=== PATIENT | female | born 1960 | race Caucasian/White ===

== ENCOUNTER 2017-03-27 02:35 | Emergency (ER) | payer OTHER ==
[2017-03-27 02:41] VITALS: BP 191/122
[2017-03-27] MEDS ORDERED: Ketorolac 30 MG/ML SDV IM ONE (02:51)
[2017-03-27] MEDS ORDERED: Diazepam 5 MG Tab PO ONE (02:51)
[2017-03-27] MEDS ORDERED: HYDROmorphone 1 MG/ML Syringe IM ONE (02:51)
--- NOTE | 2017-03-27 02:57 | EDM.PDOC ---
[id number]: BACK PAIN Time Seen by Provider: 03/27/17 02:45 Source of Information: Reports: Patient History Limitations: Reports: No Limitations - History of Present Illness INITIAL COMMENTS - FREE TEXT/NARRATIVE: 56 y/o F with back pain. States she gets back spasms occasionally. It happens about once a year. Tonight a few hours ago she started to get severe spasms in her mid-back area. No provoking factor. No injury. No recent heavy lifting. She has severe pain in mid back,no exacerbating or relieving factors. No fever/ recent illness. No numbness/weakness/urinary symptoms. Left Lower Back Pain Score (Numeric/FACES): 10 - Related Data Allergies Allergy/AdvReac Type Severity Reaction Status Date / Time Penicillins Allergy Rash Verified 03/27/17 02:39 Home Meds: Home Meds Aspirin 325 mg PO DAILY 05/05/14 [History] Acetaminophen/HYDROcodone [Eunice 325-5 MG] 1 tab PO Q6H PRN #15 tablet 03/27/17 [Rx] Cyclobenzaprine HCl 10 mg PO BID PRN #20 tablet 03/27/17 [Rx] Ibuprofen 600 mg PO QID PRN #40 tablet 03/27/17 [Rx] Past Medical History HEENT History: Reports: Impaired Vision Other HEENT History: wears glasses Cardiovascular History: Reports: High Cholesterol, Hypertension, [place], 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: - Past Surgical History Female Surgical History: Reports: Section Other Musculoskeletal Surgeries/Procedures:: back surgery [address] Ramírez in [place] Social & Family History - Tobacco Use Smoking Status *Q: Current Every Day Smoker Years of Tobacco use: 40 Packs/Tins Daily: 1 - Alcohol Use Days Per Week of Alcohol Use: 0 Number of Drinks Per Day: 0 Total Drinks Per Week: 0 - Recreational Drug Use Recreational Drug Use: No Drug Use in Last 12 Months: No ED ROS GENERAL - Review of Systems Review Of Systems: See Below Constitutional: Denies: Fever Respiratory: Denies: Cough Cardiovascular: Denies: Chest Pain GI/Abdominal: Denies: Abdominal Pain Musculoskeletal: Reports: Back Pain Neurological: Denies: Numbness ED EXAM, UPPER BACK/NECK PAIN - Physical Exam Exam: See Below Exam Limited By: No Limitations General Appearance: Alert, WD/WN, Moderate Distress Eye Exam: Bilateral Eye: Normal Inspection Ears Exam: Normal External Exam Nose Exam: Normal Inspection Throat/Mouth Exam: Normal Inspection, Normal Voice, No Airway Compromise Head Exam: Atraumatic, Normocephalic Neck Exam: Non-Tender, Full Range of Motion, Normal Alignment, Normal Inspection Cardiovascular/Respiratory: No Respiratory Distress Back Exam: Normal Inspection, Vertebral Tenderness, Other (low T spine/upper L spine). No: CVA Tenderness (L), CVA Tenderness (R) Extremities: Normal Inspection Neurologic: No Motor/Sensory Deficits, Normal Mood/Affect, Oriented x 3 Psychiatric: Normal Affect, Normal Mood Skin Exam: Normal Color, Warm/Dry Course - Vital Signs Last Recorded V/S: Last Vital Signs Temp 36.0 C 03/27/17 02:39 Pulse 114 H 03/27/17 02:39 Resp 18 03/27/17 02:39 BP 191/122 H 03/27/17 02:39 Pulse Ox 96 03/27/17 02:39 - Orders/Labs/Meds Meds: Medications Discontinued Medications Generic Name Dose Route Start Last Admin Trade Name Kamlesh PRN Reason Stop Dose Admin Diazepam 5 mg 03/27/17 02:51 03/27/17 02:57 Valium. PO 03/27/17 02:52 5 mg ONETIME ONE Administration Hydromorphone HCl 1 mg 03/27/17 02:51 03/27/17 02:58 Dilaudid IM 03/27/17 02:52 1 mg ONETIME ONE Administration Ketorolac Tromethamine 30 mg 03/27/17 02:51 03/27/17 03:01 Toradol IM 03/27/17 02:52 30 mg ONETIME ONE Administration Oxycodone/Acetaminophen 1 tab 03/27/17 03:24 03/27/17 03:35 Percocet 325-5 Mg PO 1 tab ONETIME PRN Administration Pain - Re-Assessments/Exams Free Text/Narrative Re-Assessment/Exam: 03/27/17 07:09 better after meds, discussed need for f/u and return precautiosn Departure - Departure Time of Disposition: 04:00 Disposition: Home, Self-Care 01 Clinical Impression: Back pain Qualifiers: Back pain location: thoracic back pain Chronicity: acute Back pain laterality: midline Qualified Code(s): M54.6 - Pain in thoracic spine - Discharge Information Prescriptions: Acetaminophen/HYDROcodone [Eunice 325-5 MG] 1 tab PO Q6H PRN #15 tablet PRN Reason: Pain Cyclobenzaprine HCl 10 mg PO BID PRN #20 tablet PRN Reason: Muscle Spasm Ibuprofen 600 mg PO QID PRN #40 tablet PRN Reason: Pain Instructions: Back Pain, Adult, [id number] Referrals: Ruby Casey DO [Primary Care Provider] - Forms: ED Department Discharge, ED Return to Work/School Form Additional Instructions: 1. Take ibuprofen for pain. Take norco for severe pain. Take cyclobenzaprine for muscle spasms. 2. No driving or working while taking norco or cyclobenzaprine - these medications may cause drowsiness or dizziness. 3. Follow up with your primary care doctor as soon as possible for further care.
[2017-03-27] MEDS ORDERED: Acetaminophen/oxyCODONE 325-5 MG Tab PO PRN (03:24)
== END 2017-03-27 04:15 | disposition home or self-care (01) ==
LOC: JD.ED 02:35
DX: M54.6 Pain in thoracic spine (principal); E78.00 Pure hypercholesterolemia, unspecified; I10 Essential (primary) hypertension; I25.2 Old myocardial infarction; F17.210 Nicotine dependence, cigarettes, uncomplicated; Z88.0 Allergy status to penicillin; Z79.82 Long term (current) use of aspirin
CPT/HCPCS: 96372; 96374; 99283; A9270; J1170; J1885

== ENCOUNTER 2020-08-09 20:25 | Emergency (ER) | payer OTHER ==
[2020-08-09 20:32] VITALS: BP 88/38; PULSE 59
[2020-08-09] MEDS ORDERED: Sodium Chloride 0.9% 1,000 ML ONE (20:36)
--- NOTE | 2020-08-09 20:40 | EDM.PDOC ---
ED HPI GENERAL MEDICAL PROBLEM - General Chief Complaint: Respiratory Problem Stated Complaint: [facility] Time Seen by Provider: 08/09/20 20:36 Source of Information: Reports: Patient, EMS, RN Notes Reviewed - History of Present Illness INITIAL COMMENTS - FREE TEXT/NARRATIVE: 60 yr old female that comes in by EMS with sx of dyspnea worsening over the past 2 days. She has been coughing. No known fever or chills. She denies hx of asthma or COPD but does smoke. No current chest or abd pain. 23:45. Daughter give further hx. She was extremely short of breath this past Monday, 2 1/2 days ago. EMS called out to scene, gave her 1 or 2 neb treatments, with that she was able to breath better, refused transport. Her daughter states she is a "heavy smoker". Hx of NV about 8 yrs ago. - Related Data Allergies Allergy/AdvReac Type Severity Reaction Status Date / Time Penicillins Allergy Rash Verified 08/09/20 20:32 Home Meds: Home Meds Aspirin 325 mg PO DAILY 05/05/14 [History] Acetaminophen/HYDROcodone [[place] 325-5 MG] 1 tab PO Q6H PRN #15 tablet 03/27/17 [Rx] Cyclobenzaprine HCl 10 mg PO BID PRN #20 tablet 03/27/17 [Rx] Ibuprofen 600 mg PO QID PRN #40 tablet 03/27/17 [Rx] Furosemide [Lasix] 20 mg PO DAILY #30 tab 08/10/20 [Rx] predniSONE [Prednisone] 50 mg PO DAILY #5 tablet 08/10/20 [Rx] Past Medical History HEENT History: Reports: Impaired Vision Other HEENT History: wears glasses Cardiovascular History: Reports: High Cholesterol, Hypertension, [place], Stents 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: - Past Surgical History Female Surgical History: Reports: Section Other Musculoskeletal Surgeries/Procedures:: back surgery [address] Ramírez in [place] Social & Family History - Tobacco Use Tobacco Use Status *Q: Unknown Ever Used Tobacco Second Hand Smoke Exposure: No - Caffeine Use Caffeine Use: Reports: None - Recreational Drug Use Recreational Drug Use: No ED ROS GENERAL - Review of Systems Review Of Systems: See Below Constitutional: Denies: Fever, Chills, Diaphoresis HEENT: Reports: No Symptoms Respiratory: Reports: Shortness of Breath, Wheezing, Cough ED EXAM, GENERAL - Physical Exam Exam: See Below General Appearance: Other (very short of breath on arrival to ED) Eye Exam: Bilateral Eye: PERRL Throat/Mouth: Normal Inspection Head: Atraumatic Neck: Supple, Other (No JVD) Respiratory/Chest: Respiratory Distress, Wheezing (moderate bilat), Accessory Muscle Use. No: Rhonchi Cardiovascular: Regular Rate, Rhythm GI/Abdominal: Soft, Non-Tender Extremities: Non-Tender, Pedal Edema (Mild, L greater than R). No: Leg Pain, Increased Warmth, Redness Neurological: Alert, Oriented, No Motor/Sensory Deficits Skin Exam: Warm, Dry, Normal Color #1 Interpretation EKG Date: 08/10/20 Rhythm: NSR [place]: Normal P-Wave: Present QRS: Normal ST-T: Depressed (minimal st depression inferior, ant. and lateral leads) Course - Vital Signs Last Recorded V/S: Last Vital Signs Temp 97.5 F 08/09/20 20:29 Pulse 59 L 08/09/20 20:29 Resp 20 08/09/20 20:29 BP 88/38 L 08/09/20 20:29 Pulse Ox 93 L 08/09/20 22:59 - Orders/Labs/Meds Labs: Laboratory Tests 08/09/20 08/09/20 08/09/20 Range/Units 21:05 21:05 21:05 WBC 8.61 (3.98-10.04) K/mm3 RBC 2.23 L (3.98-5.22) M/mm3 Hgb 8.7 L (11.2-15.7) gm/dl Hct 27.3 L (34.1-44.9) % MCV 122.4 H (79.4-94.8) fl MCH 39.0 H (25.6-32.2) pg MCHC 31.9 L (32.2-35.5) g/dl RDW Std Deviation 71.8 H (36.4-46.3) fL Plt Count 127 L (182-369) K/mm3 MPV 11.5 (9.4-12.3) fl Neut % (Auto) 61.9 (34.0-71.1) % Lymph % (Auto) 24.3 (19.3-51.7) % [place] % (Auto) 9.8 (4.7-12.5) % Eos % (Auto) 2.6 (0.7-5.8) Baso % (Auto) 1.2 (0.1-1.2) % Neut # (Auto) 5.34 (1.56-6.13) K/mm3 Lymph # (Auto) 2.09 (1.18-3.74) K/mm3 [place] # (Auto) 0.84 H (0.24-0.36) K/mm3 Eos # (Auto) 0.22 (0.04-0.36) K/mm3 Baso # (Auto) 0.10 H (0.01-0.08) K/mm3 Manual Slide Review Abnormal smear D-Dimer, Quantitative (0.19-0.50) mg/L Puncture Site ABG pH (7.35-7.45) ABG pCO2 (35.0-45.0) mmHg ABG pO2 (80.0-100.0) mmHg ABG HCO3 (22.0-26.0) meq/L ABG O2 Saturation (96.0-97.0) % ABG Base Excess (-2-2.0) Dario Test A-a Gradient mmHg O2 Delivery Device Oxygen Flow Rate FiO2 (21.00-100.00) % Sodium 131 L (136-145) mEq/L Potassium 2.9 L (3.5-5.1) mEq/L Chloride 93 L (98-107) mEq/L Carbon Dioxide 28 (21-32) mEq/L Anion Gap 12.9 (5-15) BUN 12 (7-18) mg/dL Creatinine 1.4 H (0.55-1.02) mg/dL Est Cr Clr Drug Dosing 34.91 mL/min Estimated GFR (MDRD) 38 (>60) mL/min BUN/Creatinine Ratio 8.6 L (14-18) Glucose 103 (80-115) mg/dL Calcium 8.8 (8.5-10.1) mg/dL Ferritin (8-252) ng/ml Total Bilirubin 1.4 H (0.2-1.0) mg/dL AST 143 H (15-37) U/L ALT 26 (14-59) U/L Alkaline Phosphatase 207 H (46-116) U/L Lactate Dehydrogenase 234 (81-234) U/L Troponin I (0.00-0.056) ng/mL C-Reactive Protein 5.2 H* (<1.0) mg/dL NT-Pro-B Natriuret Pep (0-125) pg/mL Total Protein 7.6 (6.4-8.2) g/dl Albumin 2.9 L (3.4-5.0) g/dl Globulin 4.7 gm/dL Albumin/Globulin Ratio 0.6 L (1-2) SARS-CoV-2 RNA (DEXTER) (NEGATIVE) 08/09/20 08/09/20 08/09/20 Range/Units 21:05 21:05 21:05 WBC (3.98-10.04) K/mm3 RBC (3.98-5.22) M/mm3 Hgb (11.2-15.7) gm/dl Hct (34.1-44.9) % MCV (79.4-94.8) fl MCH (25.6-32.2) pg MCHC (32.2-35.5) g/dl RDW Std Deviation (36.4-46.3) fL Plt Count (182-369) K/mm3 MPV (9.4-12.3) fl Neut % (Auto) (34.0-71.1) % Lymph % (Auto) (19.3-51.7) % [place] % (Auto) (4.7-12.5) % Eos % (Auto) (0.7-5.8) Baso % (Auto) (0.1-1.2) % Neut # (Auto) (1.56-6.13) K/mm3 Lymph # (Auto) (1.18-3.74) K/mm3 [place] # (Auto) (0.24-0.36) K/mm3 Eos # (Auto) (0.04-0.36) K/mm3 Baso # (Auto) (0.01-0.08) K/mm3 Manual Slide Review D-Dimer, Quantitative 1.06 H (0.19-0.50) mg/L Puncture Site ABG pH (7.35-7.45) ABG pCO2 (35.0-45.0) mmHg ABG pO2 (80.0-100.0) mmHg ABG HCO3 (22.0-26.0) meq/L ABG O2 Saturation (96.0-97.0) % ABG Base Excess (-2-2.0) Dario Test A-a Gradient mmHg O2 Delivery Device Oxygen Flow Rate FiO2 (21.00-100.00) % Sodium (136-145) mEq/L Potassium (3.5-5.1) mEq/L Chloride (98-107) mEq/L Carbon Dioxide (21-32) mEq/L Anion Gap (5-15) BUN (7-18) mg/dL Creatinine (0.55-1.02) mg/dL Est Cr Clr Drug Dosing mL/min Estimated GFR (MDRD) (>60) mL/min BUN/Creatinine Ratio (14-18) Glucose (80-115) mg/dL Calcium (8.5-10.1) mg/dL Ferritin 842 H (8-252) ng/ml Total Bilirubin (0.2-1.0) mg/dL AST (15-37) U/L ALT (14-59) U/L Alkaline Phosphatase (46-116) U/L Lactate Dehydrogenase (81-234) U/L Troponin I (0.00-0.056) ng/mL C-Reactive Protein (<1.0) mg/dL NT-Pro-B Natriuret Pep 794 H (0-125) pg/mL Total Protein (6.4-8.2) g/dl Albumin (3.4-5.0) g/dl Globulin gm/dL Albumin/Globulin Ratio (1-2) SARS-CoV-2 RNA (DEXTER) (NEGATIVE) 08/09/20 08/09/20 08/09/20 Range/Units 21:05 21:18 23:39 WBC (3.98-10.04) K/mm3 RBC (3.98-5.22) M/mm3 Hgb (11.2-15.7) gm/dl Hct (34.1-44.9) % MCV (79.4-94.8) fl MCH (25.6-32.2) pg MCHC (32.2-35.5) g/dl RDW Std Deviation (36.4-46.3) fL Plt Count (182-369) K/mm3 MPV (9.4-12.3) fl Neut % (Auto) (34.0-71.1) % Lymph % (Auto) (19.3-51.7) % [place] % (Auto) (4.7-12.5) % Eos % (Auto) (0.7-5.8) Baso % (Auto) (0.1-1.2) % Neut # (Auto) (1.56-6.13) K/mm3 Lymph # (Auto) (1.18-3.74) K/mm3 [place] # (Auto) (0.24-0.36) K/mm3 Eos # (Auto) (0.04-0.36) K/mm3 Baso # (Auto) (0.01-0.08) K/mm3 Manual Slide Review D-Dimer, Quantitative (0.19-0.50) mg/L Puncture Site Lt radial ABG pH 7.37 (7.35-7.45) ABG pCO2 45.6 H (35.0-45.0) mmHg ABG pO2 48.0 L (80.0-100.0) mmHg ABG HCO3 25.8 (22.0-26.0) meq/L ABG O2 Saturation 71.4 L (96.0-97.0) % ABG Base Excess 1.0 (-2-2.0) Dario Test Positive A-a Gradient 45 mmHg O2 Delivery Device Room air Oxygen Flow Rate 0.0 FiO2 21.00 (21.00-100.00) % Sodium (136-145) mEq/L Potassium (3.5-5.1) mEq/L Chloride (98-107) mEq/L Carbon Dioxide (21-32) mEq/L Anion Gap (5-15) BUN (7-18) mg/dL Creatinine (0.55-1.02) mg/dL Est Cr Clr Drug Dosing mL/min Estimated GFR (MDRD) (>60) mL/min BUN/Creatinine Ratio (14-18) Glucose (80-115) mg/dL Calcium (8.5-10.1) mg/dL Ferritin (8-252) ng/ml Total Bilirubin (0.2-1.0) mg/dL AST (15-37) U/L ALT (14-59) U/L Alkaline Phosphatase (46-116) U/L Lactate Dehydrogenase (81-234) U/L Troponin I 0.067 H* (0.00-0.056) ng/mL C-Reactive Protein (<1.0) mg/dL NT-Pro-B Natriuret Pep (0-125) pg/mL Total Protein (6.4-8.2) g/dl Albumin (3.4-5.0) g/dl Globulin gm/dL Albumin/Globulin Ratio (1-2) SARS-CoV-2 RNA (DEXTER) Negative (NEGATIVE) 08/10/20 08/10/20 Range/Units 00:50 05:40 WBC (3.98-10.04) K/mm3 RBC (3.98-5.22) M/mm3 Hgb (11.2-15.7) gm/dl Hct (34.1-44.9) % MCV (79.4-94.8) fl MCH (25.6-32.2) pg MCHC (32.2-35.5) g/dl RDW Std Deviation (36.4-46.3) fL Plt Count (182-369) K/mm3 MPV (9.4-12.3) fl Neut % (Auto) (34.0-71.1) % Lymph % (Auto) (19.3-51.7) % [place] % (Auto) (4.7-12.5) % Eos % (Auto) (0.7-5.8) Baso % (Auto) (0.1-1.2) % Neut # (Auto) (1.56-6.13) K/mm3 Lymph # (Auto) (1.18-3.74) K/mm3 [place] # (Auto) (0.24-0.36) K/mm3 Eos # (Auto) (0.04-0.36) K/mm3 Baso # (Auto) (0.01-0.08) K/mm3 Manual Slide Review D-Dimer, Quantitative (0.19-0.50) mg/L Puncture Site ABG pH (7.35-7.45) ABG pCO2 (35.0-45.0) mmHg ABG pO2 (80.0-100.0) mmHg ABG HCO3 (22.0-26.0) meq/L ABG O2 Saturation (96.0-97.0) % ABG Base Excess (-2-2.0) Dario Test A-a Gradient mmHg O2 Delivery Device Oxygen Flow Rate FiO2 (21.00-100.00) % Sodium (136-145) mEq/L Potassium (3.5-5.1) mEq/L Chloride (98-107) mEq/L Carbon Dioxide (21-32) mEq/L Anion Gap (5-15) BUN (7-18) mg/dL Creatinine (0.55-1.02) mg/dL Est Cr Clr Drug Dosing mL/min Estimated GFR (MDRD) (>60) mL/min BUN/Creatinine Ratio (14-18) Glucose (80-115) mg/dL Calcium (8.5-10.1) mg/dL Ferritin (8-252) ng/ml Total Bilirubin (0.2-1.0) mg/dL AST (15-37) U/L ALT (14-59) U/L Alkaline Phosphatase (46-116) U/L Lactate Dehydrogenase (81-234) U/L Troponin I 0.053 0.032 (0.00-0.056) ng/mL C-Reactive Protein (<1.0) mg/dL NT-Pro-B Natriuret Pep (0-125) pg/mL Total Protein (6.4-8.2) g/dl Albumin (3.4-5.0) g/dl Globulin gm/dL Albumin/Globulin Ratio (1-2) SARS-CoV-2 RNA (DEXTER) (NEGATIVE) Meds: Medications Discontinued Medications Generic Name Dose Route Start Last Admin Trade Name Freq PRN Reason Stop Dose Admin Albuterol 2.5 mg 08/09/20 20:54 08/09/20 21:01 Proventil Neb Soln NEB 08/09/20 20:55 2.5 mg ONETIME ONE Administration Albuterol 2.5 mg 08/10/20 05:27 08/10/20 05:32 Proventil Neb Soln NEB 08/10/20 05:28 2.5 mg ONETIME ONE Administration Albuterol/Ipratropium 3 ml 08/09/20 22:22 08/09/20 22:58 Duoneb 3.0-0.5 Mg/3 Ml NEB 08/09/20 22:23 3 ml ONETIME ONE Administration Albuterol/Ipratropium 3 ml 08/10/20 06:37 08/10/20 06:45 Duoneb 3.0-0.5 Mg/3 Ml NEB 08/10/20 06:38 3 ml ONETIME ONE Administration Furosemide 40 mg 08/10/20 00:30 08/10/20 00:48 Lasix IVPUSH 08/10/20 00:31 40 mg NOW ONE Administration Furosemide 20 mg 08/10/20 06:37 08/10/20 06:44 Lasix IVPUSH 08/10/20 06:38 20 mg NOW ONE Administration Sodium Chloride Confirm 08/09/20 20:36 08/09/20 21:11 Normal Saline Administered 08/09/20 20:37 Not Given Dose 1,000 mls @ as directed .ROUTE .STK-MED ONE Sodium Chloride 1,000 mls @ 999 mls/hr 08/09/20 21:10 08/09/20 21:11 Normal Saline IV 08/09/20 22:10 999 mls/hr .BOLUS ONE Administration Potassium Chloride 10 meq/ 100 mls @ 50 mls/hr 08/09/20 22:04 08/09/20 22:11 Premix IV 08/10/20 00:03 50 mls/hr ASDIRECTED ONE Administration Sodium Chloride 100 mls @ 60 mls/hr 08/09/20 23:15 08/09/20 23:04 Normal Saline IV 60 mls/hr ASDIRECTED FROY Administration Potassium Chloride 10 meq/ 100 mls @ 50 mls/hr 08/09/20 23:15 08/10/20 00:48 Premix IV 08/10/20 01:14 50 mls/hr ASDIRECTED ONE Administration Sodium Chloride 1,000 mls @ 150 mls/hr 08/09/20 23:30 08/10/20 00:49 Normal Saline IV 150 mls/hr ASDIRECTED FROY Administration Potassium Chloride 10 meq/ 100 mls @ 50 mls/hr 08/10/20 01:52 08/10/20 04:19 Premix IV 08/10/20 03:51 50 mls/hr ASDIRECTED ONE Administration Iopamidol 50 ml 08/09/20 23:03 08/09/20 23:04 Isovue-370 (76%) IVPUSH 08/09/20 23:04 50 ml ONETIME ONE Administration Methylprednisolone Sodium Succinate 125 mg 08/09/20 20:56 08/09/20 21:09 Solu-Medrol IVPUSH 08/09/20 20:57 125 mg ONETIME ONE Administration Prednisone 40 mg 08/10/20 06:37 08/10/20 06:44 Prednisone PO 08/10/20 06:38 40 mg ONETIME ONE Administration - Re-Assessments/Exams Free Text/Narrative Re-Assessment/Exam: 08/09/20. 11:45. K+ came back very low at 2.9, CXR showed cardiomegally, mild pul jonel., no obvious infiltrate, 02 sats 87 to 88 on arrival, gave an albuterol neb, solumedrol IV, followed by a duoneb. D Dimer 1.1. Did a CT angio of chest which shows fibrotic changes, no PE, emphysematous changes, scattered ground glass opacity changes, covid screen did come back neg. Trop elevated at .067. Her wheezing cleared after the neb treatments. However her oxygen sats dropped into the 70's when we turned her O2 off, hypoxia confirmed with ABG's, PO2 only 46 on room air. Pt refuses hospital admission. Will check a repeat trop. Have also ordered lasix 40 mg IV. 13:00. repeat trop is improved at .053. Sleeping, moving air comfortably, sats 96 % 3 L NC. Pt is still refusing hospital admission. Will repeat trop at 6 AM. If stable or improving will consider home discharge with home oxygen. Low hgb of 8.7 noted. Went in to do rectal, she refused. Denies recent black or tarry stools, denies gross rectal blood. 08/10/20 06:39 repeat trop continues to improve at .032. No chest pain. Breathing comfortably at 2 L NC but sats drop into 70's and low 80's when off oxygen. P02 46 room air as noted above with ABG's. She once again has been offered hospital admission, she once again refuses stating strongly that she "needs to go home". Have made plans to have Debora Abdullahi set her up with home 02, will have her nurse call them at 7:00. Will start her on lasix 20 mg q AM for now, prednisone 50 mg q AM for 3 days and than 25 mg Q AM for 2 days. Departure - Departure Time of Disposition: 07:00 Disposition: Home, Self-Care Condition: Fair Clinical Impression: Hypoxia COPD (chronic obstructive pulmonary disease) Qualifiers: COPD type: unspecified COPD Qualified Code(s): J44.9 - Chronic obstructive pulmonary disease, unspecified CHF (congestive heart failure) Qualifiers: Heart failure type: combined systolic and diastolic - Discharge Information Prescriptions: Furosemide [Lasix] 20 mg PO DAILY #30 tab predniSONE [Prednisone] 50 mg PO DAILY #5 tablet Instructions: Chronic Obstructive Pulmonary Disease Exacerbation, [id number], Hypoxia Referrals: Ruby Casey DO [Primary Care Provider] - Forms: ED Department Discharge Additional Instructions: You have been offered Hospital admission but have chosen to go home on oxygen. Prednisone 50 mg q AM for the next 4 days and than prednisone 25 mg q AM for 2 days. Lasix 20 mg q AM. Prescriptions have been sent to [facility] at the [facility] [place]. Try hard to stop or at least to reduce your smoking. See Dr Hubbard at the [facility] tomorrow or for recheck. Home oxygen at 2 L NC. Return to ED if your breathing gets difficulty again or if symptoms otherwise worsening in any way. Sepsis Event Note (ED) - Evaluation Sepsis Screening Result: No Definite Risk
[2020-08-09] MEDS ORDERED: Albuterol 0.083% 2.5 MG/3 ML Neb Soln NEB ONE (20:54)
[2020-08-09] MEDS ORDERED: methylPREDNISolone Sodium Succinate 125 MG/2 ML SDV IVPUSH ONE (20:56)
[2020-08-09] MEDS ORDERED: Sodium Chloride 0.9% 1,000 ML IV ONE (21:10)
[2020-08-09] MEDS ORDERED: Potassium Chloride 10 MEQ in Premix Bag 1 BAG IV ONE ×2 (22:04→23:15)
[2020-08-09] MEDS ORDERED: Albuterol/Ipratropium 3.0-0.5 MG/3 ML Neb Soln NEB ONE (22:22)
[2020-08-09] MEDS ORDERED: Iopamidol 755 MG/ML 50 ML Bottle IVPUSH ONE (23:03)
[2020-08-09] MEDS ORDERED: Sodium Chloride 0.9% 100 ML IV SCH (23:15)
[2020-08-09] MEDS ORDERED: Sodium Chloride 0.9% 1,000 ML IV SCH (23:30)
[2020-08-10] MEDS ORDERED: Furosemide 40 MG/4 ML VIAL IVPUSH ONE ×2 (00:30→06:37)
[2020-08-10] MEDS ORDERED: Potassium Chloride 10 MEQ in Premix Bag 1 BAG IV ONE (01:52)
[2020-08-10] MEDS ORDERED: Albuterol 0.083% 2.5 MG/3 ML Neb Soln NEB ONE (05:27)
[2020-08-10] MEDS ORDERED: predniSONE 20 MG Tab PO ONE (06:37)
[2020-08-10] MEDS ORDERED: Albuterol/Ipratropium 3.0-0.5 MG/3 ML Neb Soln NEB ONE (06:37)
--- NOTE | 2020-08-10 10:20 | CR ---
Chest: Portable view of the chest was obtained. Comparison: Prior chest x-ray of 02/15/20. Heart size is slightly prominent. Upper mediastinum is within normal limits. Mild areas of patchy density are seen within the right lung base as well as left lung base. Lungs otherwise are clear. Bony structures are grossly intact. Impression: 1. Patchy areas of increased density within both lung bases. 2. Heart size at the upper limits of normal. 3. Nothing acute is otherwise seen. Diagnostic code #3
--- NOTE | 2020-08-10 13:47 | CT ---
CT chest Technique: Multiple axial sections through the chest were obtained. Intravenous contrast was utilized. Study performed as a pulmonary angiogram protocol. Findings: There are nodular densities being seen within the upper abdomen medial to the spleen most likely representing varices. Heart size slightly enlarged. No pleural effusions are seen. Coronary artery calcification is partially visualized. Thoracic aorta shows atherosclerotic change without aneurysm. Aberrant right subclavian artery is noted. No mediastinal adenopathy is appreciated. Pulmonary arteries are well opacified and show no filling defects of pulmonary embolism. Patchy areas of increased density are seen within both upper lungs. Patchy area of increased density are noted within the right lung base. Left lung base is felt to be fairly clear. Slight areas of atelectasis is seen within the right middle lobe. Emphysematous changes also present. Bone window settings were reviewed which shows mild degenerative change within the spine. There is an old left-sided rib fracture which appears healed. Impression: 1. Patchy areas of increased density on both sides of the chest which raises the possibility of pneumonia. Please rule out COVID. 2. Heart size is slightly enlarged. 3. Portal varices raising the possibility of portal hypertension. 4. No findings of pulmonary embolism. Diagnostic code #3 I agree with preliminary report from 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
== END 2020-08-10 10:00 | disposition home or self-care (01) ==
LOC: JD.ED 20:25
DX: J44.9 Chronic obstructive pulmonary disease, unspecified (principal); I11.0 Hypertensive heart disease with heart failure; I50.40 Unspecified combined systolic (congestive) and diastolic (congestive) heart failure; R09.02 Hypoxemia; E78.00 Pure hypercholesterolemia, unspecified; I25.2 Old myocardial infarction; F17.200 Nicotine dependence, unspecified, uncomplicated; Z88.0 Allergy status to penicillin; Z79.82 Long term (current) use of aspirin; Z79.899 Other long term (current) drug therapy; Z20.828 Contact with and (suspected) exposure to other viral communicable diseases
CPT/HCPCS: 36415; 36600; 71045; 71275; 80053; 82728; 82803; 83615; 83880; 84484; 85025; 85379; 86140; 87635; 93005; 94640; 96365; 96366; 96375; 96376; 99285; J1940; J2930; J3480; J7030; J7512; Q9967; 93010; 99284; J7620-GY; U0002

== ENCOUNTER 2020-08-11 14:16 | Inpatient (IN) | payer OTHER ==
[2020-08-11] MEDS ORDERED: Sodium Chloride 0.9% 1,000 ML IV ONE (15:06)
[2020-08-11] MEDS ORDERED: LORazepam 2 MG/ML SDV IVPUSH ONE (15:07)
--- NOTE | 2020-08-11 15:12 | EDM.PDOC ---
ED HPI GENERAL MEDICAL PROBLEM - General Chief Complaint: Respiratory Problem Stated Complaint: SOB Time Seen by Provider: 08/11/20 14:51 Source of Information: Reports: Patient, RN Notes Reviewed History Limitations: Reports: No Limitations - History of Present Illness INITIAL COMMENTS - FREE TEXT/NARRATIVE: Patient is a 60-year-old female who presents to the ED for the evaluation of her ongoing shortness of breath. Patient was evaluated here on 08/09/2020, was found to be hypoxic, diagnosed with COPD and CHF, and sent home with home oxygen as she refused hospital admission at that time. She notes that since then she has had worsening symptoms, her shortness of breath seems to have gotten worse, she has generalized shakiness, she notes that she has been incontinent of her stool, and notes some slight swelling to her legs. Patient is concerned for herself and she states "she does not want to ". Patient has low blood pressure at time of triage at 81/39. Patient presents with 2 L of oxygen via nasal cannula and she was found to be 100% with that. She is afebrile at 98.3 F, pulse is 99 bpm, respiratory rate is 28 breaths/min. - Related Data Allergies Allergy/AdvReac Type Severity Reaction Status Date / Time Penicillins Allergy Rash Verified 08/09/20 20:32 Home Meds: Home Meds Aspirin 325 mg PO DAILY 05/05/14 [History] Acetaminophen/HYDROcodone [[place] 325-5 MG] 1 tab PO Q6H PRN #15 tablet 03/27/17 [Rx] Cyclobenzaprine HCl 10 mg PO BID PRN #20 tablet 03/27/17 [Rx] Ibuprofen 600 mg PO QID PRN #40 tablet 03/27/17 [Rx] Furosemide [Lasix] 20 mg PO DAILY #30 tab 08/10/20 [Rx] predniSONE [Prednisone] 50 mg PO DAILY #5 tablet 08/10/20 [Rx] Past Medical History HEENT History: Reports: Impaired Vision Other HEENT History: wears glasses Cardiovascular History: Reports: Heart Failure, High Cholesterol, Hypertension, DC, Stents Respiratory History: Reports: COPD 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 ED EXAM, GENERAL - Physical Exam Exam: See Below Exam Limited By: No Limitations General Appearance: Alert, WD/WN, No Apparent Distress, Anxious (pt has baseline mild anxiety; generalized shakiness-she states this is d/t her anxiety) Respiratory/Chest: No Respiratory Distress, No Accessory Muscle Use, Chest Non- Tender, Decreased Breath Sounds (bilaterally), Rhonchi (bilateral) Cardiovascular: Normal Peripheral Pulses, Regular Rate, Rhythm Rectal (Female) Exam: Normal Exam, Normal Rectal Tone, Heme + Stool. No: Black Stool, Bloody Stool, Tenderness Extremities: Normal Inspection, Normal Capillary Refill Neurological: Alert, Oriented, Normal Cognition, No Motor/Sensory Deficits Psychiatric: Anxious (generalized) Skin Exam: Warm, Dry, No Rash, Pallor (generalized) #1 Interpretation EKG Date: 08/11/20 Time: 16:18 Rhythm: NSR Rate (Beats/Min): 92 [place]: Normal P-Wave: Present QRS: Normal ST-T: Normal QT: Prolonged (547) Comparison: NA - No Prior EKG EKG Interpretation Comments: EKG reviewed by myself and Dr. Pacheco, he does appreciate ST depression in V4 through 6 patient did have a history of an DC. Course - Vital Signs Last Recorded V/S: Last Vital Signs Temp 98.3 F 08/11/20 14:49 Pulse 99 08/11/20 14:49 Resp 28 H 08/11/20 14:49 BP Pulse Ox 1 L 08/11/20 14:49 - Orders/Labs/Meds Orders: Active Orders 24 hr Category Date Time Status Admission Status [Patient Status] [ADT] Routine ADT 08/11/20 17:42 Active EKG Documentation Completion [RC] STAT Care 08/11/20 16:08 Active Notify Provider Consults [RC] ASDIRECTED Care 08/11/20 15:55 Active Orthostatic Vital Signs [RC] ASDIRECTED Care 08/11/20 14:58 Active Peripheral IV Care [RC] . DIRECTED Care 08/11/20 14:58 Active Consult to Physician [CONS] Stat Cons 08/11/20 15:54 Active COVID-19/FLU A+B [MOLEC] Stat Lab 08/11/20 15:00 Ordered CULTURE BLOOD [BC] Stat Lab 08/11/20 15:23 Received CULTURE BLOOD [BC] Stat Lab 08/11/20 15:40 Received RED BLOOD CELLS LP [BBK] Stat Lab 08/11/20 15:05 Results REFLEX LACTIC ACID YES OR NO [CHEM] Routine Lab 08/11/20 16:14 Received TROPONIN I [CHEM] Timed Lab 08/11/20 18:00 Ordered TYPE AND SCREEN [BBK] Stat Lab 08/11/20 15:05 Results Pantoprazole [ProTONIX IV] 80 mg Med 08/11/20 17:45 Active Sodium Chloride 0.9% [Normal Saline] 100 ml IV Q10H Sodium Chloride 0.9% [Normal Saline] 1,000 ml Med 08/11/20 15:06 Active IV ONETIME Sodium Chloride 0.9% [Saline Flush] Med 08/11/20 14:57 Active 10 ml FLUSH ASDIRECTED PRN Blood Culture x2 Reflex Set [OM.PC] Stat Oth 08/11/20 15:00 Ordered Peripheral IV Insertion Adult [OM.PC] Routine Oth 08/11/20 14:57 Ordered Transfuse PRBC [Transfuse Red Blood Cells] [COMM] Oth 08/11/20 15:38 Ordered Routine Medication Orders Sodium Chloride (Normal Saline) 1,000 mls @ 250 mls/hr IV ONETIME ONE Stop: 08/11/20 19:05 Last Admin: 08/11/20 15:14 Dose: 250 mls/hr Documented by: HERMSERGE Pantoprazole Sodium 80 mg/ (Sodium Chloride) 100 mls @ 10 mls/hr IV Q10H FROY Sodium Chloride (Saline Flush) 10 ml FLUSH ASDIRECTED PRN PRN Reason: Keep Vein Open Last Admin: 08/11/20 16:29 Dose: 10 ml Documented by: HERMSERGE Labs: Laboratory Tests 08/11/20 08/11/20 08/11/20 Range/Units 15:05 15:05 15:05 WBC 11.26 H (3.98-10.04) K/mm3 RBC 1.56 L (3.98-5.22) M/mm3 Hgb 6.1 L* D (11.2-15.7) gm/dl Hct 20.2 L (34.1-44.9) % MCV 129.5 H D (79.4-94.8) fl MCH 39.1 H (25.6-32.2) pg MCHC 30.2 L (32.2-35.5) g/dl RDW Std Deviation 77.5 H (36.4-46.3) fL Plt Count 130 L (182-369) K/mm3 MPV 12.1 (9.4-12.3) fl Neut % (Auto) 79.5 H (34.0-71.1) % Lymph % (Auto) 12.3 L (19.3-51.7) % [place] % (Auto) 7.8 (4.7-12.5) % Eos % (Auto) 0 L (0.7-5.8) Baso % (Auto) 0.0 L (0.1-1.2) % Neut # (Auto) 8.96 H (1.56-6.13) K/mm3 Lymph # (Auto) 1.38 (1.18-3.74) K/mm3 [place] # (Auto) 0.88 H (0.24-0.36) K/mm3 Eos # (Auto) 0.00 L (0.04-0.36) K/mm3 Baso # (Auto) 0.00 L (0.01-0.08) K/mm3 Manual Slide Review Abnormal smear PT (9.7-12.0) SECONDS INR APTT (21.7-31.4) SECONDS D-Dimer, Quantitative (0.19-0.50) mg/L Sodium 136 (136-145) mEq/L Potassium 3.6 (3.5-5.1) mEq/L Chloride 97 L (98-107) mEq/L Carbon Dioxide 25 (21-32) mEq/L Anion Gap 17.6 H (5-15) BUN 28 H (7-18) mg/dL Creatinine 1.0 (0.55-1.02) mg/dL Est Cr Clr Drug Dosing TNP Estimated GFR (MDRD) 56 (>60) mL/min BUN/Creatinine Ratio 28.0 H (14-18) Glucose 131 H (80-115) mg/dL Lactic Acid (0.4-2.0) mmol/L Calcium 8.5 (8.5-10.1) mg/dL Magnesium 1.4 L (1.8-2.4) mg/dl Ferritin (8-252) ng/ml Total Bilirubin 1.5 H (0.2-1.0) mg/dL AST 110 H (15-37) U/L ALT 27 (14-59) U/L Alkaline Phosphatase 140 H (46-116) U/L Lactate Dehydrogenase 260 H (81-234) U/L Troponin I 0.067 H* (0.00-0.056) ng/mL C-Reactive Protein 1.8 H* (<1.0) mg/dL NT-Pro-B Natriuret Pep (0-125) pg/mL Total Protein 6.5 (6.4-8.2) g/dl Albumin 2.5 L (3.4-5.0) g/dl Globulin 4.0 gm/dL Albumin/Globulin Ratio 0.6 L (1-2) Blood Type Gel Antibody Screen Crossmatch 08/11/20 08/11/20 08/11/20 Range/Units 15:05 15:05 15:05 WBC (3.98-10.04) K/mm3 RBC (3.98-5.22) M/mm3 Hgb (11.2-15.7) gm/dl Hct (34.1-44.9) % MCV (79.4-94.8) fl MCH (25.6-32.2) pg MCHC (32.2-35.5) g/dl RDW Std Deviation (36.4-46.3) fL Plt Count (182-369) K/mm3 MPV (9.4-12.3) fl Neut % (Auto) (34.0-71.1) % Lymph % (Auto) (19.3-51.7) % [place] % (Auto) (4.7-12.5) % Eos % (Auto) (0.7-5.8) Baso % (Auto) (0.1-1.2) % Neut # (Auto) (1.56-6.13) K/mm3 Lymph # (Auto) (1.18-3.74) K/mm3 [place] # (Auto) (0.24-0.36) K/mm3 Eos # (Auto) (0.04-0.36) K/mm3 Baso # (Auto) (0.01-0.08) K/mm3 Manual Slide Review PT 17.6 H (9.7-12.0) SECONDS INR 1.66 APTT 26.5 (21.7-31.4) SECONDS D-Dimer, Quantitative 0.78 H (0.19-0.50) mg/L Sodium (136-145) mEq/L Potassium (3.5-5.1) mEq/L Chloride (98-107) mEq/L Carbon Dioxide (21-32) mEq/L Anion Gap (5-15) BUN (7-18) mg/dL Creatinine (0.55-1.02) mg/dL Est Cr Clr Drug Dosing Estimated GFR (MDRD) (>60) mL/min BUN/Creatinine Ratio (14-18) Glucose (80-115) mg/dL Lactic Acid (0.4-2.0) mmol/L Calcium (8.5-10.1) mg/dL Magnesium (1.8-2.4) mg/dl Ferritin 630 H (8-252) ng/ml Total Bilirubin (0.2-1.0) mg/dL AST (15-37) U/L ALT (14-59) U/L Alkaline Phosphatase (46-116) U/L Lactate Dehydrogenase (81-234) U/L Troponin I (0.00-0.056) ng/mL C-Reactive Protein (<1.0) mg/dL NT-Pro-B Natriuret Pep 911 H (0-125) pg/mL Total Protein (6.4-8.2) g/dl Albumin (3.4-5.0) g/dl Globulin gm/dL Albumin/Globulin Ratio (1-2) Blood Type Gel Antibody Screen Crossmatch 08/11/20 08/11/20 Range/Units 15:05 15:23 WBC (3.98-10.04) K/mm3 RBC (3.98-5.22) M/mm3 Hgb (11.2-15.7) gm/dl Hct (34.1-44.9) % MCV (79.4-94.8) fl MCH (25.6-32.2) pg MCHC (32.2-35.5) g/dl RDW Std Deviation (36.4-46.3) fL Plt Count (182-369) K/mm3 MPV (9.4-12.3) fl Neut % (Auto) (34.0-71.1) % Lymph % (Auto) (19.3-51.7) % [place] % (Auto) (4.7-12.5) % Eos % (Auto) (0.7-5.8) Baso % (Auto) (0.1-1.2) % Neut # (Auto) (1.56-6.13) K/mm3 Lymph # (Auto) (1.18-3.74) K/mm3 [place] # (Auto) (0.24-0.36) K/mm3 Eos # (Auto) (0.04-0.36) K/mm3 Baso # (Auto) (0.01-0.08) K/mm3 Manual Slide Review PT (9.7-12.0) SECONDS INR APTT (21.7-31.4) SECONDS D-Dimer, Quantitative (0.19-0.50) mg/L Sodium (136-145) mEq/L Potassium (3.5-5.1) mEq/L Chloride (98-107) mEq/L Carbon Dioxide (21-32) mEq/L Anion Gap (5-15) BUN (7-18) mg/dL Creatinine (0.55-1.02) mg/dL Est Cr Clr Drug Dosing Estimated GFR (MDRD) (>60) mL/min BUN/Creatinine Ratio (14-18) Glucose (80-115) mg/dL Lactic Acid 7.7 H* (0.4-2.0) mmol/L Calcium (8.5-10.1) mg/dL Magnesium (1.8-2.4) mg/dl Ferritin (8-252) ng/ml Total Bilirubin (0.2-1.0) mg/dL AST (15-37) U/L ALT (14-59) U/L Alkaline Phosphatase (46-116) U/L Lactate Dehydrogenase (81-234) U/L Troponin I (0.00-0.056) ng/mL C-Reactive Protein (<1.0) mg/dL NT-Pro-B Natriuret Pep (0-125) pg/mL Total Protein (6.4-8.2) g/dl Albumin (3.4-5.0) g/dl Globulin gm/dL Albumin/Globulin Ratio (1-2) Blood Type A POSITIVE Gel Antibody Screen Negative Crossmatch See Detail Meds: Medications Generic Name Dose Route Start Last Admin Trade Name Freamanda PRN Reason Stop Dose Admin Sodium Chloride 1,000 mls @ 250 mls/hr 08/11/20 15:06 08/11/20 15:14 Normal Saline IV 08/11/20 19:05 250 mls/hr ONETIME ONE Administration Pantoprazole Sodium 80 mg/ 100 mls @ 10 mls/hr 08/11/20 17:45 Sodium Chloride IV Q10H FROY Sodium Chloride 10 ml 08/11/20 14:57 08/11/20 16:29 Saline Flush FLUSH 10 ml ASDIRECTED PRN Administration Keep Vein Open Discontinued Medications Generic Name Dose Route Start Last Admin Trade Name Freamanda PRN Reason Stop Dose Admin Sodium Chloride Confirm 08/11/20 17:33 Normal Saline Administered 08/11/20 17:34 Dose 250 mls @ as directed .ROUTE .STK-MED ONE Lorazepam 1 mg 08/11/20 15:07 08/11/20 15:14 Ativan IVPUSH 08/11/20 15:08 1 mg ONETIME ONE Administration Ondansetron HCl 4 mg 08/11/20 16:07 08/11/20 16:17 Zofran IVPUSH 08/11/20 16:08 4 mg ONETIME ONE Administration Pantoprazole Sodium 40 mg 08/11/20 17:44 Protonix Iv IVPUSH 08/11/20 17:45 ONETIME ONE - Re-Assessments/Exams Free Text/Narrative Re-Assessment/Exam: 08/11/20 15:11 Patient presents to the ED for her ongoing shortness of breath. At this time, the patient is stating that she would like hospital admission. We will recheck some labs, chest x-ray and another Covid swab and hopefully get her admitted for her ongoing illness. Due to her recent report of having darker stools, and coffee-ground emesis with her hemoglobin already being low yesterday, it is likely that she could be anemic as well causing some issues. 08/11/20 15:37 His hemoglobin is 6.1. Her Hemoccult is grossly positive for a GI bleed. Most labs are still pending however we will try to get a hold of Dr. Zimmerman for hospital admission for GI bleed. 08/11/20 15:53 Patient's chest x-ray has been performed, they did note a slight increased density within the right lung base which is seen stable from the previous exam. Otherwise no acute abnormalities were appreciated. 08/11/20 16:48 The patient's labs have started to come back, white count is not elevated however her hemoglobin was low at 6.1. Lactic acid is elevated at 7.7, troponin is slightly elevated at 0.067, which is comparative to what it was 2 days ago. CRP is elevated at 1.8, LDH elevated at 260, ferritin elevated at 630, magnesium slightly low at 1.4, D-dimer elevated to 0.78, BUN elevated at 28, her kidney function did improve from 2 days ago her creatinine and GFR are pretty much back to normal. I did order a repeat troponin for 1800. Departure - Departure Time of Disposition: 17:47 Disposition: Admitted As Inpatient 65 Condition: Good Clinical Impression: Lower GI bleed, Low hemoglobin - Discharge Information *PRESCRIPTION DRUG MONITORING PROGRAM REVIEWED*: No *COPY OF PRESCRIPTION DRUG MONITORING REPORT IN PATIENT JOON: No Referrals: Kalpana uHbbard MD [Primary Care Provider] - Forms: ED Department Discharge Sepsis Event Note (ED) - Evaluation Sepsis Screening Result: No Definite Risk - Focused Exam Vital Signs: Vital Signs Temp Pulse Resp Pulse Ox 08/11/20 14:49 98.3 F 99 28 H 1 L - My Orders Last 24 Hours: My Active Orders 08/11/20 14:57 Sodium Chloride 0.9% [Saline Flush] 10 ml FLUSH ASDIRECTED PRN Peripheral IV Insertion Adult [OM.PC] Routine 08/11/20 14:58 Orthostatic Vital Signs [RC] ASDIRECTED Peripheral IV Care [RC] . DIRECTED 08/11/20 15:00 COVID-19/FLU A+B [MOLEC] Stat Blood Culture x2 Reflex Set [OM.PC] Stat 08/11/20 15:05 RED BLOOD CELLS LP [BBK] Stat TYPE AND SCREEN [BBK] Stat 08/11/20 15:06 Sodium Chloride 0.9% [Normal Saline] 1,000 ml IV ONETIME 08/11/20 15:23 CULTURE BLOOD [BC] Stat 08/11/20 15:38 Transfuse PRBC [Transfuse Red Blood Cells] [COMM] Routine 08/11/20 15:40 CULTURE BLOOD [BC] Stat 08/11/20 15:54 Consult to Physician [CONS] Stat 08/11/20 15:55 Notify Provider Consults [RC] ASDIRECTED 08/11/20 16:08 EKG Documentation Completion [RC] STAT 08/11/20 16:14 REFLEX LACTIC ACID YES OR NO [CHEM] Routine 08/11/20 17:42 Admission Status [Patient Status] [ADT] Routine 08/11/20 17:45 Pantoprazole [ProTONIX IV] 80 mg Sodium Chloride 0.9% [Normal Saline] 100 ml IV Q10H 08/11/20 18:00 TROPONIN I [CHEM] Timed - Assessment/Plan Last 24 Hours: My Active Orders 08/11/20 14:57 Sodium Chloride 0.9% [Saline Flush] 10 ml FLUSH ASDIRECTED PRN Peripheral IV Insertion Adult [OM.PC] Routine 08/11/20 14:58 Orthostatic Vital Signs [RC] ASDIRECTED Peripheral IV Care [RC] . DIRECTED 08/11/20 15:00 COVID-19/FLU A+B [MOLEC] Stat Blood Culture x2 Reflex Set [OM.PC] Stat 08/11/20 15:05 RED BLOOD CELLS LP [BBK] Stat TYPE AND SCREEN [BBK] Stat 08/11/20 15:06 Sodium Chloride 0.9% [Normal Saline] 1,000 ml IV ONETIME 08/11/20 15:23 CULTURE BLOOD [BC] Stat 08/11/20 15:38 Transfuse PRBC [Transfuse Red Blood Cells] [COMM] Routine 08/11/20 15:40 CULTURE BLOOD [BC] Stat 08/11/20 15:54 Consult to Physician [CONS] Stat 08/11/20 15:55 Notify Provider Consults [RC] ASDIRECTED 08/11/20 16:08 EKG Documentation Completion [RC] STAT 08/11/20 16:14 REFLEX LACTIC ACID YES OR NO [CHEM] Routine 08/11/20 17:42 Admission Status [Patient Status] [ADT] Routine 08/11/20 17:45 Pantoprazole [ProTONIX IV] 80 mg Sodium Chloride 0.9% [Normal Saline] 100 ml IV Q10H 08/11/20 18:00 TROPONIN I [CHEM] Timed
--- NOTE | 2020-08-11 15:35 | CR ---
Chest: Portable view of the chest was obtained. Comparison: Prior chest x-ray of 08/09/20. Heart size and mediastinum are normal. Slight density within the right lung base is seen which is stable from previous chest x-ray. Lungs otherwise are clear. Bony structures are grossly intact. Impression: 1. Slight increased density within right lung base which is stable from previous exam. 2. Nothing acute is otherwise seen. Diagnostic code #3
[2020-08-11] MEDS ORDERED: Ondansetron 4 MG/2 ML SDV IVPUSH ONE (16:07)
[2020-08-11] MEDS: Sodium Chloride 0.9% 10 ML Syringe FLUSH PRN (16:29)
[2020-08-11] MEDS ORDERED: Sodium Chloride 0.9% 250 ML ONE (17:33)
[2020-08-11] MEDS ORDERED: Pantoprazole 40 MG Vial IVPUSH ONE (17:44)
--- NOTE | 2020-08-11 18:23 | PCM.CONS ---
H&P History of Present Illness - General Date of Service: 08/11/20 Admit Problem/Dx: Admission Diagnosis/Problem Admission Diagnosis/Problem Gastrointestinal hemorrhage Source of Information: Patient History Limitations: Reports: No Limitations - History of Present Illness Initial Comments - Free Text/Narative: Patient started not feeling well on Monday08/07/2020. She was feeling short of breath and fatigue. She presented to the ED where Hgb was 8.7, oxygen saturations in the 80s, D dimer elevated. CT PE protocol was done and no PE. She has LE edema. She was suspected to have COPD and/or CHF. She refused admission therefore she was discharged to home with home oxygen, Furosemide and Prednisone. She continued to feel bad therefore she presented to the Ed today again. Her Hgb today was 6.1. I was consulted to see her. She reports that she noticed some bloody stool yesterday. She also vomited yesterday and has blood in her emesis. She reports that she was doing well prior to Monday when symptoms began. No bowel surgeries. Last colonoscopy was she was at age 49. No fevers or chills. No abdominal pain. She takes a lot of Ibuprofen for Headaches. Onset of Symptoms: Reports: Gradual Duration of Symptoms: Reports: Day(s): (4), Getting Worse Location: Reports: Other ([place]) Associated Symptoms: Reports: Cough, Malaise, Shortness of Breath - Related Data Allergies/Adverse Reactions: Allergies Allergy/AdvReac Type Severity Reaction Status Date / Time Penicillins Allergy Rash Verified 08/09/20 20:32 Home Medications: Home Meds Aspirin 325 mg PO DAILY 05/05/14 [History] Acetaminophen/HYDROcodone [Byron 325-5 MG] 1 tab PO Q6H PRN #15 tablet 03/27/17 [Rx] Cyclobenzaprine HCl 10 mg PO BID PRN #20 tablet 03/27/17 [Rx] Ibuprofen 600 mg PO QID PRN #40 tablet 03/27/17 [Rx] Furosemide [Lasix] 20 mg PO DAILY #30 tab 08/10/20 [Rx] predniSONE [Prednisone] 50 mg PO DAILY #5 tablet 08/10/20 [Rx] Past Medical History HEENT History: Reports: Impaired Vision Other HEENT History: wears glasses Cardiovascular History: Reports: Heart Failure, High Cholesterol, Hypertension, OR, Stents Respiratory History: Reports: COPD [employer] History: Reports: - Past Surgical History Female Surgical History: Reports: Section Other Musculoskeletal Surgeries/Procedures:: back surgery [address] Ramírez in [place] Social & Family History - Caffeine Use Caffeine Use: Reports: None H&P Review of Systems - Review of Systems: Review Of Systems: See Below General: Reports: Fatigue HEENT: Reports: No Symptoms Pulmonary: Reports: Shortness of Breath, Wheezing, Cough Cardiovascular: Reports: Orthopnea Gastrointestinal: Reports: Bloody Stool, Hematemesis Genitourinary: Reports: No Symptoms Musculoskeletal: Reports: No Symptoms Exam - Exam Exam: See Below - Vital Signs Vital Signs: Last Vital Signs Temp 99.4 F 08/11/20 18:14 Pulse 87 08/11/20 18:14 Resp 20 08/11/20 18:14 BP 93/48 L 08/11/20 18:14 Pulse Ox 1 L 08/11/20 14:49 Weight: 70.307 kg - Exam Quality Assessment: Supplemental Oxygen General: Alert, Oriented, Cooperative HEENT: Conjunctiva Clear Lungs: Normal Respiratory Effort, Rhonchi, Wheezing Cardiovascular: Regular Rate, Regular Rhythm, Normal S1, Normal S2 GI/Abdominal Exam: Soft, Non-Tender, No Organomegaly, No Distention, No Abnormal Bruit, No Mass Extremities: Pedal Edema - Patient Data Lab Results Last 24 hrs: Laboratory Results - last 24 hr 08/11/20 08/11/20 08/11/20 Range/Units 15:05 15:05 15:05 WBC 11.26 H (3.98-10.04) K/mm3 RBC 1.56 L (3.98-5.22) M/mm3 Hgb 6.1 L* D (11.2-15.7) gm/dl Hct 20.2 L (34.1-44.9) % MCV 129.5 H D (79.4-94.8) fl MCH 39.1 H (25.6-32.2) pg MCHC 30.2 L (32.2-35.5) g/dl RDW Std Deviation 77.5 H (36.4-46.3) fL Plt Count 130 L (182-369) K/mm3 MPV 12.1 (9.4-12.3) fl Neut % (Auto) 79.5 H (34.0-71.1) % Lymph % (Auto) 12.3 L (19.3-51.7) % Fisher % (Auto) 7.8 (4.7-12.5) % Eos % (Auto) 0 L (0.7-5.8) Baso % (Auto) 0.0 L (0.1-1.2) % Neut # (Auto) 8.96 H (1.56-6.13) K/mm3 Lymph # (Auto) 1.38 (1.18-3.74) K/mm3 Fisher # (Auto) 0.88 H (0.24-0.36) K/mm3 Eos # (Auto) 0.00 L (0.04-0.36) K/mm3 Baso # (Auto) 0.00 L (0.01-0.08) K/mm3 Manual Slide Review Abnormal smear PT (9.7-12.0) SECONDS INR APTT (21.7-31.4) SECONDS D-Dimer, Quantitative (0.19-0.50) mg/L Sodium 136 (136-145) mEq/L Potassium 3.6 (3.5-5.1) mEq/L Chloride 97 L (98-107) mEq/L Carbon Dioxide 25 (21-32) mEq/L Anion Gap 17.6 H (5-15) BUN 28 H (7-18) mg/dL Creatinine 1.0 (0.55-1.02) mg/dL Est Cr Clr Drug Dosing TNP Estimated GFR (MDRD) 56 (>60) mL/min BUN/Creatinine Ratio 28.0 H (14-18) Glucose 131 H (80-115) mg/dL Lactic Acid (0.4-2.0) mmol/L Calcium 8.5 (8.5-10.1) mg/dL Magnesium 1.4 L (1.8-2.4) mg/dl Ferritin (8-252) ng/ml Total Bilirubin 1.5 H (0.2-1.0) mg/dL AST 110 H (15-37) U/L ALT 27 (14-59) U/L Alkaline Phosphatase 140 H (46-116) U/L Lactate Dehydrogenase 260 H (81-234) U/L Troponin I 0.067 H* (0.00-0.056) ng/mL C-Reactive Protein 1.8 H* (<1.0) mg/dL NT-Pro-B Natriuret Pep (0-125) pg/mL Total Protein 6.5 (6.4-8.2) g/dl Albumin 2.5 L (3.4-5.0) g/dl Globulin 4.0 gm/dL Albumin/Globulin Ratio 0.6 L (1-2) Blood Type Gel Antibody Screen Crossmatch 08/11/20 08/11/20 08/11/20 Range/Units 15:05 15:05 15:05 WBC (3.98-10.04) K/mm3 RBC (3.98-5.22) M/mm3 Hgb (11.2-15.7) gm/dl Hct (34.1-44.9) % MCV (79.4-94.8) fl MCH (25.6-32.2) pg MCHC (32.2-35.5) g/dl RDW Std Deviation (36.4-46.3) fL Plt Count (182-369) K/mm3 MPV (9.4-12.3) fl Neut % (Auto) (34.0-71.1) % Lymph % (Auto) (19.3-51.7) % Fisher % (Auto) (4.7-12.5) % Eos % (Auto) (0.7-5.8) Baso % (Auto) (0.1-1.2) % Neut # (Auto) (1.56-6.13) K/mm3 Lymph # (Auto) (1.18-3.74) K/mm3 Fisher # (Auto) (0.24-0.36) K/mm3 Eos # (Auto) (0.04-0.36) K/mm3 Baso # (Auto) (0.01-0.08) K/mm3 Manual Slide Review PT 17.6 H (9.7-12.0) SECONDS INR 1.66 APTT 26.5 (21.7-31.4) SECONDS D-Dimer, Quantitative 0.78 H (0.19-0.50) mg/L Sodium (136-145) mEq/L Potassium (3.5-5.1) mEq/L Chloride (98-107) mEq/L Carbon Dioxide (21-32) mEq/L Anion Gap (5-15) BUN (7-18) mg/dL Creatinine (0.55-1.02) mg/dL Est Cr Clr Drug Dosing Estimated GFR (MDRD) (>60) mL/min BUN/Creatinine Ratio (14-18) Glucose (80-115) mg/dL Lactic Acid (0.4-2.0) mmol/L Calcium (8.5-10.1) mg/dL Magnesium (1.8-2.4) mg/dl Ferritin 630 H (8-252) ng/ml Total Bilirubin (0.2-1.0) mg/dL AST (15-37) U/L ALT (14-59) U/L Alkaline Phosphatase (46-116) U/L Lactate Dehydrogenase (81-234) U/L Troponin I (0.00-0.056) ng/mL C-Reactive Protein (<1.0) mg/dL NT-Pro-B Natriuret Pep 911 H (0-125) pg/mL Total Protein (6.4-8.2) g/dl Albumin (3.4-5.0) g/dl Globulin gm/dL Albumin/Globulin Ratio (1-2) Blood Type Gel Antibody Screen Crossmatch 08/11/20 08/11/20 Range/Units 15:05 15:23 WBC (3.98-10.04) K/mm3 RBC (3.98-5.22) M/mm3 Hgb (11.2-15.7) gm/dl Hct (34.1-44.9) % MCV (79.4-94.8) fl MCH (25.6-32.2) pg MCHC (32.2-35.5) g/dl RDW Std Deviation (36.4-46.3) fL Plt Count (182-369) K/mm3 MPV (9.4-12.3) fl Neut % (Auto) (34.0-71.1) % Lymph % (Auto) (19.3-51.7) % Fisher % (Auto) (4.7-12.5) % Eos % (Auto) (0.7-5.8) Baso % (Auto) (0.1-1.2) % Neut # (Auto) (1.56-6.13) K/mm3 Lymph # (Auto) (1.18-3.74) K/mm3 Fisher # (Auto) (0.24-0.36) K/mm3 Eos # (Auto) (0.04-0.36) K/mm3 Baso # (Auto) (0.01-0.08) K/mm3 Manual Slide Review PT (9.7-12.0) SECONDS INR APTT (21.7-31.4) SECONDS D-Dimer, Quantitative (0.19-0.50) mg/L Sodium (136-145) mEq/L Potassium (3.5-5.1) mEq/L Chloride (98-107) mEq/L Carbon Dioxide (21-32) mEq/L Anion Gap (5-15) BUN (7-18) mg/dL Creatinine (0.55-1.02) mg/dL Est Cr Clr Drug Dosing Estimated GFR (MDRD) (>60) mL/min BUN/Creatinine Ratio (14-18) Glucose (80-115) mg/dL Lactic Acid 7.7 H* (0.4-2.0) mmol/L Calcium (8.5-10.1) mg/dL Magnesium (1.8-2.4) mg/dl Ferritin (8-252) ng/ml Total Bilirubin (0.2-1.0) mg/dL AST (15-37) U/L ALT (14-59) U/L Alkaline Phosphatase (46-116) U/L Lactate Dehydrogenase (81-234) U/L Troponin I (0.00-0.056) ng/mL C-Reactive Protein (<1.0) mg/dL NT-Pro-B Natriuret Pep (0-125) pg/mL Total Protein (6.4-8.2) g/dl Albumin (3.4-5.0) g/dl Globulin gm/dL Albumin/Globulin Ratio (1-2) Blood Type A POSITIVE Gel Antibody Screen Negative Crossmatch See Detail Result Diagrams: 08/11/20 15:05 08/11/20 15:05 Sepsis Event Note - Evaluation Sepsis Screening Result: No Definite Risk - Focused Exam Vital Signs: Vital Signs Temp Temp Pulse Resp BP Pulse Ox 08/11/20 18:14 99.4 F 87 20 93/48 L 08/11/20 17:59 100.3 F 90 20 92/44 L 08/11/20 14:49 98.3 F 99 28 H 1 L Consult PN Assessment/Plan Procedures: Procedures DIAGNOSTIC COLONOSCOPY (05/05/14) ELECTROCARDIOGRAM TRACING (05/05/14) EMERGENCY DEPT VISIT (03/27/17) THER/PROPH/DIAG INJ IV PUSH (03/27/17) THER/PROPH/DIAG INJ SC/IM (03/27/17) Problem List Initiated/Reviewed/Updated: No Plan: Patient has anemia - likely acute on chronic. She also has cardiopulmonary symptoms including SOB, extremity edema. - I think she will needs EGD and colonoscopy to work up the source of bleeding as soon as possible. However, before we do this, she will need transfusion, frequent H/H, work up for her SOB. We will also need to monitor her stools to see if they are bloody or not. - if stools are jaclyn red blood, then obtain a CTA abdomen pelvis - recommend starting her on BID IV Protonix, avoid NSAIDs (which she said she takes a a lot of) and avoid steroid if possible. - 2 large bore IVs - Q6H H/H - transfuse to Hgb > 7
[2020-08-11] MEDS ORDERED: Albuterol 0.083% 2.5 MG/3 ML Neb Soln NEB ONE (18:39)
[2020-08-11 19:31] LABS: CORONAVIRUS COVID-19 NAA NEGATIVE (NEGATIVE)
[2020-08-11] MEDS ORDERED: Acetaminophen 650 MG Supp RECTAL PRN (19:48)
[2020-08-11] MEDS ORDERED: Furosemide 20 MG/2 ML VIAL IVPUSH ONE (21:18)
[2020-08-11] MEDS ORDERED: Albuterol/Ipratropium 3.0-0.5 MG/3 ML Neb Soln NEB ONE (21:18)
[2020-08-11] MEDS: Pantoprazole 80 MG in Sodium Chloride 0.9% 100 ML IV SCH ×2 (23:25→23:36)
[2020-08-11] MEDS: Sodium Chloride 0.9% 1,000 ML IV SCH (23:25)
[2020-08-12] MEDS: Albuterol/Ipratropium 3.0-0.5 MG/3 ML Neb Soln NEB SCH ×4 (03:11→20:55)
[2020-08-12] MEDS: Pantoprazole 80 MG in Sodium Chloride 0.9% 100 ML IV SCH (06:19)
[2020-08-12] MEDS ORDERED: Potassium Phosphates 3 mMole/ML 15 ML SDV IV ONE (08:25)
[2020-08-12] MEDS ORDERED: Magnesium Sulfate/Water 2 GM/50 ML BAG IV ONE (08:30)
--- NOTE | 2020-08-12 08:32 | PCM.HP.2 ---
H&P History of Present Illness - General Date of Service: 08/12/20 Admit Problem/Dx: Admission Diagnosis/Problem Admission Diagnosis/Problem Gastrointestinal hemorrhage Source of Information: Patient, Old Records, Provider, RN, RN Notes Reviewed History Limitations: Reports: No Limitations - History of Present Illness Initial Comments - Free Text/Narative: This is a 60 yo female who presents to our ED on 08/11/2020 with shortness of breath. She was seen in the ED on 08/09/2020 and found to be hypoxic. She was diagnosed with COPD and CHF and sent home on home oxygen, as she refused hospital admission at that time. She now notes that she has worsening symptoms and worsening shortness of breath as well as generalized shakiness and incontinent stool. There have been some slight swelling to her legs. She reports that she "does not want to " blood pressure is noted to be very low at triage with 81/39. Is on 2 L of oxygen with saturations near 100%. She is afebrile at 98.3. Pulse 99 bpm. Respiratory rate is 28 bpm. Twelve-lead EKG is obtained showing sinus rhythm at 92 bpm with a prolonged QT. There is some ST depression noted in V4 through V6. Elevated WBC of 11.26. RBC is 1.56. Hemoglobin is 6.1. Hematocrit is 20.2. Platelets are low at 130,000. Neutrophils are elevated 8.96. Sodium is 136. Potassium 3.6. Chloride 97. Anion gap is 17.6. BUN is 28. Creatinine is 1.0. GFR is 56. Glucose is 131. Calcium is 8.5. Magnesium is 1.4. Bilirubin is elevated at 1.5. AST is 110, ALT 27, alkaline phosphatase 140. LDH is 260. Troponin 0.067. CRP is 1.8. Protein is 6.5. Albumin is 2.5. INR is 1.66. D-dimer is slightly elevated 0.7 8. Ferritin is elevated at 630. proBNP is 911. Lactic acid is 7.7. Type and screen shows a positive with a negative gel antibody screen. She is reporting darker stools and coffee-ground emesis. Hemoglobin on the earlier visit on the was 8.7. This is quite a decrease this visit. Occult stool is obtained and is grossly positive for heme. Last colonoscopy was around age 49. She does note that she takes a significant amount of ibuprofen for headaches. Dr. Zimmerman, general surgeon, consulted. He recommends the patient undergo an EGD and colonoscopy. He suggest that she will need transfusion and work-up for S OB. He states that his stools remain jaclyn red blood then we should obtain a CTA abdomen pelvis. Recommend starting twice daily IV Protonix and avoiding NSAIDs. Recommend 2 large-bore IVs and every 6 hours H&H. Transfuse as needed to keep hemoglobin above 7. Chest x-rays obtained showing a slight increased density within right lung base which is stable from previous exam and nothing otherwise acute. She is given 2 units of blood. She started on IV fluids. Repe at lactic acid decreases to 5.4. Repeat hemoglobin is 7.8. Repeat troponin is 0.060. Influenza A and B and SARS- CoV-2 screen are negative. She is a full code. She carries a history of CHF, HLD, HTN, TX, Stents, COPD. Her PCP is Dr. Hubbard. - Related Data Allergies/Adverse Reactions: Allergies Allergy/AdvReac Type Severity Reaction Status Date / Time Penicillins Allergy Rash Verified 08/12/20 06:53 Home Medications: Home Meds Ibuprofen 600 mg PO QID PRN #40 tablet 03/27/17 [Rx] Furosemide [Lasix] 20 mg PO DAILY #30 tab 08/10/20 [Rx] predniSONE [Prednisone] 50 mg PO DAILY #5 tablet 08/10/20 [Rx] Albuterol Sulfate [Albuterol Sulfate Hfa] 8.5 gm IH 08/12/20 [History] Levothyroxine Sodium [Euthyrox] 25 mcg PO DAILY 08/12/20 [History] Metoprolol Succinate [Toprol XL 50mg] 50 mg PO DAILY 08/12/20 [History] Past Medical History HEENT History: Reports: Impaired Vision Other HEENT History: wears glasses, pt reports that she has a full set of dent ures but does not have them here with her. Cardiovascular History: Reports: Heart Failure, High Cholesterol, Hypertension, TX, Stents Respiratory History: Reports: COPD Gastrointestinal History: Reports: GI Bleed Other Gastrointestinal History: current admission 08/11/20 for GI Bleed STATISTICIAN THEORETICAL History: Reports: , Other (See Below) Other OB/BYN History: 3 c-sections Endocrine/Metabolic History: Reports: Hypothyroidism Dermatologic History: Reports: Other (See Below) Other Dermatologic History: skin all over is very dry,flaky and scaly. Skin is also rough feeling. - Infectious Disease History Infectious Disease History: Reports: Measles - Past Surgical History Cardiovascular Surgical History: Reports: None Respiratory Surgical History: Reports: None GI Surgical History: Reports: None Female Surgical History: Reports: Section Other Musculoskeletal Surgeries/Procedures:: back surgery [address] Ramírez in [place] Social & Family History - Family History Family Medical History: No Pertinent Family History - Tobacco Use Tobacco Use Status *Q: Current Every Day Tobacco User Years of Tobacco use: 40 Packs/Tins Daily: 1 - Caffeine Use Caffeine Use: Reports: Coffee - Recreational Drug Use Recreational Drug Use: No H&P Review of Systems - Review of Systems: Review Of Systems: See Below General: Reports: Malaise, Weakness, Fatigue, Decreased Appetite. Denies: Fever, Chills HEENT: Reports: No Symptoms. Denies: Headaches, Sore Throat Pulmonary: Reports: Shortness of Breath, Wheezing, Cough. Denies: Sputum Cardiovascular: Reports: Dyspnea on Exertion, Orthopnea, Edema. Denies: Chest Pain, Palpitations, Lightheadedness Gastrointestinal: Reports: Hematemesis, Hematochezia. Denies: Abdominal Pain, Constipation, Diarrhea, Nausea, Vomiting Genitourinary: Reports: No Symptoms Musculoskeletal: Reports: No Symptoms Skin: Reports: No Symptoms Psychiatric: Reports: No Symptoms. Denies: Confusion Neurological: Reports: No Symptoms Hematologic/Lymphatic: Reports: No Symptoms Immunologic: Reports: No Symptoms Exam - Exam Exam: See Below - Vital Signs Vital Signs: Last Vital Signs Temp 99.3 F 08/12/20 03:45 Pulse 83 08/12/20 03:45 Resp 20 08/12/20 03:45 BP 118/45 L 08/12/20 03:45 Pulse Ox 92 L 08/12/20 06:38 Weight: 156 lb 3.2 oz - Exam Quality Assessment: Supplemental Oxygen (2L ), DVT Prophylaxis. No: Urinary Catheter General: Alert, Oriented, Cooperative. No: Mild Distress (Looks acutely ill ) HEENT: Conjunctiva Clear, EACs Clear, Posterior Pharynx Clear. No: Mucosa Moist & [place] (Dry ) Neck: Supple, Trachea Midline Lungs: Normal Respiratory Effort, Decreased Breath Sounds, Rhonchi. No: Wheezing Cardiovascular: Regular Rate, Regular Rhythm GI/Abdominal Exam: Normal Bowel Sounds, Soft, Non-Tender, No Distention (Female) Exam: Deferred Rectal (Female) Exam: Deferred Back Exam: Normal Inspection, Full Range of Motion Extremities: Normal Inspection, Normal Range of Motion, Non-Tender, Normal Capillary Refill, Pedal Edema Skin: Warm, Dry, Intact Neurological: Cranial Nerves Intact (Grossly ) Neuro Extensive - Mental Status: Alert, Oriented x3 - Patient Data Lab Results Last 24 hrs: Laboratory Results - last 24 hr 08/11/20 08/11/20 08/11/20 Range/Units 15:05 15:05 15:05 WBC 11.26 H (3.98-10.04) K/mm3 RBC 1.56 L (3.98-5.22) M/mm3 Hgb 6.1 L* D (11.2-15.7) gm/dl Hct 20.2 L (34.1-44.9) % MCV 129.5 H D (79.4-94.8) fl MCH 39.1 H (25.6-32.2) pg MCHC 30.2 L (32.2-35.5) g/dl RDW Std Deviation 77.5 H (36.4-46.3) fL Plt Count 130 L (182-369) K/mm3 MPV 12.1 (9.4-12.3) fl Neut % (Auto) 79.5 H (34.0-71.1) % Lymph % (Auto) 12.3 L (19.3-51.7) % [place] % (Auto) 7.8 (4.7-12.5) % Eos % (Auto) 0 L (0.7-5.8) Baso % (Auto) 0.0 L (0.1-1.2) % Neut # (Auto) 8.96 H (1.56-6.13) K/mm3 Lymph # (Auto) 1.38 (1.18-3.74) K/mm3 [place] # (Auto) 0.88 H (0.24-0.36) K/mm3 Eos # (Auto) 0.00 L (0.04-0.36) K/mm3 Baso # (Auto) 0.00 L (0.01-0.08) K/mm3 Manual Slide Review Abnormal smear PT (9.7-12.0) SECONDS INR APTT (21.7-31.4) SECONDS D-Dimer, Quantitative (0.19-0.50) mg/L Sodium 136 (136-145) mEq/L Potassium 3.6 (3.5-5.1) mEq/L Chloride 97 L (98-107) mEq/L Carbon Dioxide 25 (21-32) mEq/L Anion Gap 17.6 H (5-15) BUN 28 H (7-18) mg/dL Creatinine 1.0 (0.55-1.02) mg/dL Est Cr Clr Drug Dosing TNP Estimated GFR (MDRD) 56 (>60) mL/min BUN/Creatinine Ratio 28.0 H (14-18) Glucose 131 H (80-115) mg/dL Lactic Acid (0.4-2.0) mmol/L Calcium 8.5 (8.5-10.1) mg/dL Phosphorus (2.6-4.7) mg/dL Magnesium 1.4 L (1.8-2.4) mg/dl Ferritin (8-252) ng/ml Total Bilirubin 1.5 H (0.2-1.0) mg/dL AST 110 H (15-37) U/L ALT 27 (14-59) U/L Alkaline Phosphatase 140 H (46-116) U/L Lactate Dehydrogenase 260 H (81-234) U/L Troponin I 0.067 H* (0.00-0.056) ng/mL C-Reactive Protein 1.8 H* (<1.0) mg/dL NT-Pro-B Natriuret Pep (0-125) pg/mL Total Protein 6.5 (6.4-8.2) g/dl Albumin 2.5 L (3.4-5.0) g/dl Globulin 4.0 gm/dL Albumin/Globulin Ratio 0.6 L (1-2) Influenza Type A RNA (NEGATIVE) Influenza Type B RNA (NEGATIVE) SARS-CoV-2 RNA (DEXTER) (NEGATIVE) Blood Type Gel Antibody Screen Crossmatch 08/11/20 08/11/20 08/11/20 Range/Units 15:05 15:05 15:05 WBC (3.98-10.04) K/mm3 RBC (3.98-5.22) M/mm3 Hgb (11.2-15.7) gm/dl Hct (34.1-44.9) % MCV (79.4-94.8) fl MCH (25.6-32.2) pg MCHC (32.2-35.5) g/dl RDW Std Deviation (36.4-46.3) fL Plt Count (182-369) K/mm3 MPV (9.4-12.3) fl Neut % (Auto) (34.0-71.1) % Lymph % (Auto) (19.3-51.7) % [place] % (Auto) (4.7-12.5) % Eos % (Auto) (0.7-5.8) Baso % (Auto) (0.1-1.2) % Neut # (Auto) (1.56-6.13) K/mm3 Lymph # (Auto) (1.18-3.74) K/mm3 [place] # (Auto) (0.24-0.36) K/mm3 Eos # (Auto) (0.04-0.36) K/mm3 Baso # (Auto) (0.01-0.08) K/mm3 Manual Slide Review PT 17.6 H (9.7-12.0) SECONDS INR 1.66 APTT 26.5 (21.7-31.4) SECONDS D-Dimer, Quantitative 0.78 H (0.19-0.50) mg/L Sodium (136-145) mEq/L Potassium (3.5-5.1) mEq/L Chloride (98-107) mEq/L Carbon Dioxide (21-32) mEq/L Anion Gap (5-15) BUN (7-18) mg/dL Creatinine (0.55-1.02) mg/dL Est Cr Clr Drug Dosing Estimated GFR (MDRD) (>60) mL/min BUN/Creatinine Ratio (14-18) Glucose (80-115) mg/dL Lactic Acid (0.4-2.0) mmol/L Calcium (8.5-10.1) mg/dL Phosphorus (2.6-4.7) mg/dL Magnesium (1.8-2.4) mg/dl Ferritin 630 H (8-252) ng/ml Total Bilirubin (0.2-1.0) mg/dL AST (15-37) U/L ALT (14-59) U/L Alkaline Phosphatase (46-116) U/L Lactate Dehydrogenase (81-234) U/L Troponin I (0.00-0.056) ng/mL C-Reactive Protein (<1.0) mg/dL NT-Pro-B Natriuret Pep 911 H (0-125) pg/mL Total Protein (6.4-8.2) g/dl Albumin (3.4-5.0) g/dl Globulin gm/dL Albumin/Globulin Ratio (1-2) Influenza Type A RNA (NEGATIVE) Influenza Type B RNA (NEGATIVE) SARS-CoV-2 RNA (DEXTER) (NEGATIVE) Blood Type Gel Antibody Screen Crossmatch 08/11/20 08/11/20 08/11/20 Range/Units 15:05 15:23 18:29 WBC (3.98-10.04) K/mm3 RBC (3.98-5.22) M/mm3 Hgb (11.2-15.7) gm/dl Hct (34.1-44.9) % MCV (79.4-94.8) fl MCH (25.6-32.2) pg MCHC (32.2-35.5) g/dl RDW Std Deviation (36.4-46.3) fL Plt Count (182-369) K/mm3 MPV (9.4-12.3) fl Neut % (Auto) (34.0-71.1) % Lymph % (Auto) (19.3-51.7) % [place] % (Auto) (4.7-12.5) % Eos % (Auto) (0.7-5.8) Baso % (Auto) (0.1-1.2) % Neut # (Auto) (1.56-6.13) K/mm3 Lymph # (Auto) (1.18-3.74) K/mm3 [place] # (Auto) (0.24-0.36) K/mm3 Eos # (Auto) (0.04-0.36) K/mm3 Baso # (Auto) (0.01-0.08) K/mm3 Manual Slide Review PT (9.7-12.0) SECONDS INR APTT (21.7-31.4) SECONDS D-Dimer, Quantitative (0.19-0.50) mg/L Sodium (136-145) mEq/L Potassium (3.5-5.1) mEq/L Chloride (98-107) mEq/L Carbon Dioxide (21-32) mEq/L Anion Gap (5-15) BUN (7-18) mg/dL Creatinine (0.55-1.02) mg/dL Est Cr Clr Drug Dosing Estimated GFR (MDRD) (>60) mL/min BUN/Creatinine Ratio (14-18) Glucose (80-115) mg/dL Lactic Acid 7.7 H* (0.4-2.0) mmol/L Calcium (8.5-10.1) mg/dL Phosphorus (2.6-4.7) mg/dL Magnesium (1.8-2.4) mg/dl Ferritin (8-252) ng/ml Total Bilirubin (0.2-1.0) mg/dL AST (15-37) U/L ALT (14-59) U/L Alkaline Phosphatase (46-116) U/L Lactate Dehydrogenase (81-234) U/L Troponin I 0.060 H* (0.00-0.056) ng/mL C-Reactive Protein (<1.0) mg/dL NT-Pro-B Natriuret Pep (0-125) pg/mL Total Protein (6.4-8.2) g/dl Albumin (3.4-5.0) g/dl Globulin gm/dL Albumin/Globulin Ratio (1-2) Influenza Type A RNA (NEGATIVE) Influenza Type B RNA (NEGATIVE) SARS-CoV-2 RNA (DEXTER) (NEGATIVE) Blood Type A POSITIVE Gel Antibody Screen Negative Crossmatch See Detail 08/11/20 08/11/20 08/12/20 Range/Units 18:29 18:50 01:00 WBC (3.98-10.04) K/mm3 RBC (3.98-5.22) M/mm3 Hgb 7.8 L D (11.2-15.7) gm/dl Hct 25.1 L (34.1-44.9) % MCV (79.4-94.8) fl MCH (25.6-32.2) pg MCHC (32.2-35.5) g/dl RDW Std Deviation (36.4-46.3) fL Plt Count (182-369) K/mm3 MPV (9.4-12.3) fl Neut % (Auto) (34.0-71.1) % Lymph % (Auto) (19.3-51.7) % [place] % (Auto) (4.7-12.5) % Eos % (Auto) (0.7-5.8) Baso % (Auto) (0.1-1.2) % Neut # (Auto) (1.56-6.13) K/mm3 Lymph # (Auto) (1.18-3.74) K/mm3 [place] # (Auto) (0.24-0.36) K/mm3 Eos # (Auto) (0.04-0.36) K/mm3 Baso # (Auto) (0.01-0.08) K/mm3 Manual Slide Review PT (9.7-12.0) SECONDS INR APTT (21.7-31.4) SECONDS D-Dimer, Quantitative (0.19-0.50) mg/L Sodium (136-145) mEq/L Potassium (3.5-5.1) mEq/L Chloride (98-107) mEq/L Carbon Dioxide (21-32) mEq/L Anion Gap (5-15) BUN (7-18) mg/dL Creatinine (0.55-1.02) mg/dL Est Cr Clr Drug Dosing Estimated GFR (MDRD) (>60) mL/min BUN/Creatinine Ratio (14-18) Glucose (80-115) mg/dL Lactic Acid 5.4 H* (0.4-2.0) mmol/L Calcium (8.5-10.1) mg/dL Phosphorus (2.6-4.7) mg/dL Magnesium (1.8-2.4) mg/dl Ferritin (8-252) ng/ml Total Bilirubin (0.2-1.0) mg/dL AST (15-37) U/L ALT (14-59) U/L Alkaline Phosphatase (46-116) U/L Lactate Dehydrogenase (81-234) U/L Troponin I (0.00-0.056) ng/mL C-Reactive Protein (<1.0) mg/dL NT-Pro-B Natriuret Pep (0-125) pg/mL Total Protein (6.4-8.2) g/dl Albumin (3.4-5.0) g/dl Globulin gm/dL Albumin/Globulin Ratio (1-2) Influenza Type A RNA Negative (NEGATIVE) Influenza Type B RNA Negative (NEGATIVE) SARS-CoV-2 RNA (DEXTER) Negative (NEGATIVE) Blood Type Gel Antibody Screen Crossmatch 08/12/20 08/12/20 Range/Units 04:31 04:31 WBC 8.35 (3.98-10.04) K/mm3 RBC 2.31 L (3.98-5.22) M/mm3 Hgb 8.0 L (11.2-15.7) gm/dl Hct 25.4 L (34.1-44.9) % MCV 110.0 H D (79.4-94.8) fl MCH 34.6 H (25.6-32.2) pg MCHC 31.5 L (32.2-35.5) g/dl RDW Std Deviation 88.0 H (36.4-46.3) fL Plt Count 76 L (182-369) K/mm3 MPV 12.6 H (9.4-12.3) fl Neut % (Auto) 60.5 (34.0-71.1) % Lymph % (Auto) 27.5 (19.3-51.7) % [place] % (Auto) 11.0 (4.7-12.5) % Eos % (Auto) 0.4 L (0.7-5.8) Baso % (Auto) 0.1 (0.1-1.2) % Neut # (Auto) 5.05 (1.56-6.13) K/mm3 Lymph # (Auto) 2.30 (1.18-3.74) K/mm3 [place] # (Auto) 0.92 H (0.24-0.36) K/mm3 Eos # (Auto) 0.03 L (0.04-0.36) K/mm3 Baso # (Auto) 0.01 (0.01-0.08) K/mm3 Manual Slide Review Abnormal smear PT (9.7-12.0) SECONDS INR APTT (21.7-31.4) SECONDS D-Dimer, Quantitative (0.19-0.50) mg/L Sodium 143 (136-145) mEq/L Potassium 3.3 L (3.5-5.1) mEq/L Chloride 106 (98-107) mEq/L Carbon Dioxide 29 (21-32) mEq/L Anion Gap 11.3 (5-15) BUN 35 H (7-18) mg/dL Creatinine 0.9 (0.55-1.02) mg/dL Est Cr Clr Drug Dosing TNP Estimated GFR (MDRD) > 60 (>60) mL/min BUN/Creatinine Ratio 38.9 H (14-18) Glucose 114 (80-115) mg/dL Lactic Acid (0.4-2.0) mmol/L Calcium 7.7 L (8.5-10.1) mg/dL Phosphorus 1.6 L (2.6-4.7) mg/dL Magnesium 1.4 L (1.8-2.4) mg/dl Ferritin (8-252) ng/ml Total Bilirubin 1.5 H (0.2-1.0) mg/dL AST 105 H (15-37) U/L ALT 22 (14-59) U/L Alkaline Phosphatase 115 (46-116) U/L Lactate Dehydrogenase (81-234) U/L Troponin I (0.00-0.056) ng/mL C-Reactive Protein (<1.0) mg/dL NT-Pro-B Natriuret Pep (0-125) pg/mL Total Protein 6.0 L (6.4-8.2) g/dl Albumin 2.4 L (3.4-5.0) g/dl Globulin 3.6 gm/dL Albumin/Globulin Ratio 0.7 L (1-2) Influenza Type A RNA (NEGATIVE) Influenza Type B RNA (NEGATIVE) SARS-CoV-2 RNA (DEXTER) (NEGATIVE) Blood Type Gel Antibody Screen Crossmatch Result Diagrams: 08/12/20 10:44 08/12/20 04:31 Leo Results Last 24 hrs: Microbiology 08/11/20 15:40 Anaerobic Blood Culture - Final Blood - Venous - Lab Draw Sepsis Event Note - Evaluation Sepsis Screening Result: No Definite Risk - Focused Exam Vital Signs: Vital Signs Temp Pulse Pulse Resp BP BP Pulse Ox 08/12/20 06:38 08/12/20 03:45 99.3 F 83 20 118/45 L 90 L 08/12/20 00:37 97.9 F 92 20 132/66 95 08/11/20 23:24 97.9 F 65 18 114/75 114/75 95 08/11/20 20:55 97.9 F 65 18 114/75 95 Pulse Ox 08/12/20 06:38 92 L 08/12/20 03:45 08/12/20 00:37 08/11/20 23:24 08/11/20 20:55 - Problem List (1) Shortness of breath SNOMED Code(s): 151404361 ICD Code: R06.02 - SHORTNESS OF BREATH Status: Acute Priority: High Current Visit: Yes (2) Pedal edema SNOMED Code(s): 305771972 ICD Code: R60.0 - LOCALIZED EDEMA Status: Chronic Priority: High Current Visit: Yes (3) Lower GI bleed SNOMED Code(s): 72666949 ICD Code: K92.2 - GASTROINTESTINAL HEMORRHAGE, UNSPECIFIED Status: Acute Priority: High Current Visit: Yes (4) CHF (congestive heart failure) SNOMED Code(s): 57536604 ICD Code: I50.9 - HEART FAILURE, UNSPECIFIED Status: Suspected Priority: High Current Visit: Yes Qualifiers: Heart failure type: unspecified Heart failure chronicity: acute on chronic Qualified Code(s): I50.9 - Heart failure, unspecified (5) COPD (chronic obstructive pulmonary disease) SNOMED Code(s): 99664897 ICD Code: J44.9 - CHRONIC OBSTRUCTIVE PULMONARY DISEASE, UNSPECIFIED Status: Suspected Priority: High Current Visit: Yes Qualifiers: COPD type: unspecified COPD Qualified Code(s): J44.9 - Chronic obstructive pulmonary disease, unspecified (6) Hypoxia SNOMED Code(s): 889013154 ICD Code: R09.02 - HYPOXEMIA Status: Chronic Priority: High Current Visit: Yes (7) Hematemesis SNOMED Code(s): 7878518 ICD Code: K92.0 - HEMATEMESIS Status: Acute Priority: High Current Visit: Yes Qualifiers: Nausea presence: with nausea Qualified Code(s): K92.0 - Hematemesis (8) Generalized weakness SNOMED Code(s): 69771843 ICD Code: R53.1 - WEAKNESS Status: Acute Priority: High Current Visit: Yes (9) Hypophosphatemia SNOMED Code(s): 2526738 ICD Code: E83.39 - OTHER DISORDERS OF PHOSPHORUS METABOLISM Status: Acute Priority: High Current Visit: Yes (10) Hypokalemia SNOMED Code(s): 50041431 ICD Code: E87.6 - HYPOKALEMIA Status: Acute Priority: High Current Visit: Yes (11) Hypomagnesemia SNOMED Code(s): 024056941 ICD Code: E83.42 - HYPOMAGNESEMIA Status: Acute Priority: High Current Visit: Yes Problem List Initiated/Reviewed/Updated: Yes Orders Last 24hrs: Active Orders 24 hr Category Date Time Status Admission Status [Patient Status] [ADT] Routine ADT 08/11/20 17:42 Active Antiembolic Devices [RC] PER UNIT ROUTINE Care 08/11/20 19:50 Active EKG Documentation Completion [RC] STAT Care 08/11/20 16:08 Active Notify Provider Consults [RC] ASDIRECTED Care 08/11/20 15:55 Active Oxygen Therapy [RC] PRN Care 08/11/20 19:48 Active RT Aerosol Therapy [RC] ASDIRECTED Care 08/11/20 18:39 Active Up With Assistance [RC] ASDIRECTED Care 08/11/20 19:48 Active VTE/DVT Education [RC] PER UNIT ROUTINE Care 08/11/20 19:48 Active Vital Signs [RC] Q4HR Care 08/11/20 19:48 Active Consult to Physician [CONS] Stat Cons 08/11/20 15:54 Active Nothing per Oral Now Diet [DIET] Diet 08/11/20 Dinner Active CULTURE BLOOD [BC] Stat Lab 08/11/20 15:23 Received CULTURE BLOOD [BC] Stat Lab 08/11/20 15:40 Results Acetaminophen [Tylenol] Med 08/11/20 19:48 Active 650 mg RECTAL Q4H PRN Albuterol/Ipratropium [DuoNeb 3.0-0.5 MG/3 ML] Med 08/12/20 03:00 Active 3 ml NEB Q6HRRT Magnesium Sulfate 2 GM in Water @ 25 MLS/HR ONETIME ( Med 08/12/20 08:24 Or dered 50ml) Magnesium Sulfate/Water [Magnesium Sulfate in Water Premix] 2 gm in 50 ml IV ONETIME Pantoprazole [ProTONIX IV] 80 mg Med 08/11/20 17:45 Active Sodium Chloride 0.9% [Normal Saline] 100 ml IV Q10H Potassium Phosphates 60 mmole Med 08/12/20 11:00 Active Sodium Chloride 0.9% [Normal Saline] 1,000 ml IV ONETIME Sodium Chloride 0.9% [Normal Saline] 1,000 ml Med 08/11/20 20:00 Active IV ASDIRECTED Sodium Chloride 0.9% [Saline Flush] Med 08/11/20 14:57 Active 10 ml FLUSH ASDIRECTED PRN Blood Culture x2 Reflex Set [OM.PC] Stat Ot 08/11/20 15:00 Ordered Peripheral IV Insertion Adult [OM.PC] Routine Ot 08/11/20 14:57 Ordered Sequential Compression Device [OM.PC] Per Unit Routine Ot 08/11/20 19:49 Ordered Transfuse PRBC [Transfuse Red Blood Cells] [COMM] Ot 08/11/20 15:38 Ordered Routine Resuscitation Status Routine Resus Stat 08/11/20 19:48 Ordered Medication Orders Acetaminophen (Tylenol) 650 mg RECTAL Q4H PRN PRN Reason: Pain (mild 1-3) Albuterol/Ipratropium (Duoneb 3.0-0.5 Mg/3 Ml) 3 ml NEB Q6HRRT [facility] Last Admin: 08/12/20 03:11 Dose: 3 ml Documented by: ANTONIO Pantoprazole Sodium 80 mg/ (Sodium Chloride) 100 mls @ 10 mls/hr IV Q10H [facility] Last Admin: 08/12/20 06:19 Dose: Not Given Documented by: Admin: 08/11/20 23:36 Dose: Not Given Documented by: Admin: 08/11/20 23:25 Dose: 10 mls/hr Documented by: ARPIT Sodium Chloride (Normal Saline) 1,000 mls @ 125 mls/hr IV ASDIRECTED [facility] Last Admin: 08/11/20 23:25 Dose: 125 mls/hr Documented by: ARPIT Magnesium Sulfate (Magnesium Sulfate In Water Premix) 2 gm in 50 mls @ 25 mls/hr IV ONETIME ONE Stop: 08/12/20 10:29 Potassium Phosphate 60 mmole/ (Sodium Chloride) 1,020 mls @ 102 mls/hr IV ONETIME ONE Stop: 08/12/20 20:59 Sodium Chloride (Saline Flush) 10 ml FLUSH ASDIRECTED PRN PRN Reason: Keep Vein Open Last Admin: 08/11/20 16:29 Dose: 10 ml Documented by: HERMMIC Assessment/Plan Comment:: Assessment - 08/12/2020 (patient admitted on 08/11/2020) * 60 YO female presents to ED with weakness and SOB * Was seen in ED on 08/09/2020 and diagnosed with COPD and CHF * Has never had an echo or PFT per patients reports * Was discharged on 2L oxygen, lasix and steroid from ED on 08/09/2020 * Denies fever, chills, or other infectious symptoms * Reports pedal edema and orthopnea * Reports bright red hematemesis and BRBPR. * Takes significant amounts of ibeauprofin for headaches and steroids prescribed in ED on 08/09/2020 * Labs: * WBC 11.26-->8.35 * Hgb 6.1--7.8 (s/p 2 units prbc)-->8.0-->7.7 * MCV 129.5-->110.0 * Plt 130-->76 * Neutrophils 8.96-->5.05 * INR 1.66 * D-Dimer 0.78 * Sodium 136-->143 * Potassium 3.6-->3.3 * Anion gap 17.6-->11.3 * Creatinine 1.0-->0.9 * GFR 56--> Greater than 60 * Lactic acid 7.7-->5.4-->1.5 * Phosphorous 1.6 * Magnesium 1.4-->1.4 * Ferritin 630 * Total bilirubin 1.5-->1.5 * AST 110-->105 * Alt 27-->22 * Alk phos 140-->115 * LDH 260 * Troponin 0.067-->0.060 * CRP 1.8 * BNP 911 * Albumin 2.5-->2.4 * Influenza A, B, SARS-CoV-2, and mycoplasma negative. * Diet advanced to clear liquids Plan: Lower GI bleed Hematemesis * Dr. Zimmerman consulted - saw patient, recommends EGD, Colonoscopy if bleeding does not stop * Suggests CTA of abdomen if bleeding does not resolve * Repeat H/H today monitor need for more. Repeat in AM unless increase in bloody BMs. * Stop protonix drip and switch to BID IVP * Stop ibuprofen as likely cause of problems * Advance diet to clear liquids per Dr. Zimmerman Shortness of breath Pedal edema CHF (congestive heart failure) COPD (chronic obstructive pulmonary disease) Hypoxia Generalized weakness Elevated Lactic acid * Repeat lactic acid today - no obvious signs of infection but will continue to work-up, likely elevated due to hypovolemia * Lasix as ordered * PT/OT * Scheduled duonebs * O2 as needed * RT consultation * IS/Acapella * 500mg IV azithromycin x3 days and Rocephin 2gm for 5 days * Chest CT pending * Echo - pending * RVP and strep pneumo pending * Will need outpatient PFT on discharge * Will hold off Steroids for now due to risk of aggravating GI bleed * Procalcitonin ordered * Routine AM labs * Droplet precautions Hypophosphatemia Hypomagnesemia Hypokalemia * Supplement * Monitor labs Code status: Full Code PCP: Dr. Hubbard DVT: SCDs - pharmacological contraindicated due to GI Bleed Disposition: Patient admitted to M/S/P for management of GI bleed and further workup of suspected lung condition Prognosis: Good - Mortality Measure Prognosis:: Good
[2020-08-12] MEDS ORDERED: Metoprolol Tartrate 5 MG/5 ML SDV IVPUSH PRN (10:22)
[2020-08-12] MEDS ORDERED: Potassium Chloride 10 MEQ in Premix Bag 1 BAG IV SCH (10:30)
--- NOTE | 2020-08-12 10:41 | PCM.PN ---
- General Info Date of Service: 08/12/20 Admission Dx/Problem (Free Text): Admission Diagnosis/Problem Admission Diagnosis/Problem Gastrointestinal hemorrhage Subjective Update: Doing slightly better today. No red blood in stool. - Review of Systems General: Reports: No Symptoms HEENT: Reports: No Symptoms Pulmonary: Reports: Shortness of Breath Cardiovascular: Reports: Dyspnea on Exertion, Edema Gastrointestinal: Reports: No Symptoms Genitourinary: Reports: No Symptoms Musculoskeletal: Reports: No Symptoms Skin: Reports: No Symptoms Neurological: Reports: No Symptoms Psychiatric: Reports: No Symptoms - Patient Data Vitals - Most Recent: Last Vital Signs Temp 97.9 F 08/12/20 09:03 Pulse 79 08/12/20 09:03 Resp 16 08/12/20 09:03 BP 119/59 L 08/12/20 09:03 Pulse Ox 91 L 08/12/20 09:03 Weight - Most Recent: 70.851 kg I&O - Last 24 Hours: Intake & Output 08/11/20 08/12/20 08/12/20 22:59 06:59 14:59 Intake Total 360 705 Output Total 500 Balance 360 205 Lab Results Last 24 Hours: Laboratory Results - last 24 hr 08/11/20 08/11/20 08/11/20 Range/Units 15:05 15:05 15:05 WBC 11.26 H (3.98-10.04) K/mm3 RBC 1.56 L (3.98-5.22) M/mm3 Hgb 6.1 L* D (11.2-15.7) gm/dl Hct 20.2 L (34.1-44.9) % MCV 129.5 H D (79.4-94.8) fl MCH 39.1 H (25.6-32.2) pg MCHC 30.2 L (32.2-35.5) g/dl RDW Std Deviation 77.5 H (36.4-46.3) fL Plt Count 130 L (182-369) K/mm3 MPV 12.1 (9.4-12.3) fl Neut % (Auto) 79.5 H (34.0-71.1) % Lymph % (Auto) 12.3 L (19.3-51.7) % [place] % (Auto) 7.8 (4.7-12.5) % Eos % (Auto) 0 L (0.7-5.8) Baso % (Auto) 0.0 L (0.1-1.2) % Neut # (Auto) 8.96 H (1.56-6.13) K/mm3 Lymph # (Auto) 1.38 (1.18-3.74) K/mm3 [place] # (Auto) 0.88 H (0.24-0.36) K/mm3 Eos # (Auto) 0.00 L (0.04-0.36) K/mm3 Baso # (Auto) 0.00 L (0.01-0.08) K/mm3 Manual Slide Review Abnormal smear PT (9.7-12.0) SECONDS INR APTT (21.7-31.4) SECONDS D-Dimer, Quantitative (0.19-0.50) mg/L Sodium 136 (136-145) mEq/L Potassium 3.6 (3.5-5.1) mEq/L Chloride 97 L (98-107) mEq/L Carbon Dioxide 25 (21-32) mEq/L Anion Gap 17.6 H (5-15) BUN 28 H (7-18) mg/dL Creatinine 1.0 (0.55-1.02) mg/dL Est Cr Clr Drug Dosing TNP Estimated GFR (MDRD) 56 (>60) mL/min BUN/Creatinine Ratio 28.0 H (14-18) Glucose 131 H (80-115) mg/dL Lactic Acid (0.4-2.0) mmol/L Calcium 8.5 (8.5-10.1) mg/dL Phosphorus (2.6-4.7) mg/dL Magnesium 1.4 L (1.8-2.4) mg/dl Ferritin (8-252) ng/ml Total Bilirubin 1.5 H (0.2-1.0) mg/dL AST 110 H (15-37) U/L ALT 27 (14-59) U/L Alkaline Phosphatase 140 H (46-116) U/L Lactate Dehydrogenase 260 H (81-234) U/L Troponin I 0.067 H* (0.00-0.056) ng/mL C-Reactive Protein 1.8 H* (<1.0) mg/dL NT-Pro-B Natriuret Pep (0-125) pg/mL Total Protein 6.5 (6.4-8.2) g/dl Albumin 2.5 L (3.4-5.0) g/dl Globulin 4.0 gm/dL Albumin/Globulin Ratio 0.6 L (1-2) Influenza Type A RNA (NEGATIVE) Influenza Type B RNA (NEGATIVE) SARS-CoV-2 RNA (DEXTER) (NEGATIVE) Blood Type Gel Antibody Screen Crossmatch 08/11/20 08/11/20 08/11/20 Range/Units 15:05 15:05 15:05 WBC (3.98-10.04) K/mm3 RBC (3.98-5.22) M/mm3 Hgb (11.2-15.7) gm/dl Hct (34.1-44.9) % MCV (79.4-94.8) fl MCH (25.6-32.2) pg MCHC (32.2-35.5) g/dl RDW Std Deviation (36.4-46.3) fL Plt Count (182-369) K/mm3 MPV (9.4-12.3) fl Neut % (Auto) (34.0-71.1) % Lymph % (Auto) (19.3-51.7) % [place] % (Auto) (4.7-12.5) % Eos % (Auto) (0.7-5.8) Baso % (Auto) (0.1-1.2) % Neut # (Auto) (1.56-6.13) K/mm3 Lymph # (Auto) (1.18-3.74) K/mm3 [place] # (Auto) (0.24-0.36) K/mm3 Eos # (Auto) (0.04-0.36) K/mm3 Baso # (Auto) (0.01-0.08) K/mm3 Manual Slide Review PT 17.6 H (9.7-12.0) SECONDS INR 1.66 APTT 26.5 (21.7-31.4) SECONDS D-Dimer, Quantitative 0.78 H (0.19-0.50) mg/L Sodium (136-145) mEq/L Potassium (3.5-5.1) mEq/L Chloride (98-107) mEq/L Carbon Dioxide (21-32) mEq/L Anion Gap (5-15) BUN (7-18) mg/dL Creatinine (0.55-1.02) mg/dL Est Cr Clr Drug Dosing Estimated GFR (MDRD) (>60) mL/min BUN/Creatinine Ratio (14-18) Glucose (80-115) mg/dL Lactic Acid (0.4-2.0) mmol/L Calcium (8.5-10.1) mg/dL Phosphorus (2.6-4.7) mg/dL Magnesium (1.8-2.4) mg/dl Ferritin 630 H (8-252) ng/ml Total Bilirubin (0.2-1.0) mg/dL AST (15-37) U/L ALT (14-59) U/L Alkaline Phosphatase (46-116) U/L Lactate Dehydrogenase (81-234) U/L Troponin I (0.00-0.056) ng/mL C-Reactive Protein (<1.0) mg/dL NT-Pro-B Natriuret Pep 911 H (0-125) pg/mL Total Protein (6.4-8.2) g/dl Albumin (3.4-5.0) g/dl Globulin gm/dL Albumin/Globulin Ratio (1-2) Influenza Type A RNA (NEGATIVE) Influenza Type B RNA (NEGATIVE) SARS-CoV-2 RNA (DEXTER) (NEGATIVE) Blood Type Gel Antibody Screen Crossmatch 08/11/20 08/11/20 08/11/20 Range/Units 15:05 15:23 18:29 WBC (3.98-10.04) K/mm3 RBC (3.98-5.22) M/mm3 Hgb (11.2-15.7) gm/dl Hct (34.1-44.9) % MCV (79.4-94.8) fl MCH (25.6-32.2) pg MCHC (32.2-35.5) g/dl RDW Std Deviation (36.4-46.3) fL Plt Count (182-369) K/mm3 MPV (9.4-12.3) fl Neut % (Auto) (34.0-71.1) % Lymph % (Auto) (19.3-51.7) % [place] % (Auto) (4.7-12.5) % Eos % (Auto) (0.7-5.8) Baso % (Auto) (0.1-1.2) % Neut # (Auto) (1.56-6.13) K/mm3 Lymph # (Auto) (1.18-3.74) K/mm3 [place] # (Auto) (0.24-0.36) K/mm3 Eos # (Auto) (0.04-0.36) K/mm3 Baso # (Auto) (0.01-0.08) K/mm3 Manual Slide Review PT (9.7-12.0) SECONDS INR APTT (21.7-31.4) SECONDS D-Dimer, Quantitative (0.19-0.50) mg/L Sodium (136-145) mEq/L Potassium (3.5-5.1) mEq/L Chloride (98-107) mEq/L Carbon Dioxide (21-32) mEq/L Anion Gap (5-15) BUN (7-18) mg/dL Creatinine (0.55-1.02) mg/dL Est Cr Clr Drug Dosing Estimated GFR (MDRD) (>60) mL/min BUN/Creatinine Ratio (14-18) Glucose (80-115) mg/dL Lactic Acid 7.7 H* (0.4-2.0) mmol/L Calcium (8.5-10.1) mg/dL Phosphorus (2.6-4.7) mg/dL Magnesium (1.8-2.4) mg/dl Ferritin (8-252) ng/ml Total Bilirubin (0.2-1.0) mg/dL AST (15-37) U/L ALT (14-59) U/L Alkaline Phosphatase (46-116) U/L Lactate Dehydrogenase (81-234) U/L Troponin I 0.060 H* (0.00-0.056) ng/mL C-Reactive Protein (<1.0) mg/dL NT-Pro-B Natriuret Pep (0-125) pg/mL Total Protein (6.4-8.2) g/dl Albumin (3.4-5.0) g/dl Globulin gm/dL Albumin/Globulin Ratio (1-2) Influenza Type A RNA (NEGATIVE) Influenza Type B RNA (NEGATIVE) SARS-CoV-2 RNA (DEXTER) (NEGATIVE) Blood Type A POSITIVE Gel Antibody Screen Negative Crossmatch See Detail 08/11/20 08/11/20 08/12/20 Range/Units 18:29 18:50 01:00 WBC (3.98-10.04) K/mm3 RBC (3.98-5.22) M/mm3 Hgb 7.8 L D (11.2-15.7) gm/dl Hct 25.1 L (34.1-44.9) % MCV (79.4-94.8) fl MCH (25.6-32.2) pg MCHC (32.2-35.5) g/dl RDW Std Deviation (36.4-46.3) fL Plt Count (182-369) K/mm3 MPV (9.4-12.3) fl Neut % (Auto) (34.0-71.1) % Lymph % (Auto) (19.3-51.7) % [place] % (Auto) (4.7-12.5) % Eos % (Auto) (0.7-5.8) Baso % (Auto) (0.1-1.2) % Neut # (Auto) (1.56-6.13) K/mm3 Lymph # (Auto) (1.18-3.74) K/mm3 [place] # (Auto) (0.24-0.36) K/mm3 Eos # (Auto) (0.04-0.36) K/mm3 Baso # (Auto) (0.01-0.08) K/mm3 Manual Slide Review PT (9.7-12.0) SECONDS INR APTT (21.7-31.4) SECONDS D-Dimer, Quantitative (0.19-0.50) mg/L Sodium (136-145) mEq/L Potassium (3.5-5.1) mEq/L Chloride (98-107) mEq/L Carbon Dioxide (21-32) mEq/L Anion Gap (5-15) BUN (7-18) mg/dL Creatinine (0.55-1.02) mg/dL Est Cr Clr Drug Dosing Estimated GFR (MDRD) (>60) mL/min BUN/Creatinine Ratio (14-18) Glucose (80-115) mg/dL Lactic Acid 5.4 H* (0.4-2.0) mmol/L Calcium (8.5-10.1) mg/dL Phosphorus (2.6-4.7) mg/dL Magnesium (1.8-2.4) mg/dl Ferritin (8-252) ng/ml Total Bilirubin (0.2-1.0) mg/dL AST (15-37) U/L ALT (14-59) U/L Alkaline Phosphatase (46-116) U/L Lactate Dehydrogenase (81-234) U/L Troponin I (0.00-0.056) ng/mL C-Reactive Protein (<1.0) mg/dL NT-Pro-B Natriuret Pep (0-125) pg/mL Total Protein (6.4-8.2) g/dl Albumin (3.4-5.0) g/dl Globulin gm/dL Albumin/Globulin Ratio (1-2) Influenza Type A RNA Negative (NEGATIVE) Influenza Type B RNA Negative (NEGATIVE) SARS-CoV-2 RNA (DEXTER) Negative (NEGATIVE) Blood Type Gel Antibody Screen Crossmatch 08/12/20 08/12/20 Range/Units 04:31 04:31 WBC 8.35 (3.98-10.04) K/mm3 RBC 2.31 L (3.98-5.22) M/mm3 Hgb 8.0 L (11.2-15.7) gm/dl Hct 25.4 L (34.1-44.9) % MCV 110.0 H D (79.4-94.8) fl MCH 34.6 H (25.6-32.2) pg MCHC 31.5 L (32.2-35.5) g/dl RDW Std Deviation 88.0 H (36.4-46.3) fL Plt Count 76 L (182-369) K/mm3 MPV 12.6 H (9.4-12.3) fl Neut % (Auto) 60.5 (34.0-71.1) % Lymph % (Auto) 27.5 (19.3-51.7) % [place] % (Auto) 11.0 (4.7-12.5) % Eos % (Auto) 0.4 L (0.7-5.8) Baso % (Auto) 0.1 (0.1-1.2) % Neut # (Auto) 5.05 (1.56-6.13) K/mm3 Lymph # (Auto) 2.30 (1.18-3.74) K/mm3 [place] # (Auto) 0.92 H (0.24-0.36) K/mm3 Eos # (Auto) 0.03 L (0.04-0.36) K/mm3 Baso # (Auto) 0.01 (0.01-0.08) K/mm3 Manual Slide Review Abnormal smear PT (9.7-12.0) SECONDS INR APTT (21.7-31.4) SECONDS D-Dimer, Quantitative (0.19-0.50) mg/L Sodium 143 (136-145) mEq/L Potassium 3.3 L (3.5-5.1) mEq/L Chloride 106 (98-107) mEq/L Carbon Dioxide 29 (21-32) mEq/L Anion Gap 11.3 (5-15) BUN 35 H (7-18) mg/dL Creatinine 0.9 (0.55-1.02) mg/dL Est Cr Clr Drug Dosing TNP Estimated GFR (MDRD) > 60 (>60) mL/min BUN/Creatinine Ratio 38.9 H (14-18) Glucose 114 (80-115) mg/dL Lactic Acid (0.4-2.0) mmol/L Calcium 7.7 L (8.5-10.1) mg/dL Phosphorus 1.6 L (2.6-4.7) mg/dL Magnesium 1.4 L (1.8-2.4) mg/dl Ferritin (8-252) ng/ml Total Bilirubin 1.5 H (0.2-1.0) mg/dL AST 105 H (15-37) U/L ALT 22 (14-59) U/L Alkaline Phosphatase 115 (46-116) U/L Lactate Dehydrogenase (81-234) U/L Troponin I (0.00-0.056) ng/mL C-Reactive Protein (<1.0) mg/dL NT-Pro-B Natriuret Pep (0-125) pg/mL Total Protein 6.0 L (6.4-8.2) g/dl Albumin 2.4 L (3.4-5.0) g/dl Globulin 3.6 gm/dL Albumin/Globulin Ratio 0.7 L (1-2) Influenza Type A RNA (NEGATIVE) Influenza Type B RNA (NEGATIVE) SARS-CoV-2 RNA (DEXTER) (NEGATIVE) Blood Type Gel Antibody Screen Crossmatch Leo Results Last 24 Hours: Microbiology 08/11/20 15:40 Anaerobic Blood Culture - Final Blood - Venous - Lab Draw Med Orders - Current: Current Medications Acetaminophen (Tylenol) 650 mg RECTAL Q4H PRN PRN Reason: Pain (mild 1-3) Albuterol/Ipratropium (Duoneb 3.0-0.5 Mg/3 Ml) 3 ml NEB Q6HRRT [facility] Last Admin: 08/12/20 08:38 Dose: 3 ml Documented by: Furosemide (Lasix) 20 mg IVPUSH DAILY [facility]OY Sodium Chloride (Normal Saline) 1,000 mls @ 125 mls/hr IV ASDIRECTED [facility] Last Admin: 08/11/20 23:25 Dose: 125 mls/hr Documented by: Potassium Phosphate 60 mmole/ (Sodium Chloride) 1,020 mls @ 102 mls/hr IV ONETIME ONE Stop: 08/12/20 20:59 Azithromycin 500 mg/ Sodium (Chloride) 250 mls @ 250 mls/hr IV Q24H [facility]OY Stop: 08/14/20 11:59 Metoprolol Tartrate (Lopressor) 5 mg IVPUSH Q4H PRN PRN Reason: Tachycardia Pantoprazole Sodium (Protonix Iv) 40 mg IVPUSH Q12H [facility]OY Sodium Chloride (Saline Flush) 10 ml FLUSH ASDIRECTED PRN PRN Reason: Keep Vein Open Last Admin: 08/11/20 16:29 Dose: 10 ml Documented by: Discontinued Medications Albuterol (Proventil Neb Soln) 2.5 mg NEB ONETIME ONE Stop: 08/11/20 18:40 Last Admin: 08/11/20 20:13 Dose: 2.5 mg Documented by: Albuterol/Ipratropium (Duoneb 3.0-0.5 Mg/3 Ml) 3 ml NEB ONETIME ONE Stop: 08/11/20 21:19 Last Admin: 08/11/20 23:35 Dose: 3 ml Documented by: Furosemide (Lasix) 20 mg IVPUSH ONETIME ONE Stop: 08/11/20 21:19 Last Admin: 08/11/20 23:27 Dose: 20 mg Documented by: Sodium Chloride (Normal Saline) 1,000 mls @ 250 mls/hr IV ONETIME ONE Stop: 08/11/20 19:05 Last Admin: 08/11/20 15:14 Dose: 250 mls/hr Documented by: Sodium Chloride (Normal Saline) Confirm Administered Dose 250 mls @ as directed .ROUTE .STK-MED ONE Stop: 08/11/20 17:34 Last Admin: 08/11/20 23:34 Dose: Not Given Documented by: Pantoprazole Sodium 80 mg/ (Sodium Chloride) 100 mls @ 10 mls/hr IV Q10H [facility] Last Admin: 08/12/20 06:19 Dose: Not Given Documented by: Magnesium Sulfate (Magnesium Sulfate In Water Premix) 2 gm in 50 mls @ 25 mls/hr IV ONETIME ONE Stop: 08/12/20 10:29 Potassium Chloride 10 meq/ (Premix) 100 mls @ 100 mls/hr IV Q1H [facility]OY Stop: 08/12/20 14:29 Lorazepam (Ativan) 1 mg IVPUSH ONETIME ONE Stop: 08/11/20 15:08 Last Admin: 08/11/20 15:14 Dose: 1 mg Documented by: Ondansetron HCl (Zofran) 4 mg IVPUSH ONETIME ONE Stop: 08/11/20 16:08 Last Admin: 08/11/20 16:17 Dose: 4 mg Documented by: Pantoprazole Sodium (Protonix Iv) 40 mg IVPUSH ONETIME ONE Stop: 08/11/20 17:45 Last Admin: 08/11/20 20:56 Dose: 40 mg Documented by: - Exam Quality Assessment: Supplemental Oxygen General: Alert, Oriented, Cooperative GI/Abdominal Exam: Soft, Non-Tender, No Organomegaly, No Abnormal Bruit, No Mass, Distended Sepsis Event Note - Evaluation Sepsis Screening Result: No Definite Risk - Focused Exam Vital Signs: Vital Signs Temp Pulse Resp BP BP Pulse Ox Pulse Ox 08/12/20 09:03 97.9 F 79 16 119/59 L 91 L 08/12/20 08:39 95 08/12/20 06:38 92 L 08/12/20 03:45 99.3 F 83 20 118/45 L 90 L 08/12/20 00:37 97.9 F 92 20 132/66 95 08/11/20 23:24 97.9 F 65 18 114/75 114/75 95 - Problem List Review Problem List Initiated/Reviewed/Updated: No - Assessment Assessment:: Patient has GI bleeding. Responded appropriately to blood transfusion. No signs of active bleeding at this time. - Plan Plan:: - continue work up for cardiopulmonary issues given her wheezes/crackles on exam and need for supplemental oxygen and LLE edema - If Hgb is stable x 3, can extend H/H to Q24h - Ok to start CLD, no procedures planned for today - will continue to follow
[2020-08-12] MEDS ORDERED: Potassium Phosphates 60 MMOLE in Sodium Chloride 0.9% 1,000 ML IV ONE (11:00)
--- NOTE | 2020-08-12 11:45 | CT ---
CT chest Technique: Multiple axial sections through the chest were obtained. Intravenous contrast was not utilized. Comparison: Prior CT chest study of 08/09/20. 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 Thoracic aorta shows atherosclerotic change with no aneurysm. Small lymph nodes are seen within the mediastinum. Extensive coronary artery calcification is noted. No pericardial thickening is appreciated. Visualized upper abdominal structures showed nothing acute. Lung window settings were reviewed. Increasing parenchymal densities are noted within both upper lungs, worse on the left side. Emphysematous blebs are seen within the upper lungs. No additional parenchymal abnormality is appreciated. Bone window settings were reviewed which show no acute osseous finding. Old left-sided rib fracture is seen within the lower chest showing bridging callus. Impression: 1. Increasing parenchymal densities within both upper lungs from prior study compatible with worsening pneumonia. Please rule out COVID. 2. Other findings as noted above which are nonacute. Diagnostic code #3
[2020-08-12] MEDS: Azithromycin 500 MG in Sodium Chloride 0.9% 250 ML IV SCH (11:52)
[2020-08-12] MEDS: Pantoprazole 40 MG Vial IVPUSH SCH ×2 (12:34→22:22)
[2020-08-12] MEDS: Nicotine 14 MG/24 Hr Patch TRDERM SCH (16:21)
[2020-08-12] MEDS: Sodium Chloride 0.9% 10 ML Syringe FLUSH PRN (16:23)
[2020-08-12] MEDS: cefTRIAXone 2 GM in Sodium Chloride 0.9% 100 ML IV SCH (16:33)
[2020-08-12 20:42] LABS: BORDETELLA PARAPERT IS1001 Not Detected (Not Detected)
[2020-08-13] MEDS: Sodium Chloride 0.9% 1,000 ML IV SCH (02:45)
[2020-08-13] MEDS: Albuterol/Ipratropium 3.0-0.5 MG/3 ML Neb Soln NEB SCH ×4 (03:35→20:29)
--- NOTE | 2020-08-13 07:11 | PCM.PN ---
<Reinier Davis - Last Filed: 08/13/20 14:28> - General Info Date of Service: 08/13/20 Admission Dx/Problem (Free Text): Admission Diagnosis/Problem Admission Diagnosis/Problem Gastrointestinal hemorrhage Subjective Update: In to see and. She reports she feels better today. Clinically she looks better and much more comfortable. She is reporting back pain and heating pad will be added for this. She is given IV potassium today and was concerned over her pain in her arm. IV fluids added for dilution and this helped. Reports 1 grossly bloody bowel movement today. Hemoglobin down to 7.1 and 2 units will be transfused with 20 M IV push Lasix in between. Echo has returned as noted in diastolic heart failure. She has been utilizing her I-S and Acapella. Lung sounds have improved. Continue current treatment plan. Functional Status: Reports: Pain Controlled, Tolerating Diet (Clear liquids ), Ambulating, Urinating, Incentive Spirometry, Other (Acapella ). Denies: New Symptoms - Review of Systems General: Reports: No Symptoms, Weakness, Fatigue. Denies: Fever, Malaise, Chills HEENT: Reports: No Symptoms. Denies: Headaches, Sore Throat Pulmonary: Reports: No Symptoms, Shortness of Breath. Denies: Pleuritic Chest Pain, Cough, Sputum, Wheezing Cardiovascular: Reports: No Symptoms, Dyspnea on Exertion. Denies: Chest Pain, Palpitations, Lightheadedness Gastrointestinal: Reports: No Symptoms, Hematochezia (one BM today ). Denies: Abdominal Pain, Constipation, Diarrhea, Difficulty Swallowing, Melena, Nausea, Vomiting Genitourinary: Reports: No Symptoms. Denies: Pain Musculoskeletal: Reports: Back Pain Skin: Reports: No Symptoms. Denies: Cyanosis Neurological: Reports: No Symptoms. Denies: Confusion, Headache, Numbness, Pre- Existing Deficit, Tingling, Difficulty Walking, Weakness, Gait Disturbance Psychiatric: Reports: No Symptoms - Patient Data Vitals - Most Recent: Last Vital Signs Temp 97.9 F 08/13/20 03:57 Pulse 88 08/13/20 03:57 Resp 22 H 08/13/20 03:57 BP 93/73 08/13/20 03:57 Pulse Ox 93 L 08/13/20 03:57 Weight - Most Recent: 73.391 kg I&O - Last 24 Hours: Intake & Output 12/23/20 12/24/20 12/24/20 22:59 06:59 14:59 Intake Total 960 2053 Output Total 250 650 Balance 710 1403 Lab Results Last 24 Hours: Laboratory Results - last 24 hr 08/11/20 08/12/20 08/12/20 Range/Units 18:50 10:44 10:44 Hgb (11.2-15.7) gm/dl Hct (34.1-44.9) % Lactic Acid 1.5 (0.4-2.0) mmol/L Troponin I (0.00-0.056) ng/mL Procalcitonin ng/mL Adenovirus (PCR) Not detected (Not Detected) B. pertussis DNA (PCR) Not detected (Not Detected) B.parapertussis DNA PCR Not detected (Not Detected) C. pneumoniae DNA (PCR) Not detected (Not Detected) Coronavirus OC43 (PCR) Not detected (Not Detected) Coronavirus HKU1 (PCR) Not detected (Not Detected) Coronavirus 229E (PCR) Not detected (Not Detected) Coronavirus NL63 (PCR) Not detected (Not Detected) Human Metapneumovir PCR Not detected (Not Detected) Influenza A (RT-PCR) Not detected (Not Detected) Influenza B (RT-PCR) Not detected (Not Detected) Mycoplasma pneumon IgM Negative (NEGATIVE) M. pneumoniae (PCR) Not detected (Not Detected) Parainfluenza 1 (PCR) Not detected (Not Detected) Parainfluenza 2 (PCR) Not detected (Not Detected) Parainfluenza 3 (PCR) Not detected (Not Detected) Parainfluenza 4 (PCR) Not detected (Not Detected) RSV (PCR) Not detected (Not Detected) Entero/Rhino (PCR) Not detected (Not Detected) SARS-CoV-2 (PCR) Not detected (Not Detected) 08/12/20 08/12/20 08/12/20 Range/Units 10:44 10:44 10:44 Hgb 7.7 L (11.2-15.7) gm/dl Hct 24.7 L (34.1-44.9) % Lactic Acid (0.4-2.0) mmol/L Troponin I 0.044 (0.00-0.056) ng/mL Procalcitonin 0.43 H ng/mL Adenovirus (PCR) (Not Detected) B. pertussis DNA (PCR) (Not Detected) B.parapertussis DNA PCR (Not Detected) C. pneumoniae DNA (PCR) (Not Detected) Coronavirus OC43 (PCR) (Not Detected) Coronavirus HKU1 (PCR) (Not Detected) Coronavirus 229E (PCR) (Not Detected) Coronavirus NL63 (PCR) (Not Detected) Human Metapneumovir PCR (Not Detected) Influenza A (RT-PCR) (Not Detected) Influenza B (RT-PCR) (Not Detected) Mycoplasma pneumon IgM (NEGATIVE) M. pneumoniae (PCR) (Not Detected) Parainfluenza 1 (PCR) (Not Detected) Parainfluenza 2 (PCR) (Not Detected) Parainfluenza 3 (PCR) (Not Detected) Parainfluenza 4 (PCR) (Not Detected) RSV (PCR) (Not Detected) Entero/Rhino (PCR) (Not Detected) SARS-CoV-2 (PCR) (Not Detected) Leo Results Last 24 Hours: Microbiology 08/11/20 15:40 Aerobic Blood Culture - Preliminary Blood - Venous - Lab Draw NO GROWTH AFTER 1 DAY Anaerobic Blood Culture - Final 08/11/20 15:23 Aerobic Blood Culture - Preliminary Blood - Venous NO GROWTH AFTER 1 DAY Anaerobic Blood Culture - Preliminary NO GROWTH AFTER 1 DAY Med Orders - Current: Current Medications Acetaminophen (Tylenol) 650 mg RECTAL Q4H PRN PRN Reason: Pain (mild 1-3) Albuterol/Ipratropium (Duoneb 3.0-0.5 Mg/3 Ml) 3 ml NEB Q6HRRT [facility] Last Admin: 08/13/20 03:35 Dose: 3 ml Documented by: Furosemide (Lasix) 20 mg IVPUSH DAILY [facility] Sodium Chloride (Normal Saline) 1,000 mls @ 125 mls/hr IV ASDIRECTED [facility] Last Admin: 08/13/20 02:45 Dose: 125 mls/hr Documented by: Azithromycin 500 mg/ Sodium (Chloride) 250 mls @ 250 mls/hr IV Q24H [facility] Stop: 08/14/20 11:59 Last Admin: 08/12/20 11:52 Dose: 250 mls/hr Documented by: Ceftriaxone Sodium 2 gm/ (Sodium Chloride) 100 mls @ 200 mls/hr IV Q24H [facility] Stop: 08/17/20 13:01 Last Admin: 08/12/20 16:33 Dose: 200 mls/hr Documented by: Metoprolol Tartrate (Lopressor) 5 mg IVPUSH Q4H PRN PRN Reason: Tachycardia Miscellaneous Information (Remove Patch) 0 ea TRDERM DAILY [facility] Nicotine (Habitrol) 14 mg TRDERM DAILY [facility] Last Admin: 08/12/20 16:21 Dose: 14 mg Documented by: Pantoprazole Sodium (Protonix Iv) 40 mg IVPUSH Q12H [facility] Last Admin: 08/12/20 22:22 Dose: 40 mg Documented by: Sodium Chloride (Saline Flush) 10 ml FLUSH ASDIRECTED PRN PRN Reason: Keep Vein Open Last Admin: 08/12/20 16:23 Dose: 10 ml Documented by: Discontinued Medications Albuterol (Proventil Neb Soln) 2.5 mg NEB ONETIME ONE Stop: 08/11/20 18:40 Last Admin: 08/11/20 20:13 Dose: 2.5 mg Documented by: Albuterol/Ipratropium (Duoneb 3.0-0.5 Mg/3 Ml) 3 ml NEB ONETIME ONE Stop: 08/11/20 21:19 Last Admin: 08/11/20 23:35 Dose: 3 ml Documented by: Furosemide (Lasix) 20 mg IVPUSH ONETIME ONE Stop: 08/11/20 21:19 Last Admin: 08/11/20 23:27 Dose: 20 mg Documented by: Sodium Chloride (Normal Saline) 1,000 mls @ 250 mls/hr IV ONETIME ONE Stop: 08/11/20 19:05 Last Admin: 08/11/20 15:14 Dose: 250 mls/hr Documented by: Sodium Chloride (Normal Saline) Confirm Administered Dose 250 mls @ as directed .ROUTE .STK-MED ONE Stop: 08/11/20 17:34 Last Admin: 08/11/20 23:34 Dose: Not Given Documented by: Pantoprazole Sodium 80 mg/ (Sodium Chloride) 100 mls @ 10 mls/hr IV Q10H [facility] Last Admin: 08/12/20 06:19 Dose: Not Given Documented by: Magnesium Sulfate (Magnesium Sulfate In Water Premix) 2 gm in 50 mls @ 25 mls/hr IV ONETIME ONE Stop: 08/12/20 10:29 Last Admin: 08/12/20 12:04 Dose: 25 mls/hr Documented by: Potassium Phosphate 60 mmole/ (Sodium Chloride) 1,020 mls @ 102 mls/hr IV ONETIME ONE Stop: 08/12/20 20:59 Last Admin: 08/12/20 12:05 Dose: 102 mls/hr Documented by: Potassium Chloride 10 meq/ (Premix) 100 mls @ 100 mls/hr IV Q1H [facility] Stop: 08/12/20 14:29 Lorazepam (Ativan) 1 mg IVPUSH ONETIME ONE Stop: 08/11/20 15:08 Last Admin: 08/11/20 15:14 Dose: 1 mg Documented by: Ondansetron HCl (Zofran) 4 mg IVPUSH ONETIME ONE Stop: 08/11/20 16:08 Last Admin: 08/11/20 16:17 Dose: 4 mg Documented by: Pantoprazole Sodium (Protonix Iv) 40 mg IVPUSH ONETIME ONE Stop: 08/11/20 17:45 Last Admin: 08/11/20 20:56 Dose: 40 mg Documented by: - Exam Quality Assessment: Supplemental Oxygen (2L ), DVT Prophylaxis General: Alert, Oriented, Cooperative, No Acute Distress HEENT: Pupils Equal, Pupils Reactive, Mucous Membr. Moist/[place] Neck: Supple, Trachea Midline Lungs: Normal Respiratory Effort, Decreased Breath Sounds, Rhonchi Cardiovascular: Regular Rate, Regular Rhythm GI/Abdominal Exam: Normal Bowel Sounds, Soft, Non-Tender, No Distention (Female) Exam: Deferred Back Exam: Normal Inspection, Full Range of Motion Extremities: Normal Inspection, Normal Range of Motion, Non-Tender, No Pedal Edema, Normal Capillary Refill Skin: Warm, Dry, Intact Neurological: No New Focal Deficit Psy/Mental Status: Alert, Normal Affect, Normal Mood Sepsis Event Note - Evaluation Sepsis Screening Result: No Definite Risk - Focused Exam Vital Signs: Vital Signs Temp Pulse Resp BP Pulse Ox Pulse Ox 08/13/20 03:57 97.9 F 88 22 H 93/73 93 L 08/13/20 03:36 98 08/12/20 23:30 99.0 F 74 20 131/89 95 08/12/20 20:56 96 08/12/20 20:13 76 90 L 12/23/20 19:35 97.9 F 16 100/58 L - Problem List & Annotations (1) Shortness of breath SNOMED Code(s): 825718676 Code(s): R06.02 - SHORTNESS OF BREATH Status: Acute Priority: High Current Visit: Yes (2) Pedal edema SNOMED Code(s): 135786247 Code(s): R60.0 - LOCALIZED EDEMA Status: Chronic Priority: High Current Visit: Yes (3) Lower GI bleed SNOMED Code(s): 30145585 Code(s): K92.2 - GASTROINTESTINAL HEMORRHAGE, UNSPECIFIED Status: Acute Priority: High Current Visit: Yes (4) CHF (congestive heart failure) SNOMED Code(s): 13554013 Code(s): I50.9 - HEART FAILURE, UNSPECIFIED Status: Acute Priority: High Current Visit: Yes Qualifiers: Heart failure type: diastolic Heart failure chronicity: acute on chronic Qualified Code(s): I50.33 - Acute on chronic diastolic (congestive) heart failure (5) COPD (chronic obstructive pulmonary disease) SNOMED Code(s): 45414353 Code(s): J44.9 - CHRONIC OBSTRUCTIVE PULMONARY DISEASE, UNSPECIFIED Status: Suspected Priority: High Current Visit: Yes Qualifiers: COPD type: unspecified COPD Qualified Code(s): J44.9 - Chronic obstructive pulmonary disease, unspecified (6) Hypoxia SNOMED Code(s): 739550205 Code(s): R09.02 - HYPOXEMIA Status: Chronic Priority: High Current Visit: Yes (7) Hematemesis SNOMED Code(s): 6725683 Code(s): K92.0 - HEMATEMESIS Status: Acute Priority: High Current Visit: Yes Qualifiers: Nausea presence: with nausea Qualified Code(s): K92.0 - Hematemesis (8) Generalized weakness SNOMED Code(s): 23967612 Code(s): R53.1 - WEAKNESS Status: Acute Priority: High Current Visit: Yes (9) Hypophosphatemia SNOMED Code(s): 9477982 Code(s): E83.39 - OTHER DISORDERS OF PHOSPHORUS METABOLISM Status: Acute Priority: High Current Visit: Yes (10) Hypokalemia SNOMED Code(s): 43981104 Code(s): E87.6 - HYPOKALEMIA Status: Acute Priority: High Current Visit: Yes (11) Hypomagnesemia SNOMED Code(s): 230566511 Code(s): E83.42 - HYPOMAGNESEMIA Status: Resolved Priority: High Current Visit: Yes - Problem List Review Problem List Initiated/Reviewed/Updated: Yes - My Orders Last 24 Hours: My Active Orders 08/12/20 10:22 Metoprolol Tartrate [Lopressor] 5 mg IVPUSH Q4H PRN 08/12/20 10:26 Acapella [RT Chest Physiotherapy] [RC] ASDIRECTED RT Incentive Spirometry [RC] ASDIRECTED Consult to Occupational Therapy [OT Evaluation and Treatment] [CONS] Routine PT Evaluation and Treatment [CONS] Routine Respiratory Care Assess and Treatment [CONS] Routine 08/12/20 10:30 Pantoprazole [ProTONIX IV] 40 mg IVPUSH Q12H Isolation [COMM] Routine 08/12/20 10:51 VTE Pharmacological Contraindications [AST] Click To Edit 08/12/20 Lunch Clear Liquid Diet [DIET] Azithromycin [Zithromax] 500 mg Sodium Chloride 0.9% [Normal Saline (AdvBag)] 250 ml IV Q24H 08/12/20 12:12 Isolation [COMM] Routine 08/12/20 13:00 cefTRIAXone [Rocephin] 2 gm Sodium Chloride 0.9% [Normal Saline] 100 ml IV Q24H 08/12/20 16:00 Nicotine [Habitrol] 14 mg TRDERM DAILY 08/12/20 16:55 STREP PNEUMONIAE ANTIGEN [MREF] Routine 08/13/20 05:11 BASIC METABOLIC PANEL,BMP [CHEM] AM CBC WITH AUTO DIFF [HEME] AM CRP [C-REACTIVE PROTEIN] [CHEM] AM MAGNESIUM [CHEM] AM 08/13/20 09:00 Furosemide [Lasix] 20 mg IVPUSH DAILY Remove Patch 0 ea TRDERM DAILY 08/14/20 05:11 BASIC METABOLIC PANEL,BMP [CHEM] AM CBC WITH AUTO DIFF [HEME] AM CRP [C-REACTIVE PROTEIN] [CHEM] AM MAGNESIUM [CHEM] AM 08/15/20 05:11 BASIC METABOLIC PANEL,BMP [CHEM] AM CBC WITH AUTO DIFF [HEME] AM CRP [C-REACTIVE PROTEIN] [CHEM] AM MAGNESIUM [CHEM] AM 08/16/20 05:11 BASIC METABOLIC PANEL,BMP [CHEM] AM CBC WITH AUTO DIFF [HEME] AM CRP [C-REACTIVE PROTEIN] [CHEM] AM MAGNESIUM [CHEM] AM - Assessment Assessment:: Assessment - 08/12/2020 (patient admitted on 08/11/2020) * 60 YO female presents to ED with weakness and SOB * Was seen in ED on 08/09/2020 and diagnosed with COPD and CHF * Has never had an echo or PFT per patients reports * Was discharged on 2L oxygen, lasix and steroid from ED on 08/09/2020 * Denies fever, chills, or other infectious symptoms * Reports pedal edema and orthopnea * Reports bright red hematemesis and BRBPR. * Takes significant amounts of ibeauprofin for headaches and steroids prescribed in ED on 08/09/2020 * Labs: * WBC 11.26-->8.35 * Hgb 6.1--7.8 (s/p 2 units prbc)-->8.0-->7.7 * MCV 129.5-->110.0 * Plt 130-->76 * Neutrophils 8.96-->5.05 * INR 1.66 * D-Dimer 0.78 * Sodium 136-->143 * Potassium 3.6-->3.3 * Anion gap 17.6-->11.3 * Creatinine 1.0-->0.9 * GFR 56--> Greater than 60 * Lactic acid 7.7-->5.4-->1.5 * Phosphorous 1.6 * Magnesium 1.4-->1.4 * Ferritin 630 * Total bilirubin 1.5-->1.5 * AST 110-->105 * Alt 27-->22 * Alk phos 140-->115 * LDH 260 * Troponin 0.067-->0.060 * CRP 1.8 * BNP 911 * Albumin 2.5-->2.4 * Influenza A, B, SARS-CoV-2, and mycoplasma negative. * Diet advanced to clear liquids 08/13/2020 * Echo obtained 08/12/2020 * 1. Left ventricular ejection fraction, by visual estimation, is 60 to 65%. * 2. Pseudonormal (Grade 2) pattern of LV diastolic filling. * 3. Normal right ventricular systolic function. * 4. Mild mitral valve regurgitation. * 5. Mild tricuspid valve regurgitation. * 6. The right ventricular systolic pressure is mildly elevated at 41.4 mmHg. * 7. No regional wall motion abnormalities. * Remains on 2 L of oxygen * Labs: * WBC 5.9 * hemoglobin 7.1 * platelets 72,000 * neutrophils 3.43 * sodium 141 * potassium 3.2 * BUN 21 * creatinine 0.9 * GFR greater than 60 * magnesium 2.0 * CRP 2.0 * procalcitonin returned 0.43. * Respiratory viral panel negative * Mycoplasma negative * Tolerating clear liquids * Transfuse 2 Units PRBC today given Hgb of 7.1 and heart failure * 20mg IVP lasix given between units * Continue current treatment plan * Clinically she looks better and states she feels better * Lung sounds improved in past 24 hours * Heating pad for back pain - Plan Plan:: Lower GI bleed Hematemesis * Dr. Zimmerman consulted - saw patient, recommends EGD, Colonoscopy if bleeding does not stop * Suggests CTA of abdomen if bleeding does not resolve * Repeat H/H today monitor need for more. Repeat in AM unless increase in bloody BMs. * Continue IVP BID Protonix * Stop ibuprofen as likely cause of problems * Continue clear liquid diet Shortness of breath Pedal edema CHF (congestive heart failure) COPD (chronic obstructive pulmonary disease) Hypoxia Generalized weakness Elevated Lactic acid * Lasix as ordered * PT/OT * Scheduled duonebs * O2 as needed * RT consultation * IS/Acapella * 500mg IV azithromycin x3 days and Rocephin 2gm for 5 days * Will need outpatient PFT on discharge * Will hold off Steroids for now due to risk of aggravating GI bleed * Routine AM labs * Droplet precautions * Transfuse 2 units today * Give 20mg IVP lasix between units * Discontinue IV fluids Hypophosphatemia Hypomagnesemia, resolved Hypokalemia * Supplement * Monitor labs Code status: Full Code PCP: Dr. Hubbard DVT: SCDs - pharmacological contraindicated due to GI Bleed Disposition: Patient admitted to M/S/P for management of GI bleed and further workup of suspected lung condition Prognosis: Good <Todd Sneed - Last Filed: 08/13/20 15:42> - Patient Data Vitals - Most Recent: Last Vital Signs Temp 37.4 C 08/13/20 15:25 Pulse 86 08/13/20 15:25 Resp 20 08/13/20 15:25 BP 123/52 L 08/13/20 15:25 Pulse Ox 96 08/13/20 15:25 I&O - Last 24 Hours: Intake & Output 08/13/20 08/13/20 08/13/20 06:59 14:59 22:59 Intake Total 2053 600 600 Output Total 650 Balance 1403 600 600 Lab Results Last 24 Hours: Laboratory Results - last 24 hr 08/11/20 08/11/20 08/11/20 Range/Units 15:05 16:35 18:50 WBC (3.98-10.04) K/mm3 RBC (3.98-5.22) M/mm3 Hgb (11.2-15.7) gm/dl Hct (34.1-44.9) % MCV (79.4-94.8) fl MCH (25.6-32.2) pg MCHC (32.2-35.5) g/dl RDW Std Deviation (36.4-46.3) fL Plt Count (182-369) K/mm3 MPV (9.4-12.3) fl Neut % (Auto) (34.0-71.1) % Lymph % (Auto) (19.3-51.7) % Wayne % (Auto) (4.7-12.5) % Eos % (Auto) (0.7-5.8) Baso % (Auto) (0.1-1.2) % Neut # (Auto) (1.56-6.13) K/mm3 Lymph # (Auto) (1.18-3.74) K/mm3 Wayne # (Auto) (0.24-0.36) K/mm3 Eos # (Auto) (0.04-0.36) K/mm3 Baso # (Auto) (0.01-0.08) K/mm3 Manual Slide Review Sodium (136-145) mEq/L Potassium (3.5-5.1) mEq/L Chloride (98-107) mEq/L Carbon Dioxide (21-32) mEq/L Anion Gap (5-15) BUN (7-18) mg/dL Creatinine (0.55-1.02) mg/dL Est Cr Clr Drug Dosing mL/min Estimated GFR (MDRD) (>60) mL/min BUN/Creatinine Ratio (14-18) Glucose (80-115) mg/dL Calcium (8.5-10.1) mg/dL Magnesium (1.8-2.4) mg/dl C-Reactive Protein (<1.0) mg/dL Procalcitonin ng/mL Adenovirus (PCR) Not detected (Not Detected) B. pertussis DNA (PCR) Not detected (Not Detected) B.parapertussis DNA PCR Not detected (Not Detected) C. pneumoniae DNA (PCR) Not detected (Not Detected) Coronavirus OC43 (PCR) Not detected (Not Detected) Coronavirus HKU1 (PCR) Not detected (Not Detected) Coronavirus 229E (PCR) Not detected (Not Detected) Coronavirus NL63 (PCR) Not detected (Not Detected) Human Metapneumovir PCR Not detected (Not Detected) Influenza A (RT-PCR) Not detected (Not Detected) Influenza B (RT-PCR) Not detected (Not Detected) M. pneumoniae (PCR) Not detected (Not Detected) Parainfluenza 1 (PCR) Not detected (Not Detected) Parainfluenza 2 (PCR) Not detected (Not Detected) Parainfluenza 3 (PCR) Not detected (Not Detected) Parainfluenza 4 (PCR) Not detected (Not Detected) RSV (PCR) Not detected (Not Detected) Entero/Rhino (PCR) Not detected (Not Detected) SARS-CoV-2 (PCR) Not detected (Not Detected) Blood Type A POSITIVE Gel Antibody Screen Negative Crossmatch See Detail See Detail 08/12/20 08/13/20 08/13/20 Range/Units 10:44 07:15 07:15 WBC 5.89 (3.98-10.04) K/mm3 RBC 2.02 L (3.98-5.22) M/mm3 Hgb 7.1 L* (11.2-15.7) gm/dl Hct 22.8 L (34.1-44.9) % MCV 112.9 H (79.4-94.8) fl MCH 35.1 H (25.6-32.2) pg MCHC 31.1 L (32.2-35.5) g/dl RDW Std Deviation 94.8 H (36.4-46.3) fL Plt Count 72 L (182-369) K/mm3 MPV 12.0 (9.4-12.3) fl Neut % (Auto) 58.2 (34.0-71.1) % Lymph % (Auto) 28.9 (19.3-51.7) % Wayne % (Auto) 11.0 (4.7-12.5) % Eos % (Auto) 1.4 (0.7-5.8) Baso % (Auto) 0.2 (0.1-1.2) % Neut # (Auto) 3.43 (1.56-6.13) K/mm3 Lymph # (Auto) 1.70 (1.18-3.74) K/mm3 Wayne # (Auto) 0.65 H (0.24-0.36) K/mm3 Eos # (Auto) 0.08 (0.04-0.36) K/mm3 Baso # (Auto) 0.01 (0.01-0.08) K/mm3 Manual Slide Review Abnormal smear Sodium 141 (136-145) mEq/L Potassium 3.2 L (3.5-5.1) mEq/L Chloride 104 (98-107) mEq/L Carbon Dioxide 29 (21-32) mEq/L Anion Gap 11.2 (5-15) BUN 21 H (7-18) mg/dL Creatinine 0.9 (0.55-1.02) mg/dL Est Cr Clr Drug Dosing 61.45 mL/min Estimated GFR (MDRD) > 60 (>60) mL/min BUN/Creatinine Ratio 23.3 H (14-18) Glucose 99 (80-115) mg/dL Calcium 7.4 L (8.5-10.1) mg/dL Magnesium 2.0 (1.8-2.4) mg/dl C-Reactive Protein 2.0 H* (<1.0) mg/dL Procalcitonin 0.43 H ng/mL Adenovirus (PCR) (Not Detected) B. pertussis DNA (PCR) (Not Detected) B.parapertussis DNA PCR (Not Detected) C. pneumoniae DNA (PCR) (Not Detected) Coronavirus OC43 (PCR) (Not Detected) Coronavirus HKU1 (PCR) (Not Detected) Coronavirus 229E (PCR) (Not Detected) Coronavirus NL63 (PCR) (Not Detected) Human Metapneumovir PCR (Not Detected) Influenza A (RT-PCR) (Not Detected) Influenza B (RT-PCR) (Not Detected) M. pneumoniae (PCR) (Not Detected) Parainfluenza 1 (PCR) (Not Detected) Parainfluenza 2 (PCR) (Not Detected) Parainfluenza 3 (PCR) (Not Detected) Parainfluenza 4 (PCR) (Not Detected) RSV (PCR) (Not Detected) Entero/Rhino (PCR) (Not Detected) SARS-CoV-2 (PCR) (Not Detected) Blood Type Gel Antibody Screen Crossmatch Leo Results Last 24 Hours: Microbiology 08/12/20 16:55 Streptococcus pneumoniae Antigen (M - Final Urine 08/11/20 15:40 Aerobic Blood Culture - Preliminary Blood - Venous - Lab Draw NO GROWTH AFTER 1 DAY Anaerobic Blood Culture - Final 08/11/20 15:23 Aerobic Blood Culture - Preliminary Blood - Venous NO GROWTH AFTER 1 DAY Anaerobic Blood Culture - Preliminary NO GROWTH AFTER 1 DAY Med Orders - Current: Current Medications Acetaminophen (Tylenol) 650 mg RECTAL Q4H PRN PRN Reason: Pain (mild 1-3) Last Admin: 08/13/20 15:11 Dose: 650 mg Documented by: Albuterol/Ipratropium (Duoneb 3.0-0.5 Mg/3 Ml) 3 ml NEB Q6HRRT [facility] Last Admin: 08/13/20 08:45 Dose: 3 ml Documented by: Folic Acid (Folic Acid) 1 mg PO DAILY [facility] Furosemide (Lasix) 20 mg IVPUSH DAILY [facility] Last Admin: 08/13/20 09:04 Dose: 20 mg Documented by: Azithromycin 500 mg/ Sodium (Chloride) 250 mls @ 250 mls/hr IV Q24H [facility] Stop: 08/14/20 11:59 Last Admin: 08/13/20 11:29 Dose: 250 mls/hr Documented by: Ceftriaxone Sodium 2 gm/ (Sodium Chloride) 100 mls @ 200 mls/hr IV Q24H [facility] Stop: 08/17/20 13:01 Last Admin: 08/13/20 14:41 Dose: 200 mls/hr Documented by: Sodium Chloride (Normal Saline) 250 mls @ 75 mls/hr IV ASDIRECTED [facility] Last Admin: 08/13/20 09:57 Dose: 75 mls/hr Documented by: Sodium Chloride (Normal Saline) 1,000 mls @ 50 mls/hr IV ASDIRECTED [facility] Stop: 08/13/20 22:00 Last Admin: 08/13/20 10:00 Dose: 50 mls/hr Documented by: Metoprolol Tartrate (Lopressor) 5 mg IVPUSH Q4H PRN PRN Reason: Tachycardia Miscellaneous Information (Remove Patch) 0 ea TRDERM DAILY [facility] Last Admin: 08/13/20 09:03 Dose: 14 ea Documented by: Multivitamins (Thera) 1 each PO DAILY [facility] Nicotine (Habitrol) 14 mg TRDERM DAILY [facility] Last Admin: 08/13/20 09:01 Dose: 14 mg Documented by: Pantoprazole Sodium (Protonix Iv) 40 mg IVPUSH Q12H [facility] Last Admin: 08/13/20 10:39 Dose: 40 mg Documented by: Polyethylene Glycol/Electrolytes (Golytely) 4,000 ml PO ONETIME ONE Stop: 08/13/20 17:01 Sodium Chloride (Saline Flush) 10 ml FLUSH ASDIRECTED PRN PRN Reason: Keep Vein Open Last Admin: 08/12/20 16:23 Dose: 10 ml Documented by: Discontinued Medications Albuterol (Proventil Neb Soln) 2.5 mg NEB ONETIME ONE Stop: 08/11/20 18:40 Last Admin: 08/11/20 20:13 Dose: 2.5 mg Documented by: Albuterol/Ipratropium (Duoneb 3.0-0.5 Mg/3 Ml) 3 ml NEB ONETIME ONE Stop: 08/11/20 21:19 Last Admin: 08/11/20 23:35 Dose: 3 ml Documented by: Furosemide (Lasix) 20 mg IVPUSH ONETIME ONE Stop: 08/11/20 21:19 Last Admin: 08/11/20 23:27 Dose: 20 mg Documented by: Furosemide (Lasix) 20 mg IVPUSH ONETIME ONE Stop: 08/13/20 08:31 Last Admin: 08/13/20 14:34 Dose: 20 mg Documented by: Furosemide (Lasix) Confirm Administered Dose 20 mg .ROUTE .STK-MED ONE Stop: 08/13/20 14:26 Sodium Chloride (Normal Saline) 1,000 mls @ 250 mls/hr IV ONETIME ONE Stop: 08/11/20 19:05 Last Admin: 08/11/20 15:14 Dose: 250 mls/hr Documented by: Sodium Chloride (Normal Saline) Confirm Administered Dose 250 mls @ as directed .ROUTE .STK-MED ONE Stop: 08/11/20 17:34 Last Admin: 08/11/20 23:34 Dose: Not Given Documented by: Pantoprazole Sodium 80 mg/ (Sodium Chloride) 100 mls @ 10 mls/hr IV Q10H [facility] Last Admin: 08/12/20 06:19 Dose: Not Given Documented by: Sodium Chloride (Normal Saline) 1,000 mls @ 125 mls/hr IV ASDIRECTED [facility] Last Admin: 08/13/20 02:45 Dose: 125 mls/hr Documented by: Magnesium Sulfate (Magnesium Sulfate In Water Premix) 2 gm in 50 mls @ 25 mls/hr IV ONETIME ONE Stop: 08/12/20 10:29 Last Admin: 08/12/20 12:04 Dose: 25 mls/hr Documented by: Potassium Phosphate 60 mmole/ (Sodium Chloride) 1,020 mls @ 102 mls/hr IV ONETIME ONE Stop: 08/12/20 20:59 Last Admin: 08/12/20 12:05 Dose: 102 mls/hr Documented by: Potassium Chloride 10 meq/ (Premix) 100 mls @ 100 mls/hr IV Q1H [facility] Stop: 08/12/20 14:29 Potassium Chloride 10 meq/ (Premix) 100 mls @ 100 mls/hr IV Q1H [facility] Stop: 08/13/20 14:59 Last Admin: 08/13/20 14:57 Dose: 100 mls/hr Documented by: Lorazepam (Ativan) 1 mg IVPUSH ONETIME ONE Stop: 08/11/20 15:08 Last Admin: 08/11/20 15:14 Dose: 1 mg Documented by: Ondansetron HCl (Zofran) 4 mg IVPUSH ONETIME ONE Stop: 08/11/20 16:08 Last Admin: 08/11/20 16:17 Dose: 4 mg Documented by: Pantoprazole Sodium (Protonix Iv) 40 mg IVPUSH ONETIME ONE Stop: 08/11/20 17:45 Last Admin: 08/11/20 20:56 Dose: 40 mg Documented by: Sepsis Event Note - Focused Exam Vital Signs: Vital Signs Temp Pulse Pulse Resp BP BP Pulse Ox 08/13/20 15:25 37.4 C 86 20 123/52 L 96 08/13/20 15:08 36.7 C 89 20 119/59 L 97 08/13/20 13:39 36.7 C 83 20 91/47 L 95 08/13/20 08:47 08/13/20 03:57 36.6 C 88 22 H 93/73 93 L Pulse Ox 08/13/20 15:25 08/13/20 15:08 08/13/20 13:39 08/13/20 08:47 97 08/13/20 03:57 - My Orders Last 24 Hours: My Active Orders 08/13/20 09:45 Sodium Chloride 0.9% [Normal Saline] 250 ml IV ASDIRECTED - Plan Plan:: I have seen and evaluated the patient independently of Reinier Davis PA-C. I have reviewed and agree with the plan of care as outlined by him for this patient. Please see orders.
[2020-08-13] MEDS ORDERED: Furosemide 20 MG/2 ML VIAL IVPUSH ONE (08:30)
[2020-08-13] MEDS: Nicotine 14 MG/24 Hr Patch TRDERM SCH (09:01)
[2020-08-13] MEDS: Furosemide 20 MG/2 ML VIAL IVPUSH SCH (09:04)
[2020-08-13] MEDS: Potassium Chloride 10 MEQ in Premix Bag 1 BAG IV SCH ×6 (09:34→18:47)
[2020-08-13] MEDS: Sodium Chloride 0.9% 250 ML IV SCH (09:57)
[2020-08-13] MEDS: Pantoprazole 40 MG Vial IVPUSH SCH ×2 (10:39→21:38)
[2020-08-13] MEDS ORDERED: Sodium Chloride 0.9% 1,000 ML IV SCH (11:15)
[2020-08-13] MEDS: Azithromycin 500 MG in Sodium Chloride 0.9% 250 ML IV SCH (11:29)
[2020-08-13] MEDS ORDERED: Furosemide 20 MG/2 ML VIAL ONE (14:25)
[2020-08-13] MEDS: cefTRIAXone 2 GM in Sodium Chloride 0.9% 100 ML IV SCH (14:41)
--- NOTE | 2020-08-13 15:05 | PCM.PN ---
- General Info Date of Service: 08/13/20 Admission Dx/Problem (Free Text): Admission Diagnosis/Problem Admission Diagnosis/Problem Gastrointestinal hemorrhage Subjective Update: Patient is feeling better today. She did have one bloody bowel movement today and her Hgb from 7.7 to 7.1. she walked a little Functional Status: Reports: Tolerating Diet, Ambulating, Urinating - Review of Systems General: Reports: No Symptoms HEENT: Reports: No Symptoms Pulmonary: Reports: Shortness of Breath Gastrointestinal: Reports: No Symptoms Genitourinary: Reports: No Symptoms Musculoskeletal: Reports: No Symptoms Skin: Reports: No Symptoms Neurological: Reports: No Symptoms Psychiatric: Reports: No Symptoms - Patient Data Vitals - Most Recent: Last Vital Signs Temp 97.9 F 08/13/20 03:57 Pulse 88 08/13/20 03:57 Resp 22 H 08/13/20 03:57 BP 93/73 08/13/20 03:57 Pulse Ox 97 08/13/20 08:47 Weight - Most Recent: 73.391 kg I&O - Last 24 Hours: Intake & Output 08/12/20 08/13/20 08/13/20 22:59 06:59 14:59 Intake Total 960 2053 260 Output Total 250 650 Balance 710 1403 260 Lab Results Last 24 Hours: Laboratory Results - last 24 hr 08/11/20 08/11/20 08/11/20 Range/Units 15:05 16:35 18:50 WBC (3.98-10.04) K/mm3 RBC (3.98-5.22) M/mm3 Hgb (11.2-15.7) gm/dl Hct (34.1-44.9) % MCV (79.4-94.8) fl MCH (25.6-32.2) pg MCHC (32.2-35.5) g/dl RDW Std Deviation (36.4-46.3) fL Plt Count (182-369) K/mm3 MPV (9.4-12.3) fl Neut % (Auto) (34.0-71.1) % Lymph % (Auto) (19.3-51.7) % Cotton % (Auto) (4.7-12.5) % Eos % (Auto) (0.7-5.8) Baso % (Auto) (0.1-1.2) % Neut # (Auto) (1.56-6.13) K/mm3 Lymph # (Auto) (1.18-3.74) K/mm3 Cotton # (Auto) (0.24-0.36) K/mm3 Eos # (Auto) (0.04-0.36) K/mm3 Baso # (Auto) (0.01-0.08) K/mm3 Manual Slide Review Sodium (136-145) mEq/L Potassium (3.5-5.1) mEq/L Chloride (98-107) mEq/L Carbon Dioxide (21-32) mEq/L Anion Gap (5-15) BUN (7-18) mg/dL Creatinine (0.55-1.02) mg/dL Est Cr Clr Drug Dosing mL/min Estimated GFR (MDRD) (>60) mL/min BUN/Creatinine Ratio (14-18) Glucose (80-115) mg/dL Calcium (8.5-10.1) mg/dL Magnesium (1.8-2.4) mg/dl C-Reactive Protein (<1.0) mg/dL Procalcitonin ng/mL Adenovirus (PCR) Not detected (Not Detected) B. pertussis DNA (PCR) Not detected (Not Detected) B.parapertussis DNA PCR Not detected (Not Detected) C. pneumoniae DNA (PCR) Not detected (Not Detected) Coronavirus OC43 (PCR) Not detected (Not Detected) Coronavirus HKU1 (PCR) Not detected (Not Detected) Coronavirus 229E (PCR) Not detected (Not Detected) Coronavirus NL63 (PCR) Not detected (Not Detected) Human Metapneumovir PCR Not detected (Not Detected) Influenza A (RT-PCR) Not detected (Not Detected) Influenza B (RT-PCR) Not detected (Not Detected) M. pneumoniae (PCR) Not detected (Not Detected) Parainfluenza 1 (PCR) Not detected (Not Detected) Parainfluenza 2 (PCR) Not detected (Not Detected) Parainfluenza 3 (PCR) Not detected (Not Detected) Parainfluenza 4 (PCR) Not detected (Not Detected) RSV (PCR) Not detected (Not Detected) Entero/Rhino (PCR) Not detected (Not Detected) SARS-CoV-2 (PCR) Not detected (Not Detected) Blood Type A POSITIVE Gel Antibody Screen Negative Crossmatch See Detail See Detail 08/12/20 08/13/20 08/13/20 Range/Units 10:44 07:15 07:15 WBC 5.89 (3.98-10.04) K/mm3 RBC 2.02 L (3.98-5.22) M/mm3 Hgb 7.1 L* (11.2-15.7) gm/dl Hct 22.8 L (34.1-44.9) % MCV 112.9 H (79.4-94.8) fl MCH 35.1 H (25.6-32.2) pg MCHC 31.1 L (32.2-35.5) g/dl RDW Std Deviation 94.8 H (36.4-46.3) fL Plt Count 72 L (182-369) K/mm3 MPV 12.0 (9.4-12.3) fl Neut % (Auto) 58.2 (34.0-71.1) % Lymph % (Auto) 28.9 (19.3-51.7) % Cotton % (Auto) 11.0 (4.7-12.5) % Eos % (Auto) 1.4 (0.7-5.8) Baso % (Auto) 0.2 (0.1-1.2) % Neut # (Auto) 3.43 (1.56-6.13) K/mm3 Lymph # (Auto) 1.70 (1.18-3.74) K/mm3 Cotton # (Auto) 0.65 H (0.24-0.36) K/mm3 Eos # (Auto) 0.08 (0.04-0.36) K/mm3 Baso # (Auto) 0.01 (0.01-0.08) K/mm3 Manual Slide Review Abnormal smear Sodium 141 (136-145) mEq/L Potassium 3.2 L (3.5-5.1) mEq/L Chloride 104 (98-107) mEq/L Carbon Dioxide 29 (21-32) mEq/L Anion Gap 11.2 (5-15) BUN 21 H (7-18) mg/dL Creatinine 0.9 (0.55-1.02) mg/dL Est Cr Clr Drug Dosing 61.45 mL/min Estimated GFR (MDRD) > 60 (>60) mL/min BUN/Creatinine Ratio 23.3 H (14-18) Glucose 99 (80-115) mg/dL Calcium 7.4 L (8.5-10.1) mg/dL Magnesium 2.0 (1.8-2.4) mg/dl C-Reactive Protein 2.0 H* (<1.0) mg/dL Procalcitonin 0.43 H ng/mL Adenovirus (PCR) (Not Detected) B. pertussis DNA (PCR) (Not Detected) B.parapertussis DNA PCR (Not Detected) C. pneumoniae DNA (PCR) (Not Detected) Coronavirus OC43 (PCR) (Not Detected) Coronavirus HKU1 (PCR) (Not Detected) Coronavirus 229E (PCR) (Not Detected) Coronavirus NL63 (PCR) (Not Detected) Human Metapneumovir PCR (Not Detected) Influenza A (RT-PCR) (Not Detected) Influenza B (RT-PCR) (Not Detected) M. pneumoniae (PCR) (Not Detected) Parainfluenza 1 (PCR) (Not Detected) Parainfluenza 2 (PCR) (Not Detected) Parainfluenza 3 (PCR) (Not Detected) Parainfluenza 4 (PCR) (Not Detected) RSV (PCR) (Not Detected) Entero/Rhino (PCR) (Not Detected) SARS-CoV-2 (PCR) (Not Detected) Blood Type Gel Antibody Screen Crossmatch Leo Results Last 24 Hours: Microbiology 08/12/20 16:55 Streptococcus pneumoniae Antigen (M - Final Urine 08/11/20 15:40 Aerobic Blood Culture - Preliminary Blood - Venous - Lab Draw NO GROWTH AFTER 1 DAY Anaerobic Blood Culture - Final 08/11/20 15:23 Aerobic Blood Culture - Preliminary Blood - Venous NO GROWTH AFTER 1 DAY Anaerobic Blood Culture - Preliminary NO GROWTH AFTER 1 DAY Med Orders - Current: Current Medications Acetaminophen (Tylenol) 650 mg RECTAL Q4H PRN PRN Reason: Pain (mild 1-3) Albuterol/Ipratropium (Duoneb 3.0-0.5 Mg/3 Ml) 3 ml NEB Q6HRRT [facility] Last Admin: 08/13/20 08:45 Dose: 3 ml Documented by: Folic Acid (Folic Acid) 1 mg PO DAILY [facility] Furosemide (Lasix) 20 mg IVPUSH DAILY [facility] Last Admin: 08/13/20 09:04 Dose: 20 mg Documented by: Azithromycin 500 mg/ Sodium (Chloride) 250 mls @ 250 mls/hr IV Q24H [facility] Stop: 08/14/20 11:59 Last Admin: 08/13/20 11:29 Dose: 250 mls/hr Documented by: Ceftriaxone Sodium 2 gm/ (Sodium Chloride) 100 mls @ 200 mls/hr IV Q24H [facility] Stop: 08/17/20 13:01 Last Admin: 08/13/20 14:41 Dose: 200 mls/hr Documented by: Potassium Chloride 10 meq/ (Premix) 100 mls @ 100 mls/hr IV Q1H [facility] Stop: 08/13/20 14:59 Last Admin: 08/13/20 13:22 Dose: 100 mls/hr Documented by: Sodium Chloride (Normal Saline) 250 mls @ 75 mls/hr IV ASDIRECTED [facility] Last Admin: 08/13/20 09:57 Dose: 75 mls/hr Documented by: Sodium Chloride (Normal Saline) 1,000 mls @ 50 mls/hr IV ASDIRECTED [facility] Stop: 08/13/20 22:00 Last Admin: 08/13/20 10:00 Dose: 50 mls/hr Documented by: Metoprolol Tartrate (Lopressor) 5 mg IVPUSH Q4H PRN PRN Reason: Tachycardia Miscellaneous Information (Remove Patch) 0 ea TRDERM DAILY [facility] Last Admin: 08/13/20 09:03 Dose: 14 ea Documented by: Multivitamins (Thera) 1 each PO DAILY [facility] Nicotine (Habitrol) 14 mg TRDERM DAILY [facility] Last Admin: 08/13/20 09:01 Dose: 14 mg Documented by: Pantoprazole Sodium (Protonix Iv) 40 mg IVPUSH Q12H [facility] Last Admin: 08/13/20 10:39 Dose: 40 mg Documented by: Polyethylene Glycol/Electrolytes (Golytely) 4,000 ml PO ONETIME ONE Stop: 08/13/20 17:01 Sodium Chloride (Saline Flush) 10 ml FLUSH ASDIRECTED PRN PRN Reason: Keep Vein Open Last Admin: 08/12/20 16:23 Dose: 10 ml Documented by: Discontinued Medications Albuterol (Proventil Neb Soln) 2.5 mg NEB ONETIME ONE Stop: 08/11/20 18:40 Last Admin: 08/11/20 20:13 Dose: 2.5 mg Documented by: Albuterol/Ipratropium (Duoneb 3.0-0.5 Mg/3 Ml) 3 ml NEB ONETIME ONE Stop: 08/11/20 21:19 Last Admin: 08/11/20 23:35 Dose: 3 ml Documented by: Furosemide (Lasix) 20 mg IVPUSH ONETIME ONE Stop: 08/11/20 21:19 Last Admin: 08/11/20 23:27 Dose: 20 mg Documented by: Furosemide (Lasix) 20 mg IVPUSH ONETIME ONE Stop: 08/13/20 08:31 Last Admin: 08/13/20 14:34 Dose: 20 mg Documented by: Furosemide (Lasix) Confirm Administered Dose 20 mg .ROUTE .STK-MED ONE Stop: 08/13/20 14:26 Sodium Chloride (Normal Saline) 1,000 mls @ 250 mls/hr IV ONETIME ONE Stop: 08/11/20 19:05 Last Admin: 08/11/20 15:14 Dose: 250 mls/hr Documented by: Sodium Chloride (Normal Saline) Confirm Administered Dose 250 mls @ as directed .ROUTE .STK-MED ONE Stop: 08/11/20 17:34 Last Admin: 08/11/20 23:34 Dose: Not Given Documented by: Pantoprazole Sodium 80 mg/ (Sodium Chloride) 100 mls @ 10 mls/hr IV Q10H [facility] Last Admin: 08/12/20 06:19 Dose: Not Given Documented by: Sodium Chloride (Normal Saline) 1,000 mls @ 125 mls/hr IV ASDIRECTED [facility] Last Admin: 08/13/20 02:45 Dose: 125 mls/hr Documented by: Magnesium Sulfate (Magnesium Sulfate In Water Premix) 2 gm in 50 mls @ 25 mls/hr IV ONETIME ONE Stop: 08/12/20 10:29 Last Admin: 08/12/20 12:04 Dose: 25 mls/hr Documented by: Potassium Phosphate 60 mmole/ (Sodium Chloride) 1,020 mls @ 102 mls/hr IV ONETIME ONE Stop: 08/12/20 20:59 Last Admin: 08/12/20 12:05 Dose: 102 mls/hr Documented by: Potassium Chloride 10 meq/ (Premix) 100 mls @ 100 mls/hr IV Q1H [facility] Stop: 08/12/20 14:29 Lorazepam (Ativan) 1 mg IVPUSH ONETIME ONE Stop: 08/11/20 15:08 Last Admin: 08/11/20 15:14 Dose: 1 mg Documented by: Ondansetron HCl (Zofran) 4 mg IVPUSH ONETIME ONE Stop: 08/11/20 16:08 Last Admin: 08/11/20 16:17 Dose: 4 mg Documented by: Pantoprazole Sodium (Protonix Iv) 40 mg IVPUSH ONETIME ONE Stop: 08/11/20 17:45 Last Admin: 08/11/20 20:56 Dose: 40 mg Documented by: - Exam Quality Assessment: Supplemental Oxygen General: Alert, Oriented, Cooperative Lungs: Clear to Auscultation, Normal Respiratory Effort Cardiovascular: Regular Rate, Regular Rhythm GI/Abdominal Exam: Soft, Non-Tender, No Organomegaly, No Distention Sepsis Event Note - Evaluation Sepsis Screening Result: No Definite Risk - Focused Exam Vital Signs: Vital Signs Temp Pulse Resp BP Pulse Ox Pulse Ox 08/13/20 08:47 97 08/13/20 03:57 97.9 F 88 22 H 93/73 93 L 08/13/20 03:36 98 - Problem List Review Problem List Initiated/Reviewed/Updated: No - Assessment Assessment:: Patient has GI bleeding. Unclear if upper or lower. Lungs stable, Cardiac grade 2 diastolic dysfunction. - Plan Plan:: - will proceed with EGD/Colonoscopy tomorrow at 10. I discussed this with the patient. Risks, benefits and alternatives discussed and informed consent obtained. - Has macrocytic anemia. Please supplement B12 and folate - Check INR tonight since it was elevated yesterday - Discussed plan with Reinier.
[2020-08-13] MEDS ORDERED: Polyethylene Glycol/Electrolytes 4,000 ML Bottle PO ONE (17:00)
--- NOTE | 2020-08-13 23:39 | PCM.PREANE ---
Preanesthetic Assessment - Procedure Proposed Procedure: EGD and Colonoscopy - Anesthesia/Transfusion/Family Hx Anesthesia History: Prior Anesthesia Without Reaction Family History of Anesthesia Reaction: No Transfusion History: Prior Transfusion Without Reaction (Received a total of 4 PRBC's thus far.) Intubation History: Unknown - Review of Systems General: No Symptoms, Fatigue, Malaise Pulmonary: No Symptoms (Smoker: 1/2ppd times 43 years. On home O2 at 2LPM at night at home. ETOH: 3-4 times/month), Shortness of Breath, Cough, Sputum Cardiovascular: No Symptoms (HTN, SD 2010-stents times 1, CHF on lasix), Dyspnea on Exertion, Edema Gastrointestinal: No Symptoms Neurological: No Symptoms (Back surgery in 2010) Other: Reports: Easy Bleeding, Easy Bruising, Depression - Physical Assessment NPO Status Date: 08/13/20 NPO Status Time: 19:30 Vital Signs: Last Vital Signs Temp 36.6 C 08/13/20 20:22 Pulse 86 08/13/20 20:22 Resp 18 08/13/20 20:22 BP 112/55 L 08/13/20 20:22 Pulse Ox 95 08/13/20 20:22 Height: 1.68 m Weight: 73.391 kg ASA Class: 3E Mental Status: Alert & Oriented x3 Airway Class: Mallampati = 2 Dentition: Reports: Dentures Thyro-Mental Finger Breadths: 3 Mouth Opening Finger Breadths: 3 ROM/Head Extension: Full Lungs: Normal Respiratory Effort, Rhonchi, Wheezing Cardiovascular: Regular Rate, Regular Rhythm, No Murmurs - Lab Values: Laboratory Last Values WBC 5.89 K/mm3 (3.98-10.04) 08/13/20 07:15 RBC 2.02 M/mm3 (3.98-5.22) L 08/13/20 07:15 Hgb 9.8 gm/dl (11.2-15.7) L D 08/13/20 18:02 Hct 30.9 % (34.1-44.9) L 08/13/20 18:02 MCV 112.9 fl (79.4-94.8) H 08/13/20 07:15 MCH 35.1 pg (25.6-32.2) H 08/13/20 07:15 MCHC 31.1 g/dl (32.2-35.5) L 08/13/20 07:15 RDW Std Deviation 94.8 fL (36.4-46.3) H 08/13/20 07:15 Plt Count 72 K/mm3 (182-369) L 08/13/20 07:15 MPV 12.0 fl (9.4-12.3) 08/13/20 07:15 Neut % (Auto) 58.2 % (34.0-71.1) 08/13/20 07:15 Lymph % (Auto) 28.9 % (19.3-51.7) 08/13/20 07:15 Rusk % (Auto) 11.0 % (4.7-12.5) 08/13/20 07:15 Eos % (Auto) 1.4 (0.7-5.8) 08/13/20 07:15 Baso % (Auto) 0.2 % (0.1-1.2) 08/13/20 07:15 Neut # (Auto) 3.43 K/mm3 (1.56-6.13) 08/13/20 07:15 Lymph # (Auto) 1.70 K/mm3 (1.18-3.74) 08/13/20 07:15 Rusk # (Auto) 0.65 K/mm3 (0.24-0.36) H 08/13/20 07:15 Eos # (Auto) 0.08 K/mm3 (0.04-0.36) 08/13/20 07:15 Baso # (Auto) 0.01 K/mm3 (0.01-0.08) 08/13/20 07:15 Manual Slide Review Abnormal smear 08/13/20 07:15 PT 16.4 SECONDS (9.7-12.0) H 08/13/20 18:02 INR 1.55 08/13/20 18:02 APTT 26.5 SECONDS (21.7-31.4) 08/11/20 15:05 D-Dimer, Quantitative 0.78 mg/L (0.19-0.50) H 08/11/20 15:05 Sodium 141 mEq/L (136-145) 08/13/20 07:15 Potassium 3.2 mEq/L (3.5-5.1) L 08/13/20 07:15 Chloride 104 mEq/L (98-107) 08/13/20 07:15 Carbon Dioxide 29 mEq/L (21-32) 08/13/20 07:15 Anion Gap 11.2 (5-15) 08/13/20 07:15 BUN 21 mg/dL (7-18) H 08/13/20 07:15 Creatinine 0.9 mg/dL (0.55-1.02) 08/13/20 07:15 Est Cr Clr Drug Dosing 61.45 mL/min 08/13/20 07:15 Estimated GFR (MDRD) > 60 mL/min (>60) 08/13/20 07:15 BUN/Creatinine Ratio 23.3 (14-18) H 08/13/20 07:15 Glucose 99 mg/dL (80-115) 08/13/20 07:15 Lactic Acid 1.5 mmol/L (0.4-2.0) 08/12/20 10:44 Calcium 7.4 mg/dL (8.5-10.1) L 08/13/20 07:15 Phosphorus 1.6 mg/dL (2.6-4.7) L 08/12/20 04:31 Magnesium 2.0 mg/dl (1.8-2.4) 08/13/20 07:15 Ferritin 630 ng/ml (8-252) H 08/11/20 15:05 Total Bilirubin 1.5 mg/dL (0.2-1.0) H 08/12/20 04:31 AST 105 U/L (15-37) H 08/12/20 04:31 ALT 22 U/L (14-59) 08/12/20 04:31 Alkaline Phosphatase 115 U/L (46-116) 08/12/20 04:31 Lactate Dehydrogenase 260 U/L (81-234) H 08/11/20 15:05 Troponin I 0.044 ng/mL (0.00-0.056) 08/12/20 10:44 C-Reactive Protein 2.0 mg/dL (<1.0) H* 08/13/20 07:15 NT-Pro-B Natriuret Pep 911 pg/mL (0-125) H 08/11/20 15:05 Total Protein 6.0 g/dl (6.4-8.2) L 08/12/20 04:31 Albumin 2.4 g/dl (3.4-5.0) L 08/12/20 04:31 Globulin 3.6 gm/dL 08/12/20 04:31 Albumin/Globulin Ratio 0.7 (1-2) L 08/12/20 04:31 Procalcitonin 0.43 ng/mL H 08/12/20 10:44 Adenovirus (PCR) Not detected (Not Detected) 08/11/20 18:50 B. pertussis DNA (PCR) Not detected (Not Detected) 08/11/20 18:50 B.parapertussis DNA PCR Not detected (Not Detected) 08/11/20 18:50 C. pneumoniae DNA (PCR) Not detected (Not Detected) 08/11/20 18:50 Coronavirus OC43 (PCR) Not detected (Not Detected) 08/11/20 18:50 Coronavirus HKU1 (PCR) Not detected (Not Detected) 08/11/20 18:50 Coronavirus 229E (PCR) Not detected (Not Detected) 08/11/20 18:50 Coronavirus NL63 (PCR) Not detected (Not Detected) 08/11/20 18:50 Human Metapneumovir PCR Not detected (Not Detected) 08/11/20 18:50 Influenza A (RT-PCR) Not detected (Not Detected) 08/11/20 18:50 Influenza Type A RNA Negative (NEGATIVE) 08/11/20 18:50 Influenza Type B RNA Negative (NEGATIVE) 08/11/20 18:50 Influenza B (RT-PCR) Not detected (Not Detected) 08/11/20 18:50 Mycoplasma pneumon IgM Negative (NEGATIVE) 08/12/20 10:44 M. pneumoniae (PCR) Not detected (Not Detected) 08/11/20 18:50 Parainfluenza 1 (PCR) Not detected (Not Detected) 08/11/20 18:50 Parainfluenza 2 (PCR) Not detected (Not Detected) 08/11/20 18:50 Parainfluenza 3 (PCR) Not detected (Not Detected) 08/11/20 18:50 Parainfluenza 4 (PCR) Not detected (Not Detected) 08/11/20 18:50 RSV (PCR) Not detected (Not Detected) 08/11/20 18:50 Entero/Rhino (PCR) Not detected (Not Detected) 08/11/20 18:50 SARS-CoV-2 RNA (DEXTER) Negative (NEGATIVE) 08/11/20 18:50 SARS-CoV-2 (PCR) Not detected (Not Detected) 08/11/20 18:50 Blood Type A POSITIVE 08/11/20 15:05 Gel Antibody Screen Negative 08/11/20 15:05 Crossmatch See Detail 08/11/20 16:35 Above labs reviewed and noted and within acceptable ranges to proceed with scheduled procedure. - Imaging/EKG Impressions: EKG: SR rate= 56, prolonged QT interval, minimal ST segment depression. CXR: Right lung bases slight increased density Echocardiogram: EF= 60-65% - Allergies Allergies/Adverse Reactions: Allergies Allergy/AdvReac Type Severity Reaction Status Date / Time Penicillins Allergy Rash Verified 08/12/20 06:53 - Anesthesia Plan Pre-Op Medication Ordered: None - Acknowledgements Anesthesia Type Planned: MAC Pt an Appropriate Candidate for the Planned Anesthesia: Yes Alternatives and Risks of Anesthesia Discussed w Pt/Guardian: Yes Pt/Guardian Understands and Agrees with Anesthesia Plan: Yes PreAnesthesia Questionnaire HEENT History: Reports: Impaired Vision Other HEENT History: wears glasses, pt reports that she has a full set of dentures but does not have them here with her. Cardiovascular History: Reports: Heart Failure, High Cholesterol, Hypertension, SD, Stents Respiratory History: Reports: COPD Gastrointestinal History: Reports: GI Bleed Other Gastrointestinal History: current admission 08/11/20 for GI Bleed RN AMBULATORY History: Reports: , Other (See Below) Other OB/BYN History: 3 c-sections Endocrine/Metabolic History: Reports: Hypothyroidism Dermatologic History: Reports: Other (See Below) Other Dermatologic History: skin all over is very dry,flaky and scaly. Skin is also rough feeling. - Infectious Disease History Infectious Disease History: Reports: Measles - Past Surgical History Cardiovascular Surgical History: Reports: None Respiratory Surgical History: Reports: None GI Surgical History: Reports: None Female Surgical History: Reports: Section Other Musculoskeletal Surgeries/Procedures:: back surgery [address] Ramírez in [place] - SUBSTANCE USE Tobacco Use Status *Q: Current Every Day Tobacco User Tobacco Use Within Last Twelve Months: Cigarettes Second Hand Smoke Exposure: No Days Per Week of Alcohol Use: 1 Number of Drinks Per Day: 1 Total Drinks Per Week: 1 Recreational Drug Use History: No - HOME MEDS Home Medications: Home Meds Ibuprofen 600 mg PO QID PRN #40 tablet 03/27/17 [Rx] Furosemide [Lasix] 20 mg PO DAILY #30 tab 08/10/20 [Rx] predniSONE [Prednisone] 50 mg PO DAILY #5 tablet 08/10/20 [Rx] Albuterol Sulfate [Albuterol Sulfate Hfa] 8.5 gm IH 08/12/20 [History] Levothyroxine Sodium [Euthyrox] 25 mcg PO DAILY 08/12/20 [History] Metoprolol Succinate [Toprol XL 50mg] 50 mg PO DAILY 08/12/20 [History] - CURRENT (IN HOUSE) MEDS Current Meds: Current Medications Acetaminophen (Tylenol) 650 mg RECTAL Q4H PRN PRN Reason: Pain (mild 1-3) Last Admin: 08/13/20 15:11 Dose: 650 mg Documented by: Albuterol/Ipratropium (Duoneb 3.0-0.5 Mg/3 Ml) 3 ml NEB Q6HRRT [facility] Last Admin: 08/13/20 20:29 Dose: Not Given Documented by: Folic Acid (Folic Acid) 1 mg PO DAILY [facility] Furosemide (Lasix) 20 mg IVPUSH DAILY [facility] Last Admin: 08/13/20 09:04 Dose: 20 mg Documented by: Azithromycin 500 mg/ Sodium (Chloride) 250 mls @ 250 mls/hr IV Q24H [facility] Stop: 08/14/20 11:59 Last Admin: 08/13/20 11:29 Dose: 250 mls/hr Documented by: Ceftriaxone Sodium 2 gm/ (Sodium Chloride) 100 mls @ 200 mls/hr IV Q24H [facility] Stop: 08/17/20 13:01 Last Admin: 08/13/20 14:41 Dose: 200 mls/hr Documented by: Sodium Chloride (Normal Saline) 250 mls @ 75 mls/hr IV ASDIRECTED [facility] Last Admin: 08/13/20 09:57 Dose: 75 mls/hr Documented by: Metoprolol Tartrate (Lopressor) 5 mg IVPUSH Q4H PRN PRN Reason: Tachycardia Miscellaneous Information (Remove Patch) 0 ea TRDERM DAILY [facility] Last Admin: 08/13/20 09:03 Dose: 14 ea Documented by: Multivitamins (Thera) 1 each PO DAILY [facility] Nicotine (Habitrol) 14 mg TRDERM DAILY [facility] Last Admin: 08/13/20 09:01 Dose: 14 mg Documented by: Pantoprazole Sodium (Protonix Iv) 40 mg IVPUSH Q12H [facility] Last Admin: 08/13/20 21:38 Dose: 40 mg Documented by: Sodium Chloride (Saline Flush) 10 ml FLUSH ASDIRECTED PRN PRN Reason: Keep Vein Open Last Admin: 08/12/20 16:23 Dose: 10 ml Documented by: Discontinued Medications Albuterol (Proventil Neb Soln) 2.5 mg NEB ONETIME ONE Stop: 08/11/20 18:40 Last Admin: 08/11/20 20:13 Dose: 2.5 mg Documented by: Albuterol/Ipratropium (Duoneb 3.0-0.5 Mg/3 Ml) 3 ml NEB ONETIME ONE Stop: 08/11/20 21:19 Last Admin: 08/11/20 23:35 Dose: 3 ml Documented by: Furosemide (Lasix) 20 mg IVPUSH ONETIME ONE Stop: 08/11/20 21:19 Last Admin: 08/11/20 23:27 Dose: 20 mg Documented by: Furosemide (Lasix) 20 mg IVPUSH ONETIME ONE Stop: 08/13/20 08:31 Last Admin: 08/13/20 14:34 Dose: 20 mg Documented by: Furosemide (Lasix) Confirm Administered Dose 20 mg .ROUTE .STK-MED ONE Stop: 08/13/20 14:26 Last Admin: 08/13/20 18:40 Dose: Not Given Documented by: Sodium Chloride (Normal Saline) 1,000 mls @ 250 mls/hr IV ONETIME ONE Stop: 08/11/20 19:05 Last Admin: 08/11/20 15:14 Dose: 250 mls/hr Documented by: Sodium Chloride (Normal Saline) Confirm Administered Dose 250 mls @ as directed .ROUTE .STK-MED ONE Stop: 08/11/20 17:34 Last Admin: 08/11/20 23:34 Dose: Not Given Documented by: Pantoprazole Sodium 80 mg/ (Sodium Chloride) 100 mls @ 10 mls/hr IV Q10H [facility] Last Admin: 08/12/20 06:19 Dose: Not Given Documented by: Sodium Chloride (Normal Saline) 1,000 mls @ 125 mls/hr IV ASDIRECTED [facility] Last Admin: 08/13/20 02:45 Dose: 125 mls/hr Documented by: Magnesium Sulfate (Magnesium Sulfate In Water Premix) 2 gm in 50 mls @ 25 mls/hr IV ONETIME ONE Stop: 08/12/20 10:29 Last Admin: 08/12/20 12:04 Dose: 25 mls/hr Documented by: Potassium Phosphate 60 mmole/ (Sodium Chloride) 1,020 mls @ 102 mls/hr IV ONETIME ONE Stop: 08/12/20 20:59 Last Admin: 08/12/20 12:05 Dose: 102 mls/hr Documented by: Potassium Chloride 10 meq/ (Premix) 100 mls @ 100 mls/hr IV Q1H [facility] Stop: 08/12/20 14:29 Potassium Chloride 10 meq/ (Premix) 100 mls @ 100 mls/hr IV Q1H [facility] Stop: 08/13/20 14:59 Last Admin: 08/13/20 18:47 Dose: 100 mls/hr Documented by: Sodium Chloride (Normal Saline) 1,000 mls @ 50 mls/hr IV ASDIRECTED [facility] Stop: 08/13/20 22:00 Last Admin: 08/13/20 10:00 Dose: 50 mls/hr Documented by: Lorazepam (Ativan) 1 mg IVPUSH ONETIME ONE Stop: 08/11/20 15:08 Last Admin: 08/11/20 15:14 Dose: 1 mg Documented by: Ondansetron HCl (Zofran) 4 mg IVPUSH ONETIME ONE Stop: 08/11/20 16:08 Last Admin: 08/11/20 16:17 Dose: 4 mg Documented by: Pantoprazole Sodium (Protonix Iv) 40 mg IVPUSH ONETIME ONE Stop: 08/11/20 17:45 Last Admin: 08/11/20 20:56 Dose: 40 mg Documented by: Polyethylene Glycol/Electrolytes (Golytely) 4,000 ml PO ONETIME ONE Stop: 08/13/20 17:01 Last Admin: 08/13/20 17:03 Dose: 4,000 ml Documented by:
[2020-08-14] MEDS: Albuterol/Ipratropium 3.0-0.5 MG/3 ML Neb Soln NEB SCH ×4 (02:46→20:51)
[2020-08-14] MEDS: Multivitamins,Therapeutic Tab PO SCH (07:59)
[2020-08-14] MEDS: Folic Acid 1 MG Tab PO SCH (07:59)
[2020-08-14] MEDS: Furosemide 20 MG/2 ML VIAL IVPUSH SCH (08:32)
[2020-08-14] MEDS: Nicotine 14 MG/24 Hr Patch TRDERM SCH (08:37)
--- NOTE | 2020-08-14 08:38 | PCM.PN ---
- General Info Date of Service: 08/14/20 Admission Dx/Problem (Free Text): Admission Diagnosis/Problem Admission Diagnosis/Problem Gastrointestinal hemorrhage Subjective Update: The patient is a 60-year-old lady who was admitted to acute hospitalization on August 11, 2020 with shortness of breath. She was found to be hypoxic in the emergency room. Tte patient was found to have a hemoglobin of 6.1 g/dL. At that time the patient had 2 units of packed red blood cells. The patient today had an EGD and colonoscopy and was found to have some healed ulcers as well as small bleeding spots. Patient was also noted to have diffuse petechiae throughout most of her colon which were bleeding when the patient's blood pressure spiked. The patient says that she is not in any pain. She is hungry but on a clear liquid diet for now. Functional Status: Reports: Pain Controlled, Tolerating Diet - Review of Systems General: Reports: Weakness HEENT: Reports: No Symptoms Pulmonary: Reports: No Symptoms Cardiovascular: Reports: No Symptoms Gastrointestinal: Reports: No Symptoms Genitourinary: Reports: No Symptoms Musculoskeletal: Reports: Other (The patient is complaining of pain at IV sites.) Skin: Reports: No Symptoms Neurological: Reports: No Symptoms Psychiatric: Reports: No Symptoms - Patient Data Vitals - Most Recent: Last Vital Signs Temp 37.1 C 08/14/20 04:31 Pulse 81 08/14/20 04:31 Resp 16 08/14/20 04:31 BP 102/47 L 08/14/20 04:31 Pulse Ox 94 L 08/14/20 04:31 Weight - Most Recent: 74.162 kg I&O - Last 24 Hours: Intake & Output 08/13/20 08/14/20 08/14/20 22:59 06:59 14:59 Intake Total 3350 700 Output Total 700 1000 Balance 2650 -300 Lab Results Last 24 Hours: Laboratory Results - last 24 hr 08/11/20 08/11/20 08/13/20 Range/Units 15:05 16:35 18:02 WBC (3.98-10.04) K/mm3 RBC (3.98-5.22) M/mm3 Hgb 9.8 L D (11.2-15.7) gm/dl Hct 30.9 L (34.1-44.9) % MCV (79.4-94.8) fl MCH (25.6-32.2) pg MCHC (32.2-35.5) g/dl RDW Std Deviation (36.4-46.3) fL Plt Count (182-369) K/mm3 MPV (9.4-12.3) fl Neut % (Auto) (34.0-71.1) % Lymph % (Auto) (19.3-51.7) % [place] % (Auto) (4.7-12.5) % Eos % (Auto) (0.7-5.8) Baso % (Auto) (0.1-1.2) % Neut # (Auto) (1.56-6.13) K/mm3 Lymph # (Auto) (1.18-3.74) K/mm3 [place] # (Auto) (0.24-0.36) K/mm3 Eos # (Auto) (0.04-0.36) K/mm3 Baso # (Auto) (0.01-0.08) K/mm3 Manual Slide Review PT (9.7-12.0) SECONDS INR Sodium (136-145) mEq/L Potassium (3.5-5.1) mEq/L Chloride (98-107) mEq/L Carbon Dioxide (21-32) mEq/L Anion Gap (5-15) BUN (7-18) mg/dL Creatinine (0.55-1.02) mg/dL Est Cr Clr Drug Dosing mL/min Estimated GFR (MDRD) (>60) mL/min BUN/Creatinine Ratio (14-18) Glucose (80-115) mg/dL Calcium (8.5-10.1) mg/dL Phosphorus (2.6-4.7) mg/dL Magnesium (1.8-2.4) mg/dl C-Reactive Protein (<1.0) mg/dL Blood Type A POSITIVE Gel Antibody Screen Negative Crossmatch See Detail See Detail 08/13/20 08/14/20 08/14/20 Range/Units 18:02 05:05 05:05 WBC 6.54 (3.98-10.04) K/mm3 RBC 2.72 L (3.98-5.22) M/mm3 Hgb 9.1 L (11.2-15.7) gm/dl Hct 28.5 L (34.1-44.9) % MCV 104.8 H D (79.4-94.8) fl MCH 33.5 H (25.6-32.2) pg MCHC 31.9 L (32.2-35.5) g/dl RDW Std Deviation 90.2 H (36.4-46.3) fL Plt Count 66 L (182-369) K/mm3 MPV 12.7 H (9.4-12.3) fl Neut % (Auto) 64.6 (34.0-71.1) % Lymph % (Auto) 22.6 (19.3-51.7) % [place] % (Auto) 9.9 (4.7-12.5) % Eos % (Auto) 2.4 (0.7-5.8) Baso % (Auto) 0.2 (0.1-1.2) % Neut # (Auto) 4.22 (1.56-6.13) K/mm3 Lymph # (Auto) 1.48 (1.18-3.74) K/mm3 [place] # (Auto) 0.65 H (0.24-0.36) K/mm3 Eos # (Auto) 0.16 (0.04-0.36) K/mm3 Baso # (Auto) 0.01 (0.01-0.08) K/mm3 Manual Slide Review Abnormal smear PT 16.4 H (9.7-12.0) SECONDS INR 1.55 Sodium 140 (136-145) mEq/L Potassium 3.3 L (3.5-5.1) mEq/L Chloride 105 (98-107) mEq/L Carbon Dioxide 31 (21-32) mEq/L Anion Gap 7.3 (5-15) BUN 9 (7-18) mg/dL Creatinine 0.8 (0.55-1.02) mg/dL Est Cr Clr Drug Dosing 69.13 mL/min Estimated GFR (MDRD) > 60 (>60) mL/min BUN/Creatinine Ratio 11.3 L (14-18) Glucose 102 (80-115) mg/dL Calcium 7.2 L (8.5-10.1) mg/dL Phosphorus 2.4 L (2.6-4.7) mg/dL Magnesium 1.5 L (1.8-2.4) mg/dl C-Reactive Protein 2.7 H* (<1.0) mg/dL Blood Type Gel Antibody Screen Crossmatch Leo Results Last 24 Hours: Microbiology 08/11/20 15:40 Aerobic Blood Culture - Preliminary Blood - Venous - Lab Draw NO GROWTH AFTER 2 DAYS Anaerobic Blood Culture - Final 08/11/20 15:23 Aerobic Blood Culture - Preliminary Blood - Venous NO GROWTH AFTER 2 DAYS Anaerobic Blood Culture - Preliminary NO GROWTH AFTER 2 DAYS 08/12/20 16:55 Streptococcus pneumoniae Antigen (M - Final Urine Med Orders - Current: Current Medications Acetaminophen (Tylenol) 650 mg RECTAL Q4H PRN PRN Reason: Pain (mild 1-3) Last Admin: 08/13/20 15:11 Dose: 650 mg Documented by: Albuterol/Ipratropium (Duoneb 3.0-0.5 Mg/3 Ml) 3 ml NEB Q6HRRT [facility] Last Admin: 08/14/20 08:32 Dose: 3 ml Documented by: Folic Acid (Folic Acid) 1 mg PO DAILY [facility] Last Admin: 08/14/20 07:59 Dose: Not Given Documented by: Furosemide (Lasix) 20 mg IVPUSH DAILY [facility] Last Admin: 08/14/20 08:32 Dose: 20 mg Documented by: Azithromycin 500 mg/ Sodium (Chloride) 250 mls @ 250 mls/hr IV Q24H [facility] Stop: 08/14/20 11:59 Last Admin: 08/13/20 11:29 Dose: 250 mls/hr Documented by: Ceftriaxone Sodium 2 gm/ (Sodium Chloride) 100 mls @ 200 mls/hr IV Q24H [facility] Stop: 08/17/20 13:01 Last Admin: 08/13/20 14:41 Dose: 200 mls/hr Documented by: Sodium Chloride (Normal Saline) 250 mls @ 75 mls/hr IV ASDIRECTED [facility] Last Admin: 08/13/20 09:57 Dose: 75 mls/hr Documented by: Metoprolol Tartrate (Lopressor) 5 mg IVPUSH Q4H PRN PRN Reason: Tachycardia Miscellaneous Information (Remove Patch) 0 ea TRDERM DAILY [facility] Last Admin: 08/14/20 08:37 Dose: 1 ea Documented by: Multivitamins (Thera) 1 each PO DAILY [facility] Last Admin: 08/14/20 07:59 Dose: Not Given Documented by: Nicotine (Habitrol) 14 mg TRDERM DAILY [facility] Last Admin: 08/14/20 08:37 Dose: 14 mg Documented by: Pantoprazole Sodium (Protonix Iv) 40 mg IVPUSH Q12H [facility] Last Admin: 08/13/20 21:38 Dose: 40 mg Documented by: Sodium Chloride (Saline Flush) 10 ml FLUSH ASDIRECTED PRN PRN Reason: Keep Vein Open Last Admin: 08/12/20 16:23 Dose: 10 ml Documented by: Discontinued Medications Albuterol (Proventil Neb Soln) 2.5 mg NEB ONETIME ONE Stop: 08/11/20 18:40 Last Admin: 08/11/20 20:13 Dose: 2.5 mg Documented by: Albuterol/Ipratropium (Duoneb 3.0-0.5 Mg/3 Ml) 3 ml NEB ONETIME ONE Stop: 08/11/20 21:19 Last Admin: 08/11/20 23:35 Dose: 3 ml Documented by: Furosemide (Lasix) 20 mg IVPUSH ONETIME ONE Stop: 08/11/20 21:19 Last Admin: 08/11/20 23:27 Dose: 20 mg Documented by: Furosemide (Lasix) 20 mg IVPUSH ONETIME ONE Stop: 08/13/20 08:31 Last Admin: 08/13/20 14:34 Dose: 20 mg Documented by: Furosemide (Lasix) Confirm Administered Dose 20 mg .ROUTE .STK-MED ONE Stop: 08/13/20 14:26 Last Admin: 08/13/20 18:40 Dose: Not Given Documented by: Sodium Chloride (Normal Saline) 1,000 mls @ 250 mls/hr IV ONETIME ONE Stop: 08/11/20 19:05 Last Admin: 08/11/20 15:14 Dose: 250 mls/hr Documented by: Sodium Chloride (Normal Saline) Confirm Administered Dose 250 mls @ as directed .ROUTE .STK-MED ONE Stop: 08/11/20 17:34 Last Admin: 08/11/20 23:34 Dose: Not Given Documented by: Pantoprazole Sodium 80 mg/ (Sodium Chloride) 100 mls @ 10 mls/hr IV Q10H [facility] Last Admin: 08/12/20 06:19 Dose: Not Given Documented by: Sodium Chloride (Normal Saline) 1,000 mls @ 125 mls/hr IV ASDIRECTED [facility] Last Admin: 08/13/20 02:45 Dose: 125 mls/hr Documented by: Magnesium Sulfate (Magnesium Sulfate In Water Premix) 2 gm in 50 mls @ 25 mls/hr IV ONETIME ONE Stop: 08/12/20 10:29 Last Admin: 08/12/20 12:04 Dose: 25 mls/hr Documented by: Potassium Phosphate 60 mmole/ (Sodium Chloride) 1,020 mls @ 102 mls/hr IV ONETIME ONE Stop: 08/12/20 20:59 Last Admin: 08/12/20 12:05 Dose: 102 mls/hr Documented by: Potassium Chloride 10 meq/ (Premix) 100 mls @ 100 mls/hr IV Q1H [facility] Stop: 08/12/20 14:29 Potassium Chloride 10 meq/ (Premix) 100 mls @ 100 mls/hr IV Q1H [facility] Stop: 08/13/20 14:59 Last Admin: 08/13/20 18:47 Dose: 100 mls/hr Documented by: Sodium Chloride (Normal Saline) 1,000 mls @ 50 mls/hr IV ASDIRECTED [facility] Stop: 08/13/20 22:00 Last Admin: 08/13/20 10:00 Dose: 50 mls/hr Documented by: Lorazepam (Ativan) 1 mg IVPUSH ONETIME ONE Stop: 08/11/20 15:08 Last Admin: 08/11/20 15:14 Dose: 1 mg Documented by: Ondansetron HCl (Zofran) 4 mg IVPUSH ONETIME ONE Stop: 08/11/20 16:08 Last Admin: 08/11/20 16:17 Dose: 4 mg Documented by: Pantoprazole Sodium (Protonix Iv) 40 mg IVPUSH ONETIME ONE Stop: 08/11/20 17:45 Last Admin: 08/11/20 20:56 Dose: 40 mg Documented by: Polyethylene Glycol/Electrolytes (Golytely) 4,000 ml PO ONETIME ONE Stop: 08/13/20 17:01 Last Admin: 08/13/20 17:03 Dose: 4,000 ml Documented by: - Exam Quality Assessment: Supplemental Oxygen General: Alert, Oriented, Cooperative, No Acute Distress HEENT: Pupils Equal, Pupils Reactive, EOMI. No: Mucous Membr. Moist/[place] (Dry) Neck: Supple, Trachea Midline Lungs: Clear to Auscultation, Normal Respiratory Effort Cardiovascular: Regular Rate, Regular Rhythm GI/Abdominal Exam: Normal Bowel Sounds, Soft, Non-Tender, No Distention (Female) Exam: Deferred Back Exam: Normal Inspection, Full Range of Motion Extremities: Normal Inspection, No Pedal Edema Skin: Warm, Dry, Intact Neurological: No New Focal Deficit Psy/Mental Status: Alert, Normal Affect Sepsis Event Note - Evaluation Sepsis Screening Result: No Definite Risk - Focused Exam Vital Signs: Vital Signs Temp Pulse Resp BP Pulse Ox Pulse Ox 08/14/20 04:31 37.1 C 81 16 102/47 L 94 L 08/14/20 03:06 96 08/14/20 00:32 37.0 C 88 18 121/54 L 98 - Problem List & Annotations (1) Anemia SNOMED Code(s): 554870017 Code(s): D64.9 - ANEMIA, UNSPECIFIED Status: Acute Priority: High Current Visit: Yes Qualifiers: Anemia type: other cause Other causes of anemia: acute posthemorrhagic Qualified Code(s): D62 - Acute posthemorrhagic anemia (2) Generalized weakness SNOMED Code(s): 10437438 Code(s): R53.1 - WEAKNESS Status: Acute Priority: High Current Visit: Yes (3) Hematemesis SNOMED Code(s): 3075988 Code(s): K92.0 - HEMATEMESIS Status: Acute Priority: High Current Visit: Yes Qualifiers: Nausea presence: with nausea Qualified Code(s): K92.0 - Hematemesis (4) Lower GI bleed SNOMED Code(s): 48372688 Code(s): K92.2 - GASTROINTESTINAL HEMORRHAGE, UNSPECIFIED Status: Acute Priority: High Current Visit: Yes (5) Hypokalemia SNOMED Code(s): 96608245 Code(s): E87.6 - HYPOKALEMIA Status: Chronic Priority: High Current Visit: Yes (6) Hypomagnesemia SNOMED Code(s): 316219855 Code(s): E83.42 - HYPOMAGNESEMIA Status: Chronic Priority: High Current Visit: Yes - Problem List Review Problem List Initiated/Reviewed/Updated: Yes - My Orders Last 24 Hours: My Active Orders 08/13/20 09:45 Sodium Chloride 0.9% [Normal Saline] 250 ml IV ASDIRECTED 08/13/20 21:14 Patient Status [ADT] Routine 08/14/20 The patient is a 60-year-old lady who had been admitted secondary to GI bleed with anemia. The patient was also noted to have thrombocytopenia and while she was in the operating room while under care of the surgeon she was noted to have a spike in her blood pressure which caused diffuse petechiae to bleed. I have ordered a repeat H&H for 1600 today. Patient is also on a clear liquid diet. She is to have 4 units of platelets transfused as ordered by surgery. The patient is not on any pharmacological DVT prophylaxis now. The patient's vital signs will continue to be monitored and if she becomes hypertensive we will aggressively control her blood pressure to avoid petechial hemorrhage. Repeat laboratory studies have also been ordered for the morning. The patient's electrolytes will be replaced as necessary. Have also ordered p.o. magnesium oxide 800 mg p.o. daily. - Assessment Assessment:: Patient has GI bleeding. Unclear if upper or lower. Lungs stable, Cardiac grade 2 diastolic dysfunction. - Plan Plan:: I have seen and evaluated the patient independently of Reinier Davis PA-C. I have reviewed and agree with the plan of care as outlined by him for this patient. Please see orders.
[2020-08-14] MEDS ORDERED: Lidocaine 1% 4 ML ONE (08:57)
[2020-08-14] MEDS ORDERED: Lactated Ringers 2,000 ML ONE (08:57)
[2020-08-14] MEDS ORDERED: fentaNYL 100 MCG/2 ML SDV ONE (08:57)
[2020-08-14] MEDS ORDERED: Propofol 200 MG/20 ML SDV ONE ×3 (08:58→10:06)
--- NOTE | 2020-08-14 10:38 | PCM48HPAN ---
Post Anesthesia Note - EVALUATION WITHIN 48HRS OF ANESTHETIC Vital Signs in Normal Range: Yes Patient Participated in Evaluation: Yes Respiratory Function Stable: Yes Airway Patent: Yes Cardiovascular Function Stable: Yes Hydration Status Stable: Yes Pain Control Satisfactory: Yes Nausea and Vomiting Control Satisfactory: Yes Mental Status Recovered: Yes Vital Signs: Last Vital Signs Temp 37.6 C 08/14/20 10:30 Pulse 83 08/14/20 10:30 Resp 10 L 08/14/20 10:30 BP 99/57 L 08/14/20 10:30 Pulse Ox 96 08/14/20 10:30
--- NOTE | 2020-08-14 10:44 | PCM.SN.2 ---
- Free Text/Narrative Note: EGD and colonoscopy completed. EGD - there was evidence of healing superficial ulcers in the antrum and first portion of duodenum. No stigmata of bleeding. One biopsy taken from the antrum to rule out H.pilory Colonoscopy: Diffuse petechial bleeding throughout the cecum, ascending, transverse and descending colon. Minimal petechiae in the sigmoid and rectum. Recommendation: Patient has thrombocytopenia and coagulopathy of unclear origin. She needs platelet transfusion and BP control to SBP <= 120 to avoid recurrent bleeding as the coagulopathy and thrombocytopenia is being investigated.
[2020-08-14] MEDS: Pantoprazole 40 MG Vial IVPUSH SCH ×2 (11:15→22:06)
[2020-08-14] MEDS: Azithromycin 500 MG in Sodium Chloride 0.9% 250 ML IV SCH (11:30)
--- NOTE | 2020-08-14 11:41 | PROC ---
DATE OF OPERATION: 08/14/2020 SURGEON: Osman Zimmerman MD PREOPERATIVE DIAGNOSIS: Gastrointestinal bleeding. POSTOPERATIVE DIAGNOSES: 1. Evidence of small multiple healing ulcers in the antrum as well as the first portion of duodenum, hiatal hernia, and mild esophagitis. 2. Diffuse petechiae with slow oozing in the cecum, ascending colon, transverse colon, and descending colon, likely due to thrombocytopenia and coagulopathy. OPERATION PERFORMED: 1. Esophagogastroduodenoscopy. 2. Colonoscopy. ESTIMATED BLOOD LOSS: Minimal. ANESTHESIA: Monitored anesthesia care. COMPLICATIONS: None. INDICATIONS AND CONSENT: The patient is a 60-year-old female who has been having trouble with shortness of breath and sudden tiredness for 1 week. The patient presented to the hospital initially about 5 days ago and workup did not reveal much except for anemia of hemoglobin 8.7. The patient refused to be admitted and was sent home on oxygen. The patient returned a day later with progressive fatigue and blood in stool. At that point, hemoglobin was 6.1. The patient was admitted and worked up. Her lungs were stable. She was found to have a grade 2 diastolic heart failure with preserved EF and no good explanation for hematochezia. Therefore, I discussed with the patient. I offered the patient EGD and colonoscopy to figure out the source of bleeding. We discussed risks, benefits, and alternatives of the procedures and informed consent was obtained. DETAILS OF PROCEDURE: The patient was taken to the procedure room, placed in left lateral decubitus position. Monitored anesthesia care was induced. Then, time-out was performed. The patient was padded appropriately. We began with an EGD. Scope was placed into the mouth and taken all the way to the second portion of duodenum. Second portion of duodenum was normal. The first portion of duodenum, there was an area that appeared to be a healing ulcer. There were no other areas of inflammation in the antrum. There were small multiple areas that seemed to have had at least superficial erosions that were healing as well. A small biopsy was taken with cold forceps from the antrum to rule out H pylori. On retroflexion, there was a medium- sized sliding hiatal hernia. There were no other areas of abnormalities. In the GE junction, it was irregular indicating mild amount of esophagitis. The rest of the esophagus was normal. Air was suctioned out from the stomach, and the procedure was concluded. We paid attention to the colonoscopy. Digital rectal exam was normal. Scope was inserted and taken all the way to the cecum. Prep was good. In the cecum, ileocecal valve and appendiceal orifice were photographed. Then, just distal to the cecum, there was extensive petechia that was not bleeding. However, during this time, the patient's blood pressure spiked to 160 systolic and immediately we started noticing oozing, multiple punctate areas of petechial oozing in the cecum, down to the appendiceal orifice and realized that this is petechial bleeding. We started withdrawing the scope slowly examining the colonic wall. There was petechial oozing throughout the ascending colon and transverse colon all the way down to the descending colon. Sigmoid colon and rectum appeared to have very minimal petechiae to normal mucosa. On retroflexion, there were no abnormalities in the rectum. Air was suctioned out from the colon and colonoscopy was concluded. Therefore, in this exam, I think the patient is oozing from petechial bleeding due to coagulopathy and thrombocytopenia. We will order platelets and transfuse this patient. It is unclear why the patient is having thrombocytopenia as she does not have any history of liver disease, and I will discuss with the Medicine team my findings. MMNALINI /[id number] RAFAEL
[2020-08-14] MEDS: Magnesium Oxide 400 MG Tab PO SCH (12:32)
[2020-08-14] MEDS: cefTRIAXone 2 GM in Sodium Chloride 0.9% 100 ML IV SCH (12:33)
[2020-08-14] MEDS: Sodium Chloride 0.9% 250 ML IV SCH ×2 (12:51→18:46)
[2020-08-14] MEDS: Acetaminophen 325 MG Tab PO PRN (20:02)
[2020-08-15] MEDS: Albuterol/Ipratropium 3.0-0.5 MG/3 ML Neb Soln NEB SCH ×4 (03:08→20:51)
[2020-08-15] MEDS: Folic Acid 1 MG Tab PO SCH (09:08)
[2020-08-15] MEDS: Nicotine 14 MG/24 Hr Patch TRDERM SCH (09:08)
[2020-08-15] MEDS: Magnesium Oxide 400 MG Tab PO SCH (09:08)
[2020-08-15] MEDS: Multivitamins,Therapeutic Tab PO SCH (09:08)
[2020-08-15] MEDS: Furosemide 20 MG/2 ML VIAL IVPUSH SCH (09:12)
[2020-08-15] MEDS ORDERED: Potassium Chloride 20 MEQ Tab.ER PO ONE (09:28)
[2020-08-15] MEDS: Pantoprazole 40 MG Vial IVPUSH SCH ×2 (10:07→22:27)
--- NOTE | 2020-08-15 10:16 | PCM.PN ---
- General Info Date of Service: 08/15/20 Admission Dx/Problem (Free Text): Admission Diagnosis/Problem Admission Diagnosis/Problem Gastrointestinal hemorrhage Subjective Update: The patient is a 60-year-old lady who had been admitted to acute hospitalization for shortness of breath on August 11, 2020. The patient had blood transfusions and had a colonoscopy yesterday found sites of bleeding as well as petechiae which would hemorrhage when her blood pressure was elevated. The patient also had 4 units of platelets transfused. Today she says that she feels well. She lives alone but has family support. The patient also uses oxygen at home. She has been n.p.o. but is very hungry. Functional Status: Reports: Pain Controlled. Denies: Tolerating Diet - Review of Systems General: Reports: Weakness HEENT: Reports: No Symptoms Pulmonary: Reports: No Symptoms Cardiovascular: Reports: No Symptoms Gastrointestinal: Reports: No Symptoms Genitourinary: Reports: No Symptoms Musculoskeletal: Reports: No Symptoms Skin: Reports: No Symptoms Neurological: Reports: No Symptoms Psychiatric: Reports: No Symptoms - Patient Data Vitals - Most Recent: Last Vital Signs Temp 36.9 C 08/15/20 07:43 Pulse 89 08/15/20 07:43 Resp 16 08/15/20 07:43 BP 126/65 08/15/20 07:43 Pulse Ox 96 08/15/20 08:03 Weight - Most Recent: 75.931 kg I&O - Last 24 Hours: Intake & Output 08/14/20 08/15/20 08/15/20 22:59 06:59 14:59 Intake Total 2020 0 Output Total 1150 Balance 870 0 Lab Results Last 24 Hours: Laboratory Results - last 24 hr 08/11/20 08/14/20 08/14/20 Range/Units 16:35 05:05 16:05 WBC (3.98-10.04) K/mm3 RBC (3.98-5.22) M/mm3 Hgb 8.8 L (11.2-15.7) gm/dl Hct 28.4 L (34.1-44.9) % MCV (79.4-94.8) fl MCH (25.6-32.2) pg MCHC (32.2-35.5) g/dl RDW Std Deviation (36.4-46.3) fL Plt Count (182-369) K/mm3 MPV (9.4-12.3) fl Neut % (Auto) (34.0-71.1) % Lymph % (Auto) (19.3-51.7) % [place] % (Auto) (4.7-12.5) % Eos % (Auto) (0.7-5.8) Baso % (Auto) (0.1-1.2) % Neut # (Auto) (1.56-6.13) K/mm3 Lymph # (Auto) (1.18-3.74) K/mm3 [place] # (Auto) (0.24-0.36) K/mm3 Eos # (Auto) (0.04-0.36) K/mm3 Baso # (Auto) (0.01-0.08) K/mm3 Manual Slide Review Sodium (136-145) mEq/L Potassium (3.5-5.1) mEq/L Chloride (98-107) mEq/L Carbon Dioxide (21-32) mEq/L Anion Gap (5-15) BUN (7-18) mg/dL Creatinine (0.55-1.02) mg/dL Est Cr Clr Drug Dosing mL/min Estimated GFR (MDRD) (>60) mL/min BUN/Creatinine Ratio (14-18) Glucose (80-115) mg/dL Calcium (8.5-10.1) mg/dL Magnesium (1.8-2.4) mg/dl C-Reactive Protein (<1.0) mg/dL Blood Type A POSITIVE Crossmatch See Detail 08/15/20 08/15/20 Range/Units 06:05 06:05 WBC 6.95 (3.98-10.04) K/mm3 RBC 2.68 L (3.98-5.22) M/mm3 Hgb 8.9 L (11.2-15.7) gm/dl Hct 29.0 L (34.1-44.9) % MCV 108.2 H D (79.4-94.8) fl MCH 33.2 H (25.6-32.2) pg MCHC 30.7 L (32.2-35.5) g/dl RDW Std Deviation 94.1 H (36.4-46.3) fL Plt Count 164 L D (182-369) K/mm3 MPV 10.3 (9.4-12.3) fl Neut % (Auto) 67.3 (34.0-71.1) % Lymph % (Auto) 17.1 L (19.3-51.7) % [place] % (Auto) 12.5 (4.7-12.5) % Eos % (Auto) 2.2 (0.7-5.8) Baso % (Auto) 0.6 (0.1-1.2) % Neut # (Auto) 4.68 (1.56-6.13) K/mm3 Lymph # (Auto) 1.19 (1.18-3.74) K/mm3 [place] # (Auto) 0.87 H (0.24-0.36) K/mm3 Eos # (Auto) 0.15 (0.04-0.36) K/mm3 Baso # (Auto) 0.04 (0.01-0.08) K/mm3 Manual Slide Review Abnormal smear Sodium 140 (136-145) mEq/L Potassium 3.2 L (3.5-5.1) mEq/L Chloride 103 (98-107) mEq/L Carbon Dioxide 32 (21-32) mEq/L Anion Gap 8.2 (5-15) BUN 8 (7-18) mg/dL Creatinine 0.7 (0.55-1.02) mg/dL Est Cr Clr Drug Dosing 79.01 mL/min Estimated GFR (MDRD) > 60 (>60) mL/min BUN/Creatinine Ratio 11.4 L (14-18) Glucose 94 (80-115) mg/dL Calcium 7.4 L (8.5-10.1) mg/dL Magnesium 1.8 (1.8-2.4) mg/dl C-Reactive Protein 4.5 H* (<1.0) mg/dL Blood Type Crossmatch Leo Results Last 24 Hours: Microbiology 08/11/20 15:40 Aerobic Blood Culture - Preliminary Blood - Venous - Lab Draw NO GROWTH AFTER 3 DAYS Anaerobic Blood Culture - Final 08/11/20 15:23 Aerobic Blood Culture - Preliminary Blood - Venous NO GROWTH AFTER 3 DAYS Anaerobic Blood Culture - Preliminary NO GROWTH AFTER 3 DAYS Med Orders - Current: Current Medications Acetaminophen (Tylenol) 650 mg RECTAL Q4H PRN PRN Reason: Pain (mild 1-3) Last Admin: 08/13/20 15:11 Dose: 650 mg Documented by: Acetaminophen (Tylenol) 650 mg PO Q4H PRN PRN Reason: Pain/Fever Last Admin: 08/14/20 20:02 Dose: 650 mg Documented by: Albuterol/Ipratropium (Duoneb 3.0-0.5 Mg/3 Ml) 3 ml NEB Q6HRRT [facility] Last Admin: 08/15/20 08:03 Dose: 3 ml Documented by: Folic Acid (Folic Acid) 1 mg PO DAILY [facility] Last Admin: 08/15/20 09:08 Dose: 1 mg Documented by: Furosemide (Lasix) 20 mg IVPUSH DAILY [facility] Last Admin: 08/15/20 09:12 Dose: 20 mg Documented by: Ceftriaxone Sodium 2 gm/ (Sodium Chloride) 100 mls @ 200 mls/hr IV Q24H [facility] Stop: 08/17/20 13:01 Last Admin: 08/14/20 12:33 Dose: 200 mls/hr Documented by: Sodium Chloride (Normal Saline) 250 mls @ 75 mls/hr IV ASDIRECTED [facility] Last Admin: 08/14/20 18:46 Dose: 75 mls/hr Documented by: Magnesium Oxide (Magnesium Oxide) 800 mg PO DAILY [facility] Last Admin: 08/15/20 09:08 Dose: 800 mg Documented by: Metoprolol Tartrate (Lopressor) 5 mg IVPUSH Q4H PRN PRN Reason: Tachycardia Miscellaneous Information (Remove Patch) 0 ea TRDERM DAILY [facility] Last Admin: 08/15/20 09:11 Dose: 1 ea Documented by: Multivitamins (Thera) 1 each PO DAILY [facility] Last Admin: 08/15/20 09:08 Dose: 1 each Documented by: Nicotine (Habitrol) 14 mg TRDERM DAILY [facility] Last Admin: 08/15/20 09:08 Dose: 14 mg Documented by: Pantoprazole Sodium (Protonix Iv) 40 mg IVPUSH Q12H [facility] Last Admin: 08/15/20 10:07 Dose: 40 mg Documented by: Sodium Chloride (Saline Flush) 10 ml FLUSH ASDIRECTED PRN PRN Reason: Keep Vein Open Last Admin: 08/12/20 16:23 Dose: 10 ml Documented by: Discontinued Medications Albuterol (Proventil Neb Soln) 2.5 mg NEB ONETIME ONE Stop: 08/11/20 18:40 Last Admin: 08/11/20 20:13 Dose: 2.5 mg Documented by: Albuterol/Ipratropium (Duoneb 3.0-0.5 Mg/3 Ml) 3 ml NEB ONETIME ONE Stop: 08/11/20 21:19 Last Admin: 08/11/20 23:35 Dose: 3 ml Documented by: Fentanyl (Sublimaze) Confirm Administered Dose 100 mcg .ROUTE .STK-MED ONE Stop: 08/14/20 08:58 Furosemide (Lasix) 20 mg IVPUSH ONETIME ONE Stop: 08/11/20 21:19 Last Admin: 08/11/20 23:27 Dose: 20 mg Documented by: Furosemide (Lasix) 20 mg IVPUSH ONETIME ONE Stop: 08/13/20 08:31 Last Admin: 08/13/20 14:34 Dose: 20 mg Documented by: Furosemide (Lasix) Confirm Administered Dose 20 mg .ROUTE .STK-MED ONE Stop: 08/13/20 14:26 Last Admin: 08/13/20 18:40 Dose: Not Given Documented by: Sodium Chloride (Normal Saline) 1,000 mls @ 250 mls/hr IV ONETIME ONE Stop: 08/11/20 19:05 Last Admin: 08/11/20 15:14 Dose: 250 mls/hr Documented by: Sodium Chloride (Normal Saline) Confirm Administered Dose 250 mls @ as directed .ROUTE .STK-MED ONE Stop: 08/11/20 17:34 Last Admin: 08/11/20 23:34 Dose: Not Given Documented by: Pantoprazole Sodium 80 mg/ (Sodium Chloride) 100 mls @ 10 mls/hr IV Q10H [facility] Last Admin: 08/12/20 06:19 Dose: Not Given Documented by: Sodium Chloride (Normal Saline) 1,000 mls @ 125 mls/hr IV ASDIRECTED [facility] Last Admin: 08/13/20 02:45 Dose: 125 mls/hr Documented by: Magnesium Sulfate (Magnesium Sulfate In Water Premix) 2 gm in 50 mls @ 25 mls/hr IV ONETIME ONE Stop: 08/12/20 10:29 Last Admin: 08/12/20 12:04 Dose: 25 mls/hr Documented by: Potassium Phosphate 60 mmole/ (Sodium Chloride) 1,020 mls @ 102 mls/hr IV ONETIME ONE Stop: 08/12/20 20:59 Last Admin: 08/12/20 12:05 Dose: 102 mls/hr Documented by: Potassium Chloride 10 meq/ (Premix) 100 mls @ 100 mls/hr IV Q1H [facility] Stop: 08/12/20 14:29 Azithromycin 500 mg/ Sodium (Chloride) 250 mls @ 250 mls/hr IV Q24H [facility] Stop: 08/14/20 11:59 Last Admin: 08/14/20 11:30 Dose: 250 mls/hr Documented by: Potassium Chloride 10 meq/ (Premix) 100 mls @ 100 mls/hr IV Q1H [facility] Stop: 08/13/20 14:59 Last Admin: 08/13/20 18:47 Dose: 100 mls/hr Documented by: Sodium Chloride (Normal Saline) 1,000 mls @ 50 mls/hr IV ASDIRECTED [facility] Stop: 08/13/20 22:00 Last Admin: 08/13/20 10:00 Dose: 50 mls/hr Documented by: Lidocaine HCl (Xylocaine-Mpf 1%) Confirm Administered Dose 4 mls @ as directed .ROUTE .STK-MED ONE Stop: 08/14/20 08:58 Lactated Ringer's (Ringers, Lactated) Confirm Administered Dose 2,000 mls @ as directed .ROUTE .STK-MED ONE Stop: 08/14/20 08:58 Lorazepam (Ativan) 1 mg IVPUSH ONETIME ONE Stop: 08/11/20 15:08 Last Admin: 08/11/20 15:14 Dose: 1 mg Documented by: Miscellaneous Medication (Phenylephrine 1 Mg/10 Ml-Ns) Confirm Administered Dose 1 mg .ROUTE .STK-MED ONE Stop: 08/14/20 09:41 Ondansetron HCl (Zofran) 4 mg IVPUSH ONETIME ONE Stop: 08/11/20 16:08 Last Admin: 08/11/20 16:17 Dose: 4 mg Documented by: Pantoprazole Sodium (Protonix Iv) 40 mg IVPUSH ONETIME ONE Stop: 08/11/20 17:45 Last Admin: 08/11/20 20:56 Dose: 40 mg Documented by: Polyethylene Glycol/Electrolytes (Golytely) 4,000 ml PO ONETIME ONE Stop: 08/13/20 17:01 Last Admin: 08/13/20 17:03 Dose: 4,000 ml Documented by: Potassium Chloride (Klor-Con M20) 20 meq PO ONETIME ONE Stop: 08/15/20 09:29 Last Admin: 08/15/20 10:07 Dose: 20 meq Documented by: Propofol (Diprivan 20 Ml) Confirm Administered Dose 200 mg .ROUTE .STK-MED ONE Stop: 08/14/20 08:59 Propofol (Diprivan 20 Ml) Confirm Administered Dose 200 mg .ROUTE .STK-MED ONE Stop: 08/14/20 09:49 Propofol (Diprivan 20 Ml) Confirm Administered Dose 200 mg .ROUTE .STK-MED ONE Stop: 08/14/20 10:07 - Exam Quality Assessment: Supplemental Oxygen General: Alert, Oriented, Cooperative, No Acute Distress, Other (Appears older than stated age) HEENT: Pupils Equal, Pupils Reactive, EOMI. No: Mucous Membr. Moist/[place] (Dry) Neck: Supple, Trachea Midline Lungs: Clear to Auscultation, Normal Respiratory Effort Cardiovascular: Regular Rate, Regular Rhythm GI/Abdominal Exam: Normal Bowel Sounds, Soft, Non-Tender, No Distention (Female) Exam: Deferred Back Exam: Normal Inspection, Full Range of Motion Extremities: Normal Inspection, No Pedal Edema Skin: Warm, Dry, Intact Neurological: No New Focal Deficit Psy/Mental Status: Alert, Normal Affect Sepsis Event Note - Evaluation Sepsis Screening Result: No Definite Risk - Focused Exam Vital Signs: Vital Signs Temp Pulse Pulse Resp BP BP Pulse Ox 08/15/20 08:03 08/15/20 07:43 36.9 C 89 16 126/65 93 L 08/15/20 03:56 36.9 C 84 20 105/56 L 95 08/15/20 03:23 36.8 C 85 16 108/53 L 92 L 08/15/20 03:08 Pulse Ox 08/15/20 08:03 96 08/15/20 07:43 08/15/20 03:56 08/15/20 03:23 08/15/20 03:08 94 L - Problem List & Annotations (1) Anemia SNOMED Code(s): 614574231 Code(s): D64.9 - ANEMIA, UNSPECIFIED Status: Chronic Priority: High Current Visit: Yes Qualifiers: Anemia type: other cause Other causes of anemia: acute posthemorrhagic Qualified Code(s): D62 - Acute posthemorrhagic anemia (2) Generalized weakness SNOMED Code(s): 66846213 Code(s): R53.1 - WEAKNESS Status: Chronic Priority: High Current Visit: Yes (3) Hematemesis SNOMED Code(s): 6459177 Code(s): K92.0 - HEMATEMESIS Status: Resolved Priority: High Current Visit: Yes Qualifiers: Nausea presence: with nausea Qualified Code(s): K92.0 - Hematemesis (4) Lower GI bleed SNOMED Code(s): 01139361 Code(s): K92.2 - GASTROINTESTINAL HEMORRHAGE, UNSPECIFIED Status: Acute Priority: High Current Visit: Yes (5) Hypokalemia SNOMED Code(s): 97069007 Code(s): E87.6 - HYPOKALEMIA Status: Chronic Priority: High Current Visit: Yes (6) Hypomagnesemia SNOMED Code(s): 991527879 Code(s): E83.42 - HYPOMAGNESEMIA Status: Chronic Priority: High Current Visit: Yes - Problem List Review Problem List Initiated/Reviewed/Updated: Yes - My Orders Last 24 Hours: My Active Orders 08/14/20 12:30 Magnesium Oxide 800 mg PO DAILY 08/14/20 19:28 Acetaminophen [TylenoL] 650 mg PO Q4H PRN The patient is currently NPO. Her hemoglobin has been stable. The patient will have her diet advanced to clear liquid. I have also ordered repeat laboratory studies for the morning. We will continue to monitor her hemoglobin. The patient has also received 4 units of platelets and so far her platelets are at 164,000. The patient will likely need to follow-up with gastroenterology with regards to her liver disease and thrombocytopenia. The patient also has been strongly counseled to stop smoking. She does use oxygen at home and will likely need to be continuous while at her home. I had a conversation consultation with surgeon and it felt that the patient should be appropriate for discharge tomorrow if her hemoglobin is remained stable. - Assessment Assessment:: Patient has GI bleeding. Unclear if upper or lower. Lungs stable, Cardiac grade 2 diastolic dysfunction. - Plan Plan:: I have seen and evaluated the patient independently of Reinier Davis PA-C. I have reviewed and agree with the plan of care as outlined by him for this patient. Please see orders.
--- NOTE | 2020-08-15 12:32 | PCM.PN ---
- General Info Date of Service: 08/15/20 Admission Dx/Problem (Free Text): Admission Diagnosis/Problem Admission Diagnosis/Problem Gastrointestinal hemorrhage Subjective Update: Patient is stable. No bloody BMs overnight. no abdominal pain. she feels hungry Functional Status: Reports: Ambulating, Urinating - Review of Systems General: Reports: No Symptoms HEENT: Reports: No Symptoms Pulmonary: Reports: No Symptoms Cardiovascular: Reports: No Symptoms Gastrointestinal: Reports: No Symptoms Genitourinary: Reports: No Symptoms Musculoskeletal: Reports: No Symptoms Skin: Reports: No Symptoms Neurological: Reports: No Symptoms Psychiatric: Reports: No Symptoms - Patient Data Vitals - Most Recent: Last Vital Signs Temp 98.4 F 08/15/20 07:43 Pulse 98 08/15/20 11:13 Resp 16 08/15/20 07:43 BP 126/65 08/15/20 07:43 Pulse Ox 79 L 08/15/20 11:13 Weight - Most Recent: 75.931 kg I&O - Last 24 Hours: Intake & Output 08/14/20 08/15/20 08/15/20 22:59 06:59 14:59 Intake Total 2020 0 Output Total 1150 Balance 870 0 Lab Results Last 24 Hours: Laboratory Results - last 24 hr 08/14/20 08/14/20 08/15/20 Range/Units 05:05 16:05 06:05 WBC 6.95 (3.98-10.04) K/mm3 RBC 2.68 L (3.98-5.22) M/mm3 Hgb 8.8 L 8.9 L (11.2-15.7) gm/dl Hct 28.4 L 29.0 L (34.1-44.9) % MCV 108.2 H D (79.4-94.8) fl MCH 33.2 H (25.6-32.2) pg MCHC 30.7 L (32.2-35.5) g/dl RDW Std Deviation 94.1 H (36.4-46.3) fL Plt Count 164 L D (182-369) K/mm3 MPV 10.3 (9.4-12.3) fl Neut % (Auto) 67.3 (34.0-71.1) % Lymph % (Auto) 17.1 L (19.3-51.7) % [place] % (Auto) 12.5 (4.7-12.5) % Eos % (Auto) 2.2 (0.7-5.8) Baso % (Auto) 0.6 (0.1-1.2) % Neut # (Auto) 4.68 (1.56-6.13) K/mm3 Lymph # (Auto) 1.19 (1.18-3.74) K/mm3 [place] # (Auto) 0.87 H (0.24-0.36) K/mm3 Eos # (Auto) 0.15 (0.04-0.36) K/mm3 Baso # (Auto) 0.04 (0.01-0.08) K/mm3 Manual Slide Review Abnormal smear Sodium (136-145) mEq/L Potassium (3.5-5.1) mEq/L Chloride (98-107) mEq/L Carbon Dioxide (21-32) mEq/L Anion Gap (5-15) BUN (7-18) mg/dL Creatinine (0.55-1.02) mg/dL Est Cr Clr Drug Dosing mL/min Estimated GFR (MDRD) (>60) mL/min BUN/Creatinine Ratio (14-18) Glucose (80-115) mg/dL Calcium (8.5-10.1) mg/dL Magnesium (1.8-2.4) mg/dl C-Reactive Protein (<1.0) mg/dL Blood Type A POSITIVE 08/15/20 Range/Units 06:05 WBC (3.98-10.04) K/mm3 RBC (3.98-5.22) M/mm3 Hgb (11.2-15.7) gm/dl Hct (34.1-44.9) % MCV (79.4-94.8) fl MCH (25.6-32.2) pg MCHC (32.2-35.5) g/dl RDW Std Deviation (36.4-46.3) fL Plt Count (182-369) K/mm3 MPV (9.4-12.3) fl Neut % (Auto) (34.0-71.1) % Lymph % (Auto) (19.3-51.7) % [place] % (Auto) (4.7-12.5) % Eos % (Auto) (0.7-5.8) Baso % (Auto) (0.1-1.2) % Neut # (Auto) (1.56-6.13) K/mm3 Lymph # (Auto) (1.18-3.74) K/mm3 [place] # (Auto) (0.24-0.36) K/mm3 Eos # (Auto) (0.04-0.36) K/mm3 Baso # (Auto) (0.01-0.08) K/mm3 Manual Slide Review Sodium 140 (136-145) mEq/L Potassium 3.2 L (3.5-5.1) mEq/L Chloride 103 (98-107) mEq/L Carbon Dioxide 32 (21-32) mEq/L Anion Gap 8.2 (5-15) BUN 8 (7-18) mg/dL Creatinine 0.7 (0.55-1.02) mg/dL Est Cr Clr Drug Dosing 79.01 mL/min Estimated GFR (MDRD) > 60 (>60) mL/min BUN/Creatinine Ratio 11.4 L (14-18) Glucose 94 (80-115) mg/dL Calcium 7.4 L (8.5-10.1) mg/dL Magnesium 1.8 (1.8-2.4) mg/dl C-Reactive Protein 4.5 H* (<1.0) mg/dL Blood Type Leo Results Last 24 Hours: Microbiology 08/11/20 15:40 Aerobic Blood Culture - Preliminary Blood - Venous - Lab Draw NO GROWTH AFTER 3 DAYS Anaerobic Blood Culture - Final 08/11/20 15:23 Aerobic Blood Culture - Preliminary Blood - Venous NO GROWTH AFTER 3 DAYS Anaerobic Blood Culture - Preliminary NO GROWTH AFTER 3 DAYS Med Orders - Current: Current Medications Acetaminophen (Tylenol) 650 mg RECTAL Q4H PRN PRN Reason: Pain (mild 1-3) Last Admin: 08/13/20 15:11 Dose: 650 mg Documented by: Acetaminophen (Tylenol) 650 mg PO Q4H PRN PRN Reason: Pain/Fever Last Admin: 08/14/20 20:02 Dose: 650 mg Documented by: Albuterol/Ipratropium (Duoneb 3.0-0.5 Mg/3 Ml) 3 ml NEB Q6HRRT [facility] Last Admin: 08/15/20 08:03 Dose: 3 ml Documented by: Folic Acid (Folic Acid) 1 mg PO DAILY [facility] Last Admin: 08/15/20 09:08 Dose: 1 mg Documented by: Furosemide (Lasix) 20 mg IVPUSH DAILY [facility] Last Admin: 08/15/20 09:12 Dose: 20 mg Documented by: Ceftriaxone Sodium 2 gm/ (Sodium Chloride) 100 mls @ 200 mls/hr IV Q24H [facility] Stop: 08/17/20 13:01 Last Admin: 08/14/20 12:33 Dose: 200 mls/hr Documented by: Sodium Chloride (Normal Saline) 250 mls @ 75 mls/hr IV ASDIRECTED [facility] Last Admin: 08/14/20 18:46 Dose: 75 mls/hr Documented by: Magnesium Oxide (Magnesium Oxide) 800 mg PO DAILY [facility] Last Admin: 08/15/20 09:08 Dose: 800 mg Documented by: Metoprolol Tartrate (Lopressor) 5 mg IVPUSH Q4H PRN PRN Reason: Tachycardia Miscellaneous Information (Remove Patch) 0 ea TRDERM DAILY [facility] Last Admin: 08/15/20 09:11 Dose: 1 ea Documented by: Multivitamins (Thera) 1 each PO DAILY [facility] Last Admin: 08/15/20 09:08 Dose: 1 each Documented by: Nicotine (Habitrol) 14 mg TRDERM DAILY [facility] Last Admin: 08/15/20 09:08 Dose: 14 mg Documented by: Pantoprazole Sodium (Protonix Iv) 40 mg IVPUSH Q12H [facility] Last Admin: 08/15/20 10:07 Dose: 40 mg Documented by: Sodium Chloride (Saline Flush) 10 ml FLUSH ASDIRECTED PRN PRN Reason: Keep Vein Open Last Admin: 08/12/20 16:23 Dose: 10 ml Documented by: Discontinued Medications Albuterol (Proventil Neb Soln) 2.5 mg NEB ONETIME ONE Stop: 08/11/20 18:40 Last Admin: 08/11/20 20:13 Dose: 2.5 mg Documented by: Albuterol/Ipratropium (Duoneb 3.0-0.5 Mg/3 Ml) 3 ml NEB ONETIME ONE Stop: 08/11/20 21:19 Last Admin: 08/11/20 23:35 Dose: 3 ml Documented by: Fentanyl (Sublimaze) Confirm Administered Dose 100 mcg .ROUTE .STK-MED ONE Stop: 08/14/20 08:58 Furosemide (Lasix) 20 mg IVPUSH ONETIME ONE Stop: 08/11/20 21:19 Last Admin: 08/11/20 23:27 Dose: 20 mg Documented by: Furosemide (Lasix) 20 mg IVPUSH ONETIME ONE Stop: 08/13/20 08:31 Last Admin: 08/13/20 14:34 Dose: 20 mg Documented by: Furosemide (Lasix) Confirm Administered Dose 20 mg .ROUTE .STK-MED ONE Stop: 08/13/20 14:26 Last Admin: 08/13/20 18:40 Dose: Not Given Documented by: Sodium Chloride (Normal Saline) 1,000 mls @ 250 mls/hr IV ONETIME ONE Stop: 08/11/20 19:05 Last Admin: 08/11/20 15:14 Dose: 250 mls/hr Documented by: Sodium Chloride (Normal Saline) Confirm Administered Dose 250 mls @ as directed .ROUTE .STK-MED ONE Stop: 08/11/20 17:34 Last Admin: 08/11/20 23:34 Dose: Not Given Documented by: Pantoprazole Sodium 80 mg/ (Sodium Chloride) 100 mls @ 10 mls/hr IV Q10H [facility] Last Admin: 08/12/20 06:19 Dose: Not Given Documented by: Sodium Chloride (Normal Saline) 1,000 mls @ 125 mls/hr IV ASDIRECTED [facility] Last Admin: 08/13/20 02:45 Dose: 125 mls/hr Documented by: Magnesium Sulfate (Magnesium Sulfate In Water Premix) 2 gm in 50 mls @ 25 mls/hr IV ONETIME ONE Stop: 08/12/20 10:29 Last Admin: 08/12/20 12:04 Dose: 25 mls/hr Documented by: Potassium Phosphate 60 mmole/ (Sodium Chloride) 1,020 mls @ 102 mls/hr IV ONETIME ONE Stop: 08/12/20 20:59 Last Admin: 08/12/20 12:05 Dose: 102 mls/hr Documented by: Potassium Chloride 10 meq/ (Premix) 100 mls @ 100 mls/hr IV Q1H [facility] Stop: 08/12/20 14:29 Azithromycin 500 mg/ Sodium (Chloride) 250 mls @ 250 mls/hr IV Q24H [facility] Stop: 08/14/20 11:59 Last Admin: 08/14/20 11:30 Dose: 250 mls/hr Documented by: Potassium Chloride 10 meq/ (Premix) 100 mls @ 100 mls/hr IV Q1H [facility] Stop: 08/13/20 14:59 Last Admin: 08/13/20 18:47 Dose: 100 mls/hr Documented by: Sodium Chloride (Normal Saline) 1,000 mls @ 50 mls/hr IV ASDIRECTED [facility] Stop: 08/13/20 22:00 Last Admin: 08/13/20 10:00 Dose: 50 mls/hr Documented by: Lidocaine HCl (Xylocaine-Mpf 1%) Confirm Administered Dose 4 mls @ as directed .ROUTE .STK-MED ONE Stop: 08/14/20 08:58 Lactated Ringer's (Ringers, Lactated) Confirm Administered Dose 2,000 mls @ as directed .ROUTE .STK-MED ONE Stop: 08/14/20 08:58 Lorazepam (Ativan) 1 mg IVPUSH ONETIME ONE Stop: 08/11/20 15:08 Last Admin: 08/11/20 15:14 Dose: 1 mg Documented by: Miscellaneous Medication (Phenylephrine 1 Mg/10 Ml-Ns) Confirm Administered Dose 1 mg .ROUTE .STK-MED ONE Stop: 08/14/20 09:41 Ondansetron HCl (Zofran) 4 mg IVPUSH ONETIME ONE Stop: 08/11/20 16:08 Last Admin: 08/11/20 16:17 Dose: 4 mg Documented by: Pantoprazole Sodium (Protonix Iv) 40 mg IVPUSH ONETIME ONE Stop: 08/11/20 17:45 Last Admin: 08/11/20 20:56 Dose: 40 mg Documented by: Polyethylene Glycol/Electrolytes (Golytely) 4,000 ml PO ONETIME ONE Stop: 08/13/20 17:01 Last Admin: 08/13/20 17:03 Dose: 4,000 ml Documented by: Potassium Chloride (Klor-Con M20) 20 meq PO ONETIME ONE Stop: 08/15/20 09:29 Last Admin: 08/15/20 10:07 Dose: 20 meq Documented by: Propofol (Diprivan 20 Ml) Confirm Administered Dose 200 mg .ROUTE .STK-MED ONE Stop: 08/14/20 08:59 Propofol (Diprivan 20 Ml) Confirm Administered Dose 200 mg .ROUTE .STK-MED ONE Stop: 08/14/20 09:49 Propofol (Diprivan 20 Ml) Confirm Administered Dose 200 mg .ROUTE .STK-MED ONE Stop: 08/14/20 10:07 - Exam Quality Assessment: Supplemental Oxygen General: Alert, Oriented, Cooperative Lungs: Crackles, Rales Cardiovascular: Regular Rate, Regular Rhythm, No Murmurs GI/Abdominal Exam: Soft, Non-Tender, No Organomegaly, No Distention Sepsis Event Note - Evaluation Sepsis Screening Result: No Definite Risk - Focused Exam Vital Signs: Vital Signs Temp Pulse Pulse Resp BP BP Pulse Ox 08/15/20 11:13 98 79 L 08/15/20 08:03 08/15/20 07:43 98.4 F 89 16 126/65 93 L 08/15/20 03:56 98.4 F 84 20 105/56 L 95 08/15/20 03:23 98.2 F 85 16 108/53 L 92 L 08/15/20 03:08 Pulse Ox 08/15/20 11:13 08/15/20 08:03 96 08/15/20 07:43 08/15/20 03:56 08/15/20 03:23 08/15/20 03:08 94 L - Problem List Review Problem List Initiated/Reviewed/Updated: No - Assessment Assessment:: GI bleeding due to colonic petechiae likely secondary to thrombocytopenia. - Plan Plan:: - Pt received 4 units of platelets. Plt today are 164 - No bleeding - Continue PPIs for at least 3 months due to healing stomach erosions - Ok to start Clears and advance diet as tolerated today if no more episodes of bleeding Dispo: if patient stable today and no more bloody BMs, BP controlled and tolerating diet. I recommend discharging her tomorrow. She is to follow up with GI for likely liver disease. Follow up with me 1 week after discharge.
[2020-08-15] MEDS: cefTRIAXone 2 GM in Sodium Chloride 0.9% 100 ML IV SCH (13:05)
[2020-08-15] MEDS: Acetaminophen 325 MG Tab PO PRN ×2 (13:55→20:41)
[2020-08-16] MEDS: Albuterol/Ipratropium 3.0-0.5 MG/3 ML Neb Soln NEB SCH ×2 (02:30→08:13)
[2020-08-16] MEDS ORDERED: Potassium Chloride 10 MEQ in Premix Bag 1 BAG IV ONE (07:15)
--- NOTE | 2020-08-16 08:57 | PCM.DCSUM1 ---
Discharge Summary - Hospital Course Diagnosis: Stroke: No - Discharge Data Discharge Date: 08/16/20 Discharge Disposition: Home, Self-Care 01 Condition: Good - Referral to Home Health Primary Care Physician: Kalpana Hubbard MD - Discharge Diagnosis/Problem(s) (1) Anemia SNOMED Code(s): 364283691 ICD Code: D64.9 - ANEMIA, UNSPECIFIED Status: Chronic Priority: High Current Visit: Yes Qualifiers: Anemia type: other cause Other causes of anemia: acute posthemorrhagic Qualified Code(s): D62 - Acute posthemorrhagic anemia (2) Generalized weakness SNOMED Code(s): 77107334 ICD Code: R53.1 - WEAKNESS Status: Chronic Priority: High Current Visit: Yes (3) Hematemesis SNOMED Code(s): 7095138 ICD Code: K92.0 - HEMATEMESIS Status: Resolved Priority: High Current Visit: Yes Qualifiers: Nausea presence: with nausea Qualified Code(s): K92.0 - Hematemesis (4) Lower GI bleed SNOMED Code(s): 03394248 ICD Code: K92.2 - GASTROINTESTINAL HEMORRHAGE, UNSPECIFIED Status: Acute Priority: High Current Visit: Yes (5) Hypokalemia SNOMED Code(s): 45089184 ICD Code: E87.6 - HYPOKALEMIA Status: Chronic Priority: High Current Visit: Yes (6) Hypomagnesemia SNOMED Code(s): 707331209 ICD Code: E83.42 - HYPOMAGNESEMIA Status: Chronic Priority: High Current Visit: Yes - Patient Summary/Data Consults: Consultations 08/11/20 15:54 Consult to Physician [CONS] Stat 08/12/20 10:26 Consult to Occupational Therapy [OT Evaluation and Treatment] [CONS] Routine PT Evaluation and Treatment [CONS] Routine Respiratory Care Assess and Treatment [CONS] Routine Hospital Course: The patient is a 60-year-old lady who had been admitted to acute hospitalization for severe anemia and shortness of breath on August 11, 2020. Surgery had been consulted in order to evaluate the patient for bleeding. Dr. Zimmerman evaluated the patient with regards to her lower GI bleed and found evidence of small multiple ulcers healing in the antrum as well as and duodenum and mild esophagitis. She was also noted to have diffuse petechiae which were slowly oozing in the cecum and ascending colon and transverse in the descending colon. The patient also was noted to have worsening of her initial thrombocytopenia with her platelets dropping to 66,000. The patient also had been transfused with 2 units of blood initially at the patient had been ordered to be transfused with 4 units of platelets and the patient tolerated this well. The patient also had been transfused with an additional 2 units of packed red blood cells after her hemoglobin had dropped today after colonoscopy. The patient had tolerated the procedure well. The patient also had been kept n.p.o. for a few days. Her diet then was advanced and she tolerated her diet. The patient has been recommended to follow-up with [facility] as well as her primary care physician. The patient also had been noted to have right heart dysfunction on 2D echocardiogram which was obtained on August 12, 2020. The patient should also follow-up with cardiology for this dysfunction. The patient does have an ejection fraction of 60%. Patient has been recommended to continue with her diet as tolerated. She has been discharged on the proton pump inhibitor. The patient is to have activity as tolerated. By day of discharge the patient had been hemodynamically stable and she has been recommended to be discharged from acute hospitalization with the recommendations listed above. - Patient Instructions Diet: Usual Diet as Tolerated Activity: As Tolerated - Discharge Plan *PRESCRIPTION DRUG MONITORING PROGRAM REVIEWED*: No *COPY OF PRESCRIPTION DRUG MONITORING REPORT IN PATIENT JOON: No Prescriptions/Med Rec: Albuterol/Ipratropium [DuoNeb 3.0-0.5 MG/3 ML] 3 ml NEB Q6HRRT #30 neb Folic Acid 1 mg PO DAILY #30 tablet Nicotine [Habitrol] 14 mg TRDERM DAILY #30 patch Magnesium Oxide 800 mg PO DAILY #30 tablet Omeprazole 20 mg PO ACBREAKFAST #30 cap.sr Home Medications: Home Meds Furosemide [Lasix] 20 mg PO DAILY #30 tab 08/10/20 [Rx] Albuterol Sulfate [Albuterol Sulfate Hfa] 8.5 gm IH 08/12/20 [History] Levothyroxine Sodium [Euthyrox] 25 mcg PO DAILY 08/12/20 [History] Metoprolol Succinate [Toprol XL 50mg] 50 mg PO DAILY 08/12/20 [History] Albuterol/Ipratropium [DuoNeb 3.0-0.5 MG/3 ML] 3 ml NEB Q6HRRT #30 neb 08/16/20 [Rx] Folic Acid 1 mg PO DAILY #30 tablet 08/16/20 [Rx] Magnesium Oxide 800 mg PO DAILY #30 tablet 08/16/20 [Rx] Multivitamins,Therapeutic [Thera] 1 each PO DAILY tablet 08/16/20 [Rx] Nicotine [Habitrol] 14 mg TRDERM DAILY #30 patch 08/16/20 [Rx] Omeprazole 20 mg PO ACBREAKFAST #30 cap.sr 08/16/20 [Rx] Oxygen Therapy Mode: Nasal Cannula Patient Handouts: Heart Failure, Self Care, [id number], Chronic Obstructive Pulmonary Disease, [id number], Gastrointestinal Bleeding, [id number], Living With Heart Failure, Heart Failure Eating Plan Referrals: Kalpana Hubbard MD [Primary Care Provider] - (The [place] [facility] will contact your for a follow up appointment with Dr. Hubbard. Then please ask for referral to cardiology.) Osman Zimmerman MD [Physician] - (Please call [facility] on Monday and set up an appointment to follow-up with in 1 week.) - Discharge Summary/Plan Comment DC Time >30 min.: Yes - General Info Date of Service: 08/16/20 Admission Dx/Problem (Free Text: Admission Diagnosis/Problem Admission Diagnosis/Problem Gastrointestinal hemorrhage Subjective Update: The patient is doing well. She feels like she can go home. Her hemoglobin has been stable. Functional Status: Reports: Pain Controlled, Tolerating Diet - Review of Systems General: Reports: No Symptoms HEENT: Reports: No Symptoms Pulmonary: Reports: No Symptoms Cardiovascular: Reports: No Symptoms Gastrointestinal: Reports: No Symptoms Genitourinary: Reports: No Symptoms Musculoskeletal: Reports: No Symptoms Skin: Reports: No Symptoms Neurological: Reports: No Symptoms Psychiatric: Reports: No Symptoms - Patient Data Vitals - Most Recent: Last Vital Signs Temp 36.7 C 08/16/20 04:17 Pulse 85 08/16/20 04:17 Resp 13 08/16/20 04:17 BP 107/48 L 08/16/20 04:17 Pulse Ox 96 08/16/20 08:13 Weight - Most Recent: 75.024 kg I&O - Last 24 hours: Intake & Output 08/15/20 08/16/20 08/16/20 22:59 06:59 14:59 Intake Total 2500 1000 Balance 2500 1000 Lab Results - Last 24 hrs: Laboratory Results - last 24 hr 08/16/20 08/16/20 Range/Units 04:25 04:25 WBC 6.92 (3.98-10.04) K/mm3 RBC 2.79 L (3.98-5.22) M/mm3 Hgb 9.2 L (11.2-15.7) gm/dl Hct 30.3 L (34.1-44.9) % MCV 108.6 H (79.4-94.8) fl MCH 33.0 H (25.6-32.2) pg MCHC 30.4 L (32.2-35.5) g/dl RDW Std Deviation 90.4 H (36.4-46.3) fL Plt Count 134 L (182-369) K/mm3 MPV 10.9 (9.4-12.3) fl Neut % (Auto) 67.9 (34.0-71.1) % Lymph % (Auto) 15.6 L (19.3-51.7) % Mineral % (Auto) 13.2 H (4.7-12.5) % Eos % (Auto) 2.6 (0.7-5.8) Baso % (Auto) 0.4 (0.1-1.2) % Neut # (Auto) 4.70 (1.56-6.13) K/mm3 Lymph # (Auto) 1.08 L (1.18-3.74) K/mm3 Mineral # (Auto) 0.91 H (0.24-0.36) K/mm3 Eos # (Auto) 0.18 (0.04-0.36) K/mm3 Baso # (Auto) 0.03 (0.01-0.08) K/mm3 Manual Slide Review Abnormal smear Sodium 140 (136-145) mEq/L Potassium 3.2 L (3.5-5.1) mEq/L Chloride 103 (98-107) mEq/L Carbon Dioxide 30 (21-32) mEq/L Anion Gap 10.2 (5-15) BUN 8 (7-18) mg/dL Creatinine 0.7 (0.55-1.02) mg/dL Est Cr Clr Drug Dosing 79.01 mL/min Estimated GFR (MDRD) > 60 (>60) mL/min BUN/Creatinine Ratio 11.4 L (14-18) Glucose 100 (80-115) mg/dL Calcium 7.5 L (8.5-10.1) mg/dL Magnesium 1.8 (1.8-2.4) mg/dl C-Reactive Protein 5.3 H* (<1.0) mg/dL SERGE Results - Last 24 hrs: Microbiology 08/11/20 15:40 Aerobic Blood Culture - Preliminary Blood - Venous - Lab Draw NO GROWTH AFTER 4 DAYS Anaerobic Blood Culture - Final 08/11/20 15:23 Aerobic Blood Culture - Preliminary Blood - Venous NO GROWTH AFTER 4 DAYS Anaerobic Blood Culture - Preliminary NO GROWTH AFTER 4 DAYS Med Orders - Current: Current Medications Acetaminophen (Tylenol) 650 mg RECTAL Q4H PRN PRN Reason: Pain (mild 1-3) Last Admin: 08/13/20 15:11 Dose: 650 mg Documented by: Acetaminophen (Tylenol) 650 mg PO Q4H PRN PRN Reason: Pain/Fever Last Admin: 08/15/20 20:41 Dose: 650 mg Documented by: Albuterol/Ipratropium (Duoneb 3.0-0.5 Mg/3 Ml) 3 ml NEB Q6HRRT [facility] Last Admin: 08/16/20 08:13 Dose: 3 ml Documented by: Folic Acid (Folic Acid) 1 mg PO DAILY [facility] Last Admin: 08/15/20 09:08 Dose: 1 mg Documented by: Furosemide (Lasix) 20 mg IVPUSH DAILY [facility] Last Admin: 08/15/20 09:12 Dose: 20 mg Documented by: Ceftriaxone Sodium 2 gm/ (Sodium Chloride) 100 mls @ 200 mls/hr IV Q24H [facility] Stop: 08/17/20 13:01 Last Admin: 08/15/20 13:05 Dose: 200 mls/hr Documented by: Magnesium Oxide (Magnesium Oxide) 800 mg PO DAILY [facility] Last Admin: 08/15/20 09:08 Dose: 800 mg Documented by: Metoprolol Tartrate (Lopressor) 5 mg IVPUSH Q4H PRN PRN Reason: Tachycardia Miscellaneous Information (Remove Patch) 0 ea TRDERM DAILY [facility] Last Admin: 08/15/20 09:11 Dose: 1 ea Documented by: Multivitamins (Thera) 1 each PO DAILY [facility] Last Admin: 08/15/20 09:08 Dose: 1 each Documented by: Nicotine (Habitrol) 14 mg TRDERM DAILY [facility] Last Admin: 08/15/20 09:08 Dose: 14 mg Documented by: Pantoprazole Sodium (Protonix Iv) 40 mg IVPUSH Q12H [facility] Last Admin: 08/15/20 22:27 Dose: 40 mg Documented by: Sodium Chloride (Saline Flush) 10 ml FLUSH ASDIRECTED PRN PRN Reason: Keep Vein Open Last Admin: 08/12/20 16:23 Dose: 10 ml Documented by: Discontinued Medications Albuterol (Proventil Neb Soln) 2.5 mg NEB ONETIME ONE Stop: 08/11/20 18:40 Last Admin: 08/11/20 20:13 Dose: 2.5 mg Documented by: Albuterol/Ipratropium (Duoneb 3.0-0.5 Mg/3 Ml) 3 ml NEB ONETIME ONE Stop: 08/11/20 21:19 Last Admin: 08/11/20 23:35 Dose: 3 ml Documented by: Fentanyl (Sublimaze) Confirm Administered Dose 100 mcg .ROUTE .STK-MED ONE Stop: 08/14/20 08:58 Furosemide (Lasix) 20 mg IVPUSH ONETIME ONE Stop: 08/11/20 21:19 Last Admin: 08/11/20 23:27 Dose: 20 mg Documented by: Furosemide (Lasix) 20 mg IVPUSH ONETIME ONE Stop: 08/13/20 08:31 Last Admin: 08/13/20 14:34 Dose: 20 mg Documented by: Furosemide (Lasix) Confirm Administered Dose 20 mg .ROUTE .STK-MED ONE Stop: 08/13/20 14:26 Last Admin: 08/13/20 18:40 Dose: Not Given Documented by: Sodium Chloride (Normal Saline) 1,000 mls @ 250 mls/hr IV ONETIME ONE Stop: 08/11/20 19:05 Last Admin: 08/11/20 15:14 Dose: 250 mls/hr Documented by: Sodium Chloride (Normal Saline) Confirm Administered Dose 250 mls @ as directed .ROUTE .STK-MED ONE Stop: 08/11/20 17:34 Last Admin: 08/11/20 23:34 Dose: Not Given Documented by: Pantoprazole Sodium 80 mg/ (Sodium Chloride) 100 mls @ 10 mls/hr IV Q10H [facility] Last Admin: 08/12/20 06:19 Dose: Not Given Documented by: Sodium Chloride (Normal Saline) 1,000 mls @ 125 mls/hr IV ASDIRECTED [facility] Last Admin: 08/13/20 02:45 Dose: 125 mls/hr Documented by: Magnesium Sulfate (Magnesium Sulfate In Water Premix) 2 gm in 50 mls @ 25 mls/hr IV ONETIME ONE Stop: 08/12/20 10:29 Last Admin: 08/12/20 12:04 Dose: 25 mls/hr Documented by: Potassium Phosphate 60 mmole/ (Sodium Chloride) 1,020 mls @ 102 mls/hr IV ONETIME ONE Stop: 08/12/20 20:59 Last Admin: 08/12/20 12:05 Dose: 102 mls/hr Documented by: Potassium Chloride 10 meq/ (Premix) 100 mls @ 100 mls/hr IV Q1H [facility] Stop: 08/12/20 14:29 Azithromycin 500 mg/ Sodium (Chloride) 250 mls @ 250 mls/hr IV Q24H [facility] Stop: 08/14/20 11:59 Last Admin: 08/14/20 11:30 Dose: 250 mls/hr Documented by: Potassium Chloride 10 meq/ (Premix) 100 mls @ 100 mls/hr IV Q1H [facility] Stop: 08/13/20 14:59 Last Admin: 08/13/20 18:47 Dose: 100 mls/hr Documented by: Sodium Chloride (Normal Saline) 250 mls @ 75 mls/hr IV ASDIRECTED [facility] Last Admin: 08/14/20 18:46 Dose: 75 mls/hr Documented by: Sodium Chloride (Normal Saline) 1,000 mls @ 50 mls/hr IV ASDIRECTED [facility] Stop: 08/13/20 22:00 Last Admin: 08/13/20 10:00 Dose: 50 mls/hr Documented by: Lidocaine HCl (Xylocaine-Mpf 1%) Confirm Administered Dose 4 mls @ as directed .ROUTE .STK-MED ONE Stop: 08/14/20 08:58 Lactated Ringer's (Ringers, Lactated) Confirm Administered Dose 2,000 mls @ as directed .ROUTE .STK-MED ONE Stop: 08/14/20 08:58 Potassium Chloride 10 meq/ (Premix) 100 mls @ 100 mls/hr IV ONETIME ONE Stop: 08/16/20 08:14 Lorazepam (Ativan) 1 mg IVPUSH ONETIME ONE Stop: 08/11/20 15:08 Last Admin: 08/11/20 15:14 Dose: 1 mg Documented by: Miscellaneous Medication (Phenylephrine 1 Mg/10 Ml-Ns) Confirm Administered Dose 1 mg .ROUTE .STK-MED ONE Stop: 08/14/20 09:41 Ondansetron HCl (Zofran) 4 mg IVPUSH ONETIME ONE Stop: 08/11/20 16:08 Last Admin: 08/11/20 16:17 Dose: 4 mg Documented by: Pantoprazole Sodium (Protonix Iv) 40 mg IVPUSH ONETIME ONE Stop: 08/11/20 17:45 Last Admin: 08/11/20 20:56 Dose: 40 mg Documented by: Polyethylene Glycol/Electrolytes (Golytely) 4,000 ml PO ONETIME ONE Stop: 08/13/20 17:01 Last Admin: 08/13/20 17:03 Dose: 4,000 ml Documented by: Potassium Chloride (Klor-Con M20) 20 meq PO ONETIME ONE Stop: 08/15/20 09:29 Last Admin: 08/15/20 10:07 Dose: 20 meq Documented by: Propofol (Diprivan 20 Ml) Confirm Administered Dose 200 mg .ROUTE .STK-MED ONE Stop: 08/14/20 08:59 Propofol (Diprivan 20 Ml) Confirm Administered Dose 200 mg .ROUTE .STK-MED ONE Stop: 08/14/20 09:49 Propofol (Diprivan 20 Ml) Confirm Administered Dose 200 mg .ROUTE .STK-MED ONE Stop: 08/14/20 10:07 - Exam Quality Assessment: Reports: Supplemental Oxygen General: Reports: Alert, Oriented, Cooperative HEENT: Reports: Pupils Equal, Pupils Reactive, EOMI, Mucous Membr. Moist/Ida Neck: Reports: Supple, Trachea Midline Lungs: Reports: Clear to Auscultation, Normal Respiratory Effort Cardiovascular: Reports: Regular Rate, Regular Rhythm GI/Abdominal Exam: Normal Bowel Sounds, Soft, Non-Tender, No Distention (Female) Exam: Deferred Rectal (Female) Exam: Deferred Back Exam: Reports: Normal Inspection, Full Range of Motion Extremities: Normal Inspection, No Pedal Edema Skin: Reports: Warm, Dry, Intact Neurological: Reports: No New Focal Deficit, Normal Gait Psy/Mental Status: Reports: Alert, Normal Affect, Normal Mood *Q Meaningful Use (DIS) - VTE *Q VTE Pharmacological Contraindications *Q: Active Hemorrhage
[2020-08-16] MEDS: Magnesium Oxide 400 MG Tab PO SCH (09:20)
[2020-08-16] MEDS: Multivitamins,Therapeutic Tab PO SCH (09:20)
[2020-08-16] MEDS: Folic Acid 1 MG Tab PO SCH (09:21)
[2020-08-16] MEDS: Furosemide 20 MG/2 ML VIAL IVPUSH SCH (09:22)
[2020-08-16 10:05] VITALS: PULSE 93
[2020-08-16] MEDS: Nicotine 14 MG/24 Hr Patch TRDERM SCH (10:13)
[2020-08-16] MEDS: Pantoprazole 40 MG Vial IVPUSH SCH (10:18)
[2020-08-16] MEDS: cefTRIAXone 2 GM in Sodium Chloride 0.9% 100 ML IV SCH ×2 (11:42→14:46)
[2020-08-16 11:50] VITALS: BP 130/62
== END 2020-08-16 13:25 | disposition home or self-care (01) | DRG 377 ==
LOC: JD.ED 14:16 → JD.MS 18:15
PROVIDERS: ADMIT Family Medicine; ATTEND Family Medicine
PROC: 30233N1 Transfusion of Nonautologous Red Blood Cells into Peripheral Vein, Percutaneous Approach (ICD-10-PCS; 2020-08-11)
PROC: 0DB68ZX Excision of Stomach, Via Natural or Artificial Opening Endoscopic, Diagnostic (ICD-10-PCS; principal; 2020-08-14)
PROC: 0DJD8ZZ Inspection of Lower Intestinal Tract, Via Natural or Artificial Opening Endoscopic (ICD-10-PCS; 2020-08-14)
PROC: 30233R1 Transfusion of Nonautologous Platelets into Peripheral Vein, Percutaneous Approach (ICD-10-PCS; 2020-08-14)
DX: K92.2 Gastrointestinal hemorrhage, unspecified (principal); D64.9 Anemia, unspecified; Z88.0 Allergy status to penicillin; Z79.82 Long term (current) use of aspirin; K92.0 Hematemesis; I50.33 Acute on chronic diastolic (congestive) heart failure; D62 Acute posthemorrhagic anemia; E83.39 Other disorders of phosphorus metabolism; I50.9 Heart failure, unspecified; E86.1 Hypovolemia; Z20.828 Contact with and (suspected) exposure to other viral communicable diseases; K20.90 Esophagitis, unspecified without bleeding; K25.9 Gastric ulcer, unspecified as acute or chronic, without hemorrhage or perforation; R53.1 Weakness; E87.6 Hypokalemia; E83.42 Hypomagnesemia; D69.6 Thrombocytopenia, unspecified; I11.0 Hypertensive heart disease with heart failure; J44.9 Chronic obstructive pulmonary disease, unspecified; H54.7 Unspecified visual loss; E78.00 Pure hypercholesterolemia, unspecified; E03.9 Hypothyroidism, unspecified; F17.200 Nicotine dependence, unspecified, uncomplicated; I25.2 Old myocardial infarction; Z95.5 Presence of coronary angioplasty implant and graft; Z79.52 Long term (current) use of systemic steroids; Z79.890 Hormone replacement therapy; Z79.899 Other long term (current) drug therapy
CPT/HCPCS: 0240U; 36415; 36430; 71045; 71250; 80048; 80053; 82728; 83605; 83615; 83735; 83880; 84100; 84145; 84484; 85014; 85018; 85025; 85379; 85610; 85730; 86140; 86738; 86850; 86900; 86901; 86922; 87040; 87486; 87581; 87633; 87798; 87899; 93005; 93306; 94640; 94667; 94668; 94761; 96374; 96375; 97162; 97165; 99285; 00813; 93010; 99284; A9270-GY; C9113; J0456; J0696; J1940; J2001; J2060; J2370; J2405; J2704; J3010; J3475; J3480; J3490; J7030; J7050; J7120; J7620-GY; P9016; P9034

== ENCOUNTER 2021-02-25 06:02 | Emergency (ER) | payer OTHER ==
[2021-02-25] MEDS ORDERED: Ondansetron 4 MG/2 ML SDV IVPUSH ONE (06:31)
[2021-02-25] MEDS ORDERED: Sodium Chloride 0.9% 1,000 ML IV ONE ×2 (06:31→08:57)
[2021-02-25] MEDS ORDERED: Loperamide 2 MG Cap PO STA (06:31)
--- NOTE | 2021-02-25 06:38 | EDM.PDOC ---
<Jason Pacheco - Last Filed: 02/25/21 14:30> ED HPI GENERAL MEDICAL PROBLEM - General Chief Complaint: Gastrointestinal Problem Stated Complaint: DIARRHEA DIZZY VOMITING Time Seen by Provider: 02/25/21 06:13 - Related Data Allergies Allergy/AdvReac Type Severity Reaction Status Date / Time Penicillins Allergy Rash Verified 02/25/21 06:14 Home Meds: Home Meds Albuterol Sulfate [Albuterol Sulfate Hfa] 8.5 gm IH 08/12/20 [History] Levothyroxine Sodium [Euthyrox] 25 mcg PO DAILY 08/12/20 [History] Metoprolol Succinate [Toprol XL 50mg] 50 mg PO DAILY 08/12/20 [History] Albuterol/Ipratropium [DuoNeb 3.0-0.5 MG/3 ML] 3 ml NEB Q6HRRT #30 neb 08/16/20 [Rx] Folic Acid 1 mg PO DAILY #30 tablet 08/16/20 [Rx] Magnesium Oxide 800 mg PO DAILY #30 tablet 08/16/20 [Rx] Multivitamins,Therapeutic [Thera] 1 each PO DAILY tablet 08/16/20 [Rx] Nicotine [Habitrol] 14 mg TRDERM DAILY #30 patch 08/16/20 [Rx] Omeprazole 20 mg PO ACBREAKFAST #30 cap.sr 08/16/20 [Rx] Cholecalciferol (Vitamin D3) [Vitamin D3] 25 mcg PO DAILY 02/25/21 [History] Escitalopram Oxalate 20 mg PO DAILY 02/25/21 [History] Furosemide [Lasix] 40 mg PO DAILY 02/25/21 [History] Mirtazapine 30 mg PO BEDTIME 02/25/21 [History] Ondansetron [Zofran] 4 mg BUCCAL Q6H PRN #10 tab 02/25/21 [Rx] guaiFENesin [Mucinex] 600 mg PO DAILY 02/25/21 [History] Course - Re-Assessments/Exams Free Text/Narrative Re-Assessment/Exam: 02/25/21 08:[address] Del Cid at change of shift.Labs reveal a normal white count at 8.21. Patient is anemic with a hemoglobin of 8.3 and hematocrit of 25.2. MCV is elevated at 110.5 suggesting B12 or folic acid deficiency versus chronic alcohol use. Platelet count is low normal at 118,000. Neutrophils are 75% with no bands cells reported. Lymphocytes 17%. Sodium is low at 125 with a potassium of 4.9. Chloride is 90 with a bicarb of 30 anion gap is 9.9. BUN is 16 with a creatinine of 1.5 and a GFR of only 35 i.e. stage IIIb renal insufficiency. Glucose is 111 with a calcium of 9.5. Magnesium 2.0. Bilirubin 2.0 with an AST of 69 and ALT of 28. Alkaline phosphatase is 108. Total protein is 7.9 with an albumin fraction of 3.1. Patient has underlying coronary artery disease and mild failure. Associated COPD and chronic diarrhea. Appears to have a chronic blood loss of unclear etiology but suspect to be from the GI tract. Since she is so dizzy lightheaded and symptomatic I believe she would benefit from a unit of packed cells. She does not meet full criteria with a hemoglobin of less than 8 but with her other comorbid conditions, congestive heart failure and coronary disease. COPD and oxygen dependency. Decreased oxygen delivery with low hemoglobin. I feel blood is warranted. 02/25/21 09:26 Patient has agreed to receive a unit of packed red blood cells due to hemoglobin of 8.3. She suffers from chronic diarrhea. She has had a colonoscopy recently which did not identify any colitis or colon cancer as a source of blood loss. I have ordered further labs including folic acid and B12. It appears that she is suffering malnutrition secondary to chronic diarrhea of unclear etiology. 02/25/21 11:45 Her 1 unit of packed cells is available at this time and she will begin transfusion. BNP is elevated at 517. She will receive Lasix 40 mg IV at this time while receiving IV fluids to try and improve her serum sodium levels and blood transfusion to improve her hemoglobin. Vitamin B12 level is actually elevated at 1107. Serum folic acid is in normal range at 12.1 02/25/21 13:22 serum osmolality returned in the normal range at 291. This suggest that she is experiencing a chronic hyponatremia. She does drink a lot of water however at this time I cannot state that this is the ultimate cause. She is currently receiving 1 unit of packed cells. She will receive Lasix 40 mg IV after the blood transfusion is completed due to elevated BNP of 517 which w ill be aggravated by 2 L of fluids that she has had while in the ED to help try and help correct her hyponatremia plus the blood volume. 02/25/21 14:30 patient has completed her 1 unit blood transfusion. She was given Lasix 40 mg at the end of the transfusion. She will therefore be discharged home at this time. She will follow up with her primary care provider at the [facility] early next week to arrange for further GI consultation. May use Zofran 4 mg under her tongue every 4-6 hours necessary for relief of any nausea or vomiting. Departure - Departure Time of Disposition: 14:32 Disposition: Home, Self-Care 01 Condition: Fair Clinical Impression: Chronic diarrhea, Dependence on supplemental oxygen Nausea and vomiting Qualifiers: Vomiting type: bilious vomiting Qualified Code(s): R11.14 - Bilious vomiting Anemia Qualifiers: Anemia type: other cause Other causes of anemia: acute posthemorrhagic Qualified Code(s): D62 - Acute posthemorrhagic anemia - Discharge Information *PRESCRIPTION DRUG MONITORING PROGRAM REVIEWED*: Not Applicable *COPY OF PRESCRIPTION DRUG MONITORING REPORT IN PATIENT JOON: Not Applicable Prescriptions: Ondansetron [Zofran] 4 mg BUCCAL Q6H PRN #10 tab PRN Reason: nausea or vomiting Instructions: Nausea and Vomiting, Adult, [id number] Referrals: PCP,Not In Area [Primary Care Provider] - Forms: ED Department Discharge Additional Instructions: Evaluation in the emergency room today in regards to nausea vomiting and dry heaves associated with chronic diarrhea. You were found to be significantly low in your serum sodium level as well as volume depleted. You were therefore given 2 L of IV fluid to improve slowly serum sodium level and correct for correct volume depletion. Part of your work-up also identified a low hemoglobin at 8.3. You indicated you were given blood while in hospital in August of this year. He was given 1 unit of packed red blood cells in the ED which should bring your hemoglobin up to around 9.5. Normal is 14. Low hemoglobin would be a reason to feel short of breath and very weak lightheaded and dizzy. May use Zofran 4 mg under the tongue every 4-6 hours for nausea relief. It appears that further investigations are required by gastroenterology for chronic diarrhea and nausea and vomiting. He should avoid all dairy products and no apple juice or grape juice until stools are formed back up. Medications such as omeprazole or Prilosec can cause diarrhea in some patients. May be worthwhile trialing off this medication for a week to 10 days to see if diarrhea improves. The only other medication I see on your list is magnesium oxide which would certainly cause diarrhea and if you are still on it it should be discontinued. There is another form of magnesium supplementation called Slow-Mag that can be prescribed and taken on a daily basis and it does not cause diarrhea. Suggest follow-up with your primary care provider early next week to arrange for gastroenterology consultation as your part of the [facility]. <Maria EugeniaJúnior A - Last Filed: 02/25/21 19:00> ED HPI GENERAL MEDICAL PROBLEM - General Source of Information: Reports: Patient History Limitations: Reports: No Limitations - History of Present Illness INITIAL COMMENTS - FREE TEXT/NARRATIVE: Ms. Ng is a very pleasant 60-year-old woman who now presents the ED stating that she has had nausea, dry heaves, and watery diarrhea on and off for the past 3 months. She then started feeling lightheaded about 2 weeks ago, and states that she fell due to weakness 4 days ago, bruising her right elbow. She has been taking OTC ibuprofen for her right elbow discomfort, but has not taken any other home remedies. She spoke with her PCP yesterday, who instructed her to come to the ED for evaluation, however, the patient has not had a prior medical evaluation for these symptoms. No recent fever. No recent chest pain or palpitations. The patient reports chronic, unchanged dyspnea due to presumed COPD. No recent antibiotics. Here in the ED, the patient's initial BP is found to be mildly depressed at 120/51, otherwise, she is hemodynamically stable, afebrile, saturating 95% on 2 L of oxygen per nasal cannula, 97% on room air. Other than the above symptoms, the patient denies having a recent fever, chills, sore throat, ear pain, nasal or sinus congestion, cough, chest pain, palpitations, vomiting, constipation, abdominal pain, urinary symptoms, recent weight gain or weight loss, recent bloody bowel movements or black bowel movements, recent joint aches, headaches, or rashes. The patient's PCP is Dr. Kalpana Hubbard at the [facility]. She does not recall the name of a Medical Esthetician at [facility] that she has an appointment to meet with on 03/08/2021. Past Medical History HEENT History: Reports: Impaired Vision (wears glasses) Cardiovascular History: Reports: CAD, Heart Failure, High Cholesterol, Hypertension, [place] Respiratory History: Reports: COPD (suspected, not PFT tested) Gastrointestinal History: Reports: GI Bleed (08/11/2020) Endocrine/Metabolic History: Reports: Hypothyroidism - Infectious Disease History Infectious Disease History: Reports: Measles - Past Surgical History Cardiovascular Surgical History: Reports: Coronary Artery Stent (x 1) GI Surgical History: Reports: Colonoscopy Female Surgical History: Reports: Section (x 3) Social & Family History - Tobacco Use Tobacco Use Status *Q: Current Every Day Tobacco User Years of Tobacco use: 43 Packs/Tins Daily: 0.2 Packs/Tins Daily Comment: Down from 1 ppd Tobacco Use Comment: Started smoking 1976 - Caffeine Use Caffeine Use: Reports: Coffee Other Caffeine Use: a cup or two everyday. - Alcohol Use Alcohol Use History: Yes Alcohol Use Frequency: Socially - Recreational Drug Use Recreational Drug Use: No - Living Situation & Occupation Living situation: Reports: , Alone Occupation: Unemployed ED ROS GENERAL - Review of Systems Review Of Systems: Comprehensive ROS is negative, except as noted in HPI. ED EXAM, GI/ABD - Physical Exam Exam: See Below Exam Limited By: No Limitations General Appearance: Alert, WD/WN, No Apparent Distress Eyes: Bilateral: Normal Appearance, EOMI Ears: Normal External Exam, Hearing Grossly Normal Nose: Normal Inspection Throat/Mouth: Normal Inspection, Normal Lips, Normal Voice, No Airway Compromise Head: Atraumatic, Normocephalic Neck: Normal Inspection, Full Range of Motion Respiratory/Chest: No Respiratory Distress, Lungs Clear, Normal Breath Sounds, No Accessory Muscle Use Cardiovascular: Normal Peripheral Pulses, Regular Rate, Rhythm, No Edema, No Gallop, No JVD, No Murmur, No Rub GI/Abdominal Exam: Normal Bowel Sounds, Soft, Non-Tender, No Organomegaly, No Distention, No Abnormal Bruit, No Mass Back Exam: Normal Inspection, Full Range of Motion, NT Extremities: Normal Inspection, Normal Range of Motion, No Pedal Edema, Normal Capillary Refill Neurological: Alert, Oriented, Normal Cognition, No Motor/Sensory Deficits Psychiatric: Normal Affect Skin Exam: Warm, Dry, Intact, Normal Color, No Rash Course - Vital Signs Last Recorded V/S: Last Vital Signs Temp 35.9 C L 02/25/21 11:50 Pulse 64 02/25/21 11:50 Resp 16 02/25/21 11:50 BP 96/45 L 02/25/21 11:50 Pulse Ox 98 02/25/21 11:50 Orthostatic Blood Pressure [ 80/40 Standing] Orthostatic Blood Pressure [ 95/51 Sitting] Orthostatic Blood Pressure [ 107/74 Supine] - Orders/Labs/Meds Orders: Active Orders 24 hr Category Date Time Status Transfuse Red Blood Cells [COMM] Stat Oth 02/25/21 11:34 Ordered Labs: Laboratory Tests 02/25/21 02/25/21 02/25/21 Range/Units 06:40 06:40 08:56 WBC 8.21 (3.98-10.04) K/mm3 RBC 2.28 L (3.98-5.22) M/mm3 Hgb 8.3 L (11.2-15.7) gm/dl Hct 25.2 L (34.1-44.9) % MCV 110.5 H (79.4-94.8) fl MCH 36.4 H (25.6-32.2) pg MCHC 32.9 (32.2-35.5) g/dl RDW Std Deviation 52.7 H (36.4-46.3) fL Plt Count 118 L (182-369) K/mm3 MPV 10.8 (9.4-12.3) fl Neutrophils % (Manual) 75 H (40-60) % Band Neutrophils % 0 (0-10) % Lymphocytes % (Manual) 17 L (20-40) % Atypical Lymphs % 0 % Monocytes % (Manual) 3 (2-10) % Eosinophils % (Manual) 3 (0.7-5.8) % Basophils % (Manual) 2 H (0.1-1.2) Platelet Estimate Adequate RBC Morph Comment Normal Sodium 125 L D (136-145) mEq/L Potassium 4.9 D (3.5-5.1) mEq/L Chloride 90 L D (98-107) mEq/L Carbon Dioxide 30 (21-32) mEq/L Anion Gap 9.9 (5-15) BUN 16 (7-18) mg/dL Creatinine 1.5 H (0.55-1.02) mg/dL Est Cr Clr Drug Dosing 36.87 mL/min Estimated GFR (MDRD) 35 (>60) mL/min BUN/Creatinine Ratio 10.7 L (14-18) Glucose 111 H (70-99) mg/dL Serum Osmolality (280-300) mosm/kg Calcium 9.5 D (8.5-10.1) mg/dL Magnesium 2.0 (1.8-2.4) mg/dL Total Bilirubin 2.0 H (0.2-1.0) mg/dL AST 69 H (15-37) U/L ALT 28 (14-59) U/L Alkaline Phosphatase 108 (46-116) U/L NT-Pro-B Natriuret Pep 517 H (0-125) pg/mL Total Protein 7.9 (6.4-8.2) g/dl Albumin 3.1 L (3.4-5.0) g/dl Globulin 4.8 gm/dL Albumin/Globulin Ratio 0.7 L (1-2) Vitamin B12 (193-986) pg/ml Folate (8.6-58.9) ng/mL Blood Type Gel Antibody Screen Crossmatch 02/25/21 02/25/21 02/25/21 Range/Units 08:59 09:07 11:47 WBC (3.98-10.04) K/mm3 RBC (3.98-5.22) M/mm3 Hgb (11.2-15.7) gm/dl Hct (34.1-44.9) % MCV (79.4-94.8) fl MCH (25.6-32.2) pg MCHC (32.2-35.5) g/dl RDW Std Deviation (36.4-46.3) fL Plt Count (182-369) K/mm3 MPV (9.4-12.3) fl Neutrophils % (Manual) (40-60) % Band Neutrophils % (0-10) % Lymphocytes % (Manual) (20-40) % Atypical Lymphs % % Monocytes % (Manual) (2-10) % Eosinophils % (Manual) (0.7-5.8) % Basophils % (Manual) (0.1-1.2) Platelet Estimate RBC Morph Comment Sodium (136-145) mEq/L Potassium (3.5-5.1) mEq/L Chloride (98-107) mEq/L Carbon Dioxide (21-32) mEq/L Anion Gap (5-15) BUN (7-18) mg/dL Creatinine (0.55-1.02) mg/dL Est Cr Clr Drug Dosing mL/min Estimated GFR (MDRD) (>60) mL/min BUN/Creatinine Ratio (14-18) Glucose (70-99) mg/dL Serum Osmolality 291 (280-300) mosm/kg Calcium (8.5-10.1) mg/dL Magnesium (1.8-2.4) mg/dL Total Bilirubin (0.2-1.0) mg/dL AST (15-37) U/L ALT (14-59) U/L Alkaline Phosphatase (46-116) U/L NT-Pro-B Natriuret Pep (0-125) pg/mL Total Protein (6.4-8.2) g/dl Albumin (3.4-5.0) g/dl Globulin gm/dL Albumin/Globulin Ratio (1-2) Vitamin B12 1107 H (193-986) pg/ml Folate 12.1 (8.6-58.9) ng/mL Blood Type A POSITIVE Gel Antibody Screen Negative Crossmatch See Detail Meds: Medications Discontinued Medications Generic Name Dose Route Start Last Admin Trade Name Freq PRN Reason Stop Dose Admin Furosemide 40 mg 02/25/21 12:11 02/25/21 14:23 Furosemide 40 Mg/4 Ml Vial IVPUSH 02/25/21 12:12 40 mg NOW ONE Administration Sodium Chloride 1,000 mls @ 999 mls/hr 02/25/21 06:31 02/25/21 06:48 Normal Saline IV 02/25/21 07:31 999 mls/hr ONETIME ONE Administration Sodium Chloride 1,000 mls @ 999 mls/hr 02/25/21 08:57 02/25/21 09:06 Normal Saline IV 02/25/21 09:57 999 mls/hr ONETIME ONE Administration Sodium Chloride Confirm 02/25/21 10:01 02/25/21 10:07 Normal Saline Administered 02/25/21 10:02 50 mls/hr Dose Administration 250 mls @ as directed .ROUTE .STK-MED ONE Sodium Chloride 250 mls @ 25 mls/hr 02/25/21 11:30 02/25/21 11:36 Normal Saline IV 25 mls/hr ASDIRECTED FROY Administration Loperamide HCl 4 mg 02/25/21 06:31 02/25/21 06:49 Loperamide 2 Mg Cap PO 02/25/21 06:32 4 mg ONETIME STA Administration Ondansetron HCl 4 mg 02/25/21 06:31 02/25/21 06:49 Ondansetron 4 Mg/2 Ml Sdv IVPUSH 02/25/21 06:32 4 mg ONETIME ONE Administration - Re-Assessments/Exams Free Text/Narrative Re-Assessment/Exam: 02/25/21 06:32 As above, the patient has been experiencing nausea, dry heaves, and watery diarrhea on and off for the past 3 months, then became dizzy about 2 weeks ago, with a fall 4 days ago, bruising her right elbow. She spoke with her PCP yesterday, who instructed her to come here for evaluation. No prior medical evaluation for these symptoms, and the patient has not taken any [id number] or home remedies to address her symptoms, other than some ibuprofen for her sore elbow. Here in the ED, the patient is found to be orthostatic. Her physical exam is unremarkable, including no abdominal tenderness. I have ordered a work-up that includes several blood tests, and in the meantime she will be given a bolus of IV fluid with repeat orthostatics, along with IV Zofran and oral loperamide. 02/25/21 07:[address] Pacheco, and care of the patient turned over to him at this time, for change of shift. Sepsis Event Note (ED) - Evaluation Sepsis Screening Result: No Definite Risk - Focused Exam Vital Signs: Vital Signs Temp Temp Pulse Resp BP Pulse Ox 02/25/21 11:50 35.9 C L 64 16 96/45 L 98 02/25/21 11:47 35.8 C L 72 18 137/60 02/25/21 11:37 35.6 C L 66 14 95/50 L
[2021-02-25] MEDS ORDERED: Sodium Chloride 0.9% 250 ML ONE (10:01)
[2021-02-25] MEDS ORDERED: Sodium Chloride 0.9% 250 ML IV SCH (11:30)
[2021-02-25] MEDS ORDERED: Furosemide 40 MG/4 ML VIAL IVPUSH ONE (12:11)
[2021-02-25 12:16] VITALS: BP 96/45; PULSE 64
== END 2021-02-25 14:50 | disposition home or self-care (01) ==
LOC: JD.ED 06:02
DX: K52.9 Noninfective gastroenteritis and colitis, unspecified (principal); R11.14 Bilious vomiting; D62 Acute posthemorrhagic anemia; I11.0 Hypertensive heart disease with heart failure; I50.9 Heart failure, unspecified; I25.2 Old myocardial infarction; E03.9 Hypothyroidism, unspecified; Z72.0 Tobacco use; Z88.0 Allergy status to penicillin; Z79.899 Other long term (current) drug therapy
CPT/HCPCS: 36415; 36430; 80053; 82607; 82746; 83735; 83880; 83930; 85007; 85027; 86850; 86900; 86901; 86922; 96374; 96375; 99284; A9270; J1940; J2405; J7030; J7050; P9016; 99285

== ENCOUNTER 2021-03-09 17:05 | Emergency (ER) | payer MEDICAID, OTHER ==
[2021-03-09] MEDS ORDERED: Sodium Chloride 0.9% 10 ML Syringe FLUSH PRN (17:14)
--- NOTE | 2021-03-09 17:42 | EDM.PDOC ---
ED HPI GENERAL MEDICAL PROBLEM - General Chief Complaint: General Stated Complaint: SENT BY [facility] Time Seen by Provider: 03/09/21 17:13 Source of Information: Reports: Patient, RN Notes Reviewed History Limitations: Reports: No Limitations - History of Present Illness INITIAL COMMENTS - FREE TEXT/NARRATIVE: Is a 60-year-old female presenting to the emergency department at the request of her GI specialist. She was evaluated in his office yesterday with regards to chronic diarrhea. Blood work was checked at that time and she was found to have a hemoglobin of 7.7. She is scheduled to have EGD colonoscopy with MRI next to look for possible sources of blood losses. Patient reports feeling increasingly weak and more short of breath with exertion. She wears 2 L of O2 chronically at home. A history significant for coronary artery disease, heart failure, high cholesterol,, ID, and COPD. She was seen in this emergency department on February 25 for diarrhea, dizziness, and vomiting. Hemoglobin at that time was found to be low at 8.3 and she was transfused 1 unit due to her compromised cardiac status. Patient reports that her diarrhea has improved which she attributes to the use of Imodium. She had an episode this morning, but took Imodium and it had stopped. Denies any visible blood in her stools. She has no chest pain or shortness of breath at rest. - Related Data Allergies Allergy/AdvReac Type Severity Reaction Status Date / Time Penicillins Allergy Rash Verified 03/09/21 17:18 Home Meds: Home Meds Albuterol Sulfate [Albuterol Sulfate Hfa] 8.5 gm IH 08/12/20 [History] Levothyroxine Sodium [Euthyrox] 25 mcg PO DAILY 08/12/20 [History] Metoprolol Succinate [Toprol XL 50mg] 50 mg PO DAILY 08/12/20 [History] Albuterol/Ipratropium [DuoNeb 3.0-0.5 MG/3 ML] 3 ml NEB Q6HRRT #30 neb 08/16/20 [Rx] Folic Acid 1 mg PO DAILY #30 tablet 08/16/20 [Rx] Magnesium Oxide 800 mg PO DAILY #30 tablet 08/16/20 [Rx] Multivitamins,Therapeutic [Thera] 1 each PO DAILY tablet 08/16/20 [Rx] Nicotine [Habitrol] 14 mg TRDERM DAILY #30 patch 08/16/20 [Rx] Omeprazole 20 mg PO ACBREAKFAST #30 cap.sr 08/16/20 [Rx] Cholecalciferol (Vitamin D3) [Vitamin D3] 25 mcg PO DAILY 02/25/21 [History] Escitalopram Oxalate 20 mg PO DAILY 02/25/21 [History] Furosemide [Lasix] 40 mg PO DAILY 02/25/21 [History] Mirtazapine 30 mg PO BEDTIME 02/25/21 [History] Ondansetron [Zofran] 4 mg BUCCAL Q6H PRN #10 tab 02/25/21 [Rx] guaiFENesin [Mucinex] 600 mg PO DAILY 02/25/21 [History] Past Medical History HEENT History: Reports: Impaired Vision Other HEENT History: wears glasses, pt reports that she has a full set of dentures but does not have them here with her. 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: , Other (See Below) Other WHITE METAL CASTER History: 3 c-sections Psychiatric History: Reports: Anxiety Endocrine/Metabolic History: Reports: Hypothyroidism Hematologic History: Reports: Anemia, Blood Transfusion(s) - Infectious Disease History Infectious Disease History: Reports: Measles Other Infectious Disease History: Pt had both COVID vaccinations in November and January of 2021 - Past Surgical History Cardiovascular Surgical History: Reports: Coronary Artery Stent GI Surgical History: Reports: Colonoscopy Female Surgical History: Reports: Section Other Musculoskeletal Surgeries/Procedures:: back surgery [place] [address] Ramírez in [place] Social & Family History - Family History Family Medical History: No Pertinent Family History - Tobacco Use Tobacco Use Status *Q: Current Every Day Tobacco User Years of Tobacco use: 45 Packs/Tins Daily: 0.3 - Caffeine Use Caffeine Use: Reports: Tea Other Caffeine Use: a cup or two everyday. - Recreational Drug Use Recreational Drug Use: No - Living Situation & Occupation Living situation: Reports: , Alone Occupation: Unemployed ED ROS GENERAL - Review of Systems Review Of Systems: See Below Constitutional: Reports: Fatigue. Denies: Fever, Chills HEENT: Reports: No Symptoms Respiratory: Reports: Shortness of Breath. Denies: Pleuritic Chest Pain, Cough Cardiovascular: Reports: Dyspnea on Exertion. Denies: Chest Pain, Lightheadedness, Syncope Endocrine: Reports: No Symptoms GI/Abdominal: Reports: Diarrhea. Denies: Abdominal Pain, Nausea, Vomiting : Reports: No Symptoms Musculoskeletal: Reports: No Symptoms Skin: Reports: No Symptoms Neurological: Reports: No Symptoms. Denies: Confusion, Dizziness Psychiatric: Reports: No Symptoms Hematologic/Lymphatic: Reports: No Symptoms Immunologic: Reports: No Symptoms ED EXAM, GENERAL - Physical Exam Exam: See Below Exam Limited By: No Limitations General Appearance: Alert, WD/WN, No Apparent Distress Respiratory/Chest: No Respiratory Distress, No Accessory Muscle Use, Chest Non- Tender, Other (Faint expiratory wheeze) Cardiovascular: Normal Peripheral Pulses, Regular Rate, Rhythm, No Edema, No Gallop, No JVD, No Murmur, No Rub GI/Abdominal: Normal Bowel Sounds, Soft, Non-Tender, No Organomegaly, No Distention, No Abnormal Bruit, No Mass Neurological: Alert, Oriented, CN II-XII Intact, Normal Cognition, Normal Gait, Normal Reflexes, No Motor/Sensory Deficits Psychiatric: Normal Affect, Normal Mood Skin Exam: Warm, Dry, Intact, Normal Color, No Rash #1 Interpretation EKG Date: 03/09/21 Time: 18:02 Rhythm: NSR Rate (Beats/Min): 70 Closplint: Normal P-Wave: Present QRS: Normal ST-T: Normal QT: Prolonged EKG Interpretation Comments: [place] rhythm at 70/min Left atrial hypertrophy RSR V1 to V2-right ventricular hypertrophy pattern Mild nonspecific repolarization abnormality QTC is moderately prolonged EKG interpreted by Dr. Tara GONZALEZ Course - Vital Signs Last Recorded V/S: Last Vital Signs Temp 97.5 F 03/09/21 22:45 Pulse 72 03/09/21 22:45 Resp 20 03/09/21 22:45 BP 102/55 L 03/09/21 22:45 Pulse Ox 93 L 03/09/21 22:45 - Orders/Labs/Meds Orders: Active Orders 24 hr Category Date Time Status EKG Documentation Completion [RC] STAT Care 03/09/21 17:41 Active Peripheral IV Care [RC] . DIRECTED Care 03/09/21 17:14 Active Chest 1V Frontal [CR] Stat Exams 03/09/21 17:42 Taken Sodium Chloride 0.9% [Saline Flush] Med 03/09/21 17:14 Active 10 ml FLUSH ASDIRECTED PRN Peripheral IV Insertion Adult [OM.PC] Stat Ot 03/09/21 17:14 Ordered Transfuse Red Blood Cells [COMM] Routine Ot 03/09/21 17:30 Ordered Medication Orders Sodium Chloride (Sodium Chloride 0.9% 10 Ml Syringe) 10 ml FLUSH ASDIRECTED PRN PRN Reason: Keep Vein Open Last Admin: 03/09/21 17:15 Dose: 10 ml Documented by: CORIN Labs: Laboratory Tests 03/09/21 03/09/21 03/09/21 Range/Units 17:15 17:15 17:15 WBC 8.90 (3.98-10.04) K/mm3 RBC 1.96 L (3.98-5.22) M/mm3 Hgb 7.1 L* (11.2-15.7) gm/dl Hct 21.9 L (34.1-44.9) % MCV 111.7 H (79.4-94.8) fl MCH 36.2 H (25.6-32.2) pg MCHC 32.4 (32.2-35.5) g/dl RDW Std Deviation 63.2 H (36.4-46.3) fL Plt Count 107 L (182-369) K/mm3 MPV 10.4 (9.4-12.3) fl Neut % (Auto) 58.6 (34.0-71.1) % Lymph % (Auto) 28.0 (19.3-51.7) % Pettis % (Auto) 9.6 (4.7-12.5) % Eos % (Auto) 2.5 (0.7-5.8) Baso % (Auto) 1.1 (0.1-1.2) % Neut # (Auto) 5.22 (1.56-6.13) K/mm3 Lymph # (Auto) 2.49 (1.18-3.74) K/mm3 Pettis # (Auto) 0.85 H (0.24-0.36) K/mm3 Eos # (Auto) 0.22 (0.04-0.36) K/mm3 Baso # (Auto) 0.10 H (0.01-0.08) K/mm3 Manual Slide Review Abnormal smear Sodium 132 L (136-145) mEq/L Potassium 4.4 (3.5-5.1) mEq/L Chloride 96 L (98-107) mEq/L Carbon Dioxide 30 (21-32) mEq/L Anion Gap 10.4 (5-15) BUN 9 (7-18) mg/dL Creatinine 1.2 H (0.55-1.02) mg/dL Est Cr Clr Drug Dosing 46.09 mL/min Estimated GFR (MDRD) 46 (>60) mL/min BUN/Creatinine Ratio 7.5 L (14-18) Glucose 110 H (70-99) mg/dL Calcium 9.1 (8.5-10.1) mg/dL Total Bilirubin 3.7 H (0.2-1.0) mg/dL AST 63 H (15-37) U/L ALT 27 (14-59) U/L Alkaline Phosphatase 125 H (46-116) U/L Troponin I (0.00-0.056) ng/mL NT-Pro-B Natriuret Pep (0-125) pg/mL Total Protein 7.5 (6.4-8.2) g/dl Albumin 2.9 L (3.4-5.0) g/dl Globulin 4.6 gm/dL Albumin/Globulin Ratio 0.6 L (1-2) Blood Type A POSITIVE Gel Antibody Screen Negative Crossmatch See Detail 03/09/21 03/09/21 Range/Units 17:15 17:15 WBC (3.98-10.04) K/mm3 RBC (3.98-5.22) M/mm3 Hgb (11.2-15.7) gm/dl Hct (34.1-44.9) % MCV (79.4-94.8) fl MCH (25.6-32.2) pg MCHC (32.2-35.5) g/dl RDW Std Deviation (36.4-46.3) fL Plt Count (182-369) K/mm3 MPV (9.4-12.3) fl Neut % (Auto) (34.0-71.1) % Lymph % (Auto) (19.3-51.7) % Pettis % (Auto) (4.7-12.5) % Eos % (Auto) (0.7-5.8) Baso % (Auto) (0.1-1.2) % Neut # (Auto) (1.56-6.13) K/mm3 Lymph # (Auto) (1.18-3.74) K/mm3 Pettis # (Auto) (0.24-0.36) K/mm3 Eos # (Auto) (0.04-0.36) K/mm3 Baso # (Auto) (0.01-0.08) K/mm3 Manual Slide Review Sodium (136-145) mEq/L Potassium (3.5-5.1) mEq/L Chloride (98-107) mEq/L Carbon Dioxide (21-32) mEq/L Anion Gap (5-15) BUN (7-18) mg/dL Creatinine (0.55-1.02) mg/dL Est Cr Clr Drug Dosing mL/min Estimated GFR (MDRD) (>60) mL/min BUN/Creatinine Ratio (14-18) Glucose (70-99) mg/dL Calcium (8.5-10.1) mg/dL Total Bilirubin (0.2-1.0) mg/dL AST (15-37) U/L ALT (14-59) U/L Alkaline Phosphatase (46-116) U/L Troponin I < 0.017 (0.00-0.056) ng/mL NT-Pro-B Natriuret Pep 855 H (0-125) pg/mL Total Protein (6.4-8.2) g/dl Albumin (3.4-5.0) g/dl Globulin gm/dL Albumin/Globulin Ratio (1-2) Blood Type Gel Antibody Screen Crossmatch Meds: Medications Generic Name Dose Route Start Last Admin Trade Name Freq PRN Reason Stop Dose Admin Sodium Chloride 10 ml 03/09/21 17:14 03/09/21 17:15 Sodium Chloride 0.9% 10 Ml Syringe FLUSH 10 ml ASDIRECTED PRN Administration Keep Vein Open Discontinued Medications Generic Name Dose Route Start Last Admin Trade Name Freq PRN Reason Stop Dose Admin Furosemide 40 mg 03/09/21 19:00 03/09/21 20:36 Furosemide 40 Mg/4 Ml Vial IVPUSH 03/09/21 19:01 40 mg ONETIME ONE Administration - Re-Assessments/Exams Free Text/Narrative Re-Assessment/Exam: 03/09/21 1730 Hematology is significant for hemoglobin low at 7.1, sodium 132, creatinine 1.2, bili 3.7, proBNP 855. Troponin is negative. EKG shows no evidence of ischemia. I have ordered 2 units of packed RBCs to be transfused with a dose of Lasix 40 mg in between. Patient is having procedure next week and has poor cardiac function, therefore transfusion is necessary at a hemoglobin of 7.1. 03/09/21 22:43 Patient has finished her blood transfusion and tolerated it well. We will discharge her home. Discharge instructions as documented. Departure - Departure Time of Disposition: 22:44 Disposition: Home, Self-Care 01 Condition: Good Clinical Impression: Anemia Qualifiers: Anemia type: other cause Other causes of anemia: acute posthemorrhagic Qualified Code(s): D62 - Acute posthemorrhagic anemia - Discharge Information *PRESCRIPTION DRUG MONITORING PROGRAM REVIEWED*: No *COPY OF PRESCRIPTION DRUG MONITORING REPORT IN PATIENT JOON: No Referrals: Kalpana Hubbard MD [Primary Care Provider] - Forms: ED Department Discharge Additional Instructions: You were seen in the emergency department today for evaluation with regards to low hemoglobin. Blood work was repeated and your hemoglobin was found to be low at 7.1. You received 2 units of blood in the ER. Recommend that you keep your appoint with GI as scheduled next week for colonoscopy, endoscopy, and MRI. If you should experience any new or worsening symptoms of concern, please not hesitate to return to the emergency department for reevaluation. Sepsis Event Note (ED) - Evaluation Sepsis Screening Result: No Definite Risk - Focused Exam Vital Signs: Vital Signs Temp Temp Pulse Resp BP Pulse Ox 03/09/21 22:45 97.5 F 72 20 102/55 L 93 L 03/09/21 21:00 97.5 F 76 20 105/55 L 97 03/09/21 20:46 97.3 F 77 22 H 108/52 L 97 03/09/21 20:34 97.4 F 77 24 H 118/57 L 98 03/09/21 18:47 97.8 F 74 16 98/46 L 100 03/09/21 18:30 97.5 F 70 16 90/48 L 100 03/09/21 17:15 97.6 F 79 16 96/59 L 99 - My Orders Last 24 Hours: My Active Orders 03/09/21 17:14 Peripheral IV Care [RC] . DIRECTED Sodium Chloride 0.9% [Saline Flush] 10 ml FLUSH ASDIRECTED PRN Peripheral IV Insertion Adult [OM.PC] Stat 03/09/21 17:30 Transfuse Red Blood Cells [COMM] Routine 03/09/21 17:41 EKG Documentation Completion [RC] STAT 03/09/21 17:42 Chest 1V Frontal [CR] Stat - Assessment/Plan Last 24 Hours: My Active Orders 03/09/21 17:14 Peripheral IV Care [RC] . DIRECTED Sodium Chloride 0.9% [Saline Flush] 10 ml FLUSH ASDIRECTED PRN Peripheral IV Insertion Adult [OM.PC] Stat 03/09/21 17:30 Transfuse Red Blood Cells [COMM] Routine 03/09/21 17:41 EKG Documentation Completion [RC] STAT 03/09/21 17:42 Chest 1V Frontal [CR] Stat
[2021-03-09] MEDS ORDERED: Furosemide 40 MG/4 ML VIAL IVPUSH ONE (19:00)
[2021-03-10 00:13] VITALS: BP 122/62; PULSE 73
--- NOTE | 2021-03-10 08:07 | CR ---
Chest: Portable view of the chest was obtained. Comparison: Prior chest CT study of 08/12/20 and chest x-ray of 08/11/20. Heart size is felt to be slightly enlarged. Upper mediastinum is within normal limits. Lung markings are felt to be fairly stable from prior chest x-ray. No definite acute parenchymal change is seen. Impression: 1. Heart size is slightly enlarged. 2. Nothing acute is definitely seen on portable chest x-ray. Diagnostic code #2
== END 2021-03-09 23:30 | disposition home or self-care (01) ==
LOC: JD.ED 17:05
DX: D62 Acute posthemorrhagic anemia (principal); I25.10 Atherosclerotic heart disease of native coronary artery without angina pectoris; I11.0 Hypertensive heart disease with heart failure; I50.9 Heart failure, unspecified; E78.00 Pure hypercholesterolemia, unspecified; I25.2 Old myocardial infarction; J44.9 Chronic obstructive pulmonary disease, unspecified; E03.9 Hypothyroidism, unspecified; Z88.0 Allergy status to penicillin; Z79.899 Other long term (current) drug therapy; Z72.0 Tobacco use
CPT/HCPCS: 36415; 36430; 71045; 80053; 83880; 84484; 85025; 86850; 86900; 86901; 86922; 93005; 96374; 99285; J1940; P9016; 93010; 99284

== ENCOUNTER 2021-03-22 09:57 | Inpatient (IN) | payer MEDICAID, OTHER ==
[2021-03-22] MEDS ORDERED: Sodium Chloride 0.9% 1,000 ML IV SCH ×2 (10:45→12:30)
--- NOTE | 2021-03-22 11:53 | EDM.PDOC ---
ED HPI GENERAL MEDICAL PROBLEM - General Chief Complaint: General Stated Complaint: DIZZINESS Time Seen by Provider: 03/22/21 10:16 Source of Information: Reports: Patient, RN Notes Reviewed - History of Present Illness INITIAL COMMENTS - FREE TEXT/NARRATIVE: 60 yr old female comes in with generalized weakness, dizzy lightheaded when standing. She has not been feeling well for at least several wks. She had an ED visit 3 1/2 wks ago, found to be anemic, transfused 1 unit. She returned March 09 two wks ago with hx of dark stools, dizzy and found to have a hgb of 7.1. She was tranfused 2 units at that time. She had a follow up GI appt. in [place] scheduled by lui so was discharged. At her GI appt. 4 days ago Endoscopy was not done because she had not yet had "Abd CT and stool sample" Occasional mild "heartburn" No major abd discomfort, no vomiting, decreased appetite. She admits to almost daily alcohol, drinks wine. She also had COPD from smoking, "trying to cut back". She had "a partial colonoscopy about 8 months ago". Back Pain Score (Numeric/FACES): 8 - Related Data Allergies Allergy/AdvReac Type Severity Reaction Status Date / Time Penicillins Allergy Rash Verified 03/22/21 10:11 Home Meds: Home Meds Albuterol Sulfate [Albuterol Sulfate Hfa] 8.5 gm IH Q4H PRN 08/12/20 [History] Levothyroxine Sodium [Euthyrox] 25 mcg PO DAILY 08/12/20 [History] Metoprolol Succinate [Toprol XL 50mg] 50 mg PO DAILY 08/12/20 [History] Albuterol/Ipratropium [DuoNeb 3.0-0.5 MG/3 ML] 3 ml NEB Q6HRRT #30 neb 08/16/20 [Rx] Folic Acid 1 mg PO DAILY #30 tablet 08/16/20 [Rx] Magnesium Oxide 800 mg PO DAILY #30 tablet 08/16/20 [Rx] Multivitamins,Therapeutic [Thera] 1 each PO DAILY tablet 08/16/20 [Rx] Nicotine [Habitrol] 14 mg TRDERM DAILY #30 patch 08/16/20 [Rx] Omeprazole 20 mg PO ACBREAKFAST #30 cap.sr 08/16/20 [Rx] Cholecalciferol (Vitamin D3) [Vitamin D3] 25 mcg PO DAILY 02/25/21 [History] Escitalopram Oxalate 20 mg PO DAILY 02/25/21 [History] Furosemide [Lasix] 40 mg PO DAILY 02/25/21 [History] Mirtazapine 30 mg PO BEDTIME 02/25/21 [History] Ondansetron [Zofran] 4 mg BUCCAL Q6H PRN #10 tab 02/25/21 [Rx] guaiFENesin [Mucinex] 600 mg PO DAILY 02/25/21 [History] Past Medical History HEENT History: Reports: Impaired Vision Other HEENT History: wears glasses, pt reports that she has a full set of dentures but does not have them here with her. Cardiovascular History: Reports: CAD, Heart Failure, High Cholesterol, Hypertension, PA Respiratory History: Reports: COPD Gastrointestinal History: Reports: GI Bleed READING ASSISTANT History: Reports: Other READING ASSISTANT History: 3 c-sections Psychiatric History: Reports: Addiction, Anxiety Endocrine/Metabolic History: Reports: Hypothyroidism Hematologic History: Reports: Anemia, Blood Transfusion(s) - Infectious Disease History Infectious Disease History: Reports: Measles Other Infectious Disease History: Pt had both COVID vaccinations in November and January of 2021 - Past Surgical History Cardiovascular Surgical History: Reports: Coronary Artery Stent GI Surgical History: Reports: Colonoscopy Female Surgical History: Reports: Section Other Musculoskeletal Surgeries/Procedures:: back surgery [place] [address] Ramírez in [place] Social & Family History - Family History Family Medical History: No Pertinent Family History - Tobacco Use Tobacco Use Status *Q: Current Every Day Tobacco User Years of Tobacco use: 454 Packs/Tins Daily: 0.3 - Caffeine Use Caffeine Use: Reports: None Other Caffeine Use: a cup or two everyday. - Recreational Drug Use Recreational Drug Use: No - Living Situation & Occupation Living situation: Reports: , Alone Occupation: Unemployed ED ROS GENERAL - Review of Systems Review Of Systems: See Below Constitutional: Denies: Fever, Chills, Diaphoresis HEENT: Reports: No Symptoms Respiratory: Reports: Shortness of Breath (mild chronically) Cardiovascular: Denies: Chest Pain GI/Abdominal: Reports: Abdominal Pain (mild), Decreased Appetite, Melena. Denies: Vomiting Musculoskeletal: Reports: No Symptoms Skin: Reports: No Symptoms Neurological: Reports: Dizziness ED EXAM, GENERAL - Physical Exam Exam: See Below General Appearance: Alert, No Apparent Distress Throat/Mouth: Normal Inspection Head: Atraumatic Neck: Supple Respiratory/Chest: No Respiratory Distress, Lungs Clear, Normal Breath Sounds. No: Rhonchi, Wheezing Cardiovascular: Regular Rate, Rhythm GI/Abdominal: Soft, Other (mild tenderness upper mid abd). No: Guarding, Rebound Rectal (Female) Exam: Other (brown stool, mildly heme positive) Extremities: Normal Inspection. No: Pedal Edema, Leg Pain Neurological: Alert, Oriented, Sensory/Motor Deficit Skin Exam: Warm, Dry, Normal Color #1 Interpretation EKG Date: 03/22/21 Rhythm: NSR Rate (Beats/Min): 60 P-Wave: Present QRS: Normal ST-T: Other (mild nonspecific st changes mult leads) Course - Vital Signs Last Recorded V/S: Last Vital Signs Temp 97.1 F 03/22/21 12:52 Pulse 60 03/22/21 12:52 Resp 15 03/22/21 12:52 BP 91/48 L 03/22/21 12:52 Pulse Ox 100 03/22/21 12:52 - Orders/Labs/Meds Orders: Active Orders 24 hr Category Date Time Status Patient Status [ADT] Routine ADT 03/22/21 13:14 Active Activity as Tolerated [RC] .Routine Care 03/22/21 13:14 Active Antiembolic Devices [RC] PER UNIT ROUTINE Care 03/22/21 13:15 Active EKG 12 Lead [EKG Documentation Completion] [RC] STAT Care 03/22/21 12:20 Active Oxygen Therapy [RC] PRN Care 03/22/21 13:14 Active Oxygen Therapy, ED [RC] ASDIRECTED Care 03/22/21 10:00 Active RT Aerosol Therapy [RC] ASDIRECTED Care 03/22/21 13:19 Active RT Incentive Spirometry [RC] Q1HWA Care 03/22/21 13:14 Active RT Post Treatment Assessment [RC] Click to Edit Care 03/22/21 13:19 Active RT Pre-Treatment Assessment [RC] Click to Edit Care 03/22/21 13:19 Active Vital Signs [RC] Q2H Care 03/22/21 13:14 Active Nothing Per Oral Diet [DIET] Diet 03/22/21 Breakfast Active BASIC METABOLIC PANEL,BMP [CHEM] AM Lab 03/23/21 05:11 Ordered CBC WITH AUTO DIFF [HEME] AM Lab 03/23/21 05:11 Ordered CORONAVIRUS COVID-19 DEXTER [MOLEC] Stat Lab 03/22/21 12:35 Received PACKED CELLS [RED BLOOD CELLS LP] [BBK] Stat Lab 03/22/21 10:13 Results TYPE AND SCREEN [BBK] Stat Lab 03/22/21 10:13 Results Albuterol [Proventil HFA] Med 03/22/21 13:17 Active 0 gm INH Q4H PRN Albuterol/Ipratropium [DuoNeb 3.0-0.5 MG/3 ML] Med 03/22/21 15:00 Active 3 ml NEB Q6HRRT Citalopram [Celexa] Med 03/23/21 09:00 Active 40 mg PO DAILY Furosemide [Lasix] Med 03/23/21 09:00 Active 40 mg PO DAILY KCl/Na Sulf,Bicarb,Cl/PEG 3351 [GoLytely] Med 03/22/21 13:20 Pending 4,000 ml PO ONETIME ONE Lactated Ringers [Ringers, Lactated] 1,000 ml Med 03/22/21 13:15 Active IV ASDIRECTED Levothyroxine Med 03/23/21 09:00 Active 25 mcg PO DAILY Metoprolol Succinate [Toprol XL] Med 03/23/21 09:00 Active 50 mg PO DAILY Mirtazapine [Remeron] Med 03/22/21 21:00 Active 30 mg PO BEDTIME Nicotine [Habitrol] Med 03/23/21 09:00 Active 14 mg TRDERM DAILY Ondansetron [Zofran ODT] Med 03/22/21 13:17 Active 4 mg PO Q6H PRN Pantoprazole [ProTONIX] Med 03/23/21 06:00 Active 40 mg PO ACBREAKFAST Remove Patch Med 03/24/21 09:00 Active 0 ea TRDERM DAILY Sodium Chloride 0.9% [Normal Saline] 1,000 ml Med 03/22/21 10:45 Active IV ONETIME guaiFENesin [Mucinex] Med 03/23/21 09:00 Active 600 mg PO DAILY Schedule Procedure [COMM] Routine Oth 03/23/21 13:20 Ordered Sequential Compression Device [OM.PC] Routine Oth 03/22/21 13:14 Ordered Transfuse PRBC [Transfuse Red Blood Cells] [COMM] Stat Oth 03/22/21 12:35 Ordered Resuscitation Status Routine Resus Stat 03/22/21 13:14 Ordered Medication Orders Albuterol (Albuterol 6.7 Gm Inhaler) 0 gm INH Q4H PRN PRN Reason: Wheezing Albuterol/Ipratropium (Albuterol/Ipratropium 3.0-0.5 Mg/3 Ml Neb Soln) 3 ml NEB Q6HRRT FROY Citalopram Hydrobromide (Citalopram 20 Mg Tab) 40 mg PO DAILY FROY Furosemide (Furosemide 40 Mg Tab) 40 mg PO DAILY FROY Guaifenesin (Guaifenesin 600 Mg Tab.Er) 600 mg PO DAILY [facility] Sodium Chloride (Normal Saline) 1,000 mls @ 75 mls/hr IV ONETIME FROY Last Admin: 03/22/21 10:44 Dose: 999 mls/hr Documented by: CORIN Lactated Ringer's (Ringers, Lactated) 1,000 mls @ 50 mls/hr IV ASDIRECTED [facility], [facility]1983 Levothyroxine Sodium (Levothyroxine 25 Mcg Tab) 25 mcg PO DAILY FROY Metoprolol Succinate (Metoprolol Succinate 50 Mg Tab.Er) 50 mg PO DAILY FROY Mirtazapine (Mirtazapine 30 Mg Tab) 30 mg PO BEDTIME FROY Miscellaneous Information (Remove Patch) 0 ea TRDERM DAILY [facility] Nicotine (Nicotine 14 Mg/24 Hr Patch) 14 mg TRDERM DAILY FROY Ondansetron HCl (Ondansetron 4 Mg Tab.Dis) 4 mg PO Q6H PRN PRN Reason: nausea or vomiting Pantoprazole Sodium (Pantoprazole 40 Mg Tab.Cr) 40 mg PO ACBREAKFAST FROY Polyethylene Glycol/Electrolytes (Polyethylene Glycol/Electrolytes 4,000 Ml Bottle) 4,000 ml PO ONETIME ONE Stop: 03/22/21 13:21 Labs: Laboratory Tests 03/22/21 03/22/21 03/22/21 Range/Units 10:13 10:13 10:13 WBC 7.43 (3.98-10.04) K/mm3 RBC 2.06 L (3.98-5.22) M/mm3 Hgb 7.1 L* (11.2-15.7) gm/dl Hct 22.5 L (34.1-44.9) % MCV 109.2 H (79.4-94.8) fl MCH 34.5 H (25.6-32.2) pg MCHC 31.6 L (32.2-35.5) g/dl RDW Std Deviation 70.3 H (36.4-46.3) fL Plt Count 72 L (182-369) K/mm3 MPV 12.0 (9.4-12.3) fl Neut % (Auto) 63.3 (34.0-71.1) % Lymph % (Auto) 25.4 (19.3-51.7) % [place] % (Auto) 8.6 (4.7-12.5) % Eos % (Auto) 1.9 (0.7-5.8) Baso % (Auto) 0.7 (0.1-1.2) % Neut # (Auto) 4.70 (1.56-6.13) K/mm3 Lymph # (Auto) 1.89 (1.18-3.74) K/mm3 [place] # (Auto) 0.64 H (0.24-0.36) K/mm3 Eos # (Auto) 0.14 (0.04-0.36) K/mm3 Baso # (Auto) 0.05 (0.01-0.08) K/mm3 Manual Slide Review Abnormal smear PT 14.8 H (9.7-12.0) SECONDS INR 1.39 Sodium 133 L (136-145) mEq/L Potassium 3.8 (3.5-5.1) mEq/L Chloride 93 L (98-107) mEq/L Carbon Dioxide 31 (21-32) mEq/L Anion Gap 12.8 (5-15) BUN 23 H (7-18) mg/dL Creatinine 1.8 H (0.55-1.02) mg/dL Est Cr Clr Drug Dosing 30.72 mL/min Estimated GFR (MDRD) 29 (>60) mL/min BUN/Creatinine Ratio 12.8 L (14-18) Glucose 88 (70-99) mg/dL Calcium 9.5 (8.5-10.1) mg/dL Total Bilirubin 4.3 H (0.2-1.0) mg/dL Direct Bilirubin (0.0-0.2) mg/dl AST 69 H (15-37) U/L ALT 32 (14-59) U/L Alkaline Phosphatase 117 H (46-116) U/L Total Protein 7.7 (6.4-8.2) g/dl Albumin 2.9 L (3.4-5.0) g/dl Globulin 4.8 gm/dL Albumin/Globulin Ratio 0.6 L (1-2) Blood Type Gel Antibody Screen Crossmatch 03/22/21 03/22/21 Range/Units 10:13 10:13 WBC (3.98-10.04) K/mm3 RBC (3.98-5.22) M/mm3 Hgb (11.2-15.7) gm/dl Hct (34.1-44.9) % MCV (79.4-94.8) fl MCH (25.6-32.2) pg MCHC (32.2-35.5) g/dl RDW Std Deviation (36.4-46.3) fL Plt Count (182-369) K/mm3 MPV (9.4-12.3) fl Neut % (Auto) (34.0-71.1) % Lymph % (Auto) (19.3-51.7) % [place] % (Auto) (4.7-12.5) % Eos % (Auto) (0.7-5.8) Baso % (Auto) (0.1-1.2) % Neut # (Auto) (1.56-6.13) K/mm3 Lymph # (Auto) (1.18-3.74) K/mm3 [place] # (Auto) (0.24-0.36) K/mm3 Eos # (Auto) (0.04-0.36) K/mm3 Baso # (Auto) (0.01-0.08) K/mm3 Manual Slide Review PT (9.7-12.0) SECONDS INR Sodium (136-145) mEq/L Potassium (3.5-5.1) mEq/L Chloride (98-107) mEq/L Carbon Dioxide (21-32) mEq/L Anion Gap (5-15) BUN (7-18) mg/dL Creatinine (0.55-1.02) mg/dL Est Cr Clr Drug Dosing mL/min Estimated GFR (MDRD) (>60) mL/min BUN/Creatinine Ratio (14-18) Glucose (70-99) mg/dL Calcium (8.5-10.1) mg/dL Total Bilirubin (0.2-1.0) mg/dL Direct Bilirubin 1.80 H (0.0-0.2) mg/dl AST (15-37) U/L ALT (14-59) U/L Alkaline Phosphatase (46-116) U/L Total Protein (6.4-8.2) g/dl Albumin (3.4-5.0) g/dl Globulin gm/dL Albumin/Globulin Ratio (1-2) Blood Type A POSITIVE Gel Antibody Screen Negative Crossmatch See Detail Meds: Medications Generic Name Dose Route Start Last Admin Trade Name Freq PRN Reason Stop Dose Admin Albuterol 0 gm 03/22/21 13:17 Albuterol 6.7 Gm Inhaler INH Q4H PRN Wheezing Albuterol/Ipratropium 3 ml 03/22/21 15:00 Albuterol/Ipratropium 3.0-0.5 Mg/3 Ml Neb Soln NEB Q6HRRT FROY Citalopram Hydrobromide 40 mg 03/23/21 09:00 Citalopram 20 Mg Tab PO DAILY FROY Furosemide 40 mg 03/23/21 09:00 Furosemide 40 Mg Tab PO DAILY FROY Guaifenesin 600 mg 03/23/21 09:00 Guaifenesin 600 Mg Tab.Er PO DAILY FROY Sodium Chloride 1,000 mls @ 75 mls/hr 03/22/21 10:45 03/22/21 10:44 Normal Saline IV 999 mls/hr ONETIME FROY Administration Lactated Ringer's 1,000 mls @ 50 mls/hr 03/22/21 13:15 Ringers, Lactated IV ASDIRECTED FROY Levothyroxine Sodium 25 mcg 03/23/21 09:00 Levothyroxine 25 Mcg Tab PO DAILY FROY Metoprolol Succinate 50 mg 03/23/21 09:00 Metoprolol Succinate 50 Mg Tab.Er PO DAILY FROY Mirtazapine 30 mg 03/22/21 21:00 Mirtazapine 30 Mg Tab PO BEDTIME FROY Miscellaneous Information 0 ea 03/24/21 09:00 Remove Patch TRDERM DAILY FROY Nicotine 14 mg 03/23/21 09:00 Nicotine 14 Mg/24 Hr Patch TRDERM DAILY FROY Ondansetron HCl 4 mg 03/22/21 13:17 Ondansetron 4 Mg Tab.Dis PO Q6H PRN nausea or vomiting Pantoprazole Sodium 40 mg 03/23/21 06:00 Pantoprazole 40 Mg Tab.Cr PO ACBREAKFAST FROY Polyethylene Glycol/Electrolytes 4,000 ml 03/22/21 13:20 Polyethylene Glycol/Electrolytes 4,000 Ml Bottle PO 03/22/21 13:21 ONETIME ONE - Re-Assessments/Exams Free Text/Narrative Re-Assessment/Exam: 03/22/21 11:50. Hbg came back at 7.1. creat 1.8. AST very mildly elevated, Bili just over 4. Plts 72,000. [id number]. Results of CT done 3 days ago also reviewed. Have reviewed findings with Dr Best, surgeon manager flight operations. He will look things over, see patient, help determine appropriate disposition. 2 units PRBC have been ordered. Departure - Departure Time of Disposition: 12:45 Disposition: Admitted As Inpatient 65 Condition: Serious Clinical Impression: Thrombocytopenia GI bleed Qualifiers: GI bleed type/associated pathology: unspecified gastrointestinal hemorrhage type Qualified Code(s): K92.2 - Gastrointestinal hemorrhage, unspecified Anemia Qualifiers: Anemia type: other cause Other causes of anemia: acute posthemorrhagic Qualified Code(s): D62 - Acute posthemorrhagic anemia - Discharge Information Referrals: Kalpana Hubbard MD [Primary Care Provider] - Forms: ED Department Discharge Sepsis Event Note (ED) - Evaluation Sepsis Screening Result: No Definite Risk - Focused Exam Vital Signs: Vital Signs Temp Temp Pulse Resp BP Pulse Ox 03/22/21 12:52 97.1 F 60 15 91/48 L 100 03/22/21 11:56 97.1 F 59 L 17 83/48 L 100 03/22/21 10:07 96.2 F L 62 18 76/42 L 94 L ED Communication - Discussed Case With (1) Discussed Case With (1): Admitting Provider (Dr Best, decision to admit made at about 12:45.) - My Orders Last 24 Hours: My Active Orders 03/22/21 10:00 Oxygen Therapy, ED [RC] ASDIRECTED 03/22/21 10:13 PACKED CELLS [RED BLOOD CELLS LP] [BBK] Stat TYPE AND SCREEN [BBK] Stat 03/22/21 10:45 Sodium Chloride 0.9% [Normal Saline] 1,000 ml IV ONETIME 03/22/21 12:20 EKG 12 Lead [EKG Documentation Completion] [RC] STAT 03/22/21 12:35 CORONAVIRUS COVID-19 DEXTER [MOLEC] Stat Transfuse PRBC [Transfuse Red Blood Cells] [COMM] Stat - Assessment/Plan Last 24 Hours: My Active Orders 03/22/21 10:00 Oxygen Therapy, ED [RC] ASDIRECTED 03/22/21 10:13 PACKED CELLS [RED BLOOD CELLS LP] [BBK] Stat TYPE AND SCREEN [BBK] Stat 03/22/21 10:45 Sodium Chloride 0.9% [Normal Saline] 1,000 ml IV ONETIME 03/22/21 12:20 EKG 12 Lead [EKG Documentation Completion] [RC] STAT 03/22/21 12:35 CORONAVIRUS COVID-19 DEXTER [MOLEC] Stat Transfuse PRBC [Transfuse Red Blood Cells] [COMM] Stat
[2021-03-22] MEDS ORDERED: Albuterol 6.7 GM Inhaler INH PRN (13:17)
[2021-03-22] MEDS ORDERED: Ondansetron 4 MG Tab.DIS PO PRN (13:17)
--- NOTE | 2021-03-22 13:26 | PCM.HP.2 ---
H&P History of Present Illness - General Date of Service: 03/22/21 Admit Problem/Dx: Admission Diagnosis/Problem Admission Diagnosis/Problem GI bleed not requiring more than 4 units of blood in 24 hours, ICU, or surgery Source of Information: Patient, Old Records History Limitations: Reports: No Limitations - History of Present Illness Initial Comments - Free Text/Narative: Ms. Ng is a 60 yo woman with presenting complaint of dizziness/l ightheadedness. Over the past few months, she has had ongoing issues with symptomatic anemia and reported melena. She underwent EGD and colonoscopy for similar issues in [place] [address] Zimmerman, with significant findings including hiatal hernia with esophagitis, apparent healing peptic ulcer disease, and hemorrhagic mucosa of the proximal half of the colon. She has seen a comprehensive ophthalmologist in [place] recently for chronic diarrhea and was supposed to have a diagnostic colonoscopy performed soon, after completion of stool studies and a CT scan. The patient has CT imaging from July which shows evidence of cirrhosis with sequela of portal hypertension including splenomegaly. Last week's noncontrast CT shows no significant changes. She is chronically ill with COPD, on home O2 2 L at baseline. She has had IA with coronary stenting and currently takes neither aspirin nor plavix. She has congestive heart failure and takes lasix. She reports significant unintentional weight loss and food fear over the past few months. Back Pain Score (Numeric/FACES): 8 - Related Data Allergies/Adverse Reactions: Allergies Allergy/AdvReac Type Severity Reaction Status Date / Time Penicillins Allergy Rash Verified 03/22/21 10:11 Home Medications: Home Meds Albuterol Sulfate [Albuterol Sulfate Hfa] 8.5 gm IH Q4H PRN 08/12/20 [History] Levothyroxine Sodium [Euthyrox] 25 mcg PO DAILY 08/12/20 [History] Metoprolol Succinate [Toprol XL 50mg] 50 mg PO DAILY 08/12/20 [History] Albuterol/Ipratropium [DuoNeb 3.0-0.5 MG/3 ML] 3 ml NEB Q6HRRT #30 neb 08/16/20 [Rx] Folic Acid 1 mg PO DAILY #30 tablet 08/16/20 [Rx] Magnesium Oxide 800 mg PO DAILY #30 tablet 08/16/20 [Rx] Multivitamins,Therapeutic [Thera] 1 each PO DAILY tablet 08/16/20 [Rx] Nicotine [Habitrol] 14 mg TRDERM DAILY #30 patch 08/16/20 [Rx] Omeprazole 20 mg PO ACBREAKFAST #30 cap.sr 08/16/20 [Rx] Cholecalciferol (Vitamin D3) [Vitamin D3] 25 mcg PO DAILY 02/25/21 [History] Escitalopram Oxalate 20 mg PO DAILY 02/25/21 [History] Furosemide [Lasix] 40 mg PO DAILY 02/25/21 [History] Mirtazapine 30 mg PO BEDTIME 02/25/21 [History] Ondansetron [Zofran] 4 mg BUCCAL Q6H PRN #10 tab 02/25/21 [Rx] guaiFENesin [Mucinex] 600 mg PO DAILY 02/25/21 [History] Past Medical History HEENT History: Reports: Impaired Vision Other HEENT History: wears glasses, pt reports that she has a full set of dentures but does not have them here with her. 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: Other OB/BYN History: 3 c-sections Psychiatric History: Reports: Addiction, Anxiety Endocrine/Metabolic History: Reports: Hypothyroidism Hematologic History: Reports: Anemia, Blood Transfusion(s) - Infectious Disease History Infectious Disease History: Reports: Measles Other Infectious Disease History: Pt had both COVID vaccinations in November and January of 2021 - Past Surgical History Cardiovascular Surgical History: Reports: Coronary Artery Stent GI Surgical History: Reports: Colonoscopy Female Surgical History: Reports: Section Other Musculoskeletal Surgeries/Procedures:: back surgery [place] [address] Ramírez in [place] Social & Family History - Family History Family Medical History: No Pertinent Family History - Tobacco Use Tobacco Use Status *Q: Current Every Day Tobacco User Years of Tobacco use: 454 Packs/Tins Daily: 0.3 - Caffeine Use Caffeine Use: Reports: None Other Caffeine Use: a cup or two everyday. - Recreational Drug Use Recreational Drug Use: No - Living Situation & Occupation Living situation: Reports: , Alone Occupation: Unemployed H&P Review of Systems - Review of Systems: Review Of Systems: See Below General: Reports: Malaise, Weakness, Fatigue, Decreased Appetite, Weight Loss HEENT: Reports: No Symptoms Pulmonary: Reports: Shortness of Breath, Cough Cardiovascular: Reports: Dyspnea on Exertion, Lightheadedness Gastrointestinal: Reports: Black Stool, Diarrhea Genitourinary: Reports: No Symptoms Musculoskeletal: Reports: No Symptoms Skin: Reports: No Symptoms Psychiatric: Reports: No Symptoms Neurological: Reports: No Symptoms Hematologic/Lymphatic: Reports: Anemia Immunologic: Reports: No Symptoms Exam - Exam Exam: See Below - Vital Signs Vital Signs: Last Vital Signs Temp 36.2 C 03/22/21 12:52 Pulse 60 03/22/21 12:52 Resp 15 03/22/21 12:52 BP 91/48 L 03/22/21 12:52 Pulse Ox 100 03/22/21 12:52 Weight: 63.503 kg - Exam Quality Assessment: Supplemental Oxygen General: Alert, Oriented, Cooperative HEENT: Scleral Icterus Neck: Supple Lungs: Other (ronchi) Cardiovascular: Regular Rate, Regular Rhythm GI/Abdominal Exam: Other (palpable liver edge. Nontender. small umbilical hernia. No caput medusa or telangiectasia ) Rectal (Female) Exam: Deferred Extremities: Normal Inspection Skin: Other (dry, decreased turgor, no LE edema) Neuro Extensive - Mental Status: Alert, Oriented x3 Psychiatric: Normal Mood - Patient Data Lab Results Last 24 hrs: Laboratory Results - last 24 hr 03/22/21 03/22/21 03/22/21 Range/Units 10:13 10:13 10:13 WBC 7.43 (3.98-10.04) K/mm3 RBC 2.06 L (3.98-5.22) M/mm3 Hgb 7.1 L* (11.2-15.7) gm/dl Hct 22.5 L (34.1-44.9) % MCV 109.2 H (79.4-94.8) fl MCH 34.5 H (25.6-32.2) pg MCHC 31.6 L (32.2-35.5) g/dl RDW Std Deviation 70.3 H (36.4-46.3) fL Plt Count 72 L (182-369) K/mm3 MPV 12.0 (9.4-12.3) fl Neut % (Auto) 63.3 (34.0-71.1) % Lymph % (Auto) 25.4 (19.3-51.7) % York % (Auto) 8.6 (4.7-12.5) % Eos % (Auto) 1.9 (0.7-5.8) Baso % (Auto) 0.7 (0.1-1.2) % Neut # (Auto) 4.70 (1.56-6.13) K/mm3 Lymph # (Auto) 1.89 (1.18-3.74) K/mm3 York # (Auto) 0.64 H (0.24-0.36) K/mm3 Eos # (Auto) 0.14 (0.04-0.36) K/mm3 Baso # (Auto) 0.05 (0.01-0.08) K/mm3 Manual Slide Review Abnormal smear PT 14.8 H (9.7-12.0) SECONDS INR 1.39 Sodium 133 L (136-145) mEq/L Potassium 3.8 (3.5-5.1) mEq/L Chloride 93 L (98-107) mEq/L Carbon Dioxide 31 (21-32) mEq/L Anion Gap 12.8 (5-15) BUN 23 H (7-18) mg/dL Creatinine 1.8 H (0.55-1.02) mg/dL Est Cr Clr Drug Dosing 30.72 mL/min Estimated GFR (MDRD) 29 (>60) mL/min BUN/Creatinine Ratio 12.8 L (14-18) Glucose 88 (70-99) mg/dL Calcium 9.5 (8.5-10.1) mg/dL Total Bilirubin 4.3 H (0.2-1.0) mg/dL Direct Bilirubin (0.0-0.2) mg/dl AST 69 H (15-37) U/L ALT 32 (14-59) U/L Alkaline Phosphatase 117 H (46-116) U/L Total Protein 7.7 (6.4-8.2) g/dl Albumin 2.9 L (3.4-5.0) g/dl Globulin 4.8 gm/dL Albumin/Globulin Ratio 0.6 L (1-2) Blood Type Gel Antibody Screen Crossmatch 03/22/21 03/22/21 Range/Units 10:13 10:13 WBC (3.98-10.04) K/mm3 RBC (3.98-5.22) M/mm3 Hgb (11.2-15.7) gm/dl Hct (34.1-44.9) % MCV (79.4-94.8) fl MCH (25.6-32.2) pg MCHC (32.2-35.5) g/dl RDW Std Deviation (36.4-46.3) fL Plt Count (182-369) K/mm3 MPV (9.4-12.3) fl Neut % (Auto) (34.0-71.1) % Lymph % (Auto) (19.3-51.7) % York % (Auto) (4.7-12.5) % Eos % (Auto) (0.7-5.8) Baso % (Auto) (0.1-1.2) % Neut # (Auto) (1.56-6.13) K/mm3 Lymph # (Auto) (1.18-3.74) K/mm3 York # (Auto) (0.24-0.36) K/mm3 Eos # (Auto) (0.04-0.36) K/mm3 Baso # (Auto) (0.01-0.08) K/mm3 Manual Slide Review PT (9.7-12.0) SECONDS INR Sodium (136-145) mEq/L Potassium (3.5-5.1) mEq/L Chloride (98-107) mEq/L Carbon Dioxide (21-32) mEq/L Anion Gap (5-15) BUN (7-18) mg/dL Creatinine (0.55-1.02) mg/dL Est Cr Clr Drug Dosing mL/min Estimated GFR (MDRD) (>60) mL/min BUN/Creatinine Ratio (14-18) Glucose (70-99) mg/dL Calcium (8.5-10.1) mg/dL Total Bilirubin (0.2-1.0) mg/dL Direct Bilirubin 1.80 H (0.0-0.2) mg/dl AST (15-37) U/L ALT (14-59) U/L Alkaline Phosphatase (46-116) U/L Total Protein (6.4-8.2) g/dl Albumin (3.4-5.0) g/dl Globulin gm/dL Albumin/Globulin Ratio (1-2) Blood Type A POSITIVE Gel Antibody Screen Negative Crossmatch See Detail Result Diagrams: 03/22/21 10:13 03/22/21 10:13 Sepsis Event Note - Evaluation Sepsis Screening Result: No Definite Risk - Focused Exam Vital Signs: Vital Signs Temp Temp Pulse Resp BP Pulse Ox 03/22/21 12:52 36.2 C 60 15 91/48 L 100 03/22/21 11:56 36.2 C 59 L 17 83/48 L 100 03/22/21 10:07 35.7 C L 62 18 76/42 L 94 L Problem List Initiated/Reviewed/Updated: Yes Orders Last 24hrs: Active Orders 24 hr Category Date Time Status Patient Status [ADT] Routine ADT 03/22/21 13:14 Ordered Activity as Tolerated [RC] .Routine Care 03/22/21 13:14 Ordered Antiembolic Devices [RC] PER UNIT ROUTINE Care 03/22/21 13:15 Ordered EKG 12 Lead [EKG Documentation Completion] [RC] STAT Care 03/22/21 12:20 Active Oxygen Therapy [RC] PRN Care 03/22/21 13:14 Ordered Oxygen Therapy, ED [RC] ASDIRECTED Care 03/22/21 10:00 Active RT Aerosol Therapy [RC] ASDIRECTED Care 03/22/21 13:19 Ordered RT Incentive Spirometry [RC] Q1HWA Care 03/22/21 13:14 Ordered RT Post Treatment Assessment [RC] Click to Edit Care 03/22/21 13:19 Ordered RT Pre-Treatment Assessment [RC] Click to Edit Care 03/22/21 13:19 Ordered Vital Signs [RC] Q2H Care 03/22/21 13:14 Ordered Nothing Per Oral Diet [DIET] Diet 03/22/21 Breakfast Ordered BASIC METABOLIC PANEL,BMP [CHEM] AM Lab 03/23/21 05:11 Ordered CBC WITH AUTO DIFF [HEME] AM Lab 03/23/21 05:11 Ordered CORONAVIRUS COVID-19 DEXTER [MOLEC] Stat Lab 03/22/21 12:35 Received PACKED CELLS [RED BLOOD CELLS LP] [BBK] Stat Lab 03/22/21 10:13 Results TYPE AND SCREEN [BBK] Stat Lab 03/22/21 10:13 Results Albuterol [Proventil HFA] Med 03/22/21 13:17 Ordered 8.5 gm INH Q4H PRN Albuterol/Ipratropium [DuoNeb 3.0-0.5 MG/3 ML] Med 03/22/21 15:00 Ordered 3 ml NEB Q6HRRT Escitalopram Oxalate Med 03/23/21 09:00 Ordered 20 mg PO DAILY Furosemide [Lasix] Med 03/23/21 09:00 Ordered 40 mg PO DAILY KCl/Na Sulf,Bicarb,Cl/PEG 3351 [GoLytely] Med 03/22/21 13:20 Once 4,000 ml PO ONETIME ONE Lactated Ringers [Ringers, Lactated] 1,000 ml Med 03/22/21 13:15 Ordered IV ASDIRECTED Levothyroxine Med 03/23/21 09:00 Ordered 25 mcg PO DAILY Metoprolol Succinate [Toprol XL] Med 03/23/21 09:00 Ordered 50 mg PO DAILY Mirtazapine [Remeron] Med 03/22/21 21:00 Ordered 30 mg PO BEDTIME Nicotine [Habitrol] Med 03/23/21 09:00 Ordered 14 mg TRDERM DAILY Omeprazole Med 03/23/21 06:00 Ordered 20 mg PO ACBREAKFAST Ondansetron Med 03/22/21 13:17 Ordered 4 mg BUCCAL Q6H PRN Sodium Chloride 0.9% [Normal Saline] 1,000 ml Med 03/22/21 10:45 Active IV ONETIME guaiFENesin [Mucinex] Med 03/23/21 09:00 Ordered 600 mg PO DAILY Schedule Procedure [COMM] Routine Oth 03/23/21 13:20 Ordered Sequential Compression Device [OM.PC] Routine Oth 03/22/21 13:14 Ordered Transfuse PRBC [Transfuse Red Blood Cells] [COMM] Stat Oth 03/22/21 12:35 Ordered Resuscitation Status Routine Resus Stat 03/22/21 13:14 Ordered Medication Orders Albuterol (Albuterol 6.7 Gm Inhaler) 8.5 gm INH Q4H PRN PRN Reason: Wheezing Albuterol/Ipratropium (Albuterol/Ipratropium 3.0-0.5 Mg/3 Ml Neb Soln) 3 ml NEB Q6HRRT FROY Furosemide (Furosemide 20 Mg Tab) 40 mg PO DAILY FROY Guaifenesin (Guaifenesin 600 Mg Tab.Er) 600 mg PO DAILY FROY Sodium Chloride (Normal Saline) 1,000 mls @ 75 mls/hr IV ONETIME FROY Last Admin: 03/22/21 10:44 Dose: 999 mls/hr Documented by: CORIN Lactated Ringer's (Ringers, Lactated) 1,000 mls @ 50 mls/hr IV ASDIRECTED [facility] Levothyroxine Sodium (Levothyroxine 25 Mcg Tab) 25 mcg PO DAILY FROY Metoprolol Succinate (Metoprolol Succinate 50 Mg Tab.Er) 50 mg PO DAILY FROY Mirtazapine (Mirtazapine 30 Mg Tab) 30 mg PO BEDTIME FROY Nicotine (Nicotine 14 Mg/24 Hr Patch) 14 mg TRDERM DAILY FROY Non-Formulary Medication (Escitalopram Oxalate) 20 mg PO DAILY FROY Non-Formulary Medication (Omeprazole) 20 mg PO ACBREAKFAST FROY Non-Formulary Medication (Ondansetron) 4 mg BUCCAL Q6H PRN PRN Reason: nausea or vomiting Polyethylene Glycol/Electrolytes (Polyethylene Glycol/Electrolytes 4,000 Ml Bottle) 4,000 ml PO ONETIME ONE Stop: 03/22/21 13:21 Assessment/Plan Comment:: GI bleed with melena and anemia (Hgb 7.1 g/dL) and hypotension on arrival. Upper and lower endoscopy were last done July 2020. Differential includes: esophageal varices, peptic ulcer, chronic mesenteric ischemia, diverticular hemorrhage, AVM, less likely hemorrhoids, colon cancer. I discussed plan for admission, resuscitation and diagnostic/therapeutic upper and lower endoscopy tomorrow. Patient is receiving 2 u pRBC currently. -admit to ICU with q2h VS -no pain medication necessary -supplemental O2 as needed -IVF @ 50 cc/hr, gentle resuscitation given history of CHF -NPO with sips. Start golytely bowel prep -repeat labs in AM -I discussed plan for possible transfer to [place] if patient decompensates or becomes unstable- if it seems the source is variceal bleeding in the context of cirrhosis she will need more resources and expertise than is available at our facility. However, there was no finding of varices on EGD [address] Zimmerman's report.
[2021-03-22] MEDS: Nicotine 14 MG/24 Hr Patch TRDERM SCH (14:40)
[2021-03-22] MEDS: Albuterol/Ipratropium 3.0-0.5 MG/3 ML Neb Soln NEB SCH ×2 (15:14→20:54)
[2021-03-22] MEDS ORDERED: Polyethylene Glycol/Electrolytes 4,000 ML Bottle PO ONE (15:30)
[2021-03-22] MEDS: Lactated Ringers 1,000 ML IV SCH (19:28)
[2021-03-22] MEDS: Acetaminophen 325 MG Tab PO PRN (20:21)
[2021-03-22] MEDS ORDERED: Mirtazapine 30 MG Tab PO SCH (21:00)
[2021-03-23] MEDS: Albuterol/Ipratropium 3.0-0.5 MG/3 ML Neb Soln NEB SCH ×3 (03:15→14:14)
[2021-03-23] MEDS: Acetaminophen 325 MG Tab PO PRN (04:34)
[2021-03-23] MEDS ORDERED: Pantoprazole 40 MG Tab.CR PO SCH (06:00)
[2021-03-23] MEDS ORDERED: Lidocaine 1% 4 ML ONE (07:51)
[2021-03-23] MEDS ORDERED: Lactated Ringers 1,000 ML ONE ×2 (07:51→10:52)
[2021-03-23] MEDS ORDERED: Propofol 200 MG/20 ML SDV ONE ×3 (07:51→11:04)
[2021-03-23] MEDS ORDERED: fentaNYL 100 MCG/2 ML SDV ONE (07:52)
[2021-03-23] MEDS: Nicotine 14 MG/24 Hr Patch TRDERM SCH (08:06)
--- NOTE | 2021-03-23 08:12 | PCM.PREANE ---
Preanesthetic Assessment - Procedure Proposed Procedure: EGD and colonoscopy - Anesthesia/Transfusion/Family Hx Anesthesia History: Prior Anesthesia Without Reaction Family History of Anesthesia Reaction: No Transfusion History: Prior Transfusion Without Reaction Intubation History: Unknown - Review of Systems General: Fatigue Pulmonary: Wheezing, Cough (Chronic "smoker" cough) Cardiovascular: No Symptoms Gastrointestinal: Diarrhea, Melena Neurological: No Symptoms Other: Reports: Liver Problems, Thyroid Problems, Depression, Anxiety - Physical Assessment NPO Status Date: 03/22/21 (Solids 03/21/21; liquid prep finished 03/22 at 2100) NPO Status Time: 21:00 Vital Signs: Last Vital Signs Temp 97 F 03/23/21 06:39 Pulse 61 03/23/21 06:39 Resp 14 03/23/21 06:39 BP 77/66 L 03/23/21 06:39 Pulse Ox 95 03/23/21 06:39 Vitals this morning at 0800: BP: 135/59 HR 69 Sat 94% RA RR: 14 Temp: 97.1 Height: 1.68 m Weight: 69.989 kg ASA Class: 3 Mental Status: Alert & Oriented x3 Airway Class: Mallampati = 4 Dentition: Reports: Dentures (Patient did not bring dentures with) Thyro-Mental Finger Breadths: 3 Mouth Opening Finger Breadths: 3 ROM/Head Extension: Full Lungs: Wheezing (Expiratory and inspiratory wheeze) Cardiovascular: Regular Rate, Regular Rhythm, No Murmurs - Lab Values: Laboratory Last Values WBC 5.49 K/mm3 (3.98-10.04) 03/23/21 05:12 RBC 2.52 M/mm3 (3.98-5.22) L 03/23/21 05:12 Hgb 8.7 gm/dl (11.2-15.7) L D 03/23/21 05:12 Hct 26.2 % (34.1-44.9) L 03/23/21 05:12 MCV 104.0 fl (79.4-94.8) H D 03/23/21 05:12 MCH 34.5 pg (25.6-32.2) H 03/23/21 05:12 MCHC 33.2 g/dl (32.2-35.5) 03/23/21 05:12 RDW Std Deviation 67.7 fL (36.4-46.3) H 03/23/21 05:12 Plt Count 58 K/mm3 (182-369) L 03/23/21 05:12 MPV 12.6 fl (9.4-12.3) H 03/23/21 05:12 Neut % (Auto) 61.0 % (34.0-71.1) 03/23/21 05:12 Lymph % (Auto) 26.4 % (19.3-51.7) 03/23/21 05:12 Carbon % (Auto) 9.7 % (4.7-12.5) 03/23/21 05:12 Eos % (Auto) 1.6 (0.7-5.8) 03/23/21 05:12 Baso % (Auto) 1.1 % (0.1-1.2) 03/23/21 05:12 Neut # (Auto) 3.35 K/mm3 (1.56-6.13) 03/23/21 05:12 Lymph # (Auto) 1.45 K/mm3 (1.18-3.74) 03/23/21 05:12 Carbon # (Auto) 0.53 K/mm3 (0.24-0.36) H 03/23/21 05:12 Eos # (Auto) 0.09 K/mm3 (0.04-0.36) 03/23/21 05:12 Baso # (Auto) 0.06 K/mm3 (0.01-0.08) 03/23/21 05:12 Manual Slide Review Abnormal smear 03/23/21 05:12 PT 14.8 SECONDS (9.7-12.0) H 03/22/21 10:13 INR 1.39 03/22/21 10:13 Sodium 141 mEq/L (136-145) 03/23/21 05:12 Potassium 4.6 mEq/L (3.5-5.1) 03/23/21 05:12 Chloride 102 mEq/L (98-107) 03/23/21 05:12 Carbon Dioxide 32 mEq/L (21-32) 03/23/21 05:12 Anion Gap 11.6 (5-15) 03/23/21 05:12 BUN 21 mg/dL (7-18) H 03/23/21 05:12 Creatinine 1.2 mg/dL (0.55-1.02) H 03/23/21 05:12 Est Cr Clr Drug Dosing 46.09 mL/min 03/23/21 05:12 Estimated GFR (MDRD) 46 mL/min (>60) 03/23/21 05:12 BUN/Creatinine Ratio 17.5 (14-18) 03/23/21 05:12 Glucose 107 mg/dL (70-99) H 03/23/21 05:12 Calcium 9.2 mg/dL (8.5-10.1) 03/23/21 05:12 Total Bilirubin 4.3 mg/dL (0.2-1.0) H 03/22/21 10:13 Direct Bilirubin 1.80 mg/dl (0.0-0.2) H 03/22/21 10:13 AST 69 U/L (15-37) H 03/22/21 10:13 ALT 32 U/L (14-59) 03/22/21 10:13 Alkaline Phosphatase 117 U/L (46-116) H 03/22/21 10:13 Total Protein 7.7 g/dl (6.4-8.2) 03/22/21 10:13 Albumin 2.9 g/dl (3.4-5.0) L 03/22/21 10:13 Globulin 4.8 gm/dL 03/22/21 10:13 Albumin/Globulin Ratio 0.6 (1-2) L 03/22/21 10:13 SARS-CoV-2 RNA (DEXTER) Negative (NEGATIVE) 03/22/21 12:35 Blood Type A POSITIVE 03/22/21 10:13 Gel Antibody Screen Negative 03/22/21 10:13 Crossmatch See Detail 03/22/21 10:13 Labs reviewed and okay to proceed - Imaging/EKG Impressions: 03/22/21: EKG NSR HR 60 - see EKG report - Allergies Allergies/Adverse Reactions: Allergies Allergy/AdvReac Type Severity Reaction Status Date / Time Penicillins Allergy Rash Verified 03/22/21 10:11 - Anesthesia Plan Beta Addie: Metoprolol Med Last Dose Date: 03/23/21 Med Last Dose Time: 08:15 - Acknowledgements Anesthesia Type Planned: MAC Pt an Appropriate Candidate for the Planned Anesthesia: Yes Alternatives and Risks of Anesthesia Discussed w Pt/Guardian: Yes Pt/Guardian Understands and Agrees with Anesthesia Plan: Yes Additional Comments: Daughter Kelsey: [phone] - took consent from her as well PreAnesthesia Questionnaire HEENT History: Reports: Impaired Vision Other HEENT History: wears glasses, pt reports that she has a full set of dentures but does not have them here with her. Cardiovascular History: Reports: CAD, Heart Failure, High Cholesterol, Hypertension, NM Other Cardiovascular History: NM 2010 and had a stent placed at that time, history of heart murmur but not heard on exam Respiratory History: Reports: COPD Other Respiratory History: Memory decline in chart, patient states mild and has noticed over time such as loosing keys in apartment, patient A/O x 3 patient states that she is still making her own medical decisions Gastrointestinal History: Reports: GI Bleed Other Gastrointestinal History: Gastritis on EGD 07/2020, hepatosplenomegaly; Vitamin D deficiency, [employer]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 OB/BYN History: 3 c-sections Other Musculoskeletal History: Back spasms Psychiatric History: Reports: Addiction, Anxiety, Depression Other Psychiatric History: Insomnia Endocrine/Metabolic History: Reports: Hypothyroidism Hematologic History: Reports: Anemia, Blood Transfusion(s) Other Dermatologic History: Edema when fluid overload, no current symptoms - Infectious Disease History Infectious Disease History: Reports: Measles Other Infectious Disease History: Pt had both COVID vaccinations in November and January of 2021, giardia (positive 03/19/21 and chart stated that she was prescibed Flagyl) - Past Surgical History Cardiovascular Surgical History: Reports: Coronary Artery Stent Respiratory Surgical History: Reports: None GI Surgical History: Reports: Colonoscopy, EGD Female Surgical History: Reports: Section Neurological Surgical History: Reports: Lumbar Spine Other Neurological Surgeries/Procedures: Back surgery 2010 Other Musculoskeletal Surgeries/Procedures:: [place] [address] Ramírez in [place] - SUBSTANCE USE Tobacco Use Status *Q: Current Every Day Tobacco User Tobacco Use Within Last Twelve Months: Cigarettes Second Hand Smoke Exposure: No Days Per Week of Alcohol Use: 5 Number of Drinks Per Day: 1 Total Drinks Per Week: 5 Recreational Drug Use History: No - HOME MEDS Home Medications: Home Meds Albuterol Sulfate [Albuterol Sulfate Hfa] 8.5 gm IH Q4H PRN 08/12/20 [History] Levothyroxine Sodium [Euthyrox] 25 mcg PO DAILY 08/12/20 [History] Metoprolol Succinate [Toprol XL 50mg] 50 mg PO DAILY 08/12/20 [History] Albuterol/Ipratropium [DuoNeb 3.0-0.5 MG/3 ML] 3 ml NEB Q6HRRT #30 neb 08/16/20 [Rx] Folic Acid 1 mg PO DAILY #30 tablet 08/16/20 [Rx] Magnesium Oxide 800 mg PO DAILY #30 tablet 08/16/20 [Rx] Multivitamins,Therapeutic [Thera] 1 each PO DAILY tablet 08/16/20 [Rx] Nicotine [Habitrol] 14 mg TRDERM DAILY #30 patch 08/16/20 [Rx] Omeprazole 20 mg PO ACBREAKFAST #30 cap.sr 08/16/20 [Rx] Cholecalciferol (Vitamin D3) [Vitamin D3] 25 mcg PO DAILY 02/25/21 [History] Escitalopram Oxalate 20 mg PO DAILY 02/25/21 [History] Furosemide [Lasix] 40 mg PO DAILY 02/25/21 [History] Mirtazapine 30 mg PO BEDTIME 02/25/21 [History] Ondansetron [Zofran] 4 mg BUCCAL Q6H PRN #10 tab 02/25/21 [Rx] guaiFENesin [Mucinex] 600 mg PO DAILY 02/25/21 [History] - CURRENT (IN HOUSE) MEDS Current Meds: Current Medications Acetaminophen (Acetaminophen 325 Mg Tab) 650 mg PO Q4H PRN PRN Reason: Pain Last Admin: 03/23/21 04:34 Dose: 650 mg Documented by: Albuterol (Albuterol 6.7 Gm Inhaler) 0 gm INH Q4H PRN PRN Reason: Wheezing Albuterol/Ipratropium (Albuterol/Ipratropium 3.0-0.5 Mg/3 Ml Neb Soln) 3 ml NEB Q6HRRT FROY Last Admin: 03/23/21 03:15 Dose: 3 ml Documented by: Citalopram Hydrobromide (Citalopram 20 Mg Tab) 40 mg PO DAILY FROY Furosemide (Furosemide 40 Mg Tab) 40 mg PO DAILY FROY Guaifenesin (Guaifenesin 600 Mg Tab.Er) 600 mg PO DAILY FROY Lactated Ringer's (Ringers, Lactated) 1,000 mls @ 50 mls/hr IV ASDIRECTED [facility] Last Admin: 03/22/21 19:28 Dose: 50 mls/hr Documented by: Levothyroxine Sodium (Levothyroxine 25 Mcg Tab) 25 mcg PO DAILY [facility] Metoprolol Succinate (Metoprolol Succinate 50 Mg Tab.Er) 50 mg PO DAILY [facility] Mirtazapine (Mirtazapine 30 Mg Tab) 30 mg PO BEDTIME [facility] Last Admin: 03/22/21 20:21 Dose: 30 mg Documented by: Miscellaneous Information (Remove Patch) 0 ea TRDERM DAILY [facility] Nicotine (Nicotine 14 Mg/24 Hr Patch) 14 mg TRDERM DAILY [facility] Last Admin: 03/22/21 14:40 Dose: 14 mg Documented by: Ondansetron HCl (Ondansetron 4 Mg Tab.Dis) 4 mg PO Q6H PRN PRN Reason: nausea or vomiting Pantoprazole Sodium (Pantoprazole 40 Mg Tab.Cr) 40 mg PO ACBREAKFAST [facility] Last Admin: 03/23/21 06:05 Dose: 40 mg Documented by: Discontinued Medications Fentanyl (Fentanyl 100 Mcg/2 Ml Sdv) Confirm Administered Dose 100 mcg .ROUTE .STK-MED ONE Stop: 03/23/21 07:53 Sodium Chloride (Normal Saline) 1,000 mls @ 75 mls/hr IV ONETIME [facility] Last Admin: 03/22/21 10:44 Dose: 999 mls/hr Documented by: Sodium Chloride (Normal Saline) 1,000 mls @ 75 mls/hr IV ASDIRECTED [facility] Lidocaine HCl (Xylocaine-Mpf 1%) Confirm Administered Dose 4 mls @ as directed .ROUTE .STK-MED ONE Stop: 03/23/21 07:52 Lactated Ringer's (Ringers, Lactated) Confirm Administered Dose 1,000 mls @ as directed .ROUTE .STK-MED ONE Stop: 03/23/21 07:52 Polyethylene Glycol/Electrolytes (Polyethylene Glycol/Electrolytes 4,000 Ml Christopher le) 4,000 ml PO ONETIME ONE Stop: 03/22/21 15:31 Last Admin: 03/22/21 16:53 Dose: 4,000 ml Documented by: Propofol (Propofol 200 Mg/20 Ml Sdv) Confirm Administered Dose 200 mg .ROUTE .STK-MED ONE Stop: 03/23/21 07:52
[2021-03-23] MEDS ORDERED: guaiFENesin 600 MG Tab.ER PO SCH (09:00)
[2021-03-23] MEDS ORDERED: Levothyroxine 25 MCG Tab PO SCH (09:00)
[2021-03-23] MEDS ORDERED: Furosemide 40 MG Tab PO SCH (09:00)
[2021-03-23] MEDS ORDERED: Metoprolol Succinate 50 MG Tab.ER PO SCH (09:00)
[2021-03-23] MEDS ORDERED: Citalopram 20 MG Tab PO SCH (09:00)
[2021-03-23] MEDS ORDERED: Nicotine 14 MG/24 Hr Patch TRDERM SCH (09:00)
--- NOTE | 2021-03-23 11:27 | PCM.PRNOTE ---
- Free Text/Narrative Note: Date: 03/23/2021 Procedure: diagnostic esophagogastroduodenoscopy and colonoscopy Indication: symptomatic anemia, melena History: EGD and colonoscopy done for similar issues 6 months ago without definitive diagnosis- report described proximal hemorrhagic colitis. Endoscopist: Gumaro Best MD Findings: similar to those described in July 2020 endoscopy report- bile reflux and diffuse petechial hemorrhage of the proximal half of the colon. No significant active source of bleeding was identified. Detailed Report: The patient was taken to the endoscopy suite and placed in left lateral decubitus position. Timeout was performed and monitored anesthesia care was initiated. A bite-block was placed. The endoscope was inserted into the mouth and advanced to the distal duodenum. There was a fair amount of bilious material within the stomach on entry. Distal duodenal mucosa appeared normal. There was perhaps mild inflammatory changes at the duodenal bulb. Biopsies were obtained with cold forceps. The scope was withdrawn into the stomach. The scope stomach was hard to distend with insufflation, but the antrum was visualized and biopsies near the pylorus were obtained with cold forceps. No ulceration or gross inflammatory change of the gastric mucosa was noted. On retroflexion, there did not appear to be any significant hiatal hernia or associated mucosal injury. The scope was withdrawn into the distal esophagus. The Z-line appeared relatively normal. Biopsies were obtained near the GE junction from the distal esophagus. There was some exudate along the length of the esophagus but no significant inflammatory change appreciated and no identifiable source of significant hemorrhage. Air was suctioned from the stomach prior to withdrawal of the scope. Next, attention was turned to colonoscopy. Visual inspection of the anus was unremarkable. Digital rectal exam revealed no abnormality, but has the finger was removed liquid brown stool was noted on the finger without evidence of gross blood. Prior to insertion of the scope there was some bleeding emanating from the anus. The colonoscope was inserted and advanced all the way to the cecum with ease. Prep was fair. The appendiceal orifice and ileocecal junction were visualized. I was unable to intubate the terminal ileum. There appeared to be diffuse petechial hemorrhage of the mucosa, most noted at the proximal colon along its lateral aspect. This gradually dissipated as the scope was withdrawn towards the midportion of the transverse colon. Sample biopsies of mucosa from the cecum were obtained with cold forceps. No polyps or other bleeding lesions were identified. On retroflexion within the rectum, no hemorrhoidal disease or other significant pathology was appreciated. Air was suctioned from the distal colon and rectum prior to withdrawal of the scope. The patient tolerated the procedure well.
--- NOTE | 2021-03-23 11:38 | PCM48HPAN ---
Post Anesthesia Note - EVALUATION WITHIN 48HRS OF ANESTHETIC Vital Signs in Normal Range: Yes Patient Participated in Evaluation: Yes Respiratory Function Stable: Yes Airway Patent: Yes Cardiovascular Function Stable: Yes Hydration Status Stable: Yes Pain Control Satisfactory: Yes Nausea and Vomiting Control Satisfactory: Yes Mental Status Recovered: Yes Vital Signs: Last Vital Signs Temp 36.6 C 03/23/21 11:25 Pulse 64 03/23/21 11:36 Resp 16 03/23/21 11:36 BP 125/49 L 03/23/21 11:36 Pulse Ox 95 03/23/21 11:36
[2021-03-23] MEDS: Lactated Ringers 1,000 ML IV SCH (12:18)
[2021-03-23 15:21] VITALS: PULSE 71
--- NOTE | 2021-03-23 16:21 | PCM.DCSUM1 ---
Discharge Summary - Hospital Course Free Text/Narrative:: 60 yo woman with COPD, CAD, advanced atherosclerosis and chronic anemia with apparent symptoms from anemia and repeated transfusions the past several weeks was admitted for resuscitation, transfusion 2 u pRBC and repeat upper and lower endoscopy. Endoscopy was done for GI bleeding in July with multiple reported findings including peptic ulcer disease, hiatal hernia, and diffuse petechial hemorrhage from the proximal colon. The only significant finding today was similar hemorrhagic mucosa of the proximal colon. Diagnosis: Stroke: No - Discharge Data Discharge Date: 03/23/21 Discharge Disposition: Home, Self-Care 01 Condition: Good - Referral to Home Health Primary Care Physician: Kalpana Hubbard MD - Patient Instructions Diet: Usual Diet as Tolerated Other/Special Instructions: If you feel weak, dizzy, or lightheaded again, this is a sign of your blood level being too low and you should go to the ER for lab work and possible additional blood transfusion. - Discharge Plan *PRESCRIPTION DRUG MONITORING PROGRAM REVIEWED*: Not Applicable *COPY OF PRESCRIPTION DRUG MONITORING REPORT IN PATIENT JOON: Not Applicable Home Medications: Home Meds Albuterol Sulfate [Albuterol Sulfate Hfa] 8.5 gm IH Q4H PRN 08/12/20 [History] Levothyroxine Sodium [Euthyrox] 25 mcg PO DAILY 08/12/20 [History] Metoprolol Succinate [Toprol XL 50mg] 50 mg PO DAILY 08/12/20 [History] Albuterol/Ipratropium [DuoNeb 3.0-0.5 MG/3 ML] 3 ml NEB Q6HRRT #30 neb 08/16/20 [Rx] Folic Acid 1 mg PO DAILY #30 tablet 08/16/20 [Rx] Magnesium Oxide 800 mg PO DAILY #30 tablet 08/16/20 [Rx] Multivitamins,Therapeutic [Thera] 1 each PO DAILY tablet 08/16/20 [Rx] Nicotine [Habitrol] 14 mg TRDERM DAILY #30 patch 08/16/20 [Rx] Omeprazole 20 mg PO ACBREAKFAST #30 cap.sr 08/16/20 [Rx] Cholecalciferol (Vitamin D3) [Vitamin D3] 25 mcg PO DAILY 02/25/21 [History] Escitalopram Oxalate 20 mg PO DAILY 02/25/21 [History] Furosemide [Lasix] 40 mg PO DAILY 02/25/21 [History] Mirtazapine 30 mg PO BEDTIME 02/25/21 [History] Ondansetron [Zofran] 4 mg BUCCAL Q6H PRN #10 tab 02/25/21 [Rx] guaiFENesin [Mucinex] 600 mg PO DAILY 02/25/21 [History] Oxygen Therapy Mode: Room Air Patient Handouts: Chronic Obstructive Pulmonary Disease, Heart Failure Action Plan, Home Oxygen Use, Adult, Steps to Quit Smoking Forms: ED Department Discharge Referrals: Kalpana Hubbard MD [Primary Care Provider] - - Discharge Summary/Plan Comment DC Time >30 min.: No Discharge Summary/Plan Comment: Needs mesenteric duplex study and probably referral to vascular surgery. Patient wishes to do this in outpatient setting. - Patient Data Vitals - Most Recent: Last Vital Signs Temp 37.1 C 03/23/21 11:59 Pulse 71 03/23/21 15:02 Resp 16 03/23/21 11:59 BP 125/52 L 03/23/21 15:02 Pulse Ox 97 03/23/21 15:02 Weight - Most Recent: 69.989 kg I&O - Last 24 hours: Intake & Output 03/23/21 03/23/21 03/23/21 06:59 14:59 22:59 Intake Total 2539 400 Balance 2539 400 Lab Results - Last 24 hrs: Laboratory Results - last 24 hr 03/22/21 03/23/21 03/23/21 Range/Units 10:13 05:12 05:12 WBC 5.49 (3.98-10.04) K/mm3 RBC 2.52 L (3.98-5.22) M/mm3 Hgb 8.7 L D (11.2-15.7) gm/dl Hct 26.2 L (34.1-44.9) % MCV 104.0 H D (79.4-94.8) fl MCH 34.5 H (25.6-32.2) pg MCHC 33.2 (32.2-35.5) g/dl RDW Std Deviation 67.7 H (36.4-46.3) fL Plt Count 58 L (182-369) K/mm3 MPV 12.6 H (9.4-12.3) fl Neut % (Auto) 61.0 (34.0-71.1) % Lymph % (Auto) 26.4 (19.3-51.7) % Villalba % (Auto) 9.7 (4.7-12.5) % Eos % (Auto) 1.6 (0.7-5.8) Baso % (Auto) 1.1 (0.1-1.2) % Neut # (Auto) 3.35 (1.56-6.13) K/mm3 Lymph # (Auto) 1.45 (1.18-3.74) K/mm3 Villalba # (Auto) 0.53 H (0.24-0.36) K/mm3 Eos # (Auto) 0.09 (0.04-0.36) K/mm3 Baso # (Auto) 0.06 (0.01-0.08) K/mm3 Manual Slide Review Abnormal smear Sodium 141 (136-145) mEq/L Potassium 4.6 (3.5-5.1) mEq/L Chloride 102 (98-107) mEq/L Carbon Dioxide 32 (21-32) mEq/L Anion Gap 11.6 (5-15) BUN 21 H (7-18) mg/dL Creatinine 1.2 H (0.55-1.02) mg/dL Est Cr Clr Drug Dosing 46.09 mL/min Estimated GFR (MDRD) 46 (>60) mL/min BUN/Creatinine Ratio 17.5 (14-18) Glucose 107 H (70-99) mg/dL Calcium 9.2 (8.5-10.1) mg/dL Crossmatch See Detail Med Orders - Current: Current Medications Acetaminophen (Acetaminophen 325 Mg Tab) 650 mg PO Q4H PRN PRN Reason: Pain Last Admin: 03/23/21 04:34 Dose: 650 mg Documented by: Albuterol (Albuterol 6.7 Gm Inhaler) 0 gm INH Q4H PRN PRN Reason: Wheezing Albuterol/Ipratropium (Albuterol/Ipratropium 3.0-0.5 Mg/3 Ml Neb Soln) 3 ml NEB Q6HRRT [facility] Last Admin: 03/23/21 14:14 Dose: 3 ml Documented by: Citalopram Hydrobromide (Citalopram 20 Mg Tab) 40 mg PO DAILY [facility] Last Admin: 03/23/21 13:19 Dose: 40 mg Documented by: Furosemide (Furosemide 40 Mg Tab) 40 mg PO DAILY [facility] Last Admin: 03/23/21 15:30 Dose: 40 mg Documented by: Guaifenesin (Guaifenesin 600 Mg Tab.Er) 600 mg PO DAILY [facility] Last Admin: 03/23/21 13:19 Dose: 600 mg Documented by: Lactated Ringer's (Ringers, Lactated) 1,000 mls @ 50 mls/hr IV ASDIRECTED [facility] Last Admin: 03/23/21 12:18 Dose: 50 mls/hr Documented by: Levothyroxine Sodium (Levothyroxine 25 Mcg Tab) 25 mcg PO DAILY [facility] Last Admin: 03/23/21 13:19 Dose: 25 mcg Documented by: Metoprolol Succinate (Metoprolol Succinate 50 Mg Tab.Er) 50 mg PO DAILY [facility] Last Admin: 03/23/21 08:08 Dose: 50 mg Documented by: Mirtazapine (Mirtazapine 30 Mg Tab) 30 mg PO BEDTIME [facility] Last Admin: 03/22/21 20:21 Dose: 30 mg Documented by: Miscellaneous Information (Remove Patch) 0 ea TRDERM DAILY [facility] Last Admin: 03/23/21 08:08 Dose: 1 ea Documented by: Nicotine (Nicotine 14 Mg/24 Hr Patch) 14 mg TRDERM DAILY [facility] Last Admin: 03/23/21 08:06 Dose: 14 mg Documented by: Ondansetron HCl (Ondansetron 4 Mg Tab.Dis) 4 mg PO Q6H PRN PRN Reason: nausea or vomiting Pantoprazole Sodium (Pantoprazole 40 Mg Tab.Cr) 40 mg PO ACBREAKFAST [facility] Last Admin: 03/23/21 06:05 Dose: 40 mg Documented by: Discontinued Medications Fentanyl (Fentanyl 100 Mcg/2 Ml Sdv) Confirm Administered Dose 100 mcg .ROUTE .STK-MED ONE Stop: 03/23/21 07:53 Sodium Chloride (Normal Saline) 1,000 mls @ 75 mls/hr IV ONETIME [facility] Last Admin: 03/22/21 10:44 Dose: 999 mls/hr Documented by: Sodium Chloride (Normal Saline) 1,000 mls @ 75 mls/hr IV ASDIRECTED [facility] Lidocaine HCl (Xylocaine-Mpf 1%) Confirm Administered Dose 4 mls @ as directed .ROUTE .STK-MED ONE Stop: 03/23/21 07:52 Lactated Ringer's (Ringers, Lactated) Confirm Administered Dose 1,000 mls @ as directed .ROUTE .STK-MED ONE Stop: 03/23/21 07:52 Lactated Ringer's (Ringers, Lactated) Confirm Administered Dose 1,000 mls @ as directed .ROUTE .STK-MED ONE Stop: 03/23/21 10:53 Miscellaneous Medication (Phenylephrine Hcl In 0.9% Nacl 1 Mg/10 Ml Syringe) Confirm Administered Dose 1 mg .ROUTE .STK-MED ONE Stop: 03/23/21 10:52 Polyethylene Glycol/Electrolytes (Polyethylene Glycol/Electrolytes 4,000 Ml Bottle) 4,000 ml PO ONETIME ONE Stop: 03/22/21 15:31 Last Admin: 03/22/21 16:53 Dose: 4,000 ml Documented by: Propofol (Propofol 200 Mg/20 Ml Sdv) Confirm Administered Dose 200 mg .ROUTE .STK-MED ONE Stop: 03/23/21 07:52 Propofol (Propofol 200 Mg/20 Ml Sdv) Confirm Administered Dose 200 mg .ROUTE .STK-MED ONE Stop: 03/23/21 10:47 Propofol (Propofol 200 Mg/20 Ml Sdv) Confirm Administered Dose 200 mg .ROUTE .STK-MED ONE Stop: 03/23/21 11:05
[2021-03-23 16:38] VITALS: BP 120/46
== END 2021-03-23 17:20 | disposition home or self-care (01) | DRG 392 ==
LOC: JD.ED 09:57 → JD.ICU 13:14 → JD.MS 03-23 11:00
PROVIDERS: ADMIT Surgery; ATTEND Surgery
PROC: 0DJD8ZZ Inspection of Lower Intestinal Tract, Via Natural or Artificial Opening Endoscopic (ICD-10-PCS; 2021-03-22)
PROC: 30233N1 Transfusion of Nonautologous Red Blood Cells into Peripheral Vein, Percutaneous Approach (ICD-10-PCS; 2021-03-22)
PROC: 0DJ08ZZ Inspection of Upper Intestinal Tract, Via Natural or Artificial Opening Endoscopic (ICD-10-PCS; principal; 2021-03-23)
DX: K92.2 Gastrointestinal hemorrhage, unspecified (principal); D62 Acute posthemorrhagic anemia; D69.6 Thrombocytopenia, unspecified; F17.210 Nicotine dependence, cigarettes, uncomplicated; H54.7 Unspecified visual loss; K52.89 Other specified noninfective gastroenteritis and colitis; J44.9 Chronic obstructive pulmonary disease, unspecified; I25.10 Atherosclerotic heart disease of native coronary artery without angina pectoris; F41.9 Anxiety disorder, unspecified; I11.0 Hypertensive heart disease with heart failure; I50.9 Heart failure, unspecified; E78.5 Hyperlipidemia, unspecified; D64.9 Anemia, unspecified; Z88.0 Allergy status to penicillin; Z79.890 Hormone replacement therapy; Z79.899 Other long term (current) drug therapy; F32.9 Major depressive disorder, single episode, unspecified; Z20.822 Contact with and (suspected) exposure to COVID-19; E03.9 Hypothyroidism, unspecified; Z95.5 Presence of coronary angioplasty implant and graft; I25.2 Old myocardial infarction; Z97.3 Presence of spectacles and contact lenses; Z97.2 Presence of dental prosthetic device (complete) (partial); Z98.890 Other specified postprocedural states
CPT/HCPCS: 36415; 36430; 80053; 82248; 85025; 85610; 86850; 86900; 86901; 86922; 87635; 93005; J7030; P9016; 00813; 80048; 88305; 93010; 94640; 94760; 99284; 99285-25; A9270-GY; J2370; J2704; J3010; J7120; J7620-GY; U0002

== ENCOUNTER 2021-04-09 12:12 | Emergency (ER) | payer MEDICAID, OTHER ==
--- NOTE | 2021-04-09 12:29 | EDM.PDOC ---
ED HPI GENERAL MEDICAL PROBLEM - General Chief Complaint: General Stated Complaint: [facility] Time Seen by Provider: 04/09/21 12:25 - History of Present Illness INITIAL COMMENTS - FREE TEXT/NARRATIVE: 61-year-old female presents the emergency room with weakness. Patient states this started on Monday. She is not entirely clear when her last known normal was. However, we are 4 days into this. The patient has noticed progressive weakness since that time she has not been eating or drinking very much. Patient normally uses oxygen for congestive heart failure. The patient bumped her head on a door several days ago right on her forehead. And today about an hour to an hour and half before arriving to the emergency room room she fell backwards landing on her buttocks and she has significant discomfort from this. Patient says she is right-handed. She is not aware of any fevers or chills. Bilateral Buttock Pain Score (Numeric/FACES): 5 - Related Data Allergies Allergy/AdvReac Type Severity Reaction Status Date / Time Penicillins Allergy Rash Verified 03/22/21 10:11 Home Meds: Home Meds Albuterol Sulfate [Albuterol Sulfate Hfa] 8.5 gm IH Q4H PRN 08/12/20 [History] Levothyroxine Sodium [Euthyrox] 25 mcg PO DAILY 08/12/20 [History] Metoprolol Succinate [Toprol XL 50mg] 50 mg PO DAILY 08/12/20 [History] Albuterol/Ipratropium [DuoNeb 3.0-0.5 MG/3 ML] 3 ml NEB Q6HRRT #30 neb 08/16/20 [Rx] Folic Acid 1 mg PO DAILY #30 tablet 08/16/20 [Rx] Magnesium Oxide 800 mg PO DAILY #30 tablet 08/16/20 [Rx] Multivitamins,Therapeutic [Thera] 1 each PO DAILY tablet 08/16/20 [Rx] Nicotine [Habitrol] 14 mg TRDERM DAILY #30 patch 08/16/20 [Rx] Omeprazole 20 mg PO ACBREAKFAST #30 cap.sr 08/16/20 [Rx] Cholecalciferol (Vitamin D3) [Vitamin D3] 25 mcg PO DAILY 02/25/21 [History] Escitalopram Oxalate 20 mg PO DAILY 02/25/21 [History] Furosemide [Lasix] 40 mg PO DAILY 02/25/21 [History] Mirtazapine 30 mg PO BEDTIME 02/25/21 [History] Ondansetron [Zofran] 4 mg BUCCAL Q6H PRN #10 tab 02/25/21 [Rx] guaiFENesin [Mucinex] 600 mg PO DAILY 02/25/21 [History] Past Medical History HEENT History: Reports: Impaired Vision Other HEENT History: wears glasses, pt reports that she has a full set of dentures but does not have them here with her. Cardiovascular History: Reports: CAD, Heart Failure, Heart Murmur, High Cholesterol, Hypertension, MO Other Cardiovascular History: MO 2010 and had a stent placed at that time, history of heart murmur but not heard on exam Respiratory History: Reports: COPD Other Respiratory History: Memory decline in chart, patient states mild and has noticed over time such as loosing keys in apartment, patient A/O x 3 patient states that she is still making her own medical decisions Gastrointestinal History: Reports: GI Bleed Other Gastrointestinal History: Gastritis on EGD 07/2020, hepatosplenomegaly; Vitamin D deficiency, PUD COMMUNITY SERVICE AIDE History: Reports: Other COMMUNITY SERVICE AIDE History: 3 c-sections Other Musculoskeletal History: Back spasms Psychiatric History: Reports: Addiction, Anxiety, Depression Other Psychiatric History: Insomnia Endocrine/Metabolic History: Reports: Hyperthyroidism, Hypothyroidism Hematologic History: Reports: Anemia, Blood Transfusion(s) Other Dermatologic History: Edema when fluid overload, no current symptoms - Infectious Disease History Infectious Disease History: Reports: Measles Other Infectious Disease History: Pt had both COVID vaccinations in November and January of 2021, giardia (positive 03/19/21 and chart stated that she was prescibed Flagyl) - Past Surgical History Cardiovascular Surgical History: Reports: Coronary Artery Stent Respiratory Surgical History: Reports: None GI Surgical History: Reports: Colonoscopy, EGD Female Surgical History: Reports: Section Neurological Surgical History: Reports: Lumbar Spine Other Neurological Surgeries/Procedures: Back surgery 2010 Other Musculoskeletal Surgeries/Procedures:: back [place] [address] Ramírez in [place] Social & Family History - Family History Family Medical History: No Pertinent Family History - Caffeine Use Caffeine Use: Reports: None Other Caffeine Use: a cup or two everyday. - Living Situation & Occupation Living situation: Reports: , Alone Occupation: Unemployed ED ROS GENERAL - Review of Systems Review Of Systems: See Below Constitutional: Reports: Weakness. Denies: No Symptoms, Fever, Chills HEENT: Reports: No Symptoms Respiratory: Reports: No Symptoms Cardiovascular: Reports: No Symptoms Endocrine: Reports: No Symptoms GI/Abdominal: Reports: Decreased Appetite : Reports: No Symptoms Musculoskeletal: Reports: No Symptoms Skin: Reports: No Symptoms Neurological: Reports: Difficulty Walking, Weakness. Denies: Headache Psychiatric: Reports: No Symptoms Hematologic/Lymphatic: Reports: No Symptoms ED EXAM, NEURO - Physical Exam Exam: See Below Exam Limited By: No Limitations General Appearance: Alert, No Apparent Distress, Lethargic, Other (She is slow to respond but answers questions appropriately). No: Anxious Eye Exam: Bilateral Eye: Normal Inspection Ears: Normal External Exam, Normal Canal, Hearing Grossly Normal, Normal TMs Nose: Normal Inspection, Normal Mucosa, No Blood Throat/Mouth: Normal Inspection, Normal Lips, Normal Teeth, Normal Gums, Normal Oropharynx, Normal Voice, No Airway Compromise Head Exam: Atraumatic, Normocephalic Neck: Normal Inspection, Supple, Non-Tender, Full Range of Motion. No: Lymphadenopathy (L), Lymphadenopathy (R) Respiratory/Chest: No Respiratory Distress, Lungs Clear, Normal Breath Sounds, Other (Patient needed assistance to sit up) Cardiovascular: Regular Rate, Rhythm, No Edema, No Murmur GI/Abdominal: Normal Bowel Sounds, Soft, Non-Tender Neurological: Other (Slow to respond she is subtly weaker on the right compared to the left but she is generally weak all over) Back Exam: Normal Inspection. No: CVA Tenderness (L), CVA Tenderness (R) Extremities: Normal Inspection, No Pedal Edema #1 Interpretation EKG Date: 04/09/21 Rhythm: NSR Rate (Beats/Min): 71 [place]: Normal P-Wave: Present QRS: Other (Normal other than RSR in V2) ST-T: Other (ST depression V3 through V6 unchanged or slightly better than 08/11/2020) QT: Normal Comparison: Change From Previous EKG (Minimal change from 08/11/2020 now has an RSR in V2 but this is subtle 1 ST depression seen in V3 to V6 is unchanged or slightly improved.) EKG Interpretation Comments: Abnormal EKG Course - Vital Signs Last Recorded V/S: Last Vital Signs Temp 36.6 C 04/09/21 17:12 Pulse 72 04/09/21 17:12 Resp 18 04/09/21 17:12 BP 98/47 L 04/09/21 17:12 Pulse Ox 99 04/09/21 17:12 - Orders/Labs/Meds Orders: Active Orders 24 hr Category Date Time Status BLOOD CULTURE [MREF] Stat Lab 04/09/21 13:34 Received BLOOD CULTURE [MREF] Stat Lab 04/09/21 13:42 Received UA RFX SERGE AND CULT IF INDIC [URIN] Stat Lab 04/09/21 12:35 Ordered Lactated Ringers [Ringers, Lactated] 1,000 ml Med 04/09/21 12:45 Active IV ASDIRECTED Sodium Chloride 0.9% [Normal Saline] 250 ml Med 04/09/21 14:30 Active IV ASDIRECTED Blood Culture x2 Reflex Set [OM.PC] Stat Oth 04/09/21 12:41 Ordered Transfuse PRBC [Transfuse Red Blood Cells] [COMM] Stat Oth 04/09/21 13:29 Ordered Medication Orders Lactated Ringer's (Ringers, Lactated) 1,000 mls @ 150 mls/hr IV ASDIRECTED FORY Last Infusion: 04/09/21 14:48 Dose: 0 mls/hr Documented by: Admin: 04/09/21 13:40 Dose: 150 mls/hr Documented by: JN Sodium Chloride (Normal Saline) 250 mls @ 5 mls/hr IV ASDIRECTED FROY Last Admin: 04/09/21 14:41 Dose: 5 mls/hr Documented by: MELVA Labs: Laboratory Tests 04/09/21 04/09/21 04/09/21 Range/Units 12:29 12:43 12:43 WBC (3.98-10.04) K/mm3 RBC (3.98-5.22) M/mm3 Hgb (11.2-15.7) gm/dl Hct (34.1-44.9) % MCV (79.4-94.8) fl MCH (25.6-32.2) pg MCHC (32.2-35.5) g/dl RDW Std Deviation (36.4-46.3) fL Plt Count (182-369) K/mm3 MPV (9.4-12.3) fl Neut % (Auto) (34.0-71.1) % Lymph % (Auto) (19.3-51.7) % [place] % (Auto) (4.7-12.5) % Eos % (Auto) (0.7-5.8) Baso % (Auto) (0.1-1.2) % Neut # (Auto) (1.56-6.13) K/mm3 Lymph # (Auto) (1.18-3.74) K/mm3 [place] # (Auto) (0.24-0.36) K/mm3 Eos # (Auto) (0.04-0.36) K/mm3 Baso # (Auto) (0.01-0.08) K/mm3 Manual Slide Review PT 18.8 H (9.7-12.0) SECONDS INR 1.78 APTT 37.6 H (21.7-31.4) SECONDS Sodium 135 L (136-145) mEq/L Potassium 4.4 (3.5-5.1) mEq/L Chloride 99 (98-107) mEq/L Carbon Dioxide 23 (21-32) mEq/L Anion Gap 17.4 H (5-15) BUN 22 H (7-18) mg/dL Creatinine 1.3 H (0.55-1.02) mg/dL Est Cr Clr Drug Dosing 32.23 mL/min Estimated GFR (MDRD) 42 (>60) mL/min BUN/Creatinine Ratio 16.9 (14-18) Glucose 94 (70-99) mg/dL POC Glucose 84 (70-99) mg/dL Lactic Acid (0.4-2.0) mmol/L Calcium 9.3 (8.5-10.1) mg/dL Total Bilirubin 4.6 H (0.2-1.0) mg/dL AST 60 H (15-37) U/L ALT 26 (14-59) U/L Alkaline Phosphatase 80 (46-116) U/L Creatine Kinase (26-192) U/L Troponin I < 0.017 (0.00-0.056) ng/mL Total Protein 8.0 (6.4-8.2) g/dl Albumin 2.9 L (3.4-5.0) g/dl Globulin 5.1 gm/dL Albumin/Globulin Ratio 0.6 L (1-2) TSH 3rd Generation (0.358-3.74) uIU/mL SARS-CoV-2 RNA (DEXTER) (NEGATIVE) Blood Type Gel Antibody Screen Crossmatch 04/09/21 04/09/21 04/09/21 Range/Units 12:43 12:43 12:43 WBC 7.41 (3.98-10.04) K/mm3 RBC 1.70 L (3.98-5.22) M/mm3 Hgb 6.2 L* D (11.2-15.7) gm/dl Hct 19.2 L (34.1-44.9) % MCV 112.9 H D (79.4-94.8) fl MCH 36.5 H (25.6-32.2) pg MCHC 32.3 (32.2-35.5) g/dl RDW Std Deviation 70.4 H (36.4-46.3) fL Plt Count 90 L (182-369) K/mm3 MPV 11.9 (9.4-12.3) fl Neut % (Auto) 61.8 (34.0-71.1) % Lymph % (Auto) 27.4 (19.3-51.7) % [place] % (Auto) 8.5 (4.7-12.5) % Eos % (Auto) 1.5 (0.7-5.8) Baso % (Auto) 0.5 (0.1-1.2) % Neut # (Auto) 4.58 (1.56-6.13) K/mm3 Lymph # (Auto) 2.03 (1.18-3.74) K/mm3 [place] # (Auto) 0.63 H (0.24-0.36) K/mm3 Eos # (Auto) 0.11 (0.04-0.36) K/mm3 Baso # (Auto) 0.04 (0.01-0.08) K/mm3 Manual Slide Review Abnormal smear PT (9.7-12.0) SECONDS INR APTT (21.7-31.4) SECONDS Sodium (136-145) mEq/L Potassium (3.5-5.1) mEq/L Chloride (98-107) mEq/L Carbon Dioxide (21-32) mEq/L Anion Gap (5-15) BUN (7-18) mg/dL Creatinine (0.55-1.02) mg/dL Est Cr Clr Drug Dosing mL/min Estimated GFR (MDRD) (>60) mL/min BUN/Creatinine Ratio (14-18) Glucose (70-99) mg/dL POC Glucose (70-99) mg/dL Lactic Acid 4.6 H* (0.4-2.0) mmol/L Calcium (8.5-10.1) mg/dL Total Bilirubin (0.2-1.0) mg/dL AST (15-37) U/L ALT (14-59) U/L Alkaline Phosphatase (46-116) U/L Creatine Kinase 44 (26-192) U/L Troponin I (0.00-0.056) ng/mL Total Protein (6.4-8.2) g/dl Albumin (3.4-5.0) g/dl Globulin gm/dL Albumin/Globulin Ratio (1-2) TSH 3rd Generation (0.358-3.74) uIU/mL SARS-CoV-2 RNA (DEXTER) (NEGATIVE) Blood Type Gel Antibody Screen Crossmatch 04/09/21 04/09/21 04/09/21 Range/Units 12:43 12:45 12:45 WBC (3.98-10.04) K/mm3 RBC (3.98-5.22) M/mm3 Hgb (11.2-15.7) gm/dl Hct (34.1-44.9) % MCV (79.4-94.8) fl MCH (25.6-32.2) pg MCHC (32.2-35.5) g/dl RDW Std Deviation (36.4-46.3) fL Plt Count (182-369) K/mm3 MPV (9.4-12.3) fl Neut % (Auto) (34.0-71.1) % Lymph % (Auto) (19.3-51.7) % [place] % (Auto) (4.7-12.5) % Eos % (Auto) (0.7-5.8) Baso % (Auto) (0.1-1.2) % Neut # (Auto) (1.56-6.13) K/mm3 Lymph # (Auto) (1.18-3.74) K/mm3 [place] # (Auto) (0.24-0.36) K/mm3 Eos # (Auto) (0.04-0.36) K/mm3 Baso # (Auto) (0.01-0.08) K/mm3 Manual Slide Review PT (9.7-12.0) SECONDS INR APTT (21.7-31.4) SECONDS Sodium (136-145) mEq/L Potassium (3.5-5.1) mEq/L Chloride (98-107) mEq/L Carbon Dioxide (21-32) mEq/L Anion Gap (5-15) BUN (7-18) mg/dL Creatinine (0.55-1.02) mg/dL Est Cr Clr Drug Dosing mL/min Estimated GFR (MDRD) (>60) mL/min BUN/Creatinine Ratio (14-18) Glucose (70-99) mg/dL POC Glucose (70-99) mg/dL Lactic Acid (0.4-2.0) mmol/L Calcium (8.5-10.1) mg/dL Total Bilirubin (0.2-1.0) mg/dL AST (15-37) U/L ALT (14-59) U/L Alkaline Phosphatase (46-116) U/L Creatine Kinase (26-192) U/L Troponin I (0.00-0.056) ng/mL Total Protein (6.4-8.2) g/dl Albumin (3.4-5.0) g/dl Globulin gm/dL Albumin/Globulin Ratio (1-2) TSH 3rd Generation 2.681 (0.358-3.74) uIU/mL SARS-CoV-2 RNA (DEXTER) Negative (NEGATIVE) Blood Type A POSITIVE Gel Antibody Screen Negative Crossmatch See Detail 04/09/21 Range/Units 15:35 WBC (3.98-10.04) K/mm3 RBC (3.98-5.22) M/mm3 Hgb (11.2-15.7) gm/dl Hct (34.1-44.9) % MCV (79.4-94.8) fl MCH (25.6-32.2) pg MCHC (32.2-35.5) g/dl RDW Std Deviation (36.4-46.3) fL Plt Count (182-369) K/mm3 MPV (9.4-12.3) fl Neut % (Auto) (34.0-71.1) % Lymph % (Auto) (19.3-51.7) % [place] % (Auto) (4.7-12.5) % Eos % (Auto) (0.7-5.8) Baso % (Auto) (0.1-1.2) % Neut # (Auto) (1.56-6.13) K/mm3 Lymph # (Auto) (1.18-3.74) K/mm3 [place] # (Auto) (0.24-0.36) K/mm3 Eos # (Auto) (0.04-0.36) K/mm3 Baso # (Auto) (0.01-0.08) K/mm3 Manual Slide Review PT (9.7-12.0) SECONDS INR APTT (21.7-31.4) SECONDS Sodium (136-145) mEq/L Potassium (3.5-5.1) mEq/L Chloride (98-107) mEq/L Carbon Dioxide (21-32) mEq/L Anion Gap (5-15) BUN (7-18) mg/dL Creatinine (0.55-1.02) mg/dL Est Cr Clr Drug Dosing mL/min Estimated GFR (MDRD) (>60) mL/min BUN/Creatinine Ratio (14-18) Glucose (70-99) mg/dL POC Glucose (70-99) mg/dL Lactic Acid 2.7 H* (0.4-2.0) mmol/L Calcium (8.5-10.1) mg/dL Total Bilirubin (0.2-1.0) mg/dL AST (15-37) U/L ALT (14-59) U/L Alkaline Phosphatase (46-116) U/L Creatine Kinase (26-192) U/L Troponin I (0.00-0.056) ng/mL Total Protein (6.4-8.2) g/dl Albumin (3.4-5.0) g/dl Globulin gm/dL Albumin/Globulin Ratio (1-2) TSH 3rd Generation (0.358-3.74) uIU/mL SARS-CoV-2 RNA (DEXTER) (NEGATIVE) Blood Type Gel Antibody Screen Crossmatch Meds: Medications Generic Name Dose Route Start Last Admin Trade Name Kamlesh PRN Reason Stop Dose Admin Lactated Ringer's 1,000 mls @ 150 mls/hr 04/09/21 12:45 04/09/21 14:48 Ringers, Lactated IV 0 mls/hr ASDIRECTED FROY Infusion Sodium Chloride 250 mls @ 5 mls/hr 04/09/21 14:30 04/09/21 14:41 Normal Saline IV 5 mls/hr ASDIRECTED FROY Administration Discontinued Medications Generic Name Dose Route Start Last Admin Trade Name Kamlesh PRN Reason Stop Dose Admin Fentanyl 50 mcg 04/09/21 15:13 04/09/21 15:49 Fentanyl 100 Mcg/2 Ml Sdv IVPUSH 04/09/21 15:14 50 mcg ONETIME ONE Administration Lactated Ringer's 500 mls @ 999 mls/hr 04/09/21 12:42 04/09/21 12:56 Ringers, Lactated IV 04/09/21 13:12 999 mls/hr .BOLUS ONE Administration Pantoprazole Sodium 40 mg 04/09/21 14:45 04/09/21 14:52 Pantoprazole 40 Mg Tab.Cr PO 04/09/21 14:46 40 mg ONETIME ONE Administration - Re-Assessments/Exams Free Text/Narrative Re-Assessment/Exam: 04/09/21 13:56 His hemoglobin is low at 6.2 will transfuse 2 units of packed red cells. Pelvis x-rays unremarkable except for what looks like significant compression deformity of L5 with significant degenerative changes at L4-5 and 5 S1. Will try get further imaging to clarify this. Chest x-ray shows modest cardiomegaly with mild congestive failure pattern the patient recently was evaluated for GI bleed she is thought to have a lower GI bleed is scheduled to see tar pot man this next week at [facility] in [place]. 04/09/21 14:47 Patient had a colonoscopy and was admitted by Dr. Best on the second of this month procedure done on the third. This showed some bleeding in the proximal colon with some petechial lesions fading out by the midportion of the transverse colon. Also I received some records from the [facility] clinic on the of this month she had a hemoglobin hematocrit of 8.7 and 27% respectively. This is a significant drop since that time.. I did discuss the situation with Dr. Nina hospitalist at [facility] is kind enough to accept the patient. It will take us a while to get transport set up. But we are working on this. CT images of the lumbar spine do not show anything acute she is got significant disease present though she has some central canal stenosis this is fairly mild between L3 and L4 but more severe stenosis between L4 and 5 with some severe disc space narrowing and posterior spurring she also has bilateral neuroforaminal stenosis at the L4-5 level no evidence of acute fracture or abnormal subluxation is seen. 04/09/21 15:42 I had the opportunity to discuss this patient's case with Dr. Best, the surgeon that took care of her when she was last admitted here and he did the colonoscopy he describes petechiae throughout the ascending colon terminating by the midportion of the transverse colon. He believes the patient probably has some degree of ischemic colitis. Departure - Departure Time of Disposition: 15:14 Disposition: DC/Tfer to [facility] 02 Clinical Impression: Low back pain GI bleed Qualifiers: GI bleed type/associated pathology: unspecified gastrointestinal hemorrhage type Qualified Code(s): K92.2 - Gastrointestinal hemorrhage, unspecified Anemia Qualifiers: Anemia type: other cause Other causes of anemia: acute posthemorrhagic Qualified Code(s): D62 - Acute posthemorrhagic anemia - Discharge Information Referrals: PCP,None [Primary Care Provider] - Forms: ED Department Discharge Sepsis Event Note (ED) - Focused Exam Vital Signs: Vital Signs Temp Temp Pulse Resp BP Pulse Ox 04/09/21 17:12 36.6 C 72 18 98/47 L 99 04/09/21 16:56 36.7 C 70 16 105/53 L 100 04/09/21 15:00 36.5 C 70 20 95/49 L 100 04/09/21 14:41 36.5 C 70 20 91/44 L 04/09/21 12:45 36.4 C 69 18 98/53 L 100 - My Orders Last 24 Hours: My Active Orders 04/09/21 12:35 UA RFX SERGE AND CULT IF INDIC [URIN] Stat 04/09/21 12:41 Blood Culture x2 Reflex Set [OM.PC] Stat 04/09/21 12:45 Lactated Ringers [Ringers, Lactated] 1,000 ml IV ASDIRECTED 04/09/21 13:29 Transfuse PRBC [Transfuse Red Blood Cells] [COMM] Stat 04/09/21 13:34 BLOOD CULTURE [MREF] Stat 04/09/21 13:42 BLOOD CULTURE [MREF] Stat 04/09/21 14:30 Sodium Chloride 0.9% [Normal Saline] 250 ml IV ASDIRECTED - Assessment/Plan Last 24 Hours: My Active Orders 04/09/21 12:35 UA RFX SERGE AND CULT IF INDIC [URIN] Stat 04/09/21 12:41 Blood Culture x2 Reflex Set [OM.PC] Stat 04/09/21 12:45 Lactated Ringers [Ringers, Lactated] 1,000 ml IV ASDIRECTED 04/09/21 13:29 Transfuse PRBC [Transfuse Red Blood Cells] [COMM] Stat 04/09/21 13:34 BLOOD CULTURE [MREF] Stat 04/09/21 13:42 BLOOD CULTURE [MREF] Stat 04/09/21 14:30 Sodium Chloride 0.9% [Normal Saline] 250 ml IV ASDIRECTED
[2021-04-09] MEDS ORDERED: Lactated Ringers 500 ML IV ONE (12:42)
[2021-04-09] MEDS ORDERED: Lactated Ringers 1,000 ML IV SCH (12:45)
--- NOTE | 2021-04-09 12:58 | CT ---
Head CT Technique: Multiple axial sections through the brain were obtained. Intravenous contrast was not utilized. Reconstructed coronal and sagittal images were obtained. Comparison: No prior intracranial imaging is available. Findings: Ventricles along with basal cisterns and sulci over the convexities are within normal limits for the patient's age. No abnormal parenchymal densities are seen. No evidence of intracranial hemorrhage is seen. No midline shift or mass-effect is seen. Bone window settings were reviewed. Visualized mastoid sinuses and paranasal sinuses show nothing acute. Mild vascular calcification is noted within the carotid siphon. No acute calvarial abnormality is appreciated. Impression: 1. Minimal senescent change as noted above. 2. Nothing acute is seen on noncontrast head CT study. Note: If patient has symptoms to warrant further evaluation, MRI could be considered. Diagnostic code #2
--- NOTE | 2021-04-09 13:43 | CR ---
Chest: Frontal view of the chest was obtained. Comparison: Prior chest x-ray of 03/09/21. Heart size is mildly enlarged. Upper mediastinum is normal. Lungs are clear with no acute parenchymal change. Bony structures show nothing acute. Impression: 1. Slight cardiomegaly. 2. Nothing acute is seen on frontal chest x-ray. Diagnostic code #2
--- NOTE | 2021-04-09 14:03 | CR ---
Pelvis: AP view of the pelvis was obtained. Comparison: No prior pelvis study is available. Joint space within the left hip is slightly narrowed. Joint space of the right hip is maintained. Degenerative change is seen at L4-5. Vascular calcification is noted. Sacroiliac joints are normal. Impression: 1. Mild joint space narrowing within the left hip as well as degenerative change within the L4-5 level. 2. Other findings as noted above. Nothing acute is definitely seen on AP pelvis study. Diagnostic code #2
--- NOTE | 2021-04-09 14:04 | CR ---
Lumbar spine: AP, lateral and coned-down lateral view centered to the lumbosacral junction were obtained. Comparison: Prior lumbar spine MRI performed on 10/24/11. Severe disc space narrowing is seen at L4-5 which has progressed from previous exam. Anterior osteophytes are seen as well as mild posterior osteophytes. Lesser osteophytes are seen at L3-4. Other disc spaces are maintained. Vertebral body heights are maintained. Very minimal scoliosis is noted. Pedicles are intact. Visualized transverse and spinous processes are intact. Vascular calcification is noted. Sacroiliac joints are within normal limits. Impression: 1. Degenerative change at L4-5. Lesser degenerative change at L3-4. 2. Minimal scoliosis and vascular calcification. 3. Nothing acute is seen. Diagnostic code #2
[2021-04-09] MEDS ORDERED: Sodium Chloride 0.9% 250 ML IV SCH (14:30)
--- NOTE | 2021-04-09 14:33 | CT ---
CT lumbar spine Technique: Multiple axial sections were obtained from above the T12-L1 disc to the L5-S1 disc. Reconstructed coronal and sagittal images were obtained. Comparison: Prior MRI lumbar spine study of 10/24/11 and lumbar spine plain film study performed earlier on the same day. Findings: T12-L1: Posterior disc is preserved. Mild degenerative apophyseal change is seen. No central canal stenosis or neural foraminal stenosis is seen. L1-2: Posterior disc is preserved. No central canal stenosis or neural foraminal stenosis is seen. Minimal degenerative apophyseal change is noted. No central canal stenosis or neural foraminal stenosis is seen. L2-3: Posterior disc is maintained. No central canal stenosis is seen. Neural foramina are patent. Mild to moderate degenerative apophyseal change is noted. L3-4: Mild circumferential disc bulge is seen. Moderate degenerative apophyseal change is noted. Findings cause mild central canal stenosis. Neural foramina are patent. L4-5: Severe disc space narrowing is noted. Posterior disc herniation is seen. Posterior spurring is noted. There is moderate degenerative apophyseal change being seen. These findings cause fairly significant central canal stenosis. Neural foramina are bilaterally narrowed. L5-S1: Very minimal posterior disc bulge is seen. Mild degenerative apophyseal change is seen. No central canal stenosis is seen. Neural foramina are patent where the nerve roots exit. No acute fracture or acute subluxation is seen. Vascular calcification is seen within the aorta. Vascular calcification is also noted within the left renal artery. Impression: 1. Mild central canal stenosis at L3-4. 2. Severe central canal stenosis at L4-5 with severe disc space narrowing and posterior spurring. Bilateral neural foraminal stenosis also noted at L4-5. 3. Other less prominent degenerative change as noted above. No acute fracture or abnormal subluxation is seen. Diagnostic code #3
[2021-04-09] MEDS ORDERED: Pantoprazole 40 MG Tab.CR PO ONE (14:45)
[2021-04-09] MEDS ORDERED: fentaNYL 100 MCG/2 ML SDV IVPUSH ONE (15:13)
[2021-04-09 17:33] VITALS: BP 98/47; PULSE 72
== END 2021-04-09 17:30 ==
LOC: JD.ED 12:12
DX: K92.2 Gastrointestinal hemorrhage, unspecified (principal); M54.5 Low back pain; D64.9 Anemia, unspecified; I25.10 Atherosclerotic heart disease of native coronary artery without angina pectoris; I11.0 Hypertensive heart disease with heart failure; I50.9 Heart failure, unspecified; E78.00 Pure hypercholesterolemia, unspecified; I25.2 Old myocardial infarction; J44.9 Chronic obstructive pulmonary disease, unspecified; E03.9 Hypothyroidism, unspecified; Z79.899 Other long term (current) drug therapy; Z20.822 Contact with and (suspected) exposure to COVID-19; Z88.0 Allergy status to penicillin
CPT/HCPCS: 36415; 36430; 70450; 71045; 72100; 72131; 72170; 80053; 82550; 82947; 83605; 84443; 84484; 85025; 85610; 85730; 86850; 86900; 86901; 86922; 87040; 87635; 93005; 96374; 99285; A9270; J3010; J7050; J7120; P9016; 93010; U0002

== ENCOUNTER 2021-04-26 15:27 | Emergency (ER) | payer MEDICAID, OTHER ==
[2021-04-26] MEDS ORDERED: Sodium Chloride 0.9% 10 ML Syringe FLUSH PRN (15:55)
[2021-04-26] MEDS ORDERED: Albuterol/Ipratropium 3.0-0.5 MG/3 ML Neb Soln NEB ONE (15:56)
[2021-04-26] MEDS ORDERED: HYDROmorphone 0.5 MG/0.5 ML Syringe IVPUSH ONE (15:57)
[2021-04-26] MEDS ORDERED: methylPREDNISolone Sodium Succinate 125 MG/2 ML SDV IVPUSH ONE (15:57)
[2021-04-26] MEDS ORDERED: cefTRIAXone 2 GM in Sodium Chloride 0.9% 100 ML IV ONE (16:56)
--- NOTE | 2021-04-26 16:57 | CR ---
Chest: Frontal view of the chest was obtained. Comparison: Prior chest x-ray of 04/09/21. Heart is enlarged. Upper mediastinum is within normal limits. Lungs show no acute parenchymal change. Bony structures show nothing acute. Impression: 1. Cardiomegaly. Nothing acute is otherwise seen on frontal chest x-ray. Diagnostic code #2
[2021-04-26] MEDS ORDERED: Sodium Chloride 0.9% 1,000 ML IV ONE (17:20)
--- NOTE | 2021-04-26 17:55 | EDM.PDOC ---
ED HPI GENERAL MEDICAL PROBLEM - General Chief Complaint: Respiratory Problem Stated Complaint: CHEST PAIN COUGH SOB Time Seen by Provider: 04/26/21 15:36 Source of Information: Reports: Patient, EMS History Limitations: Reports: No Limitations - History of Present Illness INITIAL COMMENTS - FREE TEXT/NARRATIVE: The patient presents with a cough and shortness of breath. She has been around some children that were sick. She also has some chest tightness. She has no fever or chills. She has no abdominal pain, nausea or vomiting. She has a headache now. She has COPD and she is on oxygen at home. She did get both COVID vaccines. She has some mild swelling to her ankles. Onset: Gradual Duration: Day(s): Location: Reports: Chest Quality: Reports: Other (tightness) Severity: Moderate Improves with: Reports: None Worsens with: Reports: None Associated Symptoms: Reports: Chest Pain, Cough, Shortness of Breath. Denies: Fever/Chills, Headaches, Nausea/Vomiting - Related Data Allergies Allergy/AdvReac Type Severity Reaction Status Date / Time Penicillins Allergy Rash Verified 03/22/21 10:11 Home Meds: Home Meds Albuterol Sulfate [Albuterol Sulfate Hfa] 8.5 gm IH Q4H PRN 08/12/20 [History] Levothyroxine Sodium [Euthyrox] 25 mcg PO DAILY 08/12/20 [History] Metoprolol Succinate [Toprol XL 50mg] 50 mg PO DAILY 08/12/20 [History] Albuterol/Ipratropium [DuoNeb 3.0-0.5 MG/3 ML] 3 ml NEB Q6HRRT #30 neb 08/16/20 [Rx] Folic Acid 1 mg PO DAILY #30 tablet 08/16/20 [Rx] Magnesium Oxide 800 mg PO DAILY #30 tablet 08/16/20 [Rx] Multivitamins,Therapeutic [Thera] 1 each PO DAILY tablet 08/16/20 [Rx] Nicotine [Habitrol] 14 mg TRDERM DAILY #30 patch 08/16/20 [Rx] Omeprazole 20 mg PO ACBREAKFAST #30 cap.sr 08/16/20 [Rx] Cholecalciferol (Vitamin D3) [Vitamin D3] 25 mcg PO DAILY 02/25/21 [History] Escitalopram Oxalate 20 mg PO DAILY 02/25/21 [History] Furosemide [Lasix] 40 mg PO DAILY 02/25/21 [History] Mirtazapine 30 mg PO BEDTIME 02/25/21 [History] Ondansetron [Zofran] 4 mg BUCCAL Q6H PRN #10 tab 02/25/21 [Rx] guaiFENesin [Mucinex] 600 mg PO DAILY 02/25/21 [History] Azithromycin [Zithromax] 250 mg PO DAILY #6 tab 04/26/21 [Rx] Potassium Chloride 20 meq PO DAILY #30 tablet.er 04/26/21 [Rx] predniSONE [Prednisone] 40 mg PO DAILY #10 tablet 04/26/21 [Rx] Past Medical History HEENT History: Reports: Impaired Vision Other HEENT History: wears glasses, pt reports that she has a full set of dentures but does not have them here with her. Cardiovascular History: Reports: CAD, Heart Failure, Heart Murmur, High Cholesterol, Hypertension, ME Other Cardiovascular History: ME 2010 and had a stent placed at that time, history of heart murmur but not heard on exam Respiratory History: Reports: COPD Other Respiratory History: Memory decline in chart, patient states mild and has noticed over time such as loosing keys in apartment, patient A/O x 3 patient states that she is still making her own medical decisions Gastrointestinal History: Reports: GI Bleed Other Gastrointestinal History: Gastritis on EGD 07/2020, hepatosplenomegaly; Vitamin D deficiency, PUD HEAD OF SCIENCE History: Reports: Other HEAD OF SCIENCE History: 3 c-sections Other Musculoskeletal History: Back spasms Psychiatric History: Reports: Addiction, Anxiety, Depression Other Psychiatric History: Insomnia Endocrine/Metabolic History: Reports: Hyperthyroidism, Hypothyroidism Hematologic History: Reports: Anemia, Blood Transfusion(s) Other Dermatologic History: Edema when fluid overload, no current symptoms - Infectious Disease History Infectious Disease History: Reports: Measles Other Infectious Disease History: Pt had both COVID vaccinations in November and January of 2021, giardia (positive 03/19/21 and chart stated that she was prescibed Flagyl) - Past Surgical History Cardiovascular Surgical History: Reports: Coronary Artery Stent Respiratory Surgical History: Reports: None GI Surgical History: Reports: Colonoscopy, EGD Female Surgical History: Reports: Section Neurological Surgical History: Reports: Lumbar Spine Other Neurological Surgeries/Procedures: Back surgery 2010 Other Musculoskeletal Surgeries/Procedures:: [place] [address] Ramírez in [place] Social & Family History - Family History Family Medical History: No Pertinent Family History - Tobacco Use Tobacco Use Status *Q: Current Every Day Tobacco User Years of Tobacco use: 40 Packs/Tins Daily: 0.2 - Caffeine Use Caffeine Use: Reports: Coffee Other Caffeine Use: a cup or two everyday. - Living Situation & Occupation Living situation: Reports: , Alone Occupation: Unemployed ED ROS GENERAL - Review of Systems Review Of Systems: See Below Constitutional: Reports: Malaise, Weakness, Fatigue. Denies: Fever, Chills HEENT: Reports: No Symptoms Respiratory: Reports: Shortness of Breath, Cough Cardiovascular: Reports: Chest Pain Endocrine: Reports: No Symptoms GI/Abdominal: Reports: No Symptoms : Reports: No Symptoms Musculoskeletal: Reports: No Symptoms ED EXAM, GENERAL - Physical Exam Exam: See Below Exam Limited By: No Limitations General Appearance: Alert, No Apparent Distress Ears: Normal External Exam Nose: Normal Inspection Head: Atraumatic, Normocephalic Neck: Normal Inspection Respiratory/Chest: No Respiratory Distress, Rhonchi, Wheezing Cardiovascular: Regular Rate, Rhythm, No Edema, No Murmur GI/Abdominal: Soft, Non-Tender, No Organomegaly, No Mass Back Exam: Normal Inspection Extremities: Normal Inspection #1 Interpretation EKG Date: 04/26/21 Time: 15:36 Rhythm: Other (sinus tachycardia) Rate (Beats/Min): 128 Hawks: Normal P-Wave: Present QRS: Normal ST-T: Normal QT: Normal Course - Vital Signs Last Recorded V/S: Last Vital Signs Temp 98.1 F 04/26/21 15:41 Pulse 123 H 04/26/21 15:41 Resp 18 04/26/21 15:41 BP 146/69 H 04/26/21 15:41 Pulse Ox 96 04/26/21 15:56 - Orders/Labs/Meds Orders: Active Orders 24 hr Category Date Time Status Cardiac Monitoring [RC] . DIRECTED Care 04/26/21 15:55 Active Oxygen Therapy [RC] PRN Care 04/26/21 15:55 Active Peripheral IV Care [RC] . DIRECTED Care 04/26/21 15:56 Active RT Aerosol Therapy [RC] ASDIRECTED Care 04/26/21 15:56 Active Ang Chest [CT] Stat Exams 04/26/21 17:52 Stop Req BLOOD CULTURE [MREF] Stat Lab 04/26/21 16:10 Received BLOOD CULTURE [MREF] Stat Lab 04/26/21 16:20 Received Potassium Chloride [Klor-Con M20] Med 04/26/21 18:09 Once 20 meq PO ONETIME ONE Sodium Chloride 0.9% [Saline Flush] Med 04/26/21 15:55 Active 10 ml FLUSH ASDIRECTED PRN Blood Culture x2 Reflex Set [OM.PC] Stat Oth 04/26/21 15:57 Ordered Peripheral IV Insertion Adult [OM.PC] Stat Oth 04/26/21 15:55 Ordered Medication Orders Sodium Chloride (Sodium Chloride 0.9% 10 Ml Syringe) 10 ml FLUSH ASDIRECTED PRN PRN Reason: Keep Vein Open Last Admin: 04/26/21 16:07 Dose: 10 ml Documented by: CORIN Labs: Laboratory Tests 04/26/21 04/26/21 04/26/21 Range/Units 15:40 15:45 15:45 WBC 9.81 (3.98-10.04) K/mm3 RBC 2.68 L (3.98-5.22) M/mm3 Hgb 9.0 L D (11.2-15.7) gm/dl Hct 28.2 L (34.1-44.9) % MCV 105.2 H D (79.4-94.8) fl MCH 33.6 H (25.6-32.2) pg MCHC 31.9 L (32.2-35.5) g/dl RDW Std Deviation 73.4 H (36.4-46.3) fL Plt Count 135 L (182-369) K/mm3 MPV 11.2 (9.4-12.3) fl Neut % (Auto) 70.8 (34.0-71.1) % Lymph % (Auto) 18.1 L (19.3-51.7) % [place] % (Auto) 8.0 (4.7-12.5) % Eos % (Auto) 2.1 (0.7-5.8) Baso % (Auto) 0.7 (0.1-1.2) % Neut # (Auto) 6.94 H (1.56-6.13) K/mm3 Lymph # (Auto) 1.78 (1.18-3.74) K/mm3 [place] # (Auto) 0.78 H (0.24-0.36) K/mm3 Eos # (Auto) 0.21 (0.04-0.36) K/mm3 Baso # (Auto) 0.07 (0.01-0.08) K/mm3 D-Dimer, Quantitative 3.47 H (0.19-0.50) mg/L Sodium (136-145) mEq/L Potassium (3.5-5.1) mEq/L Chloride (98-107) mEq/L Carbon Dioxide (21-32) mEq/L Anion Gap (5-15) BUN (7-18) mg/dL Creatinine (0.55-1.02) mg/dL Est Cr Clr Drug Dosing Estimated GFR (MDRD) (>60) mL/min BUN/Creatinine Ratio (14-18) Glucose (70-99) mg/dL Lactic Acid (0.4-2.0) mmol/L Calcium (8.5-10.1) mg/dL Total Bilirubin (0.2-1.0) mg/dL AST (15-37) U/L ALT (14-59) U/L Alkaline Phosphatase (46-116) U/L C-Reactive Protein (<1.0) mg/dL Total Protein (6.4-8.2) g/dl Albumin (3.4-5.0) g/dl Globulin gm/dL Albumin/Globulin Ratio (1-2) SARS-CoV-2 RNA (DEXTER) Negative (NEGATIVE) 04/26/21 04/26/21 Range/Units 15:45 15:45 WBC (3.98-10.04) K/mm3 RBC (3.98-5.22) M/mm3 Hgb (11.2-15.7) gm/dl Hct (34.1-44.9) % MCV (79.4-94.8) fl MCH (25.6-32.2) pg MCHC (32.2-35.5) g/dl RDW Std Deviation (36.4-46.3) fL Plt Count (182-369) K/mm3 MPV (9.4-12.3) fl Neut % (Auto) (34.0-71.1) % Lymph % (Auto) (19.3-51.7) % [place] % (Auto) (4.7-12.5) % Eos % (Auto) (0.7-5.8) Baso % (Auto) (0.1-1.2) % Neut # (Auto) (1.56-6.13) K/mm3 Lymph # (Auto) (1.18-3.74) K/mm3 [place] # (Auto) (0.24-0.36) K/mm3 Eos # (Auto) (0.04-0.36) K/mm3 Baso # (Auto) (0.01-0.08) K/mm3 D-Dimer, Quantitative (0.19-0.50) mg/L Sodium 137 (136-145) mEq/L Potassium 2.7 L D (3.5-5.1) mEq/L Chloride 98 (98-107) mEq/L Carbon Dioxide 30 (21-32) mEq/L Anion Gap 11.7 (5-15) BUN 4 L (7-18) mg/dL Creatinine 1.0 (0.55-1.02) mg/dL Est Cr Clr Drug Dosing TNP Estimated GFR (MDRD) 56 (>60) mL/min BUN/Creatinine Ratio 4.0 L (14-18) Glucose 200 H (70-99) mg/dL Lactic Acid 6.1 H* (0.4-2.0) mmol/L Calcium 9.0 (8.5-10.1) mg/dL Total Bilirubin 1.8 H (0.2-1.0) mg/dL AST 138 H (15-37) U/L ALT 49 (14-59) U/L Alkaline Phosphatase 174 H (46-116) U/L C-Reactive Protein 4.9 H* (<1.0) mg/dL Total Protein 8.0 (6.4-8.2) g/dl Albumin 2.7 L (3.4-5.0) g/dl Globulin 5.3 gm/dL Albumin/Globulin Ratio 0.5 L (1-2) SARS-CoV-2 RNA (DEXTER) (NEGATIVE) Meds: Medications Generic Name Dose Route Start Last Admin Trade Name Freq PRN Reason Stop Dose Admin Sodium Chloride 10 ml 04/26/21 15:55 04/26/21 16:07 Sodium Chloride 0.9% 10 Ml Syringe FLUSH 10 ml ASDIRECTED PRN Administration Keep Vein Open Discontinued Medications Generic Name Dose Route Start Last Admin Trade Name Kamlesh PRN Reason Stop Dose Admin Albuterol/Ipratropium 3 ml 04/26/21 15:56 04/26/21 16:10 Albuterol/Ipratropium 3.0-0.5 Mg/3 Ml Neb Soln NEB 04/26/21 15:57 3 ml ONETIME ONE Administration Hydromorphone HCl 0.5 mg 04/26/21 15:57 04/26/21 16:00 Hydromorphone 0.5 Mg/0.5 Ml Syringe IVPUSH 04/26/21 15:58 0.5 mg ONETIME ONE Administration Ceftriaxone Sodium 2 gm/ 100 mls @ 200 mls/hr 04/26/21 16:56 04/26/21 17:21 Sodium Chloride IV 04/26/21 17:25 200 mls/hr ONETIME ONE Administration Sodium Chloride 1,000 mls @ 1,000 mls/hr 04/26/21 17:20 Normal Saline IV 04/26/21 18:19 ONETIME ONE Potassium Chloride 10 meq/ 100 mls @ 100 mls/hr 04/26/21 18:00 Premix IV 04/26/21 21:59 Q1H FROY Sodium Chloride 100 mls @ 4 mls/sec 04/26/21 18:07 Normal Saline IV 04/26/21 18:08 ONETIME ONE Iopamidol 100 ml 04/26/21 18:07 Iopamidol 755 Mg/Ml 100 Ml Bottle IVPUSH 04/26/21 18:08 ONETIME ONE Methylprednisolone Sodium Succinate 125 mg 04/26/21 15:57 04/26/21 16:04 Methylprednisolone Sodium Succinate 125 Mg/2 Ml Sdv IVPUSH 04/26/21 15:58 125 mg ONETIME ONE Administration - Re-Assessments/Exams Free Text/Narrative Re-Assessment/Exam: 04/26/21 17:59 I ordered oxygen, IV saline lock, EKG, CXR, labs, blood cultures, lactic acid, COVID 19, duoneb, solumedrol 125mg IV, and rocephin 2 grams IV. Her EKG shows a sinus tachycardia with no acute changes. Her CXR shows cardiomegaly. Nothing acute is otherwise seen on frontal chest x-ray. Her WBC was normal. Her Hgb was low at 9. Her D-dimer was elevated at 3.47. Her K was low at 2.7. Her glucose was elevated at 200. Her lactic acid was elevated at 6.1. Her AST was elevated at 138. Her CRP was elevated at 4.9. She is COVID 19 negative. I did order a fluid bolus and potassium. Her D-dimer was elevated so I ordered a CT angio of her chest. 04/26/21 18:10 The patient did not want the CT angio of her chest. She also did not want the rest of the fluids and potassium. I will give her a dose of oral potassium, zithromax and prednisone. 04/26/21 18:11 The lactic acid elevation is from the respiratory problems. Departure - Departure Time of Disposition: 18:20 Disposition: Home, Self-Care 01 Condition: Good Clinical Impression: COPD exacerbation, Hypokalemia - Discharge Information *PRESCRIPTION DRUG MONITORING PROGRAM REVIEWED*: Not Applicable *COPY OF PRESCRIPTION DRUG MONITORING REPORT IN PATIENT JOON: Not Applicable Prescriptions: Potassium Chloride 20 meq PO DAILY #30 tablet.er predniSONE [Prednisone] 40 mg PO DAILY #10 tablet Azithromycin [Zithromax] 250 mg PO DAILY #6 tab Referrals: Kalpana Hubbard MD [Primary Care Provider] - 1 Week Forms: ED Department Discharge Additional Instructions: Use your oxygen at home continuously. Take the prednisone daily for 5 days. Take the zithromax as prescribed. Take potassium daily. Follow up with your provider within a week. Please return if you are worse. Sepsis Event Note (ED) - Evaluation Sepsis Screening Result: Possible Sepsis Risk - Focused Exam Vital Signs: Vital Signs Temp Pulse Resp BP Pulse Ox Pulse Ox 04/26/21 15:56 96 04/26/21 15:41 98.1 F 123 H 18 146/69 H 95 - My Orders Last 24 Hours: My Active Orders 04/26/21 15:55 Cardiac Monitoring [RC] . DIRECTED Oxygen Therapy [RC] PRN Sodium Chloride 0.9% [Saline Flush] 10 ml FLUSH ASDIRECTED PRN Peripheral IV Insertion Adult [OM.PC] Stat 04/26/21 15:56 Peripheral IV Care [RC] . DIRECTED RT Aerosol Therapy [RC] ASDIRECTED 04/26/21 15:57 Blood Culture x2 Reflex Set [OM.PC] Stat 04/26/21 16:10 BLOOD CULTURE [MREF] Stat 04/26/21 16:20 BLOOD CULTURE [MREF] Stat 04/26/21 17:52 Ang Chest [CT] Stat 04/26/21 18:09 Potassium Chloride [Klor-Con M20] 20 meq PO ONETIME ONE - Assessment/Plan Last 24 Hours: My Active Orders 04/26/21 15:55 Cardiac Monitoring [RC] . DIRECTED Oxygen Therapy [RC] PRN Sodium Chloride 0.9% [Saline Flush] 10 ml FLUSH ASDIRECTED PRN Peripheral IV Insertion Adult [OM.PC] Stat 04/26/21 15:56 Peripheral IV Care [RC] . DIRECTED RT Aerosol Therapy [RC] ASDIRECTED 04/26/21 15:57 Blood Culture x2 Reflex Set [OM.PC] Stat 04/26/21 16:10 BLOOD CULTURE [MREF] Stat 04/26/21 16:20 BLOOD CULTURE [MREF] Stat 04/26/21 17:52 Ang Chest [CT] Stat 04/26/21 18:09 Potassium Chloride [Klor-Con M20] 20 meq PO ONETIME ONE
[2021-04-26] MEDS ORDERED: Potassium Chloride 10 MEQ in Premix Bag 1 BAG IV SCH (18:00)
[2021-04-26] MEDS ORDERED: Iopamidol 755 Mg/ML 100 ML Bottle IVPUSH ONE (18:07)
[2021-04-26] MEDS ORDERED: Sodium Chloride 0.9% 100 ML IV ONE (18:07)
[2021-04-26] MEDS ORDERED: Potassium Chloride 20 MEQ Tab.ER PO ONE (18:09)
[2021-04-26 18:50] VITALS: BP 125/58; PULSE 94
== END 2021-04-26 18:45 | disposition home or self-care (01) ==
LOC: JD.ED 15:27
DX: J44.1 Chronic obstructive pulmonary disease with (acute) exacerbation (principal); E87.6 Hypokalemia; R00.0 Tachycardia, unspecified; I25.10 Atherosclerotic heart disease of native coronary artery without angina pectoris; I11.0 Hypertensive heart disease with heart failure; I50.9 Heart failure, unspecified; I25.2 Old myocardial infarction; E03.9 Hypothyroidism, unspecified; D64.9 Anemia, unspecified; Z72.0 Tobacco use; Z88.0 Allergy status to penicillin; Z79.899 Other long term (current) drug therapy; Z20.822 Contact with and (suspected) exposure to COVID-19
CPT/HCPCS: 36415; 71045; 80053; 83605; 85025; 85379; 86140; 87040; 87635; 93005; 94640; 96365; 96375; 99285; A9270; J0696; J1170; J2930; 93010; 99284; J7620-GY; U0002

== ENCOUNTER 2021-04-27 10:54 | Emergency (ER) | payer MEDICAID ==
[2021-04-27] MEDS ORDERED: LORazepam 2 MG/ML SDV IVPUSH ONE ×2 (11:15→11:25)
[2021-04-27] MEDS ORDERED: LORazepam 2 MG/ML SDV ONE ×2 (11:16→11:23)
[2021-04-27] MEDS ORDERED: Sodium Chloride 0.9% 10 ML Syringe FLUSH PRN (11:16)
[2021-04-27] MEDS ORDERED: Sodium Chloride 0.9% 10 ML Syringe FLUSH ONE (11:39)
[2021-04-27] MEDS ORDERED: Iopamidol 755 Mg/ML 100 ML Bottle IVPUSH ONE (11:39)
[2021-04-27] MEDS ORDERED: Sodium Chloride 0.9% 100 ML IV SCH (11:45)
--- NOTE | 2021-04-27 12:23 | EDM.PDOC ---
ED HPI GENERAL MEDICAL PROBLEM - General Chief Complaint: Respiratory Problem Stated Complaint: CHEST PAINS AND SHAKING IS NOT GETTING BETTER Time Seen by Provider: 04/27/21 11:07 Source of Information: Reports: Patient, Family, Old Records, RN Notes Reviewed History Limitations: Reports: No Limitations - History of Present Illness INITIAL COMMENTS - FREE TEXT/NARRATIVE: Patient is a 61-year-old female presenting to the emergency department with complaints of shortness of breath anxiety and shaking. Symptoms began yesterday. She reports that yesterday she developed shortness of breath or chest pain, however the chest pain has since resolved. She was seen in this emergency department yesterday and found to have an elevated D-dimer and low potassium. She was diagnosed with COPD exacerbation. She did receive supplemental potassium, however patient refused a CT angiogram of her chest. Patient recently had bone marrow biopsy completed for evaluation of chronic anem ia. She was scheduled to receive the results of this today. Patient denies any documented fever, but states that she does have night sweats which has been going on for quite some time. Also reports a chronic cough which sometimes causes her to have dry heaves. She denies any nausea, vomiting, or diarrhea. Daughter reports that patient does have occasional tremor but has never been to this extreme. The daughter spoke with her primary care provider, Dr. Hubbard, at the [facility] and discussed yesterday's results. They recommended she come to the ER for evaluation of elevated lactic acid and D-dimer. - Related Data Allergies Allergy/AdvReac Type Severity Reaction Status Date / Time Penicillins Allergy Rash Verified 04/27/21 11:12 Home Meds: Home Meds Albuterol Sulfate [Albuterol Sulfate Hfa] 8.5 gm IH Q4H PRN 08/12/20 [History] Metoprolol Succinate [Toprol XL 50mg] 50 mg PO DAILY 08/12/20 [History] Albuterol/Ipratropium [DuoNeb 3.0-0.5 MG/3 ML] 3 ml NEB Q6HRRT #30 neb 08/16/20 [Rx] Folic Acid 1 mg PO DAILY #30 tablet 08/16/20 [Rx] Magnesium Oxide 800 mg PO DAILY #30 tablet 08/16/20 [Rx] Multivitamins,Therapeutic [Thera] 1 each PO DAILY tablet 08/16/20 [Rx] Nicotine [Habitrol] 14 mg TRDERM DAILY #30 patch 08/16/20 [Rx] Cholecalciferol (Vitamin D3) [Vitamin D3] 25 mcg PO DAILY 02/25/21 [History] Escitalopram Oxalate 20 mg PO DAILY 02/25/21 [History] Furosemide [Lasix] 40 mg PO DAILY 02/25/21 [History] Acetaminophen 500 mg PO QID 04/27/21 [History] Past Medical History HEENT History: Reports: Impaired Vision Other HEENT History: wears glasses, pt reports that she has a full set of dentures but does not have them here with her. Cardiovascular History: Reports: CAD, Heart Failure, Heart Murmur, High Cholesterol, Hypertension, [place] Other Cardiovascular History: [place] 2010 and had a stent placed at that time, history of heart murmur but not heard on exam Respiratory History: Reports: COPD Other Respiratory History: Memory decline in chart, patient states mild and has noticed over time such as loosing keys in apartment, patient A/O x 3 patient states that she is still making her own medical decisions Gastrointestinal History: Reports: GI Bleed Other Gastrointestinal History: Gastritis on EGD 07/2020, hepatosplenomegaly; Vitamin D deficiency, PUD FILM MASKER History: Reports: Other FILM MASKER History: 3 c-sections Other Musculoskeletal History: Back spasms Psychiatric History: Reports: Addiction, Anxiety, Depression Other Psychiatric History: Insomnia Endocrine/Metabolic History: Reports: Hyperthyroidism, Hypothyroidism Hematologic History: Reports: Anemia, Blood Transfusion(s) Other Dermatologic History: Edema when fluid overload, no current symptoms - Infectious Disease History Infectious Disease History: Reports: Measles Other Infectious Disease History: Pt had both COVID vaccinations in November and January of 2021, giardia (positive 03/19/21 and chart stated that she was prescibed Flagyl) - Past Surgical History Cardiovascular Surgical History: Reports: Coronary Artery Stent GI Surgical History: Reports: Colonoscopy, EGD Female Surgical History: Reports: Section Neurological Surgical History: Reports: Lumbar Spine Other Neurological Surgeries/Procedures: Back surgery 2010 Other Musculoskeletal Surgeries/Procedures:: back [place] [address] Ramírez in [place] Social & Family History - Family History Family Medical History: No Pertinent Family History - Caffeine Use Caffeine Use: Reports: Coffee Other Caffeine Use: a cup or two everyday. - Living Situation & Occupation Living situation: Reports: , Alone Occupation: Unemployed ED ROS GENERAL - Review of Systems Review Of Systems: See Below Constitutional: Reports: Fatigue, Night Sweats, Decreased Appetite. Denies: Fever HEENT: Reports: No Symptoms Respiratory: Reports: Shortness of Breath, Cough. Denies: Pleuritic Chest Pain Cardiovascular: Reports: Dyspnea on Exertion. Denies: Chest Pain, Lightheadedness, Syncope Endocrine: Reports: No Symptoms GI/Abdominal: Reports: No Symptoms. Denies: Diarrhea, Nausea, Vomiting : Reports: No Symptoms Musculoskeletal: Reports: No Symptoms Skin: Reports: No Symptoms Neurological: Reports: Tremors. Denies: Confusion, Headache Psychiatric: Reports: Anxiety Hematologic/Lymphatic: Reports: No Symptoms Immunologic: Reports: No Symptoms ED EXAM, GENERAL - Physical Exam Exam: See Below Exam Limited By: No Limitations General Appearance: Alert, Anxious, Mild Distress Eye Exam: Bilateral Eye: Normal Inspection Respiratory/Chest: No Respiratory Distress, No Accessory Muscle Use, Chest Non- Tender, Decreased Breath Sounds (thoughout). No: Rhonchi, Wheezing Cardiovascular: Normal Peripheral Pulses, Regular Rate, Rhythm, No Edema, No Gallop, No JVD, No Murmur, No Rub, Tachycardia GI/Abdominal: Normal Bowel Sounds, Soft, Non-Tender, No Organomegaly, No Distention, No Abnormal Bruit, No Mass Neurological: Alert, Oriented, CN II-XII Intact, Normal Cognition, Normal Reflexes, No Motor/Sensory Deficits Psychiatric: Other (highly anxious and tremorous) Skin Exam: Warm, Dry, Intact, Normal Color, No Rash #1 Interpretation EKG Date: 04/27/21 Time: 11:42 Rhythm: NSR Rate (Beats/Min): 106 [place]: Normal P-Wave: Present QRS: Normal ST-T: Normal QT: Normal CT/PQ Interval: Sinus tachycardia at 106/min. ST segment depression V3 to V6, consider ischemia. T wave flattening in aVL. Consider left atrial hypertrophy. Occasional PAC. EKG interpreted by Dr. Tara GONZALEZ Course - Vital Signs Last Recorded V/S: Last Vital Signs Temp 97 F 04/27/21 11:06 Pulse 98 04/27/21 13:15 Resp 20 04/27/21 13:15 BP 125/82 04/27/21 13:15 Pulse Ox 95 04/27/21 13:15 - Orders/Labs/Meds Orders: Active Orders 24 hr Category Date Time Status Peripheral IV Insertion Adult [OM.PC] Stat Oth 04/27/21 11:16 Ordered Labs: Laboratory Tests 04/27/21 04/27/21 04/27/21 Range/Units 11:13 11:13 11:13 WBC 11.15 H (3.98-10.04) K/mm3 RBC 2.71 L (3.98-5.22) M/mm3 Hgb 9.2 L (11.2-15.7) gm/dl Hct 30.3 L (34.1-44.9) % MCV 111.8 H D (79.4-94.8) fl MCH 33.9 H (25.6-32.2) pg MCHC 30.4 L (32.2-35.5) g/dl RDW Std Deviation 81.2 H (36.4-46.3) fL Plt Count 122 L (182-369) K/mm3 MPV 11.6 (9.4-12.3) fl Neut % (Auto) 86.8 H (34.0-71.1) % Lymph % (Auto) 7.2 L (19.3-51.7) % [place] % (Auto) 5.1 (4.7-12.5) % Eos % (Auto) 0.1 L (0.7-5.8) Baso % (Auto) 0.4 (0.1-1.2) % Neut # (Auto) 9.68 H (1.56-6.13) K/mm3 Lymph # (Auto) 0.80 L (1.18-3.74) K/mm3 [place] # (Auto) 0.57 H (0.24-0.36) K/mm3 Eos # (Auto) 0.01 L (0.04-0.36) K/mm3 Baso # (Auto) 0.05 (0.01-0.08) K/mm3 Manual Slide Review Abnormal smear D-Dimer, Quantitative 3.78 H (0.19-0.50) mg/L Puncture Site ABG pH (7.35-7.45) ABG pCO2 (35.0-45.0) mmHg ABG pO2 (80.0-100.0) mmHg ABG HCO3 (22.0-26.0) meq/L ABG O2 Saturation (96.0-97.0) % ABG Base Excess (-2-2.0) Dario Test A-a Gradient mmHg O2 Delivery Device Oxygen Flow Rate FiO2 (21.00-100.00) % Sodium 134 L (136-145) mEq/L Potassium 3.6 (3.5-5.1) mEq/L Chloride 96 L (98-107) mEq/L Carbon Dioxide 25 (21-32) mEq/L Anion Gap 16.6 H (5-15) BUN 7 (7-18) mg/dL Creatinine 1.1 H (0.55-1.02) mg/dL Est Cr Clr Drug Dosing 50.50 mL/min Estimated GFR (MDRD) 50 (>60) mL/min BUN/Creatinine Ratio 6.4 L (14-18) Glucose 322 H (70-99) mg/dL Lactic Acid (0.4-2.0) mmol/L Calcium 9.4 (8.5-10.1) mg/dL Total Bilirubin 1.4 H (0.2-1.0) mg/dL AST 101 H (15-37) U/L ALT 45 (14-59) U/L Alkaline Phosphatase 203 H (46-116) U/L Troponin I 0.731 H* (0.00-0.056) ng/mL C-Reactive Protein 4.9 H* (<1.0) mg/dL NT-Pro-B Natriuret Pep (0-125) pg/mL Total Protein 8.3 H (6.4-8.2) g/dl Albumin 2.7 L (3.4-5.0) g/dl Globulin 5.6 gm/dL Albumin/Globulin Ratio 0.5 L (1-2) Urine Color (Yellow) Urine Appearance (Clear) Urine pH (5.0-8.0) Ur Specific [place] (1.005-1.030) Urine Protein (Negative) Urine Glucose (UA) (Negative) Urine Ketones (Negative) Urine Occult Blood (Negative) Urine Nitrite (Negative) Urine Bilirubin (Negative) Urine Urobilinogen (0.2-1.0) Ur Leukocyte Esterase (Negative) Urine RBC (0-5) /hpf Urine WBC (0-5) /hpf Ur Squamous Epith Cells (0-5) /hpf Urine Bacteria (FEW) /hpf Urine Mucus (FEW) /hpf Ketones (0.0-0.3) mM 04/27/21 04/27/21 04/27/21 Range/Units 11:13 11:13 11:13 WBC (3.98-10.04) K/mm3 RBC (3.98-5.22) M/mm3 Hgb (11.2-15.7) gm/dl Hct (34.1-44.9) % MCV (79.4-94.8) fl MCH (25.6-32.2) pg MCHC (32.2-35.5) g/dl RDW Std Deviation (36.4-46.3) fL Plt Count (182-369) K/mm3 MPV (9.4-12.3) fl Neut % (Auto) (34.0-71.1) % Lymph % (Auto) (19.3-51.7) % [place] % (Auto) (4.7-12.5) % Eos % (Auto) (0.7-5.8) Baso % (Auto) (0.1-1.2) % Neut # (Auto) (1.56-6.13) K/mm3 Lymph # (Auto) (1.18-3.74) K/mm3 [place] # (Auto) (0.24-0.36) K/mm3 Eos # (Auto) (0.04-0.36) K/mm3 Baso # (Auto) (0.01-0.08) K/mm3 Manual Slide Review D-Dimer, Quantitative (0.19-0.50) mg/L Puncture Site ABG pH (7.35-7.45) ABG pCO2 (35.0-45.0) mmHg ABG pO2 (80.0-100.0) mmHg ABG HCO3 (22.0-26.0) meq/L ABG O2 Saturation (96.0-97.0) % ABG Base Excess (-2-2.0) Dario Test A-a Gradient mmHg O2 Delivery Device Oxygen Flow Rate FiO2 (21.00-100.00) % Sodium (136-145) mEq/L Potassium (3.5-5.1) mEq/L Chloride (98-107) mEq/L Carbon Dioxide (21-32) mEq/L Anion Gap (5-15) BUN (7-18) mg/dL Creatinine (0.55-1.02) mg/dL Est Cr Clr Drug Dosing mL/min Estimated GFR (MDRD) (>60) mL/min BUN/Creatinine Ratio (14-18) Glucose (70-99) mg/dL Lactic Acid 9.1 H* (0.4-2.0) mmol/L Calcium (8.5-10.1) mg/dL Total Bilirubin (0.2-1.0) mg/dL AST (15-37) U/L ALT (14-59) U/L Alkaline Phosphatase (46-116) U/L Troponin I (0.00-0.056) ng/mL C-Reactive Protein (<1.0) mg/dL NT-Pro-B Natriuret Pep 1645 H (0-125) pg/mL Total Protein (6.4-8.2) g/dl Albumin (3.4-5.0) g/dl Globulin gm/dL Albumin/Globulin Ratio (1-2) Urine Color (Yellow) Urine Appearance (Clear) Urine pH (5.0-8.0) Ur Specific [place] (1.005-1.030) Urine Protein (Negative) Urine Glucose (UA) (Negative) Urine Ketones (Negative) Urine Occult Blood (Negative) Urine Nitrite (Negative) Urine Bilirubin (Negative) Urine Urobilinogen (0.2-1.0) Ur Leukocyte Esterase (Negative) Urine RBC (0-5) /hpf Urine WBC (0-5) /hpf Ur Squamous Epith Cells (0-5) /hpf Urine Bacteria (FEW) /hpf Urine Mucus (FEW) /hpf Ketones 0.43 (0.0-0.3) mM 04/27/21 04/27/21 Range/Units 12:10 14:35 WBC (3.98-10.04) K/mm3 RBC (3.98-5.22) M/mm3 Hgb (11.2-15.7) gm/dl Hct (34.1-44.9) % MCV (79.4-94.8) fl MCH (25.6-32.2) pg MCHC (32.2-35.5) g/dl RDW Std Deviation (36.4-46.3) fL Plt Count (182-369) K/mm3 MPV (9.4-12.3) fl Neut % (Auto) (34.0-71.1) % Lymph % (Auto) (19.3-51.7) % [place] % (Auto) (4.7-12.5) % Eos % (Auto) (0.7-5.8) Baso % (Auto) (0.1-1.2) % Neut # (Auto) (1.56-6.13) K/mm3 Lymph # (Auto) (1.18-3.74) K/mm3 [place] # (Auto) (0.24-0.36) K/mm3 Eos # (Auto) (0.04-0.36) K/mm3 Baso # (Auto) (0.01-0.08) K/mm3 Manual Slide Review D-Dimer, Quantitative (0.19-0.50) mg/L Puncture Site Lt radial ABG pH 7.36 (7.35-7.45) ABG pCO2 45.4 H (35.0-45.0) mmHg ABG pO2 199.0 H* (80.0-100.0) mmHg ABG HCO3 25.1 (22.0-26.0) meq/L ABG O2 Saturation 99.6 H (96.0-97.0) % ABG Base Excess 0.2 (-2-2.0) Dario Test Positive A-a Gradient 1 mmHg O2 Delivery Device Nasal cannula Oxygen Flow Rate 4.0 FiO2 36.00 (21.00-100.00) % Sodium (136-145) mEq/L Potassium (3.5-5.1) mEq/L Chloride (98-107) mEq/L Carbon Dioxide (21-32) mEq/L Anion Gap (5-15) BUN (7-18) mg/dL Creatinine (0.55-1.02) mg/dL Est Cr Clr Drug Dosing mL/min Estimated GFR (MDRD) (>60) mL/min BUN/Creatinine Ratio (14-18) Glucose (70-99) mg/dL Lactic Acid (0.4-2.0) mmol/L Calcium (8.5-10.1) mg/dL Total Bilirubin (0.2-1.0) mg/dL AST (15-37) U/L ALT (14-59) U/L Alkaline Phosphatase (46-116) U/L Troponin I (0.00-0.056) ng/mL C-Reactive Protein (<1.0) mg/dL NT-Pro-B Natriuret Pep (0-125) pg/mL Total Protein (6.4-8.2) g/dl Albumin (3.4-5.0) g/dl Globulin gm/dL Albumin/Globulin Ratio (1-2) Urine Color Yellow (Yellow) Urine Appearance Clear (Clear) Urine pH 6.5 (5.0-8.0) Ur Specific [place] 1.010 (1.005-1.030) Urine Protein Negative (Negative) Urine Glucose (UA) Trace H (Negative) Urine Ketones Negative (Negative) Urine Occult Blood Negative (Negative) Urine Nitrite Negative (Negative) Urine Bilirubin Negative (Negative) Urine Urobilinogen 0.2 (0.2-1.0) Ur Leukocyte Esterase Negative (Negative) Urine RBC 0-5 (0-5) /hpf Urine WBC 0-5 (0-5) /hpf Ur Squamous Epith Cells 0-5 (0-5) /hpf Urine Bacteria Few (FEW) /hpf Urine Mucus Few (FEW) /hpf Ketones (0.0-0.3) mM Meds: Medications Discontinued Medications Generic Name Dose Route Start Last Admin Trade Name Kamlesh PRN Reason Stop Dose Admin Sodium Chloride 100 mls @ 60 mls/hr 04/27/21 11:45 04/27/21 12:08 Normal Saline IV 60 mls/hr ASDIRECTED FROY Administration Sodium Chloride 150 mls @ 999 mls/hr 04/27/21 12:41 04/27/21 12:49 Normal Saline IV 04/27/21 12:50 999 mls/hr NOW STA Administration Iopamidol 100 ml 04/27/21 11:39 04/27/21 12:08 Iopamidol 755 Mg/Ml 100 Ml Bottle IVPUSH 04/27/21 11:40 100 ml ONETIME ONE Administration Lorazepam 0.5 mg 04/27/21 11:15 04/27/21 11:20 Lorazepam 2 Mg/Ml Sdv IVPUSH 04/27/21 11:16 0.5 mg ONETIME ONE Administration Lorazepam Confirm 04/27/21 11:16 04/27/21 11:20 Lorazepam 2 Mg/Ml Sdv Administered 04/27/21 11:17 Not Given Dose 2 mg .ROUTE .STK-MED ONE Lorazepam Confirm 04/27/21 11:23 04/27/21 11:26 Lorazepam 2 Mg/Ml Sdv Administered 04/27/21 11:24 Not Given Dose 2 mg .ROUTE .STK-MED ONE Lorazepam 0.5 mg 04/27/21 11:25 04/27/21 11:27 Lorazepam 2 Mg/Ml Sdv IVPUSH 04/27/21 11:26 0.5 mg ONETIME ONE Administration Sodium Chloride 10 ml 04/27/21 11:16 04/27/21 11:20 Sodium Chloride 0.9% 10 Ml Syringe FLUSH 10 ml ASDIRECTED PRN Administration Keep Vein Open Sodium Chloride 10 ml 04/27/21 11:39 04/27/21 12:08 Sodium Chloride 0.9% 10 Ml Syringe FLUSH 04/27/21 11:40 10 ml ONETIME ONE Administration - Re-Assessments/Exams Free Text/Narrative Re-Assessment/Exam: Patient is a 61-year-old female presenting to the emergency department with complaints of shortness of breath and severe anxiety and tremor. Symptoms began yesterday at which time she was also experiencing chest pain. She was seen in this emergency department and had work-up completed. D-dimer was found to be elevated that time, however she declined a CT angiogram. She was discharged home and treated for COPD exacerbation with prednisone and azithromycin. Daughter reports that she went to her house this morning to check on her and that she was shaking and complaining of severe shortness of breath. Patient reports that her chest pain has resolved. On arrival to ER, she was placed on 4 L of oxygen by nasal cannula and was saturating 95%. She wears 2 L of oxygen at home for COPD. Patient is extremely anxious, tearful, and diffusely shaking. Denies any chest pain or any type of pain at this time. I have ordered blood work, EKG, and CT angiogram of her chest given her significant elevated D-dimer yesterday. I will give her Ativan 0.5 mg IV and repeat if necessary. 04/27/21 12:45 Hematology significant for WBC elevated 11.15, hemoglobin low at 9.2, D-dimer elevated at 3.78, glucose 322, lactic acid 9.1, troponin 0 0.731, CRP 4.9, proBNP 1645. ABG showed a elevated PO2 at 199. Patient was on 4 L of oxygen by nasal cannula. Normal home oxygen is 2 L. I have turned her down to 2 L by nasal cannula. CT angiogram of the chest shows no acute abnormalities. EKG shows ST segment depression V3 through V6 as well as T wave flattening in aVL. patient has a history of GI bleed 1 month ago and has ongoing chronic anemia, therefore I am hesitant to put her on heparin. She is not currently having any chest pain and she is sleeping comfortably after the Ativan. Unfortunately there are no beds available in [facility]. Nursing staff is making calls to look for available beds. Daughter request that we try at [facility]. 04/27/21 13:00 Case was discussed with the injector assembler, Dr. Ward, and ER physician, Dr. Lance, at [facility]. Patient has been accepted for transfer to the emergency department. Cardiology did not recommend starting heparin at this time. Patient will be transferred by med flight which will be dispatched from [place]. Patient and her daughter updated on agreement. Departure - Departure Time of Disposition: 13:00 Disposition: DC/Tfer to Acute Hospital 02 Condition: Fair Clinical Impression: Elevated troponin, Shortness of breath, Anxiety - Discharge Information Referrals: Kalpana Hubbard MD [Primary Care Provider] - Forms: ED Department Discharge Sepsis Event Note (ED) - Evaluation Sepsis Screening Result: Possible Sepsis Risk - Focused Exam Vital Signs: Vital Signs Temp Pulse Resp BP Pulse Ox 04/27/21 13:15 98 20 125/82 95 04/27/21 12:45 92 18 96/43 L 99 04/27/21 12:10 99 04/27/21 11:06 97 F 109 H 16 134/67 95 - My Orders Last 24 Hours: My Active Orders 04/27/21 11:16 Peripheral IV Insertion Adult [OM.PC] Stat - Assessment/Plan Last 24 Hours: My Active Orders 04/27/21 11:16 Peripheral IV Insertion Adult [OM.PC] Stat
[2021-04-27 13:16] VITALS: BP 125/82; PULSE 98
--- NOTE | 2021-04-27 13:35 | CT ---
CT chest Technique: Multiple axial sections through the chest were obtained. Intravenous contrast was utilized. Study has been performed as a pulmonary angiogram protocol. Comparison: Prior CT chest of 03/19/21. Findings: Pulmonary arteries are fairly well opacified. No filling defects are seen to indicate pulmonary embolism. Coronary artery calcification is noted. Scattered lymph nodes are seen within the mediastinum which are felt to be within normal limits. Small portion of the visualized upper abdominal structures show no discrete abnormality. Heart is enlarged. No pericardial thickening is seen. Lung window settings were reviewed which show subpleural cysts and mild emphysematous change. No acute parenchymal change is seen. Bone window settings were reviewed which show minimal degenerative change within the spine. No definite acute osseous abnormality is appreciated. Impression: 1. No findings of pulmonary embolism. 2. Mild emphysematous change and subpleural cysts. 3. Slight cardiomegaly. Diagnostic code #2 I agree with preliminary report from [facility], finalized on 04/27/21, 1:28 PM CDT, code 1
== END 2021-04-27 15:30 ==
LOC: JD.ED 10:54
DX: R06.02 Shortness of breath (principal); F41.9 Anxiety disorder, unspecified; R79.89 Other specified abnormal findings of blood chemistry; I25.10 Atherosclerotic heart disease of native coronary artery without angina pectoris; I11.0 Hypertensive heart disease with heart failure; I50.9 Heart failure, unspecified; E78.00 Pure hypercholesterolemia, unspecified; I25.2 Old myocardial infarction; J44.9 Chronic obstructive pulmonary disease, unspecified; Z79.899 Other long term (current) drug therapy
CPT/HCPCS: 36415; 36600; 71275; 80053; 81001; 82009; 82803; 83605; 83880; 84484; 85025; 85379; 86140; 93005; 96374; 99285; J2060; J7030; Q9967; 93010

== ENCOUNTER 2021-05-10 06:34 | Emergency (ER) | payer OTHER ==
[2021-05-10 06:48] VITALS: BP 136/81; PULSE 111
--- NOTE | 2021-05-10 07:07 | EDM.PDOC ---
ED HPI GENERAL MEDICAL PROBLEM - General Chief Complaint: Respiratory Problem Stated Complaint: DIFFICULTY BREATHING Time Seen by Provider: 05/10/21 07:01 Source of Information: Reports: Patient History Limitations: Reports: No Limitations - History of Present Illness INITIAL COMMENTS - FREE TEXT/NARRATIVE: 61-year-old female who appears much older than her stated age presents to the ED primarily with dyspnea and harsh paroxysmal productive cough. Patient states she was released from [facility] where she stayed for since being admitted from here Apr 27 . Stayed there until discharge MondayMay 08. She continues to have intermittent nosebleeds from both sides. She denies blood running down her throat. She is not on oxygen at home. Here her O2 sats were as low as 72% without oxygen. She is 89 to 90% on 4 L/min by nasal cannula. Harsh paroxysmal productive cough. Loss of appetite with nausea diffuse abdominal distention and discomfort. No diarrhea. No fever no chills. She states she was never diagnosed with coronavirus infection. Does have a history of mild congestive heart failure.ABGs revealed a pH of 7.49. PCO2 is 39.2 with a PO2 of 58 on 4 L/min by nasal cannula. Bicarb is 29.2 O2 sats 90% Onset: Other (Has been ill for the last 10 days.) Duration: Day(s):, Constant, Getting Worse Location: Reports: Chest (Dyspnea with productive cough), Generalized (Generalized weakness inability to eat.), Other (Recurrent epistaxis from both nares.) Quality: Reports: Other (Generalized weakness with paroxysmal productive cough) Severity: Severe Improves with: Reports: Rest, Other (Oxygen is helping somewhat.) Worsens with: Reports: Movement Context: Denies: Activity, Exercise, Lifting, Sick Contact, Trauma, Other Associated Symptoms: Reports: Chest Pain, Cough, cough w sputum (From coughing.), Loss of Appetite, Malaise, Nausea/Vomiting, Shortness of Breath, Weakness, Other (Upper abdominal discomfort.). Denies: Confusion, Diaphoresis ( Productive sounding cough. 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 She is not sure if any were changed while she was in [facility].) - Related Data Allergies Allergy/AdvReac Type Severity Reaction Status Date / Time Penicillins Allergy Rash Verified 05/10/21 06:49 Home Meds: Home Meds Albuterol Sulfate [Albuterol Sulfate Hfa] 8.5 gm IH Q4H PRN 08/12/20 [History] Metoprolol Succinate [Toprol XL 50mg] 50 mg PO DAILY 08/12/20 [History] Albuterol/Ipratropium [DuoNeb 3.0-0.5 MG/3 ML] 3 ml NEB Q6HRRT #30 neb 08/16/20 [Rx] Folic Acid 1 mg PO DAILY #30 tablet 08/16/20 [Rx] Magnesium Oxide 800 mg PO DAILY #30 tablet 08/16/20 [Rx] Multivitamins,Therapeutic [Thera] 1 each PO DAILY tablet 08/16/20 [Rx] Nicotine [Habitrol] 14 mg TRDERM DAILY #30 patch 08/16/20 [Rx] Cholecalciferol (Vitamin D3) [Vitamin D3] 25 mcg PO DAILY 02/25/21 [History] Escitalopram Oxalate 20 mg PO DAILY 02/25/21 [History] Furosemide [Lasix] 40 mg PO DAILY 02/25/21 [History] Acetaminophen 500 mg PO QID 04/27/21 [History] Past Medical History HEENT History: Reports: Impaired Vision Other HEENT History: wears glasses, pt reports that she has a full set of dentures but does not have them here with her. Cardiovascular History: Reports: CAD, Heart Failure, Heart Murmur, High C holesterol, Hypertension, [place], Stents (Placed in 2010 after [place] she thinks 2 stents.) Other Cardiovascular History: [place] 2010 and had a stent placed at that time, history of heart murmur but not heard on exam Respiratory History: Reports: COPD Other Respiratory History: Memory decline in chart, patient states mild and has noticed over time such as loosing keys in apartment, patient A/O x 3 patient states that she is still making her own medical decisions Gastrointestinal History: Reports: Cirrhosis, Gastritis (Recent diagnosis of cirrhosis of the liver.), GERD, GI Bleed, Other (See Below) (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 These was done approximately April 30) Other Gastrointestinal History: Gastritis on EGD 07/2020, hepatosplenomegaly; Vitamin D deficiency, PUD SLIP FEEDER History: Reports: Other SLIP FEEDER History: 3 c-sections Other Musculoskeletal History: Back spasms Psychiatric History: Reports: Addiction, Anxiety, Depression Other Psychiatric History: Insomnia Endocrine/Metabolic History: Reports: Hyperthyroidism, Hypothyroidism Hematologic History: Reports: Anemia, Blood Transfusion(s), Other (See Below) (Recent bone marrow biopsy to look for cause of anemia.) Other Dermatologic History: Edema when fluid overload, no current symptoms - Infectious Disease History Infectious Disease History: Reports: Measles Other Infectious Disease History: Pt had both COVID vaccinations in November and January of 2021, giardia (positive 03/19/21 and chart stated that she was prescibed Flagyl) - Past Surgical History Cardiovascular Surgical History: Reports: Coronary Artery Stent Respiratory Surgical History: Reports: None GI Surgical History: Reports: Colonoscopy, EGD Female Surgical History: Reports: Section Neurological Surgical History: Reports: Lumbar Spine Other Neurological Surgeries/Procedures: Back surgery 2010 Other Musculoskeletal Surgeries/Procedures:: back surgery [place] [address] Ramírez in [place] Social & Family History - Family History Family Medical History: No Pertinent Family History - Tobacco Use Tobacco Use Status *Q: Never Tobacco User - Caffeine Use Caffeine Use: Reports: Coffee Other Caffeine Use: a cup or two everyday. - Living Situation & Occupation Living situation: Reports: , Alone Occupation: Unemployed ED ROS GENERAL - Review of Systems Review Of Systems: See Below Constitutional: Reports: Chills, Malaise, Weakness, Fatigue, Decreased Appetite, Weight Loss HEENT: Reports: Nosebleed (Recurrent epistaxis particularly overnight from both sides of her nares worse on the right as compared to the left. She says she lost a large amount of blood she thinks a liter.), Throat Pain Respiratory: Reports: Shortness of Breath, Wheezing, Cough, Sputum. Denies: Pleuritic Chest Pain Cardiovascular: Reports: Chest Pain, Dyspnea on Exertion, Edema, Lightheadedness, Orthopnea. Denies: Blood Pressure Problem (From coughing.), Claudication Endocrine: Reports: Fatigue GI/Abdominal: Reports: Abdominal Pain (Upper abdominal discomfort. Feels bloated.), Decreased Appetite, Distension, Nausea. Denies: Difficulty Swallowing, Flatus, Hematemesis, Hematochezia, Melena, Stool Incontinence, Vomiting, Other : Reports: Frequency, Incontinence (Urgency incontinence), Urgency Musculoskeletal: Reports: Back Pain, Joint Pain Skin: Reports: Bruising (Mishaps neck at times bruises very easily) Neurological: Reports: Dizziness, Difficulty Walking (Unable to walk without assistance), Weakness. Denies: Confusion, Headache, Numbness, Seizure, Syncope, Tingling Psychiatric: Reports: No Symptoms Hematologic/Lymphatic: Reports: No Symptoms Immunologic: Reports: No Symptoms ED EXAM, GENERAL - Physical Exam Exam: See Below Exam Limited By: Physical Impairment (Very dyspneic can speak in 3-4 word sentences.) General Appearance: Alert, Moderate Distress, Other (Sallow appearance evidence of dried blood both anterior nares around her nasal cannula. Temperature is 36.6 degrees heart rate 111 and sinus tachycardia the monitor respiratory of 28 with O2 sats of only 78% room air. BP 1 3681. O2 sats improved to 90% with 4 L/min by nasal cannula.) Eye Exam: Bilateral Eye: Normal Inspection (Patient has bilateral icteric conjunctiva with pallor), PERRL Ears: Normal TMs Nose: Other (Dried blood both anterior nares worse on the right side as compared to left. No active nasal bleeding at this time.) Throat/Mouth: Other (Tongue is very dry and coated. Oropharynx is dry and slightly erythematous but no signs of infection). No: Inflammation Head: Atraumatic, Normocephalic Neck: Normal Inspection, Limited Range of Motion. No: Carotid Bruit, Lymphadenopathy (L), Lymphadenopathy (R) Respiratory/Chest: No Accessory Muscle Use, Chest Non-Tender, Respiratory Distress (Marked respiratory distress with rhonchi throughout the left lung field.), Decreased Breath Sounds (Decreased breath sounds alert 25% lung mirza bilaterally), Rhonchi (Throughout both lung mirza looks worse on the left side as compared to the right.). No: No Respiratory Distress, Lungs Clear ( Productive sounding cough), Normal Breath Sounds Cardiovascular: No Gallop, No Murmur, No Rub. No: Normal Peripheral Pulses, No Edema Peripheral Pulses: 1+: Dorsalis Pedis (L), Dorsalis Pedis (R), 2+: Carotid (L), Carotid (R) GI/Abdominal: Normal Bowel Sounds, Soft, Distended (Mildly distended tympany to percussion upper abdomen combined with aerophagia), Tender (Mildly tender epigastrium). No: Guarding ( on palpation), Rigid, Rebound Back Exam: Other (Required assistance to sit up in the gurney.). No: CVA Tenderness (L), CVA Tenderness (R) Extremities: Pedal Edema (4+ pitting edema both lower extremities up to the knees.). No: Normal Range of Motion, Joint Swelling (No active synovitis.) Neurological: Alert, Oriented, CN II-XII Intact, Normal Cognition Psychiatric: Anxious Skin Exam: Warm, Dry, Intact, No Rash, Pallor (Mildly pallid) #1 Interpretation EKG Date: 05/10/21 Time: 07:40 Rhythm: NSR Rate (Beats/Min): 90 (Frequent multifocal PVCs) [place]: Normal P-Wave: Enlarged (Left atrial hypertrophy T wave inversion leads V1 V2 nonspecific) QRS: Other (Decreased voltage limb leads. RSR prime wave V2 consider normal variant.) ST-T: Other (Diffuse repolarization abnormality) QT: Prolonged (Markedly prolonged) EKG Interpretation Comments: Abnormal ECG Course - Vital Signs Last Recorded V/S: Last Vital Signs Temp 36.6 C 05/10/21 06:45 Pulse 111 H 05/10/21 06:45 Resp 28 H 05/10/21 06:45 BP 136/81 05/10/21 06:45 Pulse Ox 90 L 05/10/21 10:03 - Orders/Labs/Meds Orders: Active Orders 24 hr Category Date Time Status Oxygen Therapy [RC] ASDIRECTED Care 05/10/21 07:08 Active RT Aerosol Therapy [RC] ASDIRECTED Care 05/10/21 07:15 Active RT BiPAP/CPAP [RC] ASDIRECTED Care 05/10/21 10:14 Active BLOOD CULTURE [MREF] Stat Lab 05/10/21 07:58 Received BLOOD CULTURE [MREF] Stat Lab 05/10/21 08:04 Received Albuterol/Ipratropium [DuoNeb 3.0-0.5 MG/3 ML] Med 05/10/21 07:15 Active 3 ml NEB Q4H PRN Dextrose 5%-0.9% NaCl [Dextrose 5%-Normal Saline] 1,000 Med 05/10/21 07:30 Active ml IV ASDIRECTED Blood Culture x2 Reflex Set [OM.PC] Stat Oth 05/10/21 07:09 Ordered Medication Orders Albuterol/Ipratropium (Albuterol/Ipratropium 3.0-0.5 Mg/3 Ml Neb Soln) 3 ml NEB Q4H PRN PRN Reason: Shortness Of Breath/wheezing Last Admin: 05/10/21 07:35 Dose: 3 ml Documented by: GENARO Dextrose/Sodium Chloride (Dextrose 5%-Normal Saline) 1,000 mls @ 75 mls/hr IV ASDIRECTED FROY Last Admin: 05/10/21 09:53 Dose: 75 mls/hr Documented by: SHER Labs: Laboratory Tests 05/10/21 05/10/21 05/10/21 Range/Units 07:07 07:07 07:28 WBC 9.83 (3.98-10.04) K/mm3 RBC 2.48 L (3.98-5.22) M/mm3 Hgb 8.1 L (11.2-15.7) gm/dl Hct 25.5 L (34.1-44.9) % MCV 102.8 H D (79.4-94.8) fl MCH 32.7 H (25.6-32.2) pg MCHC 31.8 L (32.2-35.5) g/dl RDW Std Deviation 73.7 H (36.4-46.3) fL Plt Count 42 L D (182-369) K/mm3 Neutrophils % (Manual) 93 H (40-60) % Band Neutrophils % 2 (0-10) % Lymphocytes % (Manual) 4 L (20-40) % Atypical Lymphs % 0 % Monocytes % (Manual) 0 L (2-10) % Eosinophils % (Manual) 1 (0.7-5.8) % Basophils % (Manual) 0 L (0.1-1.2) Platelet Estimate Decreased Plt Morphology Comment Normal Macrocytosis 2+ moderate Target Cells 1+ slight Tear Drop Cells 1+ slight RBC Morph Comment Not Reportable ESR (0-20) mm/hr Percent Retic (0.50-1.70) % PT (9.7-12.0) SECONDS INR APTT (21.7-31.4) SECONDS Puncture Site Rt radial ABG pH 7.49 H (7.35-7.45) ABG pCO2 39.2 (35.0-45.0) mmHg ABG pO2 58.0 L (80.0-100.0) mmHg ABG HCO3 29.2 H (22.0-26.0) meq/L ABG O2 Saturation 89.7 L (96.0-97.0) % ABG Base Excess 5.7 H (-2-2.0) Dario Test Positive O2 Delivery Device Nasal cannula Oxygen Flow Rate 4.0 Sodium 136 (136-145) mEq/L Potassium 3.1 L (3.5-5.1) mEq/L Chloride 100 (98-107) mEq/L Carbon Dioxide 28 (21-32) mEq/L Anion Gap 11.1 (5-15) BUN 13 (7-18) mg/dL Creatinine 0.6 (0.55-1.02) mg/dL Est Cr Clr Drug Dosing 91.01 mL/min Estimated GFR (MDRD) > 60 (>60) mL/min BUN/Creatinine Ratio 21.7 H (14-18) Glucose 107 H (70-99) mg/dL Lactic Acid (0.4-2.0) mmol/L Calcium 8.1 L (8.5-10.1) mg/dL Magnesium 1.7 L (1.8-2.4) mg/dL Total Bilirubin 7.3 H (0.2-1.0) mg/dL Direct Bilirubin (0.0-0.2) mg/dl AST 101 H (15-37) U/L ALT 53 (14-59) U/L Alkaline Phosphatase 143 H (46-116) U/L CK-MB (CK-2) 2.1 (0-3.6) ng/ml Troponin I < 0.017 (0.00-0.056) ng/mL C-Reactive Protein 2.4 H* (<1.0) mg/dL NT-Pro-B Natriuret Pep (0-125) pg/mL Total Protein 6.2 L (6.4-8.2) g/dl Albumin 2.4 L (3.4-5.0) g/dl Globulin 3.8 gm/dL Albumin/Globulin Ratio 0.6 L (1-2) Urine Color (Yellow) Urine Appearance (Clear) Urine pH (5.0-8.0) Ur Specific [place] (1.005-1.030) Urine Protein (Negative) Urine Glucose (UA) (Negative) Urine Ketones (Negative) Urine Occult Blood (Negative) Urine Nitrite (Negative) Urine Bilirubin (Negative) Urine Urobilinogen (0.2-1.0) Ur Leukocyte Esterase (Negative) Urine RBC (0-5) /hpf Urine WBC (0-5) /hpf Ur Epithelial Cells (0-5) /hpf Urine Bacteria (FEW) /hpf Urine Mucus (FEW) /hpf Ketones (0.0-0.3) mM SARS-CoV-2 RNA (DEXTER) (NEGATIVE) Blood Type Gel Antibody Screen Direct AHG Gel w KEO 05/10/21 05/10/21 05/10/21 Range/Units 07:28 07:28 07:28 WBC (3.98-10.04) K/mm3 RBC (3.98-5.22) M/mm3 Hgb (11.2-15.7) gm/dl Hct (34.1-44.9) % MCV (79.4-94.8) fl MCH (25.6-32.2) pg MCHC (32.2-35.5) g/dl RDW Std Deviation (36.4-46.3) fL Plt Count (182-369) K/mm3 Neutrophils % (Manual) (40-60) % Band Neutrophils % (0-10) % Lymphocytes % (Manual) (20-40) % Atypical Lymphs % % Monocytes % (Manual) (2-10) % Eosinophils % (Manual) (0.7-5.8) % Basophils % (Manual) (0.1-1.2) Platelet Estimate Plt Morphology Comment Macrocytosis Target Cells Tear Drop Cells RBC Morph Comment ESR 25 H (0-20) mm/hr Percent Retic (0.50-1.70) % PT 16.8 H (9.7-12.0) SECONDS INR 1.54 APTT 28.7 (21.7-31.4) SECONDS Puncture Site ABG pH (7.35-7.45) ABG pCO2 (35.0-45.0) mmHg ABG pO2 (80.0-100.0) mmHg ABG HCO3 (22.0-26.0) meq/L ABG O2 Saturation (96.0-97.0) % ABG Base Excess (-2-2.0) Dario Test O2 Delivery Device Oxygen Flow Rate Sodium (136-145) mEq/L Potassium (3.5-5.1) mEq/L Chloride (98-107) mEq/L Carbon Dioxide (21-32) mEq/L Anion Gap (5-15) BUN (7-18) mg/dL Creatinine (0.55-1.02) mg/dL Est Cr Clr Drug Dosing mL/min Estimated GFR (MDRD) (>60) mL/min BUN/Creatinine Ratio (14-18) Glucose (70-99) mg/dL Lactic Acid (0.4-2.0) mmol/L Calcium (8.5-10.1) mg/dL Magnesium (1.8-2.4) mg/dL Total Bilirubin (0.2-1.0) mg/dL Direct Bilirubin (0.0-0.2) mg/dl AST (15-37) U/L ALT (14-59) U/L Alkaline Phosphatase (46-116) U/L CK-MB (CK-2) (0-3.6) ng/ml Troponin I (0.00-0.056) ng/mL C-Reactive Protein (<1.0) mg/dL NT-Pro-B Natriuret Pep (0-125) pg/mL Total Protein (6.4-8.2) g/dl Albumin (3.4-5.0) g/dl Globulin gm/dL Albumin/Globulin Ratio (1-2) Urine Color (Yellow) Urine Appearance (Clear) Urine pH (5.0-8.0) Ur Specific [place] (1.005-1.030) Urine Protein (Negative) Urine Glucose (UA) (Negative) Urine Ketones (Negative) Urine Occult Blood (Negative) Urine Nitrite (Negative) Urine Bilirubin (Negative) Urine Urobilinogen (0.2-1.0) Ur Leukocyte Esterase (Negative) Urine RBC (0-5) /hpf Urine WBC (0-5) /hpf Ur Epithelial Cells (0-5) /hpf Urine Bacteria (FEW) /hpf Urine Mucus (FEW) /hpf Ketones (0.0-0.3) mM SARS-CoV-2 RNA (DEXTER) (NEGATIVE) Blood Type A POSITIVE Gel Antibody Screen Negative Direct AHG Gel w KEO 05/10/21 05/10/21 05/10/21 Range/Units 07:28 07:28 07:28 WBC (3.98-10.04) K/mm3 RBC (3.98-5.22) M/mm3 Hgb (11.2-15.7) gm/dl Hct (34.1-44.9) % MCV (79.4-94.8) fl MCH (25.6-32.2) pg MCHC (32.2-35.5) g/dl RDW Std Deviation (36.4-46.3) fL Plt Count (182-369) K/mm3 Neutrophils % (Manual) (40-60) % Band Neutrophils % (0-10) % Lymphocytes % (Manual) (20-40) % Atypical Lymphs % % Monocytes % (Manual) (2-10) % Eosinophils % (Manual) (0.7-5.8) % Basophils % (Manual) (0.1-1.2) Platelet Estimate Plt Morphology Comment Macrocytosis Target Cells Tear Drop Cells RBC Morph Comment ESR (0-20) mm/hr Percent Retic (0.50-1.70) % PT (9.7-12.0) SECONDS INR APTT (21.7-31.4) SECONDS Puncture Site ABG pH (7.35-7.45) ABG pCO2 (35.0-45.0) mmHg ABG pO2 (80.0-100.0) mmHg ABG HCO3 (22.0-26.0) meq/L ABG O2 Saturation (96.0-97.0) % ABG Base Excess (-2-2.0) Dario Test O2 Delivery Device Oxygen Flow Rate Sodium (136-145) mEq/L Potassium (3.5-5.1) mEq/L Chloride (98-107) mEq/L Carbon Dioxide (21-32) mEq/L Anion Gap (5-15) BUN (7-18) mg/dL Creatinine (0.55-1.02) mg/dL Est Cr Clr Drug Dosing mL/min Estimated GFR (MDRD) (>60) mL/min BUN/Creatinine Ratio (14-18) Glucose (70-99) mg/dL Lactic Acid 1.4 (0.4-2.0) mmol/L Calcium (8.5-10.1) mg/dL Magnesium (1.8-2.4) mg/dL Total Bilirubin (0.2-1.0) mg/dL Direct Bilirubin (0.0-0.2) mg/dl AST (15-37) U/L ALT (14-59) U/L Alkaline Phosphatase (46-116) U/L CK-MB (CK-2) (0-3.6) ng/ml Troponin I (0.00-0.056) ng/mL C-Reactive Protein (<1.0) mg/dL NT-Pro-B Natriuret Pep 3359 H (0-125) pg/mL Total Protein (6.4-8.2) g/dl Albumin (3.4-5.0) g/dl Globulin gm/dL Albumin/Globulin Ratio (1-2) Urine Color (Yellow) Urine Appearance (Clear) Urine pH (5.0-8.0) Ur Specific [place] (1.005-1.030) Urine Protein (Negative) Urine Glucose (UA) (Negative) Urine Ketones (Negative) Urine Occult Blood (Negative) Urine Nitrite (Negative) Urine Bilirubin (Negative) Urine Urobilinogen (0.2-1.0) Ur Leukocyte Esterase (Negative) Urine RBC (0-5) /hpf Urine WBC (0-5) /hpf Ur Epithelial Cells (0-5) /hpf Urine Bacteria (FEW) /hpf Urine Mucus (FEW) /hpf Ketones 0.95 (0.0-0.3) mM SARS-CoV-2 RNA (DEXTER) (NEGATIVE) Blood Type Gel Antibody Screen Direct AHG Gel w KEO 05/10/21 05/10/21 05/10/21 Range/Units 07:28 07:28 07:28 WBC (3.98-10.04) K/mm3 RBC (3.98-5.22) M/mm3 Hgb (11.2-15.7) gm/dl Hct (34.1-44.9) % MCV (79.4-94.8) fl MCH (25.6-32.2) pg MCHC (32.2-35.5) g/dl RDW Std Deviation (36.4-46.3) fL Plt Count (182-369) K/mm3 Neutrophils % (Manual) (40-60) % Band Neutrophils % (0-10) % Lymphocytes % (Manual) (20-40) % Atypical Lymphs % % Monocytes % (Manual) (2-10) % Eosinophils % (Manual) (0.7-5.8) % Basophils % (Manual) (0.1-1.2) Platelet Estimate Plt Morphology Comment Macrocytosis Target Cells Tear Drop Cells RBC Morph Comment ESR (0-20) mm/hr Percent Retic 2.29 H (0.50-1.70) % PT (9.7-12.0) SECONDS INR APTT (21.7-31.4) SECONDS Puncture Site ABG pH (7.35-7.45) ABG pCO2 (35.0-45.0) mmHg ABG pO2 (80.0-100.0) mmHg ABG HCO3 (22.0-26.0) meq/L ABG O2 Saturation (96.0-97.0) % ABG Base Excess (-2-2.0) Dario Test O2 Delivery Device Oxygen Flow Rate Sodium (136-145) mEq/L Potassium (3.5-5.1) mEq/L Chloride (98-107) mEq/L Carbon Dioxide (21-32) mEq/L Anion Gap (5-15) BUN (7-18) mg/dL Creatinine (0.55-1.02) mg/dL Est Cr Clr Drug Dosing mL/min Estimated GFR (MDRD) (>60) mL/min BUN/Creatinine Ratio (14-18) Glucose (70-99) mg/dL Lactic Acid (0.4-2.0) mmol/L Calcium (8.5-10.1) mg/dL Magnesium (1.8-2.4) mg/dL Total Bilirubin (0.2-1.0) mg/dL Direct Bilirubin 2.00 H (0.0-0.2) mg/dl AST (15-37) U/L ALT (14-59) U/L Alkaline Phosphatase (46-116) U/L CK-MB (CK-2) (0-3.6) ng/ml Troponin I (0.00-0.056) ng/mL C-Reactive Protein (<1.0) mg/dL NT-Pro-B Natriuret Pep (0-125) pg/mL Total Protein (6.4-8.2) g/dl Albumin (3.4-5.0) g/dl Globulin gm/dL Albumin/Globulin Ratio (1-2) Urine Color (Yellow) Urine Appearance (Clear) Urine pH (5.0-8.0) Ur Specific [place] (1.005-1.030) Urine Protein (Negative) Urine Glucose (UA) (Negative) Urine Ketones (Negative) Urine Occult Blood (Negative) Urine Nitrite (Negative) Urine Bilirubin (Negative) Urine Urobilinogen (0.2-1.0) Ur Leukocyte Esterase (Negative) Urine RBC (0-5) /hpf Urine WBC (0-5) /hpf Ur Epithelial Cells (0-5) /hpf Urine Bacteria (FEW) /hpf Urine Mucus (FEW) /hpf Ketones (0.0-0.3) mM SARS-CoV-2 RNA (DEXTER) (NEGATIVE) Blood Type Gel Antibody Screen Direct AHG Gel w KEO Negative 05/10/21 05/10/21 Range/Units 07:58 09:35 WBC (3.98-10.04) K/mm3 RBC (3.98-5.22) M/mm3 Hgb (11.2-15.7) gm/dl Hct (34.1-44.9) % MCV (79.4-94.8) fl MCH (25.6-32.2) pg MCHC (32.2-35.5) g/dl RDW Std Deviation (36.4-46.3) fL Plt Count (182-369) K/mm3 Neutrophils % (Manual) (40-60) % Band Neutrophils % (0-10) % Lymphocytes % (Manual) (20-40) % Atypical Lymphs % % Monocytes % (Manual) (2-10) % Eosinophils % (Manual) (0.7-5.8) % Basophils % (Manual) (0.1-1.2) Platelet Estimate Plt Morphology Comment Macrocytosis Target Cells Tear Drop Cells RBC Morph Comment ESR (0-20) mm/hr Percent Retic (0.50-1.70) % PT (9.7-12.0) SECONDS INR APTT (21.7-31.4) SECONDS Puncture Site ABG pH (7.35-7.45) ABG pCO2 (35.0-45.0) mmHg ABG pO2 (80.0-100.0) mmHg ABG HCO3 (22.0-26.0) meq/L ABG O2 Saturation (96.0-97.0) % ABG Base Excess (-2-2.0) Dario Test O2 Delivery Device Oxygen Flow Rate Sodium (136-145) mEq/L Potassium (3.5-5.1) mEq/L Chloride (98-107) mEq/L Carbon Dioxide (21-32) mEq/L Anion Gap (5-15) BUN (7-18) mg/dL Creatinine (0.55-1.02) mg/dL Est Cr Clr Drug Dosing mL/min Estimated GFR (MDRD) (>60) mL/min BUN/Creatinine Ratio (14-18) Glucose (70-99) mg/dL Lactic Acid (0.4-2.0) mmol/L Calcium (8.5-10.1) mg/dL Magnesium (1.8-2.4) mg/dL Total Bilirubin (0.2-1.0) mg/dL Direct Bilirubin (0.0-0.2) mg/dl AST (15-37) U/L ALT (14-59) U/L Alkaline Phosphatase (46-116) U/L CK-MB (CK-2) (0-3.6) ng/ml Troponin I (0.00-0.056) ng/mL C-Reactive Protein (<1.0) mg/dL NT-Pro-B Natriuret Pep (0-125) pg/mL Total Protein (6.4-8.2) g/dl Albumin (3.4-5.0) g/dl Globulin gm/dL Albumin/Globulin Ratio (1-2) Urine Color Dark yellow (Yellow) Urine Appearance Clear (Clear) Urine pH 7.5 (5.0-8.0) Ur Specific [place] 1.020 (1.005-1.030) Urine Protein Negative (Negative) Urine Glucose (UA) Negative (Negative) Urine Ketones Trace H (Negative) Urine Occult Blood Negative (Negative) Urine Nitrite Negative (Negative) Urine Bilirubin Negative (Negative) Urine Urobilinogen 0.2 (0.2-1.0) Ur Leukocyte Esterase Trace H (Negative) Urine RBC 0-5 (0-5) /hpf Urine WBC 0-5 (0-5) /hpf Ur Epithelial Cells 0-5 (0-5) /hpf Urine Bacteria Few (FEW) /hpf Urine Mucus Rare (FEW) /hpf Ketones (0.0-0.3) mM SARS-CoV-2 RNA (DEXTER) Negative (NEGATIVE) Blood Type Gel Antibody Screen Direct AHG Gel w KEO Meds: Medications Generic Name Dose Route Start Last Admin Trade Name Freq PRN Reason Stop Dose Admin Albuterol/Ipratropium 3 ml 05/10/21 07:15 05/10/21 07:35 Albuterol/Ipratropium 3.0-0.5 Mg/3 Ml Neb Soln NEB 3 ml Q4H PRN Administration Shortness Of Breath/wheezing Dextrose/Sodium Chloride 1,000 mls @ 75 mls/hr 05/10/21 07:30 05/10/21 09:53 Dextrose 5%-Normal Saline IV 75 mls/hr ASDIRECTED FROY Administration Discontinued Medications Generic Name Dose Route Start Last Admin Trade Name Freq PRN Reason Stop Dose Admin Furosemide 60 mg 05/10/21 07:17 05/10/21 09:18 Furosemide 40 Mg/4 Ml Vial IVPUSH 05/10/21 07:18 60 mg NOW ONE Administration Furosemide 40 mg 05/10/21 14:56 05/10/21 15:20 Furosemide 40 Mg/4 Ml Vial IVPUSH 05/10/21 14:57 40 mg NOW ONE Administration Ceftriaxone Sodium 2 gm/ 100 mls @ 200 mls/hr 05/10/21 08:46 05/10/21 09:23 Sodium Chloride IV 05/10/21 09:15 200 mls/hr ONETIME ONE Administration Potassium Chloride 10 meq/ 100 mls @ 100 mls/hr 05/10/21 09:00 05/10/21 12:31 Premix IV 05/10/21 11:59 100 mls/hr Q1H FROY Administration - Radiology Interpretation Free Text/Narrative:: 61-year-old female presents to the ED with chief complaint of dyspnea and paroxysmal productive cough. Denies any recent fever. She states she was released from [facility] days ago after staying there for 5 days with similar symptoms productive cough dyspnea and recurrent nosebleeds. Nose is not currently bleeding. She has hypoxic with O2 sats of 78% on room air. Tachypneic with rhonchi throughout both lung mirza worse on the left. Suspicious for pneumonia versus congestive failure or both. She does have increased JVD and dependent edema up to her knees. Plan D5 normal saline at 75 mils an hour. Lasix 60 mg IV. O2 will be placed at nasal cannula at 4 L/min. ABGs to be done. Chest x-ray and septic work-up. Patient clinically is in significant congestive failure. We will give Lasix 60 mg IV. - Re-Assessments/Exams Free Text/Narrative Re-Assessment/Exam: 05/10/21 08:03 O2 sats are staying around 90% on 4 L. Bumped up to 5 L/min by nasal cannula once blood gases came back. 05/10/21 08:06 chest x-ray reveals bilateral dense infiltrates involving all lobes of the lungs. Findings are a combination of interstitial and alveolar. Mild cardiac hypertrophy. Mediastinum appears normal. O2 sats are 94 to 95% on 5 L/min nasal cannula. 05/10/21 08:36 White count is 9.83 with 93% neutrophils and 2% bands cells reported. Hemoglobin is low at 8.1 with hematocrit of 25.5. MCV is 102.8. Of note there are only 4% lymphocytes. The slide reveals 2+ macrocytosis 1+ target cells 1+ teardrop cells compared with splenomegaly. Platelet count is low at 42,000.. Sodium is 136 with a potassium low at 3.1. Chloride 100 with a bicarb of 28. Anion gap is 11.1. BUN is 13 with a creatinine of 0.6 estimated GFR is greater than 60. Glucose was 107 lactic acid 1.4. Calcium is low at 8.1. Magnesium slightly low at 1.7. Total bilirubin elevated at 7.3 AST is 101 with an ALT of 53 and alkaline phosphatase of 143. Troponin I is less than 0.017. C-reactive protein 2.4 .BNP is 3359. Total protein is 6.2 with an albumin fraction of 2.4. The cause of the elevated bilirubin is appears to be likely due to hemolysis. I will order a direct bilirubin a Sterling test and a reticulocyte count. Due to the left shift and labs she will be given Rocephin 2 g IV. She will also receive potassium via K rider x3 each over an hour. Plan will be to admit her to the hospital once a bed becomes available. 05/10/21 11:12 Further history now available on this patient from her recent admission to [facility] in [facility]. 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 Part of the complications were that of spontaneous hemorrhage within her lungs I presume from heparin use. Patient is currently satting at 91 to 92% on BiPAP at 12/6 millimeters of mercury. Speak with Dr. Faust construction inspector hospitalist with a view to admission to the hospital preferably to an intensive care bed. Serum ketones are mildly elevated at 0.95. COVID-19 screen is negative.Coags reveal a PT of 16.8 with an INR of 1.54 and a PTT of 28.7. Percentage of reticular-like sites is 2.29%. Sed rate was 25. Urinalysis obtained by catheterization reveals trace leuks leukocyte Estrace but no signs of white blood cells or red cells on the micro. 05/10/21 14:55 patient has completed 3 doses of potassium chloride 10 mEq each intravenously. Care has been accepted by [facility] in [place]. She will be transferred to that facility per ground ambulance. O2 sats are slowly improving up to 96 to 97% as she is continuing to diurese. Going to give her further dose of Lasix 40 mg IV since it has been 7 hours since the last dose. Departure - Departure Time of Disposition: 16:22 Disposition: DC/Tfer to [facility] 02 Condition: Serious Clinical Impression: Hypoxemia requiring supplemental oxygen, Thrombocytopenia, Hyperbilirubinemia, COPD exacerbation, Atherosclerosis of abdominal aorta Congestive heart failure Qualifiers: Heart failure type: diastolic Heart failure chronicity: acute on chronic Qualified Code(s): I50.33 - Acute on chronic diastolic (congestive) heart failure Anemia Qualifiers: Anemia type: other cause Other causes of anemia: acute posthemorrhagic Qualified Code(s): D62 - Acute posthemorrhagic anemia Malnutrition Qualifiers: Malnutrition type: protein-calorie malnutrition Protein-calorie malnutrition severity: mild Qualified Code(s): E44.1 - Mild protein-calorie malnutrition - Discharge Information *PRESCRIPTION DRUG MONITORING PROGRAM REVIEWED*: Not Applicable *COPY OF PRESCRIPTION DRUG MONITORING REPORT IN PATIENT JOON: Not Applicable Sepsis Event Note (ED) - Evaluation Sepsis Screening Result: No Definite Risk - Focused Exam Vital Signs: Vital Signs Temp Pulse Resp BP Pulse Ox Pulse Ox 05/10/21 10:03 90 L 05/10/21 08:04 91 L 05/10/21 07:15 92 L 05/10/21 06:45 36.6 C 111 H 28 H 136/81 78 L - My Orders Last 24 Hours: My Active Orders 05/10/21 07:08 Oxygen Therapy [RC] ASDIRECTED 05/10/21 07:09 Blood Culture x2 Reflex Set [OM.PC] Stat 05/10/21 07:15 RT Aerosol Therapy [RC] ASDIRECTED Albuterol/Ipratropium [DuoNeb 3.0-0.5 MG/3 ML] 3 ml NEB Q4H PRN 05/10/21 07:30 Dextrose 5%-0.9% NaCl [Dextrose 5%-Normal Saline] 1,000 ml IV ASDIRECTED 05/10/21 07:58 BLOOD CULTURE [MREF] Stat 05/10/21 08:04 BLOOD CULTURE [MREF] Stat 05/10/21 10:14 RT BiPAP/CPAP [RC] ASDIRECTED - Assessment/Plan Last 24 Hours: My Active Orders 05/10/21 07:08 Oxygen Therapy [RC] ASDIRECTED 05/10/21 07:09 Blood Culture x2 Reflex Set [OM.PC] Stat 05/10/21 07:15 RT Aerosol Therapy [RC] ASDIRECTED Albuterol/Ipratropium [DuoNeb 3.0-0.5 MG/3 ML] 3 ml NEB Q4H PRN 05/10/21 07:30 Dextrose 5%-0.9% NaCl [Dextrose 5%-Normal Saline] 1,000 ml IV ASDIRECTED 05/10/21 07:58 BLOOD CULTURE [MREF] Stat 05/10/21 08:04 BLOOD CULTURE [MREF] Stat 05/10/21 10:14 RT BiPAP/CPAP [RC] ASDIRECTED
[2021-05-10] MEDS ORDERED: Albuterol/Ipratropium 3.0-0.5 MG/3 ML Neb Soln NEB PRN (07:15)
[2021-05-10] MEDS ORDERED: Furosemide 40 MG/4 ML VIAL IVPUSH ONE ×2 (07:17→14:56)
[2021-05-10] MEDS ORDERED: Dextrose 5%-0.9% NaCl 1,000 ML IV SCH (07:30)
--- NOTE | 2021-05-10 08:26 | CR ---
Chest: Portable view of the chest was obtained. Comparison: Prior chest x-ray 04/26/[address] study of 04/27/21. Heart is enlarged. Upper mediastinum is normal. Diffuse increased density is identified within both sides of the chest. Findings are a combination of interstitial and alveolar. Bony structures show nothing acute. Impression: 1. Diffusely increased density within both sides of the chest which has the appearance of both interstitial and alveolar change. Please correlate if patient has any symptoms of prominent pulmonary edema from CHF. Diagnostic code #3
[2021-05-10] MEDS ORDERED: cefTRIAXone 2 GM in Sodium Chloride 0.9% 100 ML IV ONE (08:46)
[2021-05-10] MEDS: Potassium Chloride 10 MEQ in Premix Bag 1 BAG IV SCH ×3 (09:54→12:31)
== END 2021-05-10 16:40 ==
LOC: JD.ED 06:34 → UNDOADMIN 13:56 → JD.ICU 13:56 → JD.MS 13:57
DX: J44.1 Chronic obstructive pulmonary disease with (acute) exacerbation (principal); I25.10 Atherosclerotic heart disease of native coronary artery without angina pectoris; I11.0 Hypertensive heart disease with heart failure; I50.33 Acute on chronic diastolic (congestive) heart failure; I70.0 Atherosclerosis of aorta; D62 Acute posthemorrhagic anemia; D69.6 Thrombocytopenia, unspecified; E80.6 Other disorders of bilirubin metabolism; E78.00 Pure hypercholesterolemia, unspecified; I25.2 Old myocardial infarction; E44.1 Mild protein-calorie malnutrition; Z95.5 Presence of coronary angioplasty implant and graft; Z88.0 Allergy status to penicillin; Z20.822 Contact with and (suspected) exposure to COVID-19; Z99.81 Dependence on supplemental oxygen
CPT/HCPCS: 36415; 36600; 71045; 80053; 81001; 82009; 82248; 82553; 82803; 83605; 83735; 83880; 84484; 85007; 85027; 85045; 85610; 85652; 85730; 86140; 86850; 86900; 86901; 87040; 87635; 93005; 94640; 94660; 96365; 96366; 96367; 96375; 96376; 99285; J0696; J1940; J3480; J7042; J7620-GY; U0002